=== PATIENT | male | born 1980 | race Caucasian/White ===

== ENCOUNTER 2017-12-06 21:42 | Emergency (ER) | payer OTHER, SELFPAY ==
[2017-12-06 21:43] VITALS: BP 160/110; PULSE 115; RESP 16; TEMP 37.2; O2SAT 99; BMI 29.0
[2017-12-06 21:48] VITALS: BP 159/113; PULSE 113; RESP 18; O2SAT 99
--- NOTE | 2017-12-06 22:53 | ED.VISSUMM ---
- ER Visit Summary Date of Service: 12/06/17 Chief Complaint: Ran out of pain medication History of Present Illness: The patient is a 37 M status post left wrist surgery last month at [facility] presenting requesting a medication refill. He states that he has an appointment with his orthopedic surgeon Friday but that he ran out of pain medication and just needs something to last him until then. He denies any wound drainage, redness, swelling, or warmth. He is not concerned about infection and states that he is here only for a medication refill. Denies any new symptoms or increased pain. Physical Examination: Left wrist splint was taken down. Incisions look great. No evidence of infection. No erythema, warmth, or wound drainage. Test Results: Emergency Department Course and Treatment: His splint and dressings were replaced. He does not have any evidence of infection. Does not want any testing done here and is requesting pain control only. Treatment Plan: Pain was addressed. Prescription history reviewed. Will refill short course of medication and keep his appointment on Friday. Return if any evidence of infection or call his surgeon. Disposition: Home stable Impression: Initial encounter medication refill This note was generated with [email or web address] dictation software. It may contain incorrect words, spelling, and punctuation that were not noted in review of the chart prior to signing ED Disposition - Plan for ED Patient: Chief Complaint: Upper Extremity Injury Instructions: ED Splint Care Babs Prescriptions: Oxycodone HCl/Acetaminophen [Percocet 5/325] 1 tablet PO Q6H PRN PRN 3 Days #12 tablet PRN Reason: Pain Additional Instructions: See Dr. Liu Friday
--- NOTE | 2017-12-06 22:59 | ED.VISSUMM ---
- ER Visit Summary Date of Service: 12/06/17 Chief Complaint: [] History of Present Illness: The patient is a 37 M [] Physical Examination: [] Test Results: [] Emergency Department Course and Treatment: [] Treatment Plan: [] Disposition: [] Impression: [] This note was generated with [employer] dictation software. It may contain incorrect words, spelling, and punctuation that were not noted in review of the chart prior to signing ED Disposition - Plan for ED Patient: Chief Complaint: Upper Extremity Injury Instructions: ED Splint Care Babs Prescriptions: Oxycodone HCl/Acetaminophen [Percocet 5/325] 1 tablet PO Q6H PRN PRN 3 Days #12 tablet PRN Reason: Pain Additional Instructions: See Dr. Liu Miguel
[2017-12-06] MEDS: oxyCODONE 5 MG Tablet PO (23:10)
[2017-12-06 23:12] VITALS: BP 153/109; PULSE 106; RESP 15; O2SAT 99
== END 2017-12-06 23:13 | disposition home or self-care (01) ==
PROVIDERS: Emergency Provider Emergency Medicine; Family Provider Family Medicine; PCP Family Medicine
DX: Z76.0 Encounter for issue of repeat prescription (principal)
CPT/HCPCS: 99282

== ENCOUNTER 2018-02-10 03:40 | Emergency (ER) | payer OTHER, SELFPAY ==
[2018-02-10 03:40] VITALS: BP 176/114; PULSE 104; RESP 16; TEMP 36.9; O2SAT 97; BMI 30.9
--- NOTE | 2018-02-10 04:02 | CT_ITS ---
STUDY: CT ABDOMEN AND PELVIS WITH CONTRAST REASON FOR EXAM: Male, 37 years old. Right lower quadrant pain since Friday. RADIATION DOSAGE (If Supplied By Facility): CTDIvol = ( 15.93 ) mGy, DLP = ( 1256.70 ) mGycm TECHNIQUE: Transaxial images were obtained from the dome of the diaphragm to the symphysis pubis with oral contrast. 100ML ml of Isovue 300 contrast was administered. Sagittal and coronal images were reconstructed. Individualized dose optimization techniques were used for this CT. COMPARISON: 10/08/2016. FINDINGS: The visualized lung bases are unremarkable. The visualized portions of the heart are within normal limits. Normal liver. Normal gallbladder and extrahepatic biliary system. Normal spleen. Normal pancreas. Normal bilateral adrenal glands. Normal right kidney. Normal left kidney. Normal visualized stomach. Normal small intestine. Normal colon. The appendix is visualized on axial images 86-91 and it appears normal.. Normal abdominal aorta. Normal inferior vena cava. Normal retroperitoneum. Normal urinary bladder. There is a small umbilical hernia containing fat, but no bowel. There is left unilateral spondylolysis L5 without associated spondylolisthesis. CT/Abdomen/Pelvis WITH Contrast IMPRESSION: Small umbilical hernia contains fat, but no bowel. No evidence for acute pathology. No evidence for appendicitis or diverticulitis. No demonstrated urinary calculi or hydronephrosis. Electronically Signed: Emre Yin MD at 6:03 EDT , Service support ,
--- NOTE | 2018-02-10 04:03 | ED.VISSUMM ---
- ER Visit Summary Date of Service: 02/10/18 Chief Complaint: Abdominal pain History of Present Illness: The patient is a 37 M presenting with abdominal pain. He states this started gradually on Friday and has worsened throughout the weekend. He has had nausea and vomiting. He denies diarrhea or constipation. He has mild dysuria. He denies fever. He has a decreased appetite. No history of similar symptoms in the past. No other complaints. Physical Examination: Vitals are stable. Patient is afebrile. Alert no acute distress. HEENT exam is unremarkable. Neck is supple. Lungs are clear and equal bilaterally. Heart is regular rate and rhythm. Abdomen is soft right lower quadrant tenderness with voluntary guarding, no rebound Extremities are unremarkable. Skin is warm and dry. Remainder of exam is unremarkable. Emergency Department Course and Treatment: Patient is given IV fluids, morphine, Zofran. CBC, chemistries unremarkable. Liver enzymes show ALT 115, AST 63, lipase is normal. Urinalysis unremarkable. Patient continued to have pain was given Dilaudid IV. CT abdomen pelvis with IV and oral contrast shows umbilical hernia, no acute pathology. He continues to have pain and a gallbladder ultrasound was obtained and shows fatty liver. He was given additional dose of morphine. On reevaluation he is resting comfortably. He does still have tenderness to palpation in the right upper and lower quadrant. He is given a GI cocktail. He is requesting discharge. He is requesting narcotics for home. He is given prescription for Bentyl and Zofran. He is advised to follow-up with his primary care physician. Advised return to ED for any worsening complaints. Disposition: Discharge home Impression: Abdominal pain This note was generated with [employer] dictation software. It may contain incorrect words, spelling, and punctuation that were not noted in review of the chart prior to signing ED Disposition - Plan for ED Patient: Chief Complaint: Abd Pain Instructions: ED Abdominal Pain Unkn Cause Prescriptions: Ondansetron [Zofran Odt] 4 mg PO Q8H PRN PRN #10 tablet PRN Reason: Nausea Dicyclomine HCl [Bentyl] 20 mg PO TIDAC #20 capsule Referrals: Kurt Horta MD [Primary Care Provider] -
[2018-02-10] MEDS: Morphine 4 MG/ML Syringe IV (04:10)
[2018-02-10] MEDS: Ondansetron 4 MG/2 ML Vial IV (04:10)
[2018-02-10] MEDS: 0.9% Normal Saline 1,000 ML 1000 ML IV (04:10)
[2018-02-10 04:12] LABS: Absolute Lymphocyte Count 4.05 X10^3/ul (0.83-4.51); Absolute Neutrophil Count 5.2 X10^3/uL (2.0-7.7); Basophil# 0.07 X10^3/uL; Basophil% 0.7 % (0-1); Eosinophil# 0.29 X10^3/uL; Eosinophils% 2.8 % (0-5); Hematocrit 42.9 % (40-54); Hemoglobin 15.1 g/dl (13.0-16.5); Lymphocyte # 4.05 X10^3/ul (4.0); Lymphocyte % 39.1 % (19-41); Mean Corp Hgb Conc 35.2 g/gl (32-36); Mean Corpuscular Hgb 29.8 pg (27.0-32.0); Mean Corpuscular Volume 84.6 fL (80-94); Mean Platelet Vol. 10.9 fl (6.2-12.0); Monocyte# 0.63 X10^3/uL; Monocyte% 6.1 % (0-10); Neutrophil # 5.19 X10^3/uL (2.7-7.7); Platelet Count 267 K/mm3 (150-450); RBC Distribution Width CV 13.2 % (11.6-14.6); Red Blood Count 5.07 M/mm3 (4.6-6.2); White Blood Count 10.4 K/mm3 (4.4-11.0)
[2018-02-10 04:13] VITALS: BP 194/111; PULSE 68; RESP 16; O2SAT 96
[2018-02-10 04:17] LABS: POSITIVE COUNT NO; POSITIVE DIFFERENTIAL NO; POSITIVE MORPHOLOGY NO
[2018-02-10 04:21] LABS: Anion Gap 10 (5-15); BUN 9 mg/dL (7-18); BUN/Creat Ratio 8.7 RATIO (10-20); Calcium,Total 8.9 mg/dL (8.5-10.1); Chloride 103 mmol/L (98-107); Creatinine, Serum 1.04 mg/dL (0.70-1.30); EST Glomerular Filtration Rate 86 mL/min (>60); Est Glom Filt Rate - Afr Amer 104 mL/min (>60); Estimated Creatinine Clearance 107.78 ml/min; Glucose 97 mg/dL (74-106); Potassium 3.5 mmol/L (3.5-5.1); Sodium Level 140 mmol/L (136-145)
[2018-02-10 05:00] LABS: Bacteria 0 SEEN /hpf (None Seen); Color, Urine Yellow (Yellow); Glucose, Dipstick Normal (Normal); Ketone-Dipstick Negative (Negative); Leukocyte Esterase-Dipstick Negative /ul (Negative); Nitrite-Dipstick Negative (Negative); Occult Blood-Urine Negative /ul (Negative); Protein-Dipstick Negative (Negative); Red Blood Cells-Urine 0 SEEN /hpf (0-5); Squamous Epithelial Cells - UA 0 SEEN /hpf (0-5); Urine Bilirubin Dipstick Negative (Negative); Urine Clarity Clear (Clear); Urine Urobilinogen Normal (Normal); White Blood Cells 0 SEEN /hpf (0-5)
[2018-02-10 05:11] LABS: Mucous, Urine RARE /hpf (<or=2+)
[2018-02-10] MEDS: HYDROmorphone 1 MG/ML Syringe IV (05:18)
--- NOTE | 2018-02-10 06:35 | US_ITS ---
STUDY: ABDOMINAL ULTRASOUND - RIGHT UPPER QUADRANT REASON FOR VISIT: Male, 37 years old. 3 day history of right-sided abdominal pain. TECHNIQUE: Ultrasound evaluation of the right upper quadrant was performed with real-time and static harkins-scale imaging. TECHNICAL QUALITY: Adequate. COMPARISON: Comparison is made with prior CT scan of the abdomen done earlier in the day and prior ultrasound of the abdomen dated October 08, 2016. FINDINGS: Liver: The liver measures 17.0 cm. There is increased echogenicity consistent with fatty infiltration. Focal fatty sparing is seen in the region of the gallbladder fossa. The bile ducts are within normal limits. There is hepatic color flow. The direction of portal flow is hepatopetal. There is no demonstrated mass lesion. Gallbladder: Normal distended gallbladder. The gallbladder wall measures 2.6 mm. There is a negative sonographic Baxter's sign. There is no pericholecystic fluid. There are no gallstones. Common Bile Duct (C.B.D.): The common bile duct measures 3.2 mm. Pancreas: Normal size of the head, body and tail of the pancreas. There is increased echogenicity of the pancreas. There is no demonstrated pancreatic mass or cyst. Right Kidney: Normal size of the right kidney. The right kidney measures 10.3 cm x 5.4 cm x 6.4 cm. Normal renal cortex. The right cortex measures 2.1 cm. There is no demonstrated renal mass or cyst. There is no right hydronephrosis. US/Gallbladder IMPRESSION: Fatty infiltration of the liver with focal fatty sparing. Electronically Signed: Abiodun Archer MD at 8:27 EDT Tel [phone], Service support ,
[2018-02-10 06:56] VITALS: BP 162/115; PULSE 97; RESP 16; O2SAT 93
[2018-02-10] MEDS: morphine 8 MG/ML Syringe IV (06:57)
[2018-02-10 07:03] LABS: AST(SGOT) 63 U/L (15-37); Alanine Aminotransfer ALT/SGPT 115 U/L (16-61); Albumin, Serum 4.2 g/dL (3.2-5.0); Alkaline Phosphatase 117 U/L (45-117); Bilirubin, Direct 0.05 mg/dL (0.00-0.30); Globulin 3.7 g/dL (2.2-4.2); Protein, Total 7.9 g/dL (6.4-8.2)
[2018-02-10 07:13] LABS: Lipase 102 U/L (73-393)
[2018-02-10 08:18] VITALS: BP 156/104; PULSE 94; RESP 18; O2SAT 91
--- NOTE | 2018-02-10 09:12 | ED.DEP ---
ED Disposition - Plan for ED Patient: Chief Complaint: Abd Pain Instructions: ED Abdominal Pain Unkn Cause Prescriptions: Ondansetron [Zofran Odt] 4 mg PO Q8H PRN PRN #10 tablet PRN Reason: Nausea Dicyclomine HCl [Bentyl] 20 mg PO TIDAC #20 capsule Referrals: Kurt Horta MD [Primary Care Provider] -
[2018-02-10] MEDS: Mag Hydrox/Al Hydrox/Simeth 30 ML UDC PO (09:23)
== END 2018-02-10 09:42 | disposition home or self-care (01) ==
PROVIDERS: Emergency Provider Emergency Medicine; Family Provider Family Medicine; PCP Family Medicine
DX: R10.9 Unspecified abdominal pain (principal); K76.0 Fatty (change of) liver, not elsewhere classified; K42.9 Umbilical hernia without obstruction or gangrene; R11.2 Nausea with vomiting, unspecified; R30.0 Dysuria
CPT/HCPCS: 74177; 76705; 80048; 80076; 81001; 83690; 85025; 96361; 96374; 96375; 96376; 99282; J7030; Q9967; A4216; J2405

== ENCOUNTER 2018-02-11 00:13 | Emergency (ER) | payer OTHER, SELFPAY ==
[2018-02-11 00:13] VITALS: BP 180/137; PULSE 106; RESP 18; TEMP 37.5; O2SAT 98; BMI 30.6
[2018-02-11] MEDS: Ketorolac 30 MG/ML Syringe IV (00:35)
[2018-02-11] MEDS: 0.9% Normal Saline 1,000 ML 1000 ML IV (00:35)
[2018-02-11 00:37] LABS: Absolute Lymphocyte Count 2.62 X10^3/ul (0.83-4.51); Absolute Neutrophil Count 4.3 X10^3/uL (2.0-7.7); Basophil# 0.05 X10^3/uL; Basophil% 0.6 % (0-1); Eosinophil# 0.24 X10^3/uL; Eosinophils% 3.1 % (0-5); Hematocrit 44.3 % (40-54); Hemoglobin 15.3 g/dl (13.0-16.5); Lymphocyte # 2.62 X10^3/ul (4.0); Lymphocyte % 33.9 % (19-41); Mean Corp Hgb Conc 34.5 g/gl (32-36); Mean Corpuscular Hgb 29.4 pg (27.0-32.0); Mean Corpuscular Volume 85.2 fL (80-94); Mean Platelet Vol. 10.6 fl (6.2-12.0); Monocyte# 0.48 X10^3/uL; Monocyte% 6.2 % (0-10); Neutrophil # 4.26 X10^3/uL (2.7-7.7); Neutrophil % 55.3 % (47-70); Platelet Count 268 K/mm3 (150-450); RBC Distribution Width CV 13.4 % (11.6-14.6); RBC Distribution Width SD 41.2 fl (35.1-43.9); White Blood Count 7.7 K/mm3 (4.4-11.0)
[2018-02-11 00:39] LABS: POSITIVE COUNT NO; POSITIVE DIFFERENTIAL NO; POSITIVE MORPHOLOGY NO
[2018-02-11 00:53] LABS: ALB/GLOB Ratio 1.1 RATIO (0.9-2.4); AST(SGOT) 41 U/L (15-37); Alanine Aminotransfer ALT/SGPT 91 U/L (16-61); Albumin, Serum 4.2 g/dL (3.2-5.0); Alkaline Phosphatase 121 U/L (45-117); Anion Gap 9 (5-15); BUN 9 mg/dL (7-18); BUN/Creat Ratio 8.4 RATIO (10-20); Calcium,Total 9.1 mg/dL (8.5-10.1); Chloride 102 mmol/L (98-107); Creatinine, Serum 1.07 mg/dL (0.70-1.30); EST Glomerular Filtration Rate 83 mL/min (>60); Est Glom Filt Rate - Afr Amer 100 mL/min (>60); Estimated Creatinine Clearance 104.76 ml/min; Globulin 3.8 g/dL (2.2-4.2); Glucose 91 mg/dL (74-106); Lipase 375 U/L (73-393); Potassium 3.7 mmol/L (3.5-5.1); Sodium Level 138 mmol/L (136-145)
[2018-02-11 01:06] LABS: Bacteria 0 SEEN /hpf (None Seen); Mucous, Urine 0 SEEN /hpf (<or=2+); Red Blood Cells-Urine 0 SEEN /hpf (0-5); Squamous Epithelial Cells - UA 0 SEEN /hpf (0-5); White Blood Cells 0 SEEN /hpf (0-5)
[2018-02-11 01:07] LABS: Color, Urine Yellow (Yellow); Glucose, Dipstick Normal (Normal); Ketone-Dipstick Negative (Negative); Leukocyte Esterase-Dipstick Negative /ul (Negative); Nitrite-Dipstick Negative (Negative); Occult Blood-Urine Negative /ul (Negative); Protein-Dipstick Negative (Negative); Urine Bilirubin Dipstick Negative (Negative); Urine Clarity Clear (Clear); Urine Urobilinogen Normal (Normal)
[2018-02-11 01:09] VITALS: BP 181/107; PULSE 99; RESP 17; O2SAT 98
--- NOTE | 2018-02-11 01:33 | ED.VISSUMM ---
- ER Visit Summary Date of Service: 02/11/18 Chief Complaint: Abdominal pain History of Present Illness: The patient is a 37 M who presents with abdominal pain. This is been present for about 5 days. He complains of sharp right sided mid abdominal pain that radiates through into the back. He currently rates this as a 9 out of 10. He also had one episode of diarrhea today. He was seen last night in the emergency department for similar symptoms. At that time he had laboratory studies CT of the abdomen and right upper quadrant ultrasound. He states he was told to follow-up with his primary care physician but they were unable to get him in. He returns due to uncontrolled pain. Physical Examination: Initial blood pressure 180/137. This is improved on recheck. Resting comfortably no distress Moist mucous membranes Heart regular rhythm tachycardic Lungs are clear Abdomen soft nondistended he has right-sided mid abdominal tenderness without guarding without rebound Alert Test Results: CBC CMP unremarkable. Hepatic function notable for mild elevation of ALT and AST which are improved from labs yesterday. Lipase is normal. Urinalysis is normal. Emergency Department Course and Treatment: Patient was treated with IV fluids Toradol and Zofran. He reports little change in his symptoms. He was given oral oxycodone. At this time he does not appear to have a surgical abdomen. He has no guarding no rebound. His laboratory studies are unremarkable. He underwent extensive workup yesterday including CT and ultrasound. [facility] report does show 28 prescriptions for hydrocodone or oxycodone in the last year which is concerning. I did not feel further opiate prescriptions were therefore appropriate. We will refer to general surgery for further outpatient evaluation. I discussed with him possible need for further outpatient workup including studies such as a colonoscopy or a HIDA scan. He vocalized understanding. He is agreeable to this plan. He understands return for new or worsening symptoms. He was discharged. Treatment Plan: [] Disposition: Discharge Impression: Abdominal pain of uncertain etiology This note was generated with [employer] dictation software. It may contain incorrect words, spelling, and punctuation that were not noted in review of the chart prior to signing ED Disposition - Plan for ED Patient: Chief Complaint: Abd Pain Referrals: Kurt Horta MD [Primary Care Provider] -
--- NOTE | 2018-02-11 01:37 | ED.DEP ---
ED Disposition - Plan for ED Patient: Chief Complaint: Abd Pain Instructions: ED Abdominal Pain Unkn Cause Referrals: Kurt Horta MD [Primary Care Provider] -
--- NOTE | 2018-02-11 01:37 | ED.DEP ---
ED Disposition - Plan for ED Patient: Chief Complaint: Abd Pain Instructions: ED Abdominal Pain Unkn Cause Referrals: Kurt Horta MD [Primary Care Provider] - Lennox Montano MD [STAFF PHYSICIAN] -
--- NOTE | 2018-02-11 01:38 | ED.DEP ---
ED Disposition - Plan for ED Patient: Chief Complaint: Abd Pain Instructions: ED Abdominal Pain Unkn Cause Male Referrals: Lennox Montano MD [STAFF PHYSICIAN] - Kurt Horta MD [Primary Care Provider] -
[2018-02-11] MEDS: oxyCODONE 5 MG Tablet 10 MG PO (01:57)
[2018-02-11 01:58] VITALS: BP 175/109; PULSE 84; RESP 18; O2SAT 96
== END 2018-02-11 02:03 | disposition home or self-care (01) ==
LOC: ED 00:32
PROVIDERS: Emergency Provider Emergency Medicine; Family Provider Family Medicine; PCP Family Medicine
DX: R10.9 Unspecified abdominal pain (principal); R19.7 Diarrhea, unspecified; I10 Essential (primary) hypertension; F32.9 Major depressive disorder, single episode, unspecified
CPT/HCPCS: 80053; 81001; 83690; 85025; 96361; 96374; 99282; J7030; A4216

== ENCOUNTER 2018-02-11 22:21 | Emergency (ER) | payer OTHER, SELFPAY ==
[2018-02-11 22:21] VITALS: BP 201/111; PULSE 124; RESP 22; TEMP 36.2; O2SAT 97; BMI 29.1
[2018-02-11] MEDS: 0.9% Normal Saline 1,000 ML 1000 ML IV (22:58)
[2018-02-11] MEDS: Morphine 4 MG/ML Syringe IV (22:58)
[2018-02-11] MEDS: proMETHazine 25 MG/ML Syringe 12.5 MG IV (22:58)
[2018-02-11 23:00] LABS: Absolute Lymphocyte Count 2.17 X10^3/ul (0.83-4.51); Absolute Neutrophil Count 4.1 X10^3/uL (2.0-7.7); Basophil# 0.03 X10^3/uL; Basophil% 0.4 % (0-1); Eosinophil# 0.29 X10^3/uL; Eosinophils% 4.2 % (0-5); Hematocrit 43.6 % (40-54); Hemoglobin 14.7 g/dl (13.0-16.5); Lymphocyte # 2.17 X10^3/ul (4.0); Lymphocyte % 31.3 % (19-41); Mean Corp Hgb Conc 33.7 g/gl (32-36); Mean Corpuscular Hgb 29.1 pg (27.0-32.0); Mean Corpuscular Volume 86.3 fL (80-94); Mean Platelet Vol. 10.4 fl (6.2-12.0); Monocyte# 0.34 X10^3/uL; Monocyte% 4.9 % (0-10); Neutrophil # 4.07 X10^3/uL (2.7-7.7); Neutrophil % 58.6 % (47-70); POSITIVE COUNT NO; POSITIVE DIFFERENTIAL NO; POSITIVE MORPHOLOGY NO; Platelet Count 235 K/mm3 (150-450); RBC Distribution Width CV 13.3 % (11.6-14.6); RBC Distribution Width SD 42.1 fl (35.1-43.9); Red Blood Count 5.05 M/mm3 (4.6-6.2); White Blood Count 6.9 K/mm3 (4.4-11.0)
--- NOTE | 2018-02-11 23:07 | ED.DCSUM_ITS ---
- ER Visit Summary Date of Service: 02/11/18 Chief Complaint: Right-sided abdominal pain History of Present Illness: The patient is a 37 M with right-sided abdominal pain for the past 6 days. He does report nausea, vomiting, and diarrhea. He was seen in the ER the last 2 nights for the same. He had a CT scan abdomen and pelvis and right upper quadrant ultrasound 2 days ago that were unremarkable. Patient reports continued vomiting and diarrhea. He has had some mild chills but no fever. Physical Examination: Blood pressure is 201/111, temperature 97.1, heart rate 124, respiratory rate 22, pulse ox 97% on room air. Patient is lying in bed. He is holding the right side of his abdomen and appears uncomfortable, but he is in no acute distress. Heart is tachycardic and regular. Lung sounds are clear. Abdomen is soft with mild to moderate right-sided abdominal tenderness, both right upper and right lower quadrants. He does have active bowel sounds throughout. There is no guarding or rebound. Test Results: CBC and chemistry studies are normal. LFTs are significant only for an ALT of 80. His ALT trend over the past 3 days has been 115, 91, 80. Urinalysis is normal. CT abdomen pelvis was repeated tonight. There is very mild mesenteric haziness and prominent proximal small bowel loops. Enteritis is possible but it is very subtle. Remainder of scan is completely normal. Emergency Department Course and Treatment: Patient was initially given a dose of morphine and Zofran. He then received a dose of Toradol along with Reglan and Benadryl for continued nausea. I did do an oars report. Patient has had regular oxycodone prescriptions for his PCP. Most recent prescriptions were 30 tabs filled on December 18 and 30 tabs filled on December 11. I spoke with the patient thinking that perhaps he was going through opiate withdrawal if he just recently finished these. He states those medicines lasted him approximately 1 week and were provided after a wrist surgery. He has not been on opiates in the last 3 weeks. Patient will be given a home pack only of oxycodone. He will be referred to surgery for follow-up as needed. Repeat blood pressure is 144/94 with a heart rate of 91. Treatment Plan: [] Disposition: Discharge Impression: Abdominal pain, uncertain etiology This note was generated with [employer] dictation software. It may contain incorrect words, spelling, and punctuation that were not noted in review of the chart prior to signing ED Disposition - Plan for ED Patient: Chief Complaint: Abd Pain Referrals: Kurt Horta MD [Primary Care Provider] -
[2018-02-11 23:08] LABS: Bacteria 0 SEEN /hpf (None Seen); Mucous, Urine 0 SEEN /hpf (<or=2+); Red Blood Cells-Urine 0 SEEN /hpf (0-5); Squamous Epithelial Cells - UA 0 SEEN /hpf (0-5); White Blood Cells 0 SEEN /hpf (0-5)
[2018-02-11 23:13] LABS: Color, Urine Yellow (Yellow); Glucose, Dipstick Normal (Normal); Ketone-Dipstick Negative (Negative); Leukocyte Esterase-Dipstick Negative /ul (Negative); Nitrite-Dipstick Negative (Negative); Occult Blood-Urine Negative /ul (Negative); Protein-Dipstick Negative (Negative); Urine Bilirubin Dipstick Negative (Negative); Urine Clarity Clear (Clear); Urine Urobilinogen Normal (Normal)
[2018-02-11 23:17] LABS: AST(SGOT) 37 U/L (15-37); Alanine Aminotransfer ALT/SGPT 80 U/L (16-61); Albumin, Serum 3.9 g/dL (3.2-5.0); Alkaline Phosphatase 116 U/L (45-117); Anion Gap 9 (5-15); BUN 8 mg/dL (7-18); BUN/Creat Ratio 7.1 RATIO (10-20); Bilirubin, Direct 0.07 mg/dL (0.00-0.30); Calcium,Total 8.8 mg/dL (8.5-10.1); Chloride 103 mmol/L (98-107); Creatinine, Serum 1.13 mg/dL (0.70-1.30); EST Glomerular Filtration Rate 78 mL/min (>60); Est Glom Filt Rate - Afr Amer 94 mL/min (>60); Estimated Creatinine Clearance 99.19 ml/min; Globulin 3.8 g/dL (2.2-4.2); Glucose 102 mg/dL (74-106); Lipase 91 U/L (73-393); Potassium 3.7 mmol/L (3.5-5.1); Protein, Total 7.7 g/dL (6.4-8.2); Sodium Level 139 mmol/L (136-145)
[2018-02-12] MEDS: Ketorolac 30 MG/ML Syringe IV (00:03)
[2018-02-12] MEDS: 0.9% Normal Saline 1,000 ML 150 ML IV (00:03)
[2018-02-12 00:04] VITALS: BP 203/126; PULSE 96; RESP 16; O2SAT 94
--- NOTE | 2018-02-12 00:36 | ED.RN ---
PATIENT VOMITTED. CONTINUES TO BE NAUSEOUS. DR. AYLIN RENAE.
[2018-02-12] MEDS: DiphenhydrAMINE 50 MG/ML Syringe 25 MG IV (00:43)
[2018-02-12] MEDS: Metoclopramide 10 MG/2 ML Vial IV (00:44)
[2018-02-12] MEDS: Morphine 4 MG/ML Syringe IV (01:32)
[2018-02-12] MEDS: Ondansetron 4 MG/2 ML Vial IV (01:32)
[2018-02-12 01:35] VITALS: BP 144/94; PULSE 91; RESP 14
--- NOTE | 2018-02-12 02:31 | ED.DEP ---
ED Disposition - Plan for ED Patient: Disposition: Home or Assisted Living Chief Complaint: Abd Pain Instructions: ED Abdominal Pain Unkn Cause Male Prescriptions: proMETHazine tablet [Phenergan] 25 mg PO Q6H PRN PRN #10 tablet PRN Reason: Nausea Referrals: Kurt Horta MD [Primary Care Provider] - Twan Shelley MD [STAFF PHYSICIAN] - As soon as possible
[2018-02-12] MEDS: oxyCODONE 5 MG Tablet PO (02:40)
[2018-02-12 02:41] VITALS: BP 145/102; PULSE 96; RESP 16
--- NOTE | 2018-02-12 22:48 | CT_ITS ---
STUDY: CT ABDOMEN AND PELVIS WITH CONTRAST REASON FOR EXAM: Male, 37 years old. Right lower quadrant pain radiating into back with nausea, vomiting and diarrhea, increased pain today, history of hypertension. RADIATION DOSAGE (If Supplied By Facility): CTDIvol = ( 17.98 ) mGy, DLP = ( 1303.78 ) mGycm TECHNIQUE: Transaxial 3.75 mm images were obtained from the dome of the diaphragm to the symphysis pubis with oral contrast. 100 ml of Isovue 300 contrast was administered. Sagittal and coronal images were reconstructed. Individualized dose optimization techniques were used for this CT. COMPARISON: CT abdomen pelvis 02/10/2018. 10/08/2016. Abdominal ultrasound 02/10/2018. FINDINGS: The visualized lung bases are unremarkable. The visualized portions of the heart are within normal limits. There is stable mild decreased attenuation of the liver consistent with steatosis. Normal gallbladder and extrahepatic biliary system. Normal spleen. Normal pancreas. Normal bilateral adrenal glands. Normal right kidney. Normal left kidney. There is no obstructive uropathy, obstructive renal or ureteral calculi. Normal visualized stomach. Normal small intestine. There are scattered rare colonic diverticula consistent with diverticulosis. The appendix is visualized and appears normal. Image 90-98 series 2. Mild hazy attenuation of the proximal small bowel mesentery not seen on previous examination. No enlarged mesenteric lymph nodes. Mild jejunal distention up to 2.5 cm. Normal abdominal aorta. Normal inferior vena cava. Normal retroperitoneum. Normal urinary bladder. Normal visualized prostate gland. Normal abdominal wall. 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 CT/Abdomen/Pelvis WITH Contrast IMPRESSION: There is no appendicitis, colitis, diverticulitis, ascites, hydronephrosis, abscess, collection, perforation or obstruction. Mild mesenteric haziness and prominent proximal small bowel, possible mesenteritis/enteritis possible, these however are subtle findings. Scattered rare colonic diverticula not appreciated on previous exam. Other nonacute findings as outlined above. Electronically Signed: Annette Rosales MD at 1:57 EDT , Service support ,
== END 2018-02-12 02:41 | disposition home or self-care (01) ==
PROVIDERS: Emergency Provider Emergency Medicine; Family Provider Family Medicine; PCP Family Medicine
DX: R10.9 Unspecified abdominal pain (principal); R11.2 Nausea with vomiting, unspecified; R19.7 Diarrhea, unspecified; I10 Essential (primary) hypertension; F41.9 Anxiety disorder, unspecified; F32.9 Major depressive disorder, single episode, unspecified
CPT/HCPCS: 74177; 80048; 80076; 81001; 83690; 85025; 96361; 96374; 96375; 96376; 99283; J7030; Q9967; A4216; J2405

== ENCOUNTER 2018-02-16 07:13 | Emergency (ER) | payer OTHER, SELFPAY ==
[2018-02-16 07:14] VITALS: BP 168/104; PULSE 120; RESP 30; TEMP 36.2; O2SAT 100; BMI 29.1
--- NOTE | 2018-02-16 07:34 | RAD_ITS ---
STUDY: X-RAY - UNILATERAL RIBS ( RIGHT ) WITH CHEST REASON FOR EXAM: Male, 37 years old. Anterior rib pain following a fall. TECHNIQUE - RIBS: 4 view(s) of the ribs. TECHNIQUE - CHEST: Single PA view of the chest. COMPARISON: None. FINDINGS - RIBS: Normal visualized ribs without a demonstrated fracture. FINDINGS - CHEST: The lungs are clear and expanded. There is no demonstrated pleural abnormality. Normal size heart. Normal mediastinum and dylon. Normal visualized pulmonary arteries. Normal visualized aortic arch and descending thoracic aorta. Normal visualized thoracic spine. Normal visualized ribs, clavicles, and shoulders. There is no demonstrated abnormality of the visualized soft tissue structures of the upper abdomen. RAD/Ribs Uni Min 3V w/PA Chest IMPRESSION: RIBS: Normal x-ray examination of the ribs. CHEST: Normal x-ray examination of the chest. Electronically Signed: Abiodun Archer MD at 8:29 EDT Tel [phone], Service support ,
--- NOTE | 2018-02-16 07:48 | ED.VISSUMM ---
- ER Visit Summary Date of Service: 02/16/18 Chief Complaint: Fall History of Present Illness: The patient is a 37 M who states that 0645 hours this morning he sustained a fall striking the right side of his chest on furniture. He took ibuprofen and came to the emergency department. 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 Those evaluations were negative. Patient states he feels the pain worse with breathing. He states he is breathing fast because he does not want to take a deep breath. Physical Examination: Afebrile vital signs show tachycardia and tachypnea 100% on room air Gen: Well-nourished well-developed Head: Normocephalic atraumatic Eyes: Perrl EOMI ENT: TMs clear no rhinorrhea moist mucous membranes Neck: Supple no lymphadenopathy no JVD nontender CVS: Regular rate rhythm no murmurs normal S1-S2 Respiratory: No distress clear to auscultation bilaterally there is right anterior lower chest wall tenderness (see diagram on TC). There is some erythema and slight ecchymosis. The abdominal exam is negative. Abdomen: Soft nontender nondistended normal bowel sounds no masses Back: Nontender Extremity: Nontender no edema Skin: Normal color no rash Neuro: alert orientated ?3 CN II-XII intact normal strength sensation reflexes gait cerebellar Psych: Normal affect normal mood Test Results: Rib series was obtained. These were read as negative for fracture pulmonary contusion. Emergency Department Course and Treatment: Patient will be given a dose of Toradol here. I will prescribe ibuprofen. Impression: 1. Right chest wall contusion This note was generated with [employer] dictation software. It may contain incorrect words, spelling, and punctuation that were not noted in review of the chart prior to signing ED Disposition - Plan for ED Patient: Disposition: Home or Assisted Living Chief Complaint: Chest Other Instructions: ED Contusion Chest Wall Prescriptions: Ibuprofen [Motrin] 800 mg PO TID PRN PRN #20 tab PRN Reason: Pain Referrals: Kurt Horta MD [Primary Care Provider] - (2 weeks if not improved)
--- NOTE | 2018-02-16 07:52 | ED.DCSUM_ITS ---
- ER Visit Summary Date of Service: 02/16/18 Chief Complaint: Fall History of Present Illness: The patient is a 37 M who states that 0645 hours this morning he sustained a fall striking the right side of his chest on furniture. He took ibuprofen and came to the emergency department. 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 Those evaluations were negative. Patient states he feels the pain worse with breathing. He states he is breathing fast because he does not want to take a deep breath. Physical Examination: Afebrile vital signs show tachycardia and tachypnea 100% on room air Gen: Well-nourished well-developed Head: Normocephalic atraumatic Eyes: Perrl EOMI ENT: TMs clear no rhinorrhea moist mucous membranes Neck: Supple no lymphadenopathy no JVD nontender CVS: Regular rate rhythm no murmurs normal S1-S2 Respiratory: No distress clear to auscultation bilaterally there is right anterior lower chest wall tenderness (see diagram on TC). There is some erythema and slight ecchymosis. The abdominal exam is negative. Abdomen: Soft nontender nondistended normal bowel sounds no masses Back: Nontender Extremity: Nontender no edema Skin: Normal color no rash Neuro: alert orientated ?3 CN II-XII intact normal strength sensation reflexes gait cerebellar Psych: Normal affect normal mood Test Results: Rib series was obtained. These were read as negative for fracture pulmonary contusion. Emergency Department Course and Treatment: Patient will be given a dose of Toradol here. I will prescribe ibuprofen. Impression: 1. Right chest wall contusion This note was generated with [employer] dictation software. It may contain incorrect words, spelling, and punctuation that were not noted in review of the chart prior to signing ED Disposition - Plan for ED Patient: Disposition: Home or Assisted Living Chief Complaint: Chest Other Instructions: ED Contusion Chest Wall Prescriptions: Ibuprofen [Motrin] 800 mg PO TID PRN PRN #20 tab PRN Reason: Pain Referrals: Kurt Horta MD [Primary Care Provider] - (2 weeks if not improved)
[2018-02-16] MEDS: Ketorolac 10 MG Tablet PO (08:48)
[2018-02-16 08:49] VITALS: BP 138/73; PULSE 101; RESP 16; O2SAT 97
== END 2018-02-16 08:49 | disposition home or self-care (01) ==
PROVIDERS: Emergency Provider Emergency Medicine; Family Provider Family Medicine; PCP Family Medicine
DX: S20.211A Contusion of right front wall of thorax, initial encounter (principal); W22.03XA Walked into furniture, initial encounter; Y93.9 Activity, unspecified; Y92.89 Other specified places as the place of occurrence of the external cause; Y99.9 Unspecified external cause status; R10.9 Unspecified abdominal pain; F32.9 Major depressive disorder, single episode, unspecified
CPT/HCPCS: 71101; 99283

== ENCOUNTER 2018-04-06 00:26 | Emergency (ER) | payer OTHER, SELFPAY ==
[2018-04-06 00:28] VITALS: BP 163/105; PULSE 86; RESP 16; TEMP 36.6; O2SAT 97; BMI 30.5
[2018-04-06] MEDS: 0.9% Normal Saline 1,000 ML 1000 ML IV (00:51)
[2018-04-06] MEDS: Ketorolac 30 MG/ML Syringe IV (00:51)
[2018-04-06] MEDS: Ondansetron 4 MG/2 ML Vial IV (00:52)
[2018-04-06 00:57] LABS: Absolute Lymphocyte Count 3.05 X10^3/ul (0.83-4.51); Basophil# 0.04 X10^3/uL; Basophil% 0.5 % (0-1); Eosinophils% 2.6 % (0-5); Hematocrit 46.6 % (40-54); Hemoglobin 16.1 g/dl (13.0-16.5); Lymphocyte # 3.05 X10^3/ul (4.0); Lymphocyte % 39.4 % (19-41); Mean Corp Hgb Conc 34.5 g/gl (32-36); Mean Corpuscular Hgb 29.6 pg (27.0-32.0); Mean Corpuscular Volume 85.7 fL (80-94); Mean Platelet Vol. 11.2 fl (6.2-12.0); Monocyte# 0.47 X10^3/uL; Monocyte% 6.1 % (0-10); Neutrophil # 3.98 X10^3/uL (2.7-7.7); Neutrophil % 51.3 % (47-70); Platelet Count 249 K/mm3 (150-450); RBC Distribution Width CV 12.7 % (11.6-14.6); RBC Distribution Width SD 39.4 fl (35.1-43.9); Red Blood Count 5.44 M/mm3 (4.6-6.2); White Blood Count 7.8 K/mm3 (4.4-11.0)
[2018-04-06 00:58] LABS: POSITIVE COUNT NO; POSITIVE DIFFERENTIAL NO; POSITIVE MORPHOLOGY NO
[2018-04-06 01:14] LABS: ALB/GLOB Ratio 1.3 RATIO (0.9-2.4); AST(SGOT) 16 U/L (15-37); Alanine Aminotransfer ALT/SGPT 30 U/L (16-61); Albumin, Serum 4.7 g/dL (3.2-5.0); Alkaline Phosphatase 118 U/L (45-117); Anion Gap 10 (5-15); BUN 10 mg/dL (7-18); BUN/Creat Ratio 8.9 RATIO (10-20); Calcium,Total 8.8 mg/dL (8.5-10.1); Chloride 104 mmol/L (98-107); Creatinine, Serum 1.12 mg/dL (0.70-1.30); EST Glomerular Filtration Rate 79 mL/min (>60); Est Glom Filt Rate - Afr Amer 95 mL/min (>60); Estimated Creatinine Clearance 100.08 ml/min; Globulin 3.6 g/dL (2.2-4.2); Glucose 92 mg/dL (74-106); Lipase 107 U/L (73-393); Potassium 3.5 mmol/L (3.5-5.1); Protein, Total 8.3 g/dL (6.4-8.2); Sodium Level 140 mmol/L (136-145)
[2018-04-06 01:33] LABS: Squamous Epithelial Cells - UA 0 SEEN /hpf (0-5)
--- NOTE | 2018-04-06 01:37 | ED.RN ---
doctor made aware patient wanting pain medication at this time. Dr. Jordan made aware. Doctor will speak with patient at this time
[2018-04-06 01:38] LABS: Color, Urine Yellow (Yellow); Glucose, Dipstick Normal (Normal); Ketone-Dipstick 5 mg/dl (Negative); Leukocyte Esterase-Dipstick 25 /ul (Negative); Nitrite-Dipstick Negative (Negative); Occult Blood-Urine Negative /ul (Negative); Protein-Dipstick 15 mg/dl (Negative); Specific Gravity, Urine 1.015 (1.002-1.030); Urine Bilirubin Dipstick 1 mg/dL (Negative); Urine Clarity Clear (Clear); Urine Urobilinogen 1 mg/dl (Normal)
[2018-04-06 01:45] LABS: Bacteria RARE /hpf (None Seen); Mucous, Urine 2+ /hpf (<or=2+); Red Blood Cells-Urine 0 SEEN /hpf (0-5); White Blood Cells 0-5 SEEN /hpf (0-5)
--- NOTE | 2018-04-06 02:41 | ED.RN ---
WENT TO SPEAK WITH PATIENT REGARDING THE MULTIPLE REQUESTS FOR PAIN MEDICATION. MD EXPLAINED TO PATIENT THAT HE WOULD NOT BE GETTING ANY NARCOTIC PAIN MEDICATION UNTIL A SOURCE OF HIS PAIN WAS FOUND DUE TO MULTIPLE PRESCRIPTIONS OF NARCOTICS FROM MULTIPLE ER DOCTORS. PT STATES HE CAN JUST GO HOME AND TAKE HIS PERCOCET. HE STATES YES THAT HE UNDERSTANDS THE RISK OF LEAVING AGAINST MEDICAL ADVICE PRIOR TO STUDIES BEING COMPLETED
--- NOTE | 2018-04-06 02:51 | ED.DCSUM_ITS ---
- ER Visit Summary Date of Service: 04/06/18 Chief Complaint: Abdominal pain History of Present Illness: The patient is a 37 M who presents with abdominal pain. He states began yesterday. He complains of severe right lower quadrant pain which was initially dull but has become more sharp. He does have a history of prior similar symptoms. He had multiple visits to our emergency department in late January for similar symptoms. He had normal laboratory studies normal CT normal ultrasound. He was referred to general surgery. The patient reports that he followed up but was unable to tell me what their recommendations were and claims he cannot remember who it was. He states that since late January his symptoms had been well controlled until yesterday. Physical Examination: Afebrile blood pressure 163/105 vitals otherwise unremarkable Moist mucous membranes Heart regular rate and rhythm Lungs clear Abdomen soft nondistended he does have some right lower quadrant tenderness without guarding without rebound with Rovsing sign Alert Test Results: CBC CMP lipase unremarkable. Urinalysis unremarkable. Emergency Department Course and Treatment: Laboratory studies ordered as above. CT of the abdomen and pelvis with oral and IV contrast was ordered. OAS report shows 63 prescriptions, 16 prescribers and 14 pharmacies. Of note since his last emergency department visit here during the time when he states his symptoms were well controlled I note four opiate prescriptions, all from different emergency providers and associated with [facility] in [place]. This is very concerning for drug-seeking behavior. Therefore I did not want to treat with opiates here unless I found a verifiable source of pain. The patient had called out to nursing multiple times that his symptoms were not controlled he wanted to speak to the physician. However I was evaluating a critical patient and not able to immediately return. When I was able to return to discuss with the patient he was already dressed and stating he was going to leave. He said I have Percocet at home I can just go take that it is clear you do not want to give me any other pain medicine. I expalined given his report of right lower quadrant pain he should still undergo CT imaging to rule out appendicitis. I discussed the risks of complications including if he left without this. He vocalized understanding and stated he was willing to take these risks and left. He did not sign any AGAINST MEDICAL ADVICE form or document. Treatment Plan: [] Disposition: Left AGAINST MEDICAL ADVICE Impression: Right lower quadrant abdominal pain, chronic This note was generated with [employer] dictation software. It may contain incorrect words, spelling, and punctuation that were not noted in review of the chart prior to signing ED Disposition - Plan for ED Patient: Disposition: Against Medical Advice Chief Complaint: Abd Pain Referrals: Care Physician,No Primary [Primary Care Provider] -
--- OUTSIDE RECORDS SUMMARY | 2018-07-08 14:14 | XMS RPT_ITS ---
:1980 Author Organization OHIP Support Name Relationship Address Phone UNK, UNK Unavailable Unavailable + ARMOND MONK Unavailable [address] + [place] [address] [facility] Unavailable [address] + [place] [address] Austen Monk Unavailable Unavailable + Austen Monk Unavailable Unavailable + NONE, PROVIDED Unavailable Unavailable Unavailable NONE, PROVIDED Unavailable Unavailable Unavailable NONE, PROVIDED Unavailable Unavailable Unavailable NONE, PROVIDED Unavailable Unavailable Unavailable ARMOND MONK Unavailable [address] + [place] [address] ARMOND MONK Unavailable [address] + [place] [address] [facility] Unavailable [address] + [place] [address] ARMOND MONK Unavailable Unavailable + MASSILLON CABLE Unavailable [address] + [place] [address] NO, ONE Unavailable UNKNOWN + [place] [address] NO, ONE Unavailable UNKNOWN + [place] [address] ARMOND MONK Unavailable [address] + [address] [place] [address] NOT GIVEN Unavailable Unavailable Unavailable ARMOND MONK Unavailable [address] + [address] [place] [address] NOT GIVEN Unavailable HIRERIGHT Unavailable ARMOND MONK Unavailable [address] + [address] [place] [address] NOT GIVEN Unavailable Unavailable Unavailable ARMOND MONK Unavailable [address] + [address] [place] [address] NOT GIVEN Unavailable Unavailable Unavailable LACHO ARMOND Unavailable [address] + [place] [address] [facility] Unavailable [address] + [place] [address] ARMOND MONK Unavailable [address] + [place] [address] [facility] Unavailable [address] + [place] [address] ITZEL MONKITA Unavailable [address] + [place] [address] [facility] Unavailable [address] + [place] [address] ARMOND MONK Unavailable [address] + [place] [address] [facility] Unavailable [address] + [place] [address] Austen Monk Unavailable Unavailable + ARMOND MONK Unavailable [address] + [address] [place] [address] NOT GIVEN Unavailable Unavailable Unavailable Austen Monk Unavailable Unavailable + Austen Monk Unavailable Unavailable + ARMOND MONK Unavailable [address] + [place] [address] [facility] Unavailable [address] + [place] [address] Austen Monk Unavailable Unavailable + Lacho Austen Unavailable Unavailable + Monk, Austen Unavailable Unavailable + ARMOND MONK Unavailable [address] + [address] [place] [address] NOT GIVEN Unavailable Unavailable Unavailable Lacho, Austen Unavailable Unavailable + Lacho Austen Unavailable Unavailable + Monk, Austen Unavailable Unavailable + Lacho, Austen Unavailable Unavailable + Care Team Providers Name Role Phone Peg Brizuela Attending Unavailable José Veraslillian Kat Primary Care Unavailable HUGO THOMPSON Attending Unavailable HUGO THOMPSON Admitting Unavailable HUGO THOMPSON Attending Unavailable HUGO THOMPSON Referring Unavailable NHUNG WALKER, DR. MEDRANO Attending Unavailable NONI WALKER, DR. HARDING Primary Care Unavailable OSMAR MARKHAM MD Attending Unavailable NONI WALKER, DR. HARDING Primary Care Unavailable NONI WALKER, DR. HARDING Primary Care Unavailable MARTHA QUINN MD, V. Admitting Unavailable MARTHA QUINN MD, V. Attending Unavailable NONI WALKER, DR. HARDING Primary Care Unavailable ROBBIE BLACK DO Attending Unavailable MITCHELL DESAI MD Referring Unavailable Peter Miguel Admitting Unavailable Peter Miguel Attending Unavailable No Doctor Assigned, Nodr Primary Care Unavailable Revill, Dr. Carlos Alberto Camilo Admitting Unavailable Revill, Dr. Carlos Alberto Camilo Attending Unavailable KERI XIE Consulting Unavailable José Verasmond Primary Care Unavailable Kevin Saavedra Attending Unavailable Kevin Saavedra Referring Unavailable José Verasmond Primary Care Unavailable Meredith Tejada Attending Unavailable José Verasmond Primary Care Unavailable Arslan Jordan Attending Unavailable José Verasmond Primary Care Unavailable Rosa Isela Harris Attending Unavailable Noni Meaghan Primary Care Unavailable Mike Zarate Attending Unavailable Arslan Jordan Attending Unavailable Primay Care Physicia, No Primary Care Unavailable FRANKLIN TREVINO JR Attending Unavailable DR ROSENDO DAVID Admitting Unavailable JOANN, DR ROSENDO Gregorio Attending Unavailable NO, DOCTOR ON Referring Unavailable JOANN, DR ROSENDO Gregorio Primary Care Unavailable NO, DOCTOR ON Consulting Unavailable MERCED LIU MD Admitting Unavailable MERCED LIU MD Attending Unavailable MERCED LIU MD Primary Care Unavailable NO, DOCTOR ON Consulting Unavailable DR MAXIMO HATCH Admitting Unavailable BRITTNI, DR MAXIMO Moreno Attending Unavailable DR MAXIMO HATCH Primary Care Unavailable NO, DOCTOR ON Consulting Unavailable DR ROSENDO DAVID Admitting Unavailable JOANN, DR ROSENDO Gregorio Attending Unavailable NO, DOCTOR ON Referring Unavailable JOANN, DR ROSENDO Gregorio Primary Care Unavailable NO, DOCTOR ON Consulting [facility] Ad[facility] Attending Unavailable [facility] Primary Care Unavailable NO, DOCTOR ON Consulting Unavailable ROSALIO HOOK M Admitting Unavailable HABERROSALIO BERNAL M Attending Unavailable NONI, MEAGHAN Referring Unavailable HABERBERGER, ROSALIO M Primary Care Unavailable NONI, MEAGHAN Consulting Unavailable PROVIDER, UNKNOWN Consulting Unavailable PROVIDER, UNKNOWN Consulting Unavailable NONE, NONE Primary Care Unavailable SELIN DRAWER IN JACQUARD LOOM, LORI Consulting Unavailable WOOD DO, KENDALL A Admitting Unavailable WOOD DO, KENDALL A Attending Unavailable Savanah [phone], Yves [phone] Consulting Unavailable NONE, NONE Consulting Unavailable ELIAS BENÍTEZ Attending Unavailable MARY MARTIN Attending Unavailable MARQUISE NEUMANN PA-C Primary Care Unavailable JUICE SHARMA Attending Unavailable JESS HDZ Attending Unavailable BERTHA ZHANG DO Attending Unavailable NO FAMILY PHYSICIAN, 837 Primary Care Unavailable PCP, None Primary Care Unavailable Julita WALDEN, Leonard Moreno Attending Unavailable Merced Liu Attending Unavailable PROVIDER, UNKNOWN Referring Unavailable Noni, Meaghan Primary Care Unavailable Merced Liu Attending Unavailable PROVIDER, UNKNOWN Referring Unavailable Noni, Meaghan Primary Care Unavailable PROVIDER, UNKNOWN Attending Unavailable PROVIDER, UNKNOWN Referring Unavailable Noni, Meaghan Primary Care Unavailable NoeFouzia cruzk Attending Unavailable PROVIDER, UNKNOWN Referring Unavailable Noni, Meaghan Primary Care Unavailable NoeFouzia cruzk Attending Unavailable PROVIDER, UNKNOWN Referring Unavailable Noni, Meaghan Primary Care Unavailable Noe, Merced Attending Unavailable PROVIDER, UNKNOWN Referring Unavailable Noni, Meaghan Primary Care Unavailable Oriana Plummer Attending Unavailable PROVIDER, UNKNOWN Referring Unavailable Noni, Meaghan Primary Care Unavailable Oriana Plummer Attending Unavailable PROVIDER, UNKNOWN Referring Unavailable Noni, Meaghan Primary Care Unavailable Noe, Merced Attending Unavailable PROVIDER, UNKNOWN Referring Unavailable Noni, Meaghan Primary Care Unavailable Noe, Merced Attending Unavailable PROVIDER, UNKNOWN Referring Unavailable Noni, Meaghan Primary Care Unavailable PROVIDER, UNKNOWN Referring Unavailable Noni, Meaghan Primary Care Unavailable Doug Morrison Attending Unavailable Noe, Merced Attending Unavailable PROVIDER, UNKNOWN Referring Unavailable Noni, Meaghan Primary Care Unavailable PROBLEMS PROBLEMS DATE TYPE CONDITION / CODE ATTENDING STATUS SOURCE Unknown R10.9 - Unspecified Arslan Jordan Active [facility] 8 abdominal pain / Community R10.9(ICD-10) Hospital Repository Admitting Essential (primary) Doug Morrison Active [facility] 8 Diagnosis hypertension / System I10(ICD-10) Repository Admitting Anxiety disorder, Doug Morrison Active [facility] 8 Diagnosis unspecified / System F41.9(ICD-10) Repository Admitting Attention-deficit Doug Morrison Active [facility] 8 Diagnosis hyperactivity System disorder, Repository unspecified type / F90.9(ICD-10) Admitting Major depressive Doug Morrison Active [facility] 8 Diagnosis disorder, single System episode, Repository unspecified / F32.9(ICD-10) Admitting Unspecified Doug Morrison Active [facility] 8 Diagnosis abdominal pain / System R10.9(ICD-10) Repository Unknown Diverticulitis of JAYHUGO PERDOMO Active [facility] 8 large intestine HealthCare without perforation System or abscess without Repository bleeding / K57.32(ICD-10) Unknown RIGHT LOWER Leonard Cancino MD [facility] 8 QUADRANT PAIN / E [facility] R10.31(ICD-10) Medical Center Repository Unknown ESSENTIAL (PRIMARY) Leonard Cancino MD [facility] 8 HYPERTENSION / E [facility] I10(ICD-10) Medical Center Repository Unknown CYSTITIS UNS WOOD DO, KENDALL Active [facility] 8 WITHOUT HEMATURIA / A Hospital N30.90(ICD-10) Repository Admitting RIGHT LOWER WOOD DO, KENDALL Active [facility] 8 diagnosis QUADRANT PAIN / A Hospital R10.31(ICD-10) Repository Active Right lower FRANKLIN TREVINO JR Active [facility] 8 quadrant pain / LASHANDA [facility] R10.31(ICD-10) Repository Working LOWER ABDOMINAL VAISHRYAN MARY [facility] 8 diagnosis PAIN, UNSPECIFIED / M [facility] R10.30(ICD-10) Hospital Repository Working [facility] 8 diagnosis LIVER, NOT M [facility] CLASSIFIED / Repository K76.0(ICD-10) Working ESSENTIAL (PRIMARY) [facility] 8 diagnosis HYPERTENSION / M [facility] I10(ICD-10) Hospital Repository Working MAJOR DEPRESSIVE MARY MARTIN [facility] 8 diagnosis DISORDER, SINGLE M [facility] UNSPECIFIED / Repository F32.9(ICD-10) Working OTHER SPECIFIED MARY MARTIN [place] [address] diagnosis POSTPROCEDURAL M [facility] / Hospital Z98.890(ICD-10) Repository Admitting Lower abdominal JESS HDZ [facility] 8 Diagnosis pain, unspecified / E [place] ([place]) R10.30(ICD-10) Repository Active Lower abdominal JUICE SHARMA [facility] 8 pain, unspecified / System ([place]) R10.30(ICD-10) Repository Admitting Encounter for other Merced Liu [employer] 8 Diagnosis preprocedural System examination / Repository Z01.818(ICD-10) Admitting Other MERCED LIU MD Active [facility] 8 Diagnosis intraarticular [facility] fracture of lower Hospital end of left radius, Repository initial encounter for closed fracture / M86591A(ICD-10) Principle Other MERCED LIU MD Active [facility] [employer] 8 Diagnosis intraarticular [facility] fracture of lower Hospital end of left radius, Repository initial encounter for closed fracture / D16029P(ICD-10) Admitting Unsp fx the lower Merced Liu [employer] 8 Diagnosis end left rad, subs System for clos fx w Repository malunion / S52.502P(ICD-10) Admitting Other specified Oriana Plummer [facility] 8 Diagnosis postprocedural System states / Repository Z98.890(ICD-10) Admitting Fx unsp carpal Yancyluis alfredo Oriana [facility] 8 Diagnosis bone, left wrist, System subs for fx w routn Repository heal / S62.102D(ICD-10) Unknown M25.532 - Pain in [place]uss[place], Active [facility] 8 left wrist / [facility] M25.532(ICD-10) Hospital Repository Admitting Oth intartic fx low Merced Liu [employer] 8 Diagnosis end l rad, subs for System clos fx w malunion Repository / S52.572P(ICD-10) Admitting prison (current) Merced Liu [facility] [employer] 8 Diagnosis use of aspirin / System Z79.82(ICD-10) Repository Admitting Unknown / Pawa, Pratheep Active [facility] 8 diagnosis UNK(Unknown) [place] Repository Admitting Oth fracture of Merced Liu [employer] 8 Diagnosis upper end of right System radius, init for Repository clos fx / S52.181A(ICD-10) Admitting Oth intartic Noe Merced [facility] 8 Diagnosis fracture of lower System end of right Repository radius, init / S52.571A(ICD-10) Admitting Oth intartic Merced Liu [facility] 8 Diagnosis fracture of lower System end of left radius, Repository init / S52.572A(ICD-10) Admitting Poisoning by oth Unknown [facility] 8 Diagnosis opioids, accidental System (unintentional), Repository init / T40.2X1A(ICD-10) Admitting Altered mental Unknown [facility] 8 Diagnosis status, unspecified System / R41.82(ICD-10) Repository 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 Diagnosis use of opiate System analgesic / Repository Z79.891(ICD-10) Admitting Shortness of breath Noe Merced [facility] [employer] 8 Diagnosis / R06.02(ICD-10) System Repository PROCEDURES PROCEDURES No Procedure Records FoundRESULTS RESULTS ED PHYSICIAN REPORT Observed: 04/20/2018 Status: F Source: [facility] 11:48 PM [facility] REPOSITORY Patient: EDGARDO JAY Age: 37 years Sex: Male : 1980 Associated Diagnoses: Abdominal pain, acute, right lower quadrant Author: KAREN SIMPSON MD Basic Information Time seen: Date & time 04/20/2018 18:05:00. History source: Patient. Arrival mode: Private vehicle. History limitation: None. History of Present Illness The patient presents with abdominal pain. The onset was last night. The course/duration of symptoms is worsening. The character of symptoms is crampy and dull. The degree at onset was moderate. The Location of pain at onset was right, lower and abdominal. The degree at present is moderate. The Location of pain at present is right, lower and abdominal. Radiating pain: none. The exacerbating fac tor is none. The relieving factor is none. Therapy today: none. Risk factors consist of none. Associated symptoms: nausea, vomiting and diarrhea. Patientreports she has a history of colitis. Repor ts last night he was awoken from sleep with abdominal pain. Mostly right lower abdomen. Has had associated nausea vomiting diarrhea. No fevers or chills. No flank pain or urinary symptoms.. Review of Systems Constitutional symptoms: Negative except as documented in HPI. Skin symptoms: Negative except as documented in HPI. Eye symptoms: Negative except as documented in HPI. ENMT symptoms: Negative except as documented in HPI. Respiratory symptoms: Negative except as documented in HPI. Cardiovascular symptoms: Negative except as documented in HPI. Gastrointestinal symptoms: Negative except as documented in HPI. Genitourinary symptoms: Negative except as documented in HPI. Psychiatric symptoms: Negative except as documented in HPI. Neurologic symptoms Negative except as documented in HPI. Additional review of systems information: All other systems reviewed and otherwise negative. Health Status Allergies: No known allergies. Medications: Per nurse's notes. Immunizations: Per nurse's notes. Menstrual history: Per nurse's notes. Past Medical/ Family/ Social History Medical history: Reviewed as documented in chart. Surgical history: Reviewed as documented in chart. Family history: Not significant. Social history: Reviewed as documented in chart. Physical Examination Vital Signs Vital Signs 04/20/2018 16:33 EST Temperature Oral 37.1 degC NORMAL Peripheral Pulse Rate 76 bpm NORMAL Respiratory Rate 18 br/min NORMAL Systolic Blood Pressure 147 mmHg HI Diastolic Blood Pressure 96 mmHg HI SpO2 96 % NORMAL Oxygen Therapy Room air Height/Length Dosing 182.88 cm Weight Dosing 100 kg Body Mass Index Dosing 30 . Per nurse's notes. General: Alert, no acute distress. Skin: Warm, dry, pink. Head: Normocephalic, atraumatic. Neck: Supple, trachea midline. Eye: Pupils are equal, round and reactive to light, extraocular movements are intact, normal conjunctiva. Ears, nose, mouth and throat: Tympanic membranes clear, oral mucosa moist, no pharyngeal erythema or exudate. Cardiovascular: Regular rate and rhythm, No murmur, Normal peripheral perfusion. Respiratory: Lungs are clear to auscultation, respirations are non-labored, breath sounds are equal. Gastrointestinal: Soft, Non distended, Normal bowel sounds, Tenderness: Moderate, right lower quadrant. Lymphatics: No lymphadenopathy. Psychiatric: Cooperative, appropriate mood & affect. Neurological Alert and oriented to person, place, time, and situation, No focal neurological deficit observed. Medical Decision Making Results review: Lab results : Laboratory 04/20/2018 18:39 EST Estimated Creatinine Clearance 93.41 mL/min 04/20/2018 17:40 EST BUN 18 mg/dL NORMAL Na 138 mmol/L NORMAL K 4.3 mmol/L NORMAL Chloride 101 mmol/L NORMAL CO2, venous 27.9 mmol/L NORMAL Glucose 90 mg/dL NORMAL Creatinine 1.2 mg/dL NORMAL Total Protein 8.2 g/dL NORMAL Calcium 9.0 mg/dL NORMAL Bilirubin, Total 0.46 mg/dL NORMAL Alk Phos 103 unit/L NORMAL GOT 31 unit/L NORMAL GPT 39 unit/L NORMAL BUN/Creat Ratio 15.3 NA Calculated Osmolality 277 mOsm/kg NORMAL Globulin 3.7 g/dL NA A/G Ratio 1.2 NA Amylase 50 unit/L NORMAL Lipase 73 unit/L NORMAL ALB 4.5 g/dL NORMAL Glomerular Filtration Rate >60 mL/min/1.73m? NA GFR AA >60 NA WBC 6.0 x10 RBC 5.17 x10 HGB 15.3 g/dL NORMAL HCT 44.6 % NORMAL MCV 86.4 fL NORMAL MCH 29.6 pg NORMAL MCHC 34.2 g/dL NORMAL RDW 13.3 NORMAL Platelet 190 x1000 NORMAL MPV 9.4 fL NORMAL Nucleated RBC 0 /100WBC NA Lymph % 29.5 % NA [place] % 6.2 % NA Neutrophil % 61.6 % NA Eosin % 1.8 % NA Basos % 1.0 % NA Lymph Count 1.77 x1000 NORMAL [place] Count 0.37 x1000 NORMAL Neutrophil Count (ANC) 3.68 x1000 NORMAL Eos Count 0.10 x1000 NORMAL Baso Count 0.06 x1000 NORMAL 04/20/2018 16:32 EST Color, U Yellow Appearance, U Clear Specific [place], U 1.016 NORMAL pH, U 5.0 NORMAL Protein, U Negative Glucose Qual, U Negative Ketones, U Negative Bilirubin, U Negative Blood, U Negative Urobilinogen Qual, U <2.0 mg/dl Nitrite, U Negative Leukocyte Esterase, U Negative . Radiology results: CT ABD PELVIS W CONTRAST 04/20/18 19:21:19 PROCEDURE: CT ABD PELVIS W IV CONTRAST TECHNIQUE: Computerized axial tomography of the abdomen and pelvis was performed after the IV injection of iodinated nonionic contrast. CT DOSE LENGTH PRODUCT: mGycm HISTORY: TENDERNESS COMPARISONS: None . FINDINGS: Visualized lower thorax: No significant abnormality. Liver: Normal size and attenuation. Spleen: Normal size and attenuation. Gallbladder and biliary system: Normal. Pancreas: Normal. Adrenals: Normal. Kidneys: Normal. GI tract: Normal . Normal appendix. Lymph nodes and mesentery: Normal. Vasculature: Normal.. Bladder: Normal. Peritoneum: No free fluid. Musculoskeletal structures: No significant abnormality. IMPRESSION: No acute abnormalities identified. . This document is electronically signed by Jannette Potter MD., April 20 2018 07:55:26 PM ET Signed By: JANNETTE POTTER MD . Reexamination/ Reevaluation Vital signs results included from flowsheet : Vital Signs 04/20/2018 18:04 EST Peripheral Pulse Rate 66 bpm NORMAL Respiratory Rate 16 br/min NORMAL Systolic Blood Pressure 141 mmHg HI Diastolic Blood Pressure 88 mmHg NORMAL SpO2 98 % NORMAL Oxygen Therapy Room air Notes: Discussed today's findings, in addition to providing specific details for the plan of care and counseling regarding the diagnosis and prognosis. Discussed the return indications and importance of follow-up. Questions are answered. Impression and Plan Diagnosis Abdominal pain, acute, right lower quadrant ([id number] R10.31, Discharge, Emergency medicine, Medical) Plan Condition: Stable. Disposition: Discharged: Time 04/20/2018 20:17:00, to home. Patient was given the following educational materials: Abdominal Pain (4279), Abdominal Pain, Adult. Follow up with: VANDA GARCIA, Internal Medicine Within 1 to 2 days; Timothy7 NO FAMILY PHYSICIAN Within 3 to 5 days. Counseled: Patient, Regarding diagnosis, Regarding diagnostic results, Regarding treatment plan, Patient indicated understanding of instructions. Notes: Twan Younger scribing for and in the presence of Karen Nguyenibe Signature: Paul Aguilar, 04/20/2018 20:20 , I personally performed the services described in the documentation, reviewed and edited the documentation which was dictated to the scribe in my presence, and it accurately records my words and actions.. CALVIN WALDEN, KAREN Laguna on 04/20/2018 23:48 ED PROGRESS NOTE Observed: 04/20/2018 Status: C Source: [facility] 9:04 PM [facility] REPOSITORY PT ARRIVED TO EX 26 WITH C/O RLQ ABDOMINAL PAIN THAT STARTED LAST NIGHT. PT DESCRIBES PAIN SHARP AND CONSTANT. PT ALSO C/O DIARRHEA, NAUSEA AND VOMITED X 1 EPISODE TODAY. UA AND LABS OBTAINED FROM [facility] ROOM. 1805 DR. SIMPSON AT BEDSIDE. 1906 PT MEDICATED PER ORDER. PT TO CT SCAN VIA CART. [address] SCAN VIA CART. 2022 DR. ISMPSON AT BEDSIDE. 2050 DC INSTRUCTIONS REVIEWED WITH PT. PT VERBALIZED UNDERSTANDING OF DC INSTRUCTIONS AND F/U. PT STATES RIDE IS IN PARKING LOT. AWAITING RIDE. 2099 PT UNABLE TO PRODUCE RIDE. PT ABLE TO BE DISCHARGED WITHOUT A RIDE PER KARIN, MANAGER TECHNICAL TRAINING. PT RECEIVED PAIN MEDICATION 2HRS AGO. PT A&0 X 3. VSS. PT WALKED WITH STEADY GAIT TO EXIT. CT ABD PELVIS W IV Observed: 04/20/2018 Status: C Source: [facility] CONTRAST 7:57 PM [facility] REPOSITORY PROCEDURE: CT ABD PELVIS W IV CONTRAST TECHNIQUE: Computerized axial tomography of the abdomen and pelvis was performed after the IV injection of iodinated nonionic contrast. CT DOSE LENGTH PRODUCT: mGycm HISTORY: TENDERNESS COMPARISONS: None . FINDINGS: Visualized lower thorax: No significant abnormality. Liver: Normal size and attenuation. Spleen: Normal size and attenuation. Gallbladder and biliary system: Normal. Pancreas: Normal. Adrenals: Normal. Kidneys: Normal. GI tract: Normal . Normal appendix. Lymph nodes and mesentery: Normal. Vasculature: Normal.. Bladder: Normal. Peritoneum: No free fluid. Musculoskeletal structures: No significant abnormality. IMPRESSION: No acute abnormalities identified. . This document is electronically signed by Jannette Potter MD., April 20 2018 07:55:26 PM ET Technologist: TREE NEWELL Dictated By: JANNETTE POTTER MD Signed By: JANNETTE POTTER MD Signed Out: 04/20/18 19:53:28 COMPMETA Collected: 04/20/2018 Status: F Source: [facility] 6:39 PM [facility] REPOSITORY TYPE CODE TESTS RESULT OUT OF RANGE REFERENCE UNITS LAB 7678 10-20 mg/dL Normal BUN 18 LAB [id number] 8.5-10.5 mg/dL Normal Calcium 9.0 LAB [id number] g/dL Normal Globulin 3.7 LAB [id number] 72-100 mg/dL Normal Glucose 90 Result Comment: Venipuncture should occur prior to sulfasalazine administration due to the potential for falsely depressed results. Venipuncture should occur prior to sulfapyridine administration due t o the potential falsely elevated results. Baseline assay values before administration of sulfasalazine and sulfapyridine therapy would not be affected. LAB [id number] 15-37 unit/L Normal GOT 31 Result Comment: Venipuncture should occur prior to sulfasalazine and/or sulfapyridine administration due to the potential for falsely depressed results. Baseline assay values before administration of sulfasalazine and sulfapyridine therapy would not be affected. LAB [id number] 100-109 mmol/L Chloride Normal 101 LAB [id number] 135-145 mmol/L Na Normal 138 LAB [id number] 0.20-1.00 mg/dL Normal Bilirubin, Total 0.46 LAB [id number] 45-117 unit/L Alk Phos Normal 103 LAB [id number] 0.7-1.3 mg/dL Normal Creatinine 1.2 LAB [id number] 16-61 unit/L GPT Normal 39 Result Comment: Venipuncture should occur prior to sulfasalazine and/or sulfapyridine administration due to the potential for falsely depressed results. Baseline assay values before administration of sulfasalazine and sulfapyridine therapy would not be affected. LAB [id number] 21.0-32.0 mmol/L Normal CO2, venous 27.9 LAB 7501 3.4-5.0 g/dL Normal ALB 4.5 LAB [id number] 6.0-8.5 g/dL Normal Total Protein 8.2 LAB [id number] 3.5-5.1 mmol/L Normal K 4.3 LAB [id number](YURY NC) Normal GFR AA >60 Result Comment: GFR Calc Medical judgement is necessary to interpret GFR. The calculated GFR may not accurately reflect renal status in patients >70 years, women, acutely ill hospitalized patients and patients with acute renal failure or known renal disease. The MDRD GFR formula is valid only for adults greater than 18 years of age. Note: Creatinine clearance (not GFR) should be used for drug dosing. LAB 0862767(LOINC) Normal A/G Ratio 1.2 LAB 2243922 Normal BUN/Creat Ratio 15.3 LAB 89820170 mL/min/ Normal 1.73m? Glomerular Filtration Rate >60 Result Comment: Non GFR Calc Medical judgement is necessary to interpret GFR. The calculated GFR may not accurately reflect renal status in patients >70 years, women, acutely ill hospitalized patients and patients with acute renal failure or known renal disease. The MDRD GFR formula is valid only for adults greater than 18 years of age. Note: Creatinine clearance (not GFR) should be used for drug dosing. LAB [id number] 275-295 mOsm/kg Normal Calculated Osmolality 277 Performed By: #### [id number], [id number], 083270, 041765, [id number] #### [facility] [address] [place], [place] [id number] Financial Analyst Intern: Vaughn Deal MD LIP Collected: 04/20/2018 Status: F Source: [facility] 6:39 PM [facility] REPOSITORY TYPE CODE TESTS RESULT OUT OF RANGE REFERENCE UNITS LAB [id number] 73-393 unit/L Normal Lipase 73 Performed By: #### [id number], [id number], 264650, 278822, 419920 #### [facility] [address] [place] [address] Financial Analyst Intern: Vaughn Deal MD GUME Collected: 04/20/2018 Status: F Source: [facility] 6:39 PM [facility] REPOSITORY TYPE CODE TESTS RESULT OUT OF RANGE REFERENCE UNITS LAB 3480883 25-115 unit/L Normal Amylase 50 Performed By: #### [id number], [id number], 122029, 616911, 176230 #### [facility] [address] [place] [address] Financial Analyst Intern: Vaughn Deal MD HEMO Collected: 04/20/2018 Status: F Source: [facility] 6:08 PM [facility] REPOSITORY TYPE CODE TESTS RESULT OUT OF REFERENCE UNITS RANGE LAB 8986 4.5-11.0 x10 WBC Normal 6.0 LAB 8618 11.5-14.5 RDW Normal 13.3 LAB 8313 27.0-34.0 pg MCH Normal 29.6 LAB 15747153 /100WBC Normal Nucleated RBC 0 LAB 8129 41.0-52.0 % HCT Normal 44.6 LAB 8611 4.70-6.10 x10 RBC Normal 5.17 Result Comment: Note: RBC morphology is normal unless otherwise stated. Evaluation performed only if differential is requested. LAB 8852494 150-450 x1000 Normal Platelet 190 LAB 8314 32.0-37.0 g/dL MCHC Normal 34.2 LAB 0804292(LOINC) Instr Normal WBC 6.0 LAB 8315 80.0-100.0 fL MCV Normal 86.4 LAB 8153 13.5-17.5 g/dL HGB Normal 15.3 LAB 8340 7.4-10.4 fL MPV Normal 9.4 LAB 0196749(LOINC) DIFF? Normal No Performed By: #### [id number], [id number], 273511, 958589, 167027 #### [facility] [address] [place] [address] Financial Analyst Intern: Vaughn Deal MD AUTO DIFF Collected: 04/20/2018 Status: F Source: [facility] 6:08 PM [facility] REPOSITORY TYPE CODE TESTS RESULT OUT OF REFERENCE UNITS RANGE LAB 2027466 0.00-0.50 x1000 Eos Normal Count 0.10 LAB 9562500 1.20-4.80 x1000 Lymph Normal Count 1.77 LAB 5506369 % Lymph % Normal 29.5 LAB 4986644 0.00-0.20 x1000 Baso Normal Count 0.06 LAB 0223959 % Basos % Normal 1.0 LAB 1280019 0.10-1.00 x1000 [place] Normal Count 0.37 LAB 5819583 % [place] % Normal 6.2 LAB 5033028 % Normal Neutrophil % 61.6 LAB 0663589 1.40-8.80 x1000 Normal Neutrophil Count 3.68 (ANC) LAB 3404458 % Eosin % Normal 1.8 Performed By: #### 739371, 9466433, 033384, 016023, 182217 #### [facility] [address] [place] [address] Financial Analyst Intern: Vaughn Deal MD UA Collected: 04/20/2018 Status: F Source: [facility] 4:49 PM [facility] REPOSITORY TYPE CODE TESTS RESULT OUT OF REFERENCE UNITS RANGE LAB 9443293 Negative Protein, U Normal Negative LAB 3733766 Appearance, Normal U Clear LAB 2942089 Negative Blood, U Normal Negative LAB 6755793 Negative Ketones, U Normal Negative LAB 4130192 Negative Leukocyte Normal Esterase, U Negative LAB 7120661 <2.0 mg/dl Normal Urobilinogen <2.0 mg/dl Qual, U Result Comment: EU/dl and mg/dl are equivalent units. LAB 0353460 Negative Normal Glucose Qual, Negative U LAB 1142251 4.5-8.0 5.0 Normal pH, U LAB 1373358 Normal Color, U Yellow LAB 8836559 1.001-1.035 1.016 Normal Specific [place], U LAB 3527258 Negative Normal Bilirubin, U Negative LAB 8015395 Negative Normal Nitrite, U Negative LAB 9400274 U Not Normal MICRO Indicated Performed By: #### [id number] #### [facility] [address] [place] [address] Financial Analyst Intern: Vaughn Deal MD ER CBC WITH DIFFERENTIAL Collected: 04/12/2018 Status: F Source: [place] 12:28 AM [facility] REPOSITORY Order Comment: Specimen to be collected later? N SPEC INST. 1 COMMENT: 1 TYPE CODE TESTS RESULT OUT OF REFERENCE UNITS RANGE LAB BA# 0.02-0.05 10 3/uL ABSOLUTE High BASOPHIL COUNT 0.1 LAB BA% 0-1 % BA% High 1.1 LAB EO# 0.05-0.25 10 3/uL ABSOLUTE High EOSINOPHIL COUNT 0.3 LAB EO% 1-4 % EO% Normal 3.7 LAB HCT 41.0-53.0 % HEMATOCRIT Normal 46.7 LAB HGB 13.5-17.5 GM/DL HEMOGLOBIN Normal 16.3 LAB LY# 1.5-3.0 10 3/uL ABSOLUTE High LYMPHOCYTE COUNT 3.1 LAB LYM% 24-44 % LYMPH% Normal 37.8 LAB MCH 26.0-34.0 PG MEAN CELL Normal HEMOGLOBIN 30.2 LAB MCHC 31.0-37.0 GM/DL MEAN Normal CORPUSCULAR HGB 34.9 CONC LAB MCV 80.0-100.0 FL MEAN CELL Normal VOLUME 86.5 LAB MO# 0.1-1.0 10 3/uL ABSOLUTE Normal MONOCYTE COUNT 0.5 LAB MONO% 1-7 % MONO% Normal 5.7 LAB MPV 7.4-10.4 UM3 MEAN PLATELET Normal VOLUME 9.5 LAB NE# 1.8-7.0 10 3/uL ABSOLUTE Normal NEUTROPHIL COUNT 4.3 LAB NE% 36-71 % NE% Normal 51.7 LAB PLT 140-440 TH/MM3 PLATELET Normal 209 LAB RBC 4.50-5.90 MIL/MM3 RED BLOOD Normal COUNT 5.40 LAB RDW 11.5-14.5 UNITS RED CELL Normal DISTRIBUTION WID 13.5 LAB WBC 4.5-11.0 TH/MM3 WHITE BLOOD Normal COUNT 8.3 Performed By: #### ERCD #### [facility] [address] [place] [address] COMPREHENSIVE METABOLIC Collected: 04/12/2018 Status: F Source: [place] 12:28 AM [facility] REPOSITORY Order Comment: Specimen to be collected later? N SPEC INST. 1 COMMENT: 1 TYPE CODE TESTS RESULT OUT OF RANGE REFERENCE UNITS LAB CL 99-109 MMOL/L Normal CHLORIDE 105 LAB K 3.4-4.7 MMOL/L Normal POTASSIUM 3.5 LAB CA 8.7-10.4 MG/DL Normal CALCIUM 9.2 Result Comment: *Reference range may have changed due to new method* LAB CO2 20-31 MMOL/L CARBON Normal DIOXIDE 27 LAB AGRATIO 0.9-2.0 High A/G RATIO 2.3 LAB ALB 3.2-4.8 G/DL High ALBUMIN 5.3 LAB ALP 46-116 IU/L ALKALINE Normal PHOSPHATASE 112 LAB ALT 10-49 IU/L ALT/SGPT Normal 27 LAB AST < 34 IU/L AST/SGOT 27 LAB B/C 6-20 Normal BUN/CREATININE RATIO 11.8 LAB BUN 9-23 MG/DL BLOOD UREA Normal NITROGEN 13 LAB CRE- 0.7-1.3 MG/DL CREATININE Normal 1.1 LAB GFR GFR (MDRD) > 60 Result Comment: TO ESTIMATE GFR FOR AMERICANS MULTIPLY THE RESULT BY 1.21. GFR LESS THAN 60 mL/min/1.73m2: SUGGESTIVE OF CHRONIC KIDNEY DISEASE. GFR LESS THAN 15 mL/min/1.73m2: SUGGESTIVE OF END STAGE RENAL DISEASE. LAB GLOB G/dL GLOBULIN 2.3 LAB GLU 74-106 MG/DL Normal GLUCOSE 85 Result Comment: NOTE IF THIS IS A FASTING SPECIMEN THE FOLLOWING RANGES APPLY: NORMAL 70 TO 99 mg/dL PREDIABETIC 100 TO 125 mg/dL DIABETIC >= 126 mg/dL LAB OT/PT 0-2 Normal SGOT/SGPT RATIO 1.0 LAB TBILI 0.2-1.2 MG/DL Normal BILIRUBIN, TOTAL 0.5 LAB TP 5.7-8.2 G/DL Normal TOTAL PROTEIN 7.6 LAB ANION 8-22 Normal ANION GAP 12.4 LAB COS 275-305 mOSM/kg Normal OSMOLALITY(CALCUL 281 ATED) LAB NA 132-146 MMOL/L Normal SODIUM 141.2 Performed By: #### LIPS, MOP #### [facility] [address] [place] [address] LIPASE Collected: 04/12/2018 Status: F Source: [place] 12:28 AM [facility] REPOSITORY Order Comment: Specimen to be collected later? N SPEC INST. 1 COMMENT: 1 TYPE CODE TESTS RESULT OUT OF RANGE REFERENCE UNITS LAB LIPS 12-53 U/L Normal LIPASE 33.0 Performed By: #### LIPS, MOP #### [facility] [address] [place] [address] ABDOMEN AND Observed: 04/12/2018 Status: F Source: [place] PELVIS W 47305 12:00 AM [facility] REPOSITORY EXAM: ED CT Abdomen and Pelvis W [address] [facility] Department of Radiology EDGARDO JAY VISIT: [id number] : 1980 SEX: M DEPT NO: [id number] PATIENT LOCATION: ERWAITING EXAM: ED CT Abdomen and Pelvis W [address] 04/12/2018 01:36:00 SIGNS AND SYMPTOMS: 3D RENDERING PER PROTOCOL Comment: PERTINENT SYMPTOMS: PERTINENT SYMPTOMS: rlq pain ro appy Requesting Provider: ELIAS BENÍTEZ - CT ABDOMEN AND PELVIS WITH CONTRAST: 04/12/2018 9:21 AM CLINICAL INDICATION: Male,37 years old, PERTINENT SYMPTOMS: rlq pain ro appy. TECHNIQUE: CT axial slices of the abdomen and pelvis are evaluated. Multiplanar reformats are constructed in the sagittal and coronal planes. Dose reduction techniques were achieved by using automated exposure control and/or adjustment of mA and/or kV according to patient size and/or use of iterative reconstruction technique. CONTRAST: 70 mL ISOVUE 300 COMPARISON: None available in PACS. CT ABDOMEN FINDINGS: LOWER THORAX: The visualized portions of the lung bases are clear. LIVER: Unremarkable. GALLBLADDER AND BILIARY TREE: No biliary dilatation is identified. SPLEEN: Unremarkable. PANCREAS: Unremarkable. KIDNEYS: Unremarkable. The kidneys enhance and excrete contrast in a symmetric fashion. ADRENAL GLANDS: Unremarkable. RETROPERITONEUM: The abdominal aorta is normal in caliber. No retroperitoneal adenopathy is identified. GASTROINTESTINAL TRACT: No evidence of bowel obstruction. No overt wall thickening or inflammation. Nonspecific fluid-filled small bowel is normal caliber. Large bowel appears unremarkable. APPENDIX: The appendix is normal. PERITONEUM AND MESENTERY: No free intraperitoneal air is identified. No free fluid or fluid collection is identified. No mass or abdominal adenopathy is identified. There is no inflammatory edema. CT PELVIS FINDINGS: URINARY BLADDER: The urinary bladder is unremarkable as visualized. REPRODUCTIVE ORGANS: Unremarkable. PERITONEUM: No free fluid or fluid collection is identified. PELVIC SIDEWALL: No mass or adenopathy is identified. OSSEOUS STRUCTURES: Remote unilateral left L5 spondylolysis. SOFT TISSUES: Unremarkable. IMPRESSION: 1. No acute disease convincingly demonstrated. 2. Normal appendix. 3. No obstructive uropathy. This study was initially interpreted by maintenance supervisor 2nd shift radiology and the report was transmitted to the emergency department on 04/12/2018 1:36 AM Performed By: Dionna Dickens 04/12/2018 01:36:00 Signed By: AUGUSTUS FONTENOT MD 04/12/2018 09:23:00 ER NOTE Observed: 04/11/2018 Status: P Source: [place] 10:34 PM [facility] REPOSITORY TRIAGE ([facility] Apr 11, 2018 22:34 ERB) TRIAGE NOTES: PT AMBULATES TO TRIAGE WITH C/O RLQ ABD PAIN THAT BEGAN LAST NIGHT. PT STATES THAT PAIN HAS WORSENED THROUGHOUT THE DAY AND DECIDED TO SEEK TREATMENT. PT STATES IT FEELS LIKE GAS, BUT I CAN'T PASS GAS. PT STATES THE PAIN IS SHARP AND CONSTANT. PT REPORTS NAUSEA, BUT DENIES ANY VOMITING OR DIARRHEA. PT DENIES ANY URINARY COMPLAINTS. PT DENIES ANY FEVERS. PT A&OX3, RR E/U, NAD NOTED AT THIS TIME. ([facility] Apr 11, 2018 22:34 ERB) PATIENT: NAME: Edgardo Jay, AGE: 37, GENDER: male, : [facility] 1980, TIME OF GREET: [facility] Apr 11, 2018 22:23, PREFERRED LANGUAGE: Citizen Of [place], KG WEIGHT: 97.52, , , Family MD: PHYSICIAN, NO, MRSA/VRE - VERIFY: No, P/A DRUG SCREEN RQ?: NO. ([facility] Apr 11, 2018 22:34 ERB) ADMISSION: URGENCY: LISA LEVEL 3, DEPT: Emergency, BED: WAITING. ([facility] Apr 11, 2018 22:34 ERB) VITAL SIGNS: BP: 162/99, Pulse: 77, Resp: 18, Temp: 97.3, Pain: 8, O2 sat: 98 on (RA), Time: 04/11/2018 22:30. ([facility] Apr 11, 2018 22:30 ERB) COMPLAINT: Pt Sts Rt Abd Pain Nausea. ([facility] Apr 11, 2018 22:34 ERB) CODE STATUS: FULLCODE. ([facility] Apr 11, 2018 22:34 ERB) ASSESSMENT: Triage assessment performed. ([facility] Apr 11, 2018 22:34 ERB) PAIN: Patient complains of pain, On a scale 0-10 patient rates pain as 8. ([facility] Apr 11, 2018 22:34 ERB) IMMUNIZATIONS: Immunizations up to date. ([facility] Apr 11, 2018 22:34 ERB) ABUSE SCREENING: No domestic violence. ([facility] Apr 11, 2018 22:34 ERB) BH SCREENIN. In the last 30 days have you wished you were or wished you could go to sleep and not wake up? No, 2. In the last 30 days have you had any actual thoughts of killing yourself? No, 6. Have you ever done anything, started to do anything, or prepared to do anything to end your life? No, Patient screens as no Identifiable suicide risk., Do you have thoughts about harming others? No. ([facility] Apr 11, 2018 22:34 ERB) PROVIDERS: TRIAGE NURSE: Trevor Levine RN. ([facility] Apr 11, 2018 22:34 ERB) KNOWN ALLERGIES NKDA CURRENT MEDICATIONS ([facility] Apr 11, 2018 22:35 ERB) Paxil: Patient Dose: Unknown. HPI ABDOMINAL PAIN ([facility] Apr 12, 2018 00:34 BARE) CHIEF COMPLAINT: Patient presents for evaluation of abdominal pain. HISTORIAN: History provided by patient. LOCATION MALE: Symptoms are localized, most severe in the right lower quadrant. SEVERITY: Maximum severity of symptoms moderate. TIME COURSE: Gradual onset of symptoms, Date and time of onset was 04/11/2018 00:35, Symptoms are worsening. ASSOCIATED WITH: No associated constipation, No associated diarrhea, No associated flank pain, No associated nausea, No associated testicular pain, No associated trauma. EXACERBATED BY: Patient's condition exacerbated by nothing. RELIEVED BY: Patient's condition relieved by nothing. ROS ([facility] Apr 12, 2018 00:35 BARE) GI: Historian reports abdominal pain, Historian denies constipation, Historian denies diarrhea, Historian denies nausea. NOTES: All systems reviewed, negative except as described above. PAST MEDICAL HISTORY MEDICAL HISTORY: No past medical history. ([facility] Apr 11, 2018 22:34 ERB) SURGICAL HISTORY MALE: TONSILLECTOMY; WRIST. ([facility] Apr 11, 2018 22:34 ERB) PSYCHIATRIC HISTORY: Notes: DEPRESSION. ([facility] Apr 11, 2018 22:34 ERB) SOCIAL HISTORY: Patient denies alcohol use, drug use. Patient has no smoking history, Social history includes no recent travel outside the [place] in the last 30 days. ([facility] Apr 11, 2018 22:34 ERB) FAMILY HISTORY: Family istory is not significant. ([facility] Apr 11, 2018 22:34 ERB) NOTES: Nursing records reviewed, Agree with nursing records, Old chart reviewed, Medication list reviewed. ([facility] Apr 12, 2018 00:35 BARE) PHYSICAL EXAM ([facility] Apr 12, 2018 00:35 BARE) CONSTITUTIONAL: Vital Signs Reviewed, Pulse normal, Patient appears pain free. HEAD: Head exam included findings of head atraumatic. EYES: Conjunctiva normal, Sclera normal. ENT: Ear exam normal, Nose exam normal, Pharynx exam normal. NECK: Trachea midline. RESPIRATORY CHEST: Respiratory exam included findings of no respiratory distress, Breath sounds clear. CARDIOVASCULAR: Cardiovascular exam included findings of heart rate regular rate and rhythm. ABDOMEN MALE: Abdominal exam included findings of abdomen tender, to the right lower quadrant, moderate intensity, McBurney's point tender, Peritoneal signs present, guarding present. BACK: Back exam included findings of normal inspection. UPPER EXTREMITY: Upper extremity exam included findings of inspection normal, Range of motion normal. LOWER EXTREMITY: Lower extremity exam included findings of inspection normal, Range of motion normal. NEURO: Mirlande coma scale 15. SKIN: Skin exam included findings of skin warm, dry. PSYCHIATRIC: Normal affect. DOCTOR NOTES ([facility] Apr 12, 2018 03:26 BARE) NOTES: Patient reassessed discussed findings with patient findings a CTA 1 over labs. Patient's pain is somewhat improved. Lantus filled patient does not need to be admitted to the hospital can be followed up close patiently in the next 12-24 hours. She may need to return to the ER to be reevaluated due to the holidays patient is aware of this and good with. VITAL SIGNS VITAL SIGNS: BP: 162/99, Pulse: 77, Resp: 18, Temp: 97.3, Pain: 8, O2 sat: 98 on (RA). ([facility] Apr 11, 2018 22:30 ERB) BP: 146/88, Pulse: 57, Resp: 18, Pain: 8, O2 sat: 97 on (RA). ([facility] Apr 12, 2018 01:10 MSF) BP: 137/84, Pulse: 59, Resp: 18, Pain: 8, O2 sat: 94 on (RA). ([facility] Apr 12, 2018 02:11 AND5) NURSING ASSESSMENT: A SEPSIS SCREENING TOOL SEPSIS SCREENING TOOL: Patient has no infection that is suspected or identified, This patient has been identified as NOT meeting the severe sepsis criteria as defined by the CMS guidelines. ([facility] Apr 11, 2018 22:35 ERB) This patient has been identified as NOT meeting the severe sepsis criteria as defined by the CMS guidelines. ([facility] Apr 12, 2018 00:42 DJJ1) NURSING ASSESSMENT: ABDOMEN ([facility] Apr 12, 2018 00:42 DJJ1) CONSTITUTIONAL: History obtained from patient, Patient arrives ambulatory, Gait steady, Patient appears, uncomfortable, Patient cooperative, alert. Oriented to person, place and time, Skin warm, Skin dry, Skin normal in color, Mucous membranes pink, moist. Patient is well-groomed. PAIN: aching pain, to the right lower quadrant, Onset of pain 2 DAYS. ABDOMEN: Abdomen assessment findings include abdomen symmetrical, Abdomen soft, Bowel sound normal, non-tender, no pulsatile mass, Associated with nausea, no associated vomiting, no associated diarrhea, Associated with constipation, Date of last bowel movement: 04/11. GENITOURINARY MALE: no associated urinary complaints. NOTES: Notes: PT AMBULATES TO BED 7 WITH C/O RLQ ABD PAIN. PT STS ONSET 2 DAYS AGO. PT STS IT FEELS LIKE TRAPPED GAS, BUT HE HAS NOT BEEN ABLE TO PASS ANY. PT STS LAST BM WAS FRIDAY. PT DENIES ANY INJURIES OR FALLS, DENIES ANY URINARY COMPLAINTS. NO TENDERNESS NOTED. RESP E/U, SKIN W/P/D, NAD NOTED. SAFETY: Side rails up, Cart/Stretcher in lowest position, Call light within reach, Hospital ID band on. NURSING ASSESSMENT: FALL RISK ([facility] Apr 12, 2018 00:45 DJJ1) GREGORY FALL SCALE: History of falling: No, Is there a secondary diagnosis: No, Ambulatory aid: None/BR/WC/Nurse(0), Gait/transferring: Normal/BR/Immobile (0), IV/heparin lock: Yes (20), Mental status: Oriented to own ability (0), Total: 20, No identified risk for fall, ., No, not upgrading the fall risk level based on nursing judgment, Cart in low position and wheels locked, Cart rails up, Floor free of tripping/falling hazards, Call light and phone within patient's reach, Patient reminded to call for help. EVENTS ATTENDING: DO Benítez Jeff saw the patient at [facility] Apr 12, 2018 00:08. ([facility] Apr 12, 2018 00:08 JACKELIN) TRANSFER: Triage to Emergency Waiting. ([facility] Apr 11, 2018 22:34 ERB) Emergency Waiting to Emergency Department - Pod 1 07. ([facility] Apr 12, 2018 00:05 ASM1) Removed from Emergency Emergency Department - Pod 1 07. ([facility] Apr 12, 2018 03:48 DJJ1) NURSING PROCEDURE: OCEANOGRAPHY PROFESSOR ([facility] Apr 12, 2018 00:41 MSF) PATIENT IDENTIFIER: Patient's identity verified by patient stating name, Patient's identity verified by patient stating date. OCEANOGRAPHY PROFESSOR: Patient placed on clinical research monitor, placed on non-invasive blood pressure monitor, placed on continuous pulse oximetry. NOTES: Patient tolerated procedure well. SAFETY: Side rails up, Cart/Stretcher in lowest position, Call light within reach, Hospital ID band on. NURSING PROCEDURE: DISCHARGE NOTE ([facility] Apr 12, 2018 03:46 DJJ1) DISCHARGE: Patient signed out against medical advice, treated and evaluated by physician. Notes: ROOM OBSERVED TO BE EMPTY BY STAFF. PT APPEARS TO HAVE LEFT WITH IV INTACT. TIME: UNABLE TO OBTAIN D/C VITALS D/T PT LEAVING AMA. NURSING PROCEDURE: IV ([facility] Apr 12, 2018 00:30 DJJ1) PATIENT IDENITIFIER: Patient's identity verified by patient stating name, Patient's identity verified by patient stating date, Patient's identity verified by hospital ID bracelet. IV SITE 1: IV therapy indicated for hydration, IV therapy indicated for medication administration, IV established, to the left antecubital, using a 20 gauge catheter, in one attempt, IV site prepped with CHLORAPREP, Labs drawn at time of placement, labeled in the presence of the patient and sent to lab, Notes: MINT, LAV DRAWN AND SENT TO LAB. FOLLOW-UP SITE 1: After procedure, sterile transparent dressing applied, After procedure, no drainage at IV site, After procedure, no swelling at IV site, After procedure, no redness at IV site. NURSING PROCEDURE: NURSE NOTES NURSES NOTES: Notes: TALKED WITH PT ABOUT GETTING PAIN MEDS. EXPLAINED THE DR HAD TO ORDER THE PAIN MEDS BEFORE I COULD GIVE THEM. PT APPEARED AGITATED STATING HE HAD BEEN HERE FOR 4 AND 1/2 HOURS. INFOEMED PT SOON THE DR CAME BACK DOWNSTAIRS THE NURSE WOULD ASK FOR THEPAIN MEDS. ([facility] Apr 12, 2018 02:43 TRP1) Notes: PT NOTED TO WALK OUT OF ED LOBBY. PT IN NAD. PT NOT UP FOR HOME AND HAD NOT BEEN DISCHARGED. NO DOCUMENTATION THAT IV HAD BEEN TAKEN OUT. NO SIGN THAT PT TOOK OUT IV IN THE ROOM. PRIMARY RN AWARE. ([facility] Apr 12, 2018 03:35 ASM1) SAFETY: Side rails up, Cart/Stretcher in lowest position, Family at bedside, Call light within reach, Hospital ID band on. (FriApr 12, 2018 02:43 TRP1) NURSING PROCEDURE: URINE COLLECTION (FriApr 12, 2018 00:24 AND5) PATIENT IDENTIFIER: Patient's identity verified by patient stating name, Patient's identity verified by patient stating date, Patient's identity verified by hospital ID bracelet. URINE COLLECTION MALE: Urine collected by mid-stream clean catch, urine yellow in color, and clear, Specimen labeled in the presence of the patient and sent to lab, AND5 SENT TO LAB AT 0022. NOTES: Patient tolerated procedure well. SAFETY: Side rails up, Cart/Stretcher in lowest position, Family at bedside, Call light within reach, Hospital ID band on. MEDICATION SERVICE Ketorolac Tromethamine: Order: Ketorolac Tromethamine - Dose: 15 mg Route: I.V. Push Notes: May give undiluted over 1-2 minutes. Ordered by: Elias Benítez DO Entered by: DO Vania Alejandro Apr 12, 2018 02:50 Authenticated using password. Documented as given by: Franklin Baker RN FriApr 12, 2018 03:05 Patient, Medication, Dose, Route, Schedule verified prior to administration., Amount ( Dose ) given: 15MG, Volume ( mL's ) given: 0.5ML, To infuse over: 2 MINS, IV SITE #1 IVP, initial medication, Slowly, Catheter placement confirmed via flush prior to administration, IV site without signs or symptoms of infiltration during medication administration, No swelling during administration, No drainage during administration, IV flushed after administration, Correct patient, time, route, dose and medication confirmed prior to administration, Patient advised of actions and side-effects prior to administration, Allergies confirmed and medications reviewed prior to administration, Patient in position of comfort, Side rails up, Cart in lowest position, Family at bedside. Zofran: Order: Zofran - Dose: 4 mg Route: I.V. Push Notes: Give up to 4 mg IVP undiluted over at least 30 seconds; 2-5 minutes preferred. Ordered by: Elias Benítez DO Entered by: DO Vania Alejandro Apr 12, 2018 02:50 Authenticated using password. Documented as given by: Franklin Baker RN [facility] Apr 12, 2018 03:04 Patient, Medication, Dose, Route, Schedule verified prior to administration., Amount ( Dose ) given: 4MG, Volume ( mL's ) given: 2ML, To infuse over: 2 MINS, IV SITE #1 IVP, initial medication, Slowly, Catheter placement confirmed via flush prior to administration, IV site without signs or symptoms of infiltration during medication administration, No swelling during administration, No drainage during administration, IV flushed after administration, Correct patient, time, route, dose and medication confirmed prior to administration, Patient advised of actions and side-effects prior to administration, Allergies confirmed and medications reviewed prior to administration, Patient in position of comfort, Side rails up, Cart in lowest position, Family at bedside. GREET (Sat Apr 11, 2018 22:24 TSD1) GREET: Greet: Sat Apr 11, 2018 22:24. NOTES: Patient arrived ambulatory, Notes: pt with c/o abd pain with nausea. nad noted. ORDERS ([place] Apr 12, 2018 00:10 BARE) Cont. mtr.VS/Radiological Defense Officer/POX(1st on RA): Ordered by: DO Benítez Jeff Ordered for: DO Benítez Jeff Status: Done by: CASA Burgess Ashley N. - Sun Apr 12, 2018 00:18. ED CT ABDOMEN AND PELVIS W: Ordered by: DO Benítez Jeff Ordered for: DO Benítez Jeff Status: Active. ER URINALYSIS PROFILE: Ordered by: DO Benítez Jeff Ordered for: DO Benítez Jeff Status: Active. ER's CBC WITH DIFF: Ordered by: DO Benítez Jeff Ordered for: DO Benítez Jeff Status: Active. IV 0.9% NaCl(100)mL/HR/Therapeutic: Ordered by: DO Benítez Jeff Ordered for: DO Benítez Jeff Status: Done by: ROCKY Baker, Franklin Caro Apr 12, 2018 00:33. IV 0.9%Na Cl 1000 mL Bolus: Ordered by: DO Benítez Jeff Ordered for: DO Benítez Jeff Status: Done by: ROCKY Baker, Franklin Caro Apr 12, 2018 00:33. LIPASE SERUM: Ordered by: DO Benítez Jeff Ordered for: DO Benítez Jeff Status: Active. MULTI-ORGAN PANEL: Ordered by: DO Benítez Jeff Ordered for: DO Benítez Jeff Status: Active. ORDER DETAILS Order Name: Cont. mtr.VS/Radiological Defense Officer/POX(1st on RA), Status: Done, Time: 00:18 04/12/2018, User: DO Benítez Jeff, - Ordered for: DO Benítez Jeff, - Entered by: DO Benítez Jeff - [place] Apr 12, 2018 00:10, - Quantity: 1, Order Name: ED CT ABDOMEN AND PELVIS W, Status: Active, Time: 00:10 04/12/2018, User: DO Benítez Jeff, - Ordered for: DO Benítez Jeff, - Entered by: DO Benítez Jeff - [place] Apr 12, 2018 00:10, - Quantity: 1, Order Name: ER URINALYSIS PROFILE, Status: Active, Time: 00:10 04/12/2018, User: DO Benítez Jeff, - Ordered for: DO Benítez Jeff, - Entered by: DO Benítez Jeff - [place] Apr 12, 2018 00:10, - Quantity: 1, Order Name: ER's CBC WITH DIFF, Status: Active, Time: 00:10 04/12/2018, User: DO Benítez Jeff, - Ordered for: DO Benítez Jeff, - Entered by: DO Benítez Jeff - [place] Apr 12, 2018 00:10, - Quantity: 1, Order Name: IV 0.9% NaCl(100)mL/HR/Therapeutic, Status: Done, Time: 00:33 04/12/2018, User: DO Benítez Jeff, - Ordered for: DO Benítez Jeff, - Entered by: DO Benítez Jeff - [place] Apr 12, 2018 00:10, - Quantity: 1, Order Name: IV 0.9%Na Cl 1000 mL Bolus, Status: Done, Time: 00:33 04/12/2018, User: DO Benítez Jeff, - Ordered for: DO Benítez Jeff, - Entered by: DO Benítez Jeff - [place] Apr 12, 2018 00:10, - Quantity: 1, Order Name: LIPASE SERUM, Status: Active, Time: 00:10 04/12/2018, User: DO Benítez Jeff, - Ordered for: DO Benítez Jeff, - Entered by: DO Benítez Jeff - [place] Apr 12, 2018 00:10, - Quantity: 1, Order Name: MULTI-ORGAN PANEL, Status: Active, Time: 00:10 04/12/2018, User: DO Benítez Jeff, - Ordered for: DO Benítez Jeff, - Entered by: DO Benítez Jeff - FriApr 12, 2018 00:10, - Quantity: 1. RESULTS LABORATORY: COMPREHENSIVE METABOLIC PANEL FriApr 12, 2018 00:36, POTASSIUM 3.5 MMOL/L, Range (3.4-4.7), CHLORIDE 105 MMOL/L, Range (99-109). (FriApr 12, 2018 00:50 BARE) ER CBC WITH DIFFERENTIAL FriApr 12, 2018 00:36, WHITE BLOOD COUNT 8.3 TH/MM3, Range (4.5-11.0), RED BLOOD COUNT 5.40 MIL/MM3, Range (4.50-5.90), HEMOGLOBIN 16.3 GM/DL, Range (13.5-17.5), HEMATOCRIT 46.7 %, Range (41.0-53.0), MEAN CELL VOLUME 86.5 FL, Range (80.0-100.0), MEAN CELL HEMOGLOBIN 30.2 PG, Range (26.0-34.0), MEAN CORPUSCULAR HGB CONC 34.9 GM/DL, Range (31.0-37.0), RED CELL DISTRIBUTION WID 13.5 UNITS, Range (11.5-14.5), PLATELET 209 TH/MM3, Range (140-440), MEAN PLATELET VOLUME 9.5 UM3, Range (7.4-10.4), NE% 51.7 %, Range (36-71), ABSOLUTE NEUTROPHIL COUNT 4.3 10, Range (1.8-7.0), LYMPH% 37.8 %, Range (24-44), *ABSOLUTE LYMPHOCYTE COUNT 3.1 - H 10, Range (1.5-3.0), MONO% 5.7 %, Range (1-7), ABSOLUTE MONOCYTE COUNT 0.5 10, Range (0.1-1.0), EO% 3.7 %, Range (1-4), *ABSOLUTE EOSINOPHIL COUNT 0.3 - H 10, Range (0.05-0.25), *BA% 1.1 - H %, Range (0-1), *ABSOLUTE BASOPHIL COUNT 0.1 - H 10, Range (0.02-0.05). (FriApr 12, 2018 00:50 BARE) COMPREHENSIVE METABOLIC PANEL FriApr 12, 2018 00:36, CALCIUM 9.2 MG/DL, Range (8.7-10.4), *Reference range may have changed due to new method*, POTASSIUM 3.5 MMOL/L, Range (3.4-4.7), CHLORIDE 105 MMOL/L, Range (99-109), CARBON DIOXIDE 27 MMOL/L, Range (20-31). (FriApr 12, 2018 00:54 BARE) LIPASE FriApr 12, 2018 00:36, LIPASE 33.0 U/L, Range (12-53). (FriApr 12, 2018 01:00 BARE) COMPREHENSIVE METABOLIC PANEL FriApr 12, 2018 00:36, GLUCOSE 85 MG/DL, Range (74-106), , NOTE , IF THIS IS A FASTING SPECIMEN THE FOLLOWING RANGES APPLY:, NORMAL 70 TO 99 mg/dL, PREDIABETIC 100 TO 125 mg/dL, DIABETIC >= 126 mg/dL, , BLOOD UREA NITROGEN 13 MG/DL, Range (9-23), CREATININE 1.1 MG/DL, Range (0.7-1.3), GFR (MDRD) > 60 , TO ESTIMATE GFR FOR AMERICANS MULTIPLY THE RESULT BY, 1.21., GFR LESS THAN 60 mL/min/1.73m2: SUGGESTIVE OF CHRONIC KIDNEY, DISEASE., GFR LESS THAN 15 mL/min/1.73m2: SUGGESTIVE OF END STAGE, RENAL DISEASE., BUN/CREATININE RATIO 11.8 , Range (6-20), TOTAL PROTEIN 7.6 G/DL, Range (5.7-8.2), *ALBUMIN 5.3 - H G/DL, Range (3.2-4.8), GLOBULIN 2.3 G/dL, *A/G RATIO 2.3 - H , Range (0.9-2.0), CALCIUM 9.2 MG/DL, Range (8.7-10.4), *Reference range may have changed due to new method*, ALKALINE PHOSPHATASE 112 IU/L, Range (46-116), AST/SGOT 27 IU/L, Range (< 34), ALT/SGPT 27 IU/L, Range (10-49), SGOT/SGPT RATIO 1.0 , Range (0-2), BILIRUBIN, TOTAL 0.5 MG/DL, Range (0.2-1.2), POTASSIUM 3.5 MMOL/L, Range (3.4-4.7), CHLORIDE 105 MMOL/L, Range (99-109), CARBON DIOXIDE 27 MMOL/L, Range (20-31). ([place] Apr 12, 2018 01:00 BARE) DIAGNOSIS ([place] Apr 12, 2018 03:27 BARE) FINAL: PRIMARY: abdominal pain. DISPOSITION PATIENT: Condition: GOOD. ([place] Apr 12, 2018 03:27 BARE) Disposition: 01 Home or Self Care. ([place] Apr 12, 2018 03:38 BARE) Disposition: 07 Left Against Medical Advice. ([place] Apr 12, 2018 03:42 BARE) Patient left the department. ([place] Apr 12, 2018 03:48 [email or web address]) INSTRUCTION ([place] Apr 12, 2018 03:28 BARE) DISCHARGE: ABDOMINAL PAIN - F/U 24 HOURS. FOLLOWUP: PHYSICIAN, NO FAMILY, , Follow up with Primary Care Physician Call to schedule appointment within 24hr. SPECIAL: FOLLOW UP IN 12-24 HOURS IN ER for recheck if symptoms persist or worsen. PRESCRIPTION ([place] Apr 12, 2018 03:27 BARE) Zofran ODT: Tablet, Disintegrating : 4 mg : Oral : Quantity: 1 Unit: SL. Route: Oral. Schedule: PRN EVERY 4-6 HOURS. Dispense: 6 May substitute. Refills: No Refills POTENTIAL SEVERE INTERACTION: Paxil [PARoxetine] Notes: , VOMITING No Refills May fill with generic unless noted VIVIAN. ADMIN DIGITAL SIGNATURE: DO Benítez Jeff. ([place] Apr 12, 2018 03:48 BARE) ROCKY Baker Thomas R. ([facility] Apr 16, 2018 04:48 TRP1) CASA Mckinley Madison S. (FriApr 16, 2018 04:58 MSF) CASA Burgess, Naye Nice (FriApr 16, 2018 05:16 AND5) ROCKY Carney, Naye Gamez (FriApr 23, 2018 06:05 ASM1) ROCKY Farfan, Merced Foster (FriMay 06, 2018 05:52 DJJ1) [place]: AND5=CASA Burgess, Naye Nice ASM1=ROCKY Carney, Naye Gamez BARE=DO Benítez Jeff DJJ1=ROCKY Farfan, Merced Foster ERB=ROCKY Levine, Trevor Manning MSF=HERVE MckinleyT, Jania S. TRP1=ROCKY Baker, Franklin Manning TSD1=ROCKY Brewster, Tiarra Gamez EMERGENCY DEPARTMENT Observed: 04/06/2018 Status: F Source: [place] SUMMARY 2:59 AM [facility] REPOSITORY [facility] Medical Records Department [address] [place] [id number] Emergency Department Summary 04/06/18 0250 MR#: [id number] Acct: [id number] Name: EDGARDO JAY Rep #: [id number] : 1980 37 From: Arslan Jordan MD PCP: Care Physician, No Primary Status: DEP ER - ER Visit Summary Date of Service: 04/06/18 Chief Complaint: Abdominal pain History of Present Illness: The patient is a 37 M who presents with abdominal pain. He states began yesterday. He complains of severe right lower quadrant pain which was initially dull but has become more sharp. He does have a history of prior similar symptoms. He had multiple visits to our emergency department in late January for similar symptoms. He had normal laboratory studies normal CT normal ultrasound. He was referred to general surgery. The patient reports that he followed up but was unable to tell me what their recommendations were and claims he cannot remember who it was. He states that since late January his symptoms had been well controlled until yesterday. Physical Examination: Afebrile blood pressure 163/105 vitals otherwise unremarkable Moist mucous membranes Heart regular rate and rhythm Lungs clear Abdomen soft nondistended he does have some right lower quadrant tenderness without guarding without rebound with Rovsing sign Alert Test Results: CBC CMP lipase unremarkable. Urinalysis unremarkable. Emergency Department Course and Treatment: Laboratory studies ordered as above. CT of the abdomen and pelvis with oral and IV contrast was ordered. OARRS report shows 63 prescriptions, 16 prescribers and 14 pharmacies. Of note since his last emergency department visit here during the time when he states his symptoms were well controlled I note four opiate prescriptions, all from different emergency providers and associated with [facility] in [place]. This is very concerning for drug-seeking behavior. Therefore I did not want to treat with opiates here unless I found a verifiable source of pain. The patient had called out to nursing multiple times that his symptoms were not controlled he wanted to speak to the physician. However I was evaluating a critical patient and not able to immediately return. When I was able to return to discuss with the patient he was already dressed and stating he was going to leave. He said I have Percocet at home I can just go take that it is clear you do not want to give me any other pain medicine. I expalined given his report of right lower quadrant pain he should still undergo CT imaging to rule out appendicitis. I discussed the risks of complications including if he left without this. He vocalized understanding and stated he was willing to take these risks and left. He did not sign any AGAINST MEDICAL ADVICE form or document. Treatment Plan: [] Disposition: Left AGAINST MEDICAL ADVICE Impression: Right lower quadrant abdominal pain, chronic This note was generated with RoboEd dictation software. It may contain incorrect words, spelling, and punctuation that were not noted in review of the chart prior to signing ED Disposition - Plan for ED Patient: Disposition: Against Medical Advice Chief Complaint: Abd Pain Referrals: Care Physician,No Primary [Primary Care Provider] - What to do if you have Problems For any increased pain, shortness of breath, bleeding, nausea or vomiting, chest pain, or any unexpected problems, contact your Primary Care Provider. Call [facility] ([phone]) or report to the closest Emergency Room. Call 911 if necessary. 04/06/18 0259 <Electronically signed by Arslan Jordan MD> Date Arslan Jordan MD Cosigner Signature (If Indicated): Date CC: No Primary Care Physician URINALYSIS, COMPLETE Collected: 04/06/2018 Status: F Source: [place] 1:30 AM [facility] REPOSITORY Order Comment: Has pt arrived? Y How was Urine Obtained? CLEAN CATCH TYPE CODE TESTS RESULT OUT OF RANGE REFERENCE UNITS LAB L400.3000 Yellow COLOR Normal Yellow LAB L400.3050 Clear Normal CLARITY Clear LAB L400.3200 Normal mg/dl Normal GLUCOSE, UR Normal LAB L400.3300 Negative mg/dL High BILIRUBIN URINE 1 Result Comment: COLOR OF URINE MAY AFFECT DIPSTICK RESULTS. LAB L400.3400 Negative mg/dl High KETONE UR 5 LAB L400.3465 1.002-1.030 Normal SP.GR. DIPSTX 1.015 LAB L400.3550 5.0 - 8.0 pH Normal UR 7.0 LAB L400.3600 Negative mg/dl High PROT DIPSTX 15 LAB L400.3700 Normal mg/dl High UROBILI 1 LAB L400.3750 Negative Normal NITRITE UR Negative LAB L400.3780 Negative /ul Normal OCCULT Negative BLOOD-UR LAB L400.3800 Negative /ul High LEUK ESTERASE 25 LAB L400.4050 0-5 /hpf Normal WBC 0-5 SEEN LAB L400.4100 0-5 /hpf Normal RBC-UA 0 SEEN LAB L400.4150 0-5 /hpf Normal SQUAM EPI 0 SEEN LAB L400.4300 None Seen /hpf Normal BACTERIA RARE LAB L400.4350 <or=2+ /hpf Normal MUCUS, URINE 2+ Performed By: #### L400.0001 #### [facility] [address] [place], [address] CBC W/DIFF, AUTOMATED Collected: 04/06/2018 Status: F Source: [place] 12:30 AM [facility] REPOSITORY TYPE CODE TESTS RESULT OUT OF RANGE REFERENCE UNITS LAB L100.1000 4.4-11.0 K/mm3 Normal WBC 7.8 LAB L100.1200 4.6-6.2 M/mm3 Normal RBC 5.44 LAB L100.1300 13.0-16.5 g/dl Normal HGB 16.1 LAB L100.1400 40-54 % Normal HCT 46.6 LAB L100.1500 80-94 fL Normal MCV 85.7 LAB L100.1600 27.0-32.0 pg Normal MCH 29.6 LAB L100.1700 32-36 g/gl Normal MCHC 34.5 LAB L100.1810 11.6-14.6 % Normal RDW CV 12.7 LAB L100.1820 35.1-43.9 fl Normal RDW SD 39.4 LAB L100.1900 150-450 K/mm3 Normal PLT 249 LAB L100.2000 6.2-12.0 fl Normal MPV 11.2 LAB L100.2100 47-70 % Normal NEUT% 51.3 LAB L100.2200 19-41 % Normal LY% 39.4 LAB L100.2300 0-10 % Normal MONO% 6.1 LAB L100.2400 0-5 % Normal EO% 2.6 LAB L100.2500 0-1 % Normal BASO% 0.5 LAB L100.2550 0.0-0.9 % Normal IM GRAN % 0.100 Result Comment: IG% - Immature Granulocytes (promyelocytes, myelocytes and metamyelocytes) > 1% indicates that a LEFT SHIFT is Present. LAB L100.2620 2.0-7.7 X10 3/uL Normal Absolute Neut 4.0 LAB L100.2720 0.83-4.51 X10 3/ul Normal Absolute Lymph 3.05 Performed By: #### L100.0100 #### [facility] [place], [address] COMPREHENSIVE METABOLIC Collected: 04/06/2018 Status: F Source: [facility] 12:30 AM [facility] REPOSITORY TYPE CODE TESTS RESULT OUT OF RANGE REFERENCE UNITS LAB L501.0100 74-106 mg/dL Normal GLU 92 Result Comment: Please note revised GLUCOSE reference range effective 2017. LAB L501.1000 7-18 mg/dL Normal BUN 10 LAB L501.1100 0.70-1.30 mg/dL Normal CREAT,SERUM 1.12 Result Comment: The validity of the calculated GFR AND GFRAA in patients over 70 years has not been determined. Clinical correlation is essential. LAB L501.1110 >60 mL/min Normal EST GFR 79 Result Comment: Non- GFR Calc LAB L501.1115 >60 mL/min Normal EST GFR - AA 95 Result Comment: GFR Calc LAB L501.1255 ml/min Normal Estimated CRCL 100.08 LAB L501.1300 10-20 RATIO Low BUN/CRE 8.9 LAB L501.1500 6.4-8. g/dL High 2 T PROT 8.3 LAB L501.1800 3.2-5. g/dL 0 ALB Normal 4.7 LAB L501.1950 2.2-4. g/dL 2 GLOB Normal 3.6 LAB L501.2000 0.9-2. RATIO 4 A/G Normal 1.3 LAB L501.2200 8.5-10 mg/dL .1 CA Normal 8.8 LAB L501.4100 15-37 U/L AST Normal 16 LAB L501.4305 45-117 U/L High ALK P 118 LAB L501.4405 16-61 U/L ALT Normal 30 LAB L501.4600 0.20-1 mg/dL .00 T BILI Normal 0.40 LAB L501.5300 136-14 mmol/L 5 NA Normal 140 LAB L501.5600 3.5-5. mmol/L 1 K Normal 3.5 LAB L501.5900 98-107 mmol/L CL Normal 104 LAB L501.6100 21.0-3 mmol/L 2.0 CO2 Normal 26.0 LAB L501.6200 5-15 GAP Normal 10 Performed By: #### L500.4050, L501.2450 #### [facility] [address] [facility]. [place], [place], [address] LIPASE Collected: 04/06/2018 Status: F Source: [place] 12:30 AM [facility] REPOSITORY TYPE CODE TESTS RESULT OUT OF RANGE REFERENCE UNITS LAB L501.2450 73-393 U/L Normal LIPASE 107 Performed By: #### L500.4050, L501.2450 #### [facility] [address] [place], [place], [address] CT ABDOMEN/PELVIS W/ Observed: 03/15/2018 Status: F Source: [employer] CONTRAST 11:28 PM SYSTEM REPOSITORY Patient Name: EDGARDO JAY CT Exam Date/Time 03/15/2018 23:20:[address] Abdomen/Pelvis w/ IV Contrast (IV Onl Ordering Physician DOUG SANZ Accession Number [id number] CPT4 Codes 29758 (CT Abdomen/Pelvis w/ IV Contrast (IV Onl), Q9967 (CT ISOVUE 370MG/[id number]) Reason For Exam abdominal pain Report HISTORY: Right lower quadrant pain and nausea After intravenous contrast sections performed through the abdomen and pelvis and correlated with the prior study of 03/05/2017. Patient had a right adrenal hemorrhage at that time. Just included sections through the lower chest show no acute findings. Liver and spleen are unremarkable. The gallbladder and biliary system and pancreas show no definite abnormality. Adrenal regions are negative as are the kidneys. Appendix is identified and appears negative. No free fluid or free air is seen. Gastrointestinal tract shows no definite abnormality At bone settings lumbar spine is unremarkable. Full urinary bladder. Unremarkable prostate gland. IMPRESSION: Negative exam as discussed Report Dictated on Final Dictating Physician: MD ARROYO WILLIAM Signed Date and Time: 03/15/2018 11:31 pm Signed by: MD ARROYO WILLIAM Transcribed Date and Time: 03/15/2018 11:32 CR CHEST PORTABLE Observed: 03/15/2018 Status: F Source: [employer] 10:36 PM SYSTEM REPOSITORY Patient Name: EDGARDO JAY Diagnostic Radiology Exam Date/Time 03/15/2018 22:27:39 EST Exam CR Chest Portable Ordering Physician DOUG SANZ Accession Number [id number] CPT4 Codes 57101 () Reason For Exam abdominal pain Report CHEST SINGLE VIEW CLINICAL INFORMATION: Abdomen pain A frontal view of the chest was obtained. No acute pulmonary disease is noted. The cardiovascular silhouette is within normal limits. Normal variant with azygos lobe IMPRESSION: No acute pulmonary disease. Report Dictated on Final Dictating Physician: MD ARROYO WILLIAM Signed Date and Time: 03/15/2018 10:37 pm Signed by: MD ARROYO WILLIAM Transcribed Date and Time: 03/15/2018 10:38 HEMOGRAM W/ AUTODIFF Collected: 03/15/2018 Status: F Source: [employer] 9:48 PM SYSTEM REPOSITORY TYPE CODE TESTS RESULT OUT OF REFERENCE UNITS RANGE LAB IWBC 3.6-10.7 10*3/uL WBC Normal 6.5 LAB RBC 4.40-5.90 10*6/uL RBC Normal 4.80 LAB HGB 13.0-18.0 g/dL Hemoglobin Normal 14.4 LAB HCT 40.0-52.0 % Hematocrit Normal 40.9 LAB MCV 80.0-98.0 fL MCV Normal 85.1 LAB MCH 26.0-34.0 pg MCH Normal 29.9 LAB MCHC 32.0-36.0 % MCHC Normal 35.2 LAB RDW 11.5-14.5 % RDW Normal 13.9 LAB PLT 140-440 10*3/uL Platelet Normal 221 LAB MPV 7.4-10.4 fL MPV Normal 10.3 LAB GRAN% 40.0-80.0 % Granulocytes Normal 60.3 LAB LYMP% 20.0-40.0 % Lymphocytes Normal 28.7 LAB MONO% 2.0-10.0 % Monocytes Normal 6.1 LAB EOS% 1.0-6.0 % Eosinophils Normal 3.7 LAB BAS% 0.0-2.0 % Basophils Normal 1.2 LAB ANC 1.8-7.0 10*3/uL Abs Normal Neutrophile Cnt 3.9 LAB ALC 1.0-4.3 10*3/uL Abs Lymph Cnt Normal 1.9 LAB AMC 0.0-0.8 10*3/uL Abs Monocyte Normal Cnt 0.4 LAB AEC 0.0-0.5 10*3/uL Abs Eosin Cnt Normal 0.2 LAB ABC 0.0-0.2 10*3/uL Abs Baso Cnt Normal 0.1 Performed By: #### HEMDF, LACT3, CMP3, LIPA4 #### [facility] [address] [place] [address] LACTIC ACID Collected: 03/15/2018 Status: F Source: [employer] 9:48 PM SYSTEM REPOSITORY TYPE CODE TESTS RESULT OUT OF RANGE REFERENCE UNITS LAB LACT3 0.7-2.0 mmol/L Normal Lactic Acid 1.1 Performed By: #### HEMDF, LACT3, CMP3, LIPA4 #### [facility] [address] [place] [address] COMP METABOLIC PANEL Collected: 03/15/2018 Status: F Source: [employer] 9:48 PM SYSTEM REPOSITORY TYPE CODE TESTS RESULT OUT OF RANGE REFERENCE UNITS LAB NA3 137-145 mmol/L Sodium Normal 138 LAB K3 3.5-5.1 mmol/L Normal Potassium 3.8 LAB CL3 98-107 mmol/L Chloride Normal 104 LAB CO23 22-30 mmol/L Carbon Normal Dioxide 27 LAB ANIN3 NA Anion Gap 7 LAB GLUC3 70-100 mg/dL Glucose Normal 92 LAB BUN3 7-20 mg/dL Urea Normal Nitrogen 13 LAB CRET3 0.52-1.25 mg/dL Normal Creatinine 1.10 LAB GF3BR >60 mL/min eGFR > 60.0 LAB GF3WR >60 mL/min eGFR OTHER > 60.0 Result Comment: Source- MDRD equation with creatinine calibration to IDMS(NKDEP) eGFR not recommended for drug dose adjustment LAB CA3 8.4-10.4 mg/dL Calcium Normal 9.5 LAB ALB3 3.5-5.0 g/dL Albumin, Serum Normal 4.8 LAB TP3 6.3-8.2 g/dL Total Protein Normal 7.5 LAB BILT3 0.2-1.3 mg/dL Normal Bilirubin,Total 0.5 LAB ALKP3 38-126 U/L Alkaline Normal Phosphatase 97 LAB ALT3 13-69 U/L ALT (SGPT) Normal 36 LAB AST3 15-46 U/L AST (SGOT) Normal 29 Performed By: #### HEMDF, LACT3, CMP3, LIPA4 #### [facility] [address] [place] [address] LIPASE Collected: 03/15/2018 Status: F Source: [employer] 9:48 PM SYSTEM REPOSITORY TYPE CODE TESTS RESULT OUT OF RANGE REFERENCE UNITS LAB LIPA4 23-300 U/L Normal Lipase 54 Performed By: #### HEMDF, LACT3, CMP3, LIPA4 #### [facility] [address] [place] [address] URINALYSIS,MACRO Collected: 03/15/2018 Status: F Source: [employer] 9:48 PM SYSTEM REPOSITORY TYPE CODE TESTS RESULT OUT OF REFERENCE UNITS RANGE LAB APPUR Clear NA Appearance CLEAR LAB COLUR Lt. Yellow NA Color YELLOW LAB USG 1.005-1.030 NA Specific Normal [place],Urine 1.011 LAB UPH 5.0-8.0 NA pH,Urine Normal 6.5 LAB ULUK Negative NA Leukocytes NEG LAB UNIT Negative NA Nitrites NEG LAB UPRO Negative mg/dL Total Protein,Urine NEG LAB UGLU Negative mg/dL Glucose,Urine NEG LAB UKET Negative mg/dL Ketone,Urine NEG LAB UURO 0-1 mg/dL Urobilinogen 0.2 LAB UBIL Negative NA Bilirubin,Ur NEG LAB UBLD Negative {RBC}/uL Occult Blood,Ur NEG Performed By: #### UAMAC #### [facility] [address] [place] [address] ED PROVIDER NOTE Observed: 03/15/2018 Status: F Source: [employer] 8:36 PM SYSTEM REPOSITORY [facility] ED eMERGENCY dEPARTMENT eNCOUnter Pt Name: Edgardo Jay Birthdate 1980 Date of evaluation: 03/15/2018 Provider: Doug Morrison MD CHIEF CONCERN Chief Complaint Patient presents with ? Abdominal Pain CHIEF CONCERN / HISTORY OF PRESENT ILLNESS Here with abdominal pain. Started about a day ago. Initially in epigastrium. Now in right lower abdomen. History of similar symptoms with diagnosis of diverticulitis. Says he has been feeling nauseated without vomiting. No diarrhea. No fevers. No chills. Severity moderate. Took nothing for symptoms. REVIEW OF SYSTEMS Constitutional: No fatigue. HENT: No sore throat. No congestion. Eye: No double vision. No blurry vision. No eye pain. Respiratory: No cough. No dyspnea. No wheezing. Cardiovascular: No chest pain. No palpitations. No lightheadedness. No leg swelling. GI: No diarrhea. No constipation. No vomiting. : No frequency. No dysuria. No urgency. No testicular pain. No penile discharge. MSK: No arthralgias. No myalgias. Skin: No rashes. Neuro: No numbness. No tingling. No weakness. No headache. PAST MEDICAL HISTORY Past Medical History: Diagnosis Date ? ADHD 03/05/2017 ? Anxiety ? Depressive illness 03/05/2017 ? Hypertension SURGICAL HISTORY Past Surgical History: Procedure Laterality Date ? COLONOSCOPY ? ORTHOPEDIC SURGERY Bilateral 03/06/2017 ORIF bilateral wrists ? TONSILLECTOMY ? WRIST SURGERY Left 11/18/2017 wrist hardware removal distal radius osteotomy with graft possible ligament repair DR LIU CURRENT MEDICATIONS Previous Medications AMPHETAMINE-DEXTROAMPHETAMINE (ADDERALL XR) 20 MG EXTENDED RELEASE CAPSULE Take 20 mg by mouth 2 times daily . ATENOLOL (TENORMIN) 50 MG TABLET Take 50 mg by mouth daily CLONAZEPAM (KLONOPIN) 1 MG TABLET Take 1 mg by mouth nightly as needed for Anxiety. PAROXETINE (PAXIL) 20 MG TABLET Take 20 mg by mouth every morning ALLERGIES Patient has no known allergies. FAMILY HISTORY Family History Problem Relation Age of Onset ? No Known Problems Mother ? No Known Problems Father SOCIAL HISTORY Social History Social History ? Marital status: Spouse name: N/A ? Number of children: N/A ? Years of education: N/A Social History Main Topics ? Smoking status: Never Smoker ? Smokeless tobacco: Never Used ? Alcohol use No ? Drug use: No ? Sexual activity: Not Asked Other Topics Concern ? None Social History Narrative ? None SCREENINGS PHYSICAL EXAM Vitals: As documented in EMR have been reviewed throughout ED course. General: Nontoxic. Conversational. Appears stated age. Skin: Warm. Dry. Intact. No systemic rashes or lesions. Eyes: Pupils are equally round and reactive to light. Extraocular motions are intact. Clear sclera. HENT: Atraumatic. Normocephalic. Trachea midline. Mucosal membranes moist. Posterior oropharynx without erythema or exudate. Lungs: Clear to auscultation throughout. Nonlabored breathing. Cardiovascular: No murmurs, rubs, or gallops appreciated. No pedal edema. No JVD. Symmetric radial pulses. Abdomen: Soft. Epigastric and right lower abdominal pain. No referred pain with left lower abdominal palpation. Nondistended. Bowel sounds are present. Genitals: Performed with nurse chief executive officer. No testicular enlargement. No masses. Vertical lie. Cremasteric present. No hernia. No rashes or lesions. No adenopathy. Musculoskeletal: No asymmetry. No deformities. No effusions. Neuro: Alert. Oriented x 3. No facial asymmetry. No aphasia. No dysarthria. Midline tongue protrusion. Posterior oropharynx with symmetric elevation. Normal shoulder shrug. Normal strength in upper extremities. Normal strength in lower extremities. Normal sensation throughout upper and lower extremities. Psych: Appropriate. Cooperative. REVIEWED DIAGNOSTIC RESULTS RADIOLOGY Xr Chest Portable Result Date: 03/15/2018 Patient Name: EDGARDO JAY ---Diagnostic Radiology--- Exam Date/Time 03/15/2018 22:27:39 EST Exam CR Chest Portable Ordering Physician DOUG SANZ Accession Number [id number] CPT4 Codes 75429 () Reason For Exam abdominal pain Report CHEST SINGLE VIEW CLINICAL INFORMATION: Abdomen pain A frontal view of the chest was obtained. No acute pulmonary disease is noted. The cardiovascular silhouette is within normal limits. Normal variant with azygos lobe IMPRESSION: No acute pulmonary disease. Report Dictated on --- Final --- Dictating Physician: MD ARROYO WILLIAM Signed Date and Time: 03/15/2018 10:37 pm Signed by: MD ARROYO WILLIAM Transcribed Date and Time: 03/15/2018 10:38 Ct Abdomen Pelvis W Contrast Result Date: 03/15/2018 Patient Name: EDGARDO JAY ---CT--- Exam Date/Time 03/15/2018 23:20:[address] Abdomen/Pelvis w/ IV Contrast (IV Onl Ordering Physician DOUG SANZ Accession Number [id number] CPT4 Codes 44718 (CT Abdomen/Pelvis w/ IV Contrast (IV Onl), Q9967 (CT ISOVUE 370MG/ML&[id number]&ML&1) Reason For Exam abdominal pain Report HISTORY: Right lower quadrant pain and nausea After intravenous contrast sections performed through the abdomen and pelvis and correlated with the prior study of 03/05/2017. Patient had a right adrenal hemorrhage at that time. Just included sections through the lower chest show no acute findings. Liver and spleen are unremarkable. The gallbladder and biliary system and pancreas show no definite abnormality. Adrenal regions are negative as are the kidneys. Appendix is identified and appears negative. No free fluid or free air is seen. Gastrointestinal tract shows no definite abnormality At bone settings lumbar spine is unremarkable. Full urinary bladder. Unremarkable prostate gland. IMPRESSION: Negative exam as discussed Report Dictated on --- Final --- Dictating Physician: MD ARROYO WILLIAM Signed Date and Time: 03/15/2018 11:31 pm Signed by: MD ARROYO WILLIAM Transcribed Date and Time: 03/15/2018 11:32 LABS: Labs Reviewed COMPREHENSIVE METABOLIC PANEL Narrative: Test Performed by [facility], [address] [place] [address] URINALYSIS Narrative: [facility] by [facility], [address] [place] [address] CBC WITH AUTO DIFFERENTIAL Narrative: Test Performed by [facility], [address] [place] [address] LIPASE Narrative: Test Performed by [facility], [address] [place], [place] [address] LACTIC ACID, PLASMA Narrative: Test Performed by [facility], [address] [place] [address] All other labs were within normal range or not returned as of this dictation. EMERGENCY DEPARTMENT COURSE and DIFFERENTIAL DIAGNOSIS/MDM: ? Nursing notes were reviewed. Patient was evaluated. Orders placed as below. ? Labs reviewed and without significant findings. ? Imaging reviewed. ? Patient re-evaluated. Feeling improved. Repeat abdominal exam benign. Tolerating oral intake. ? Following this emergency department visit, I have a very low suspicion for appendicitis, bowel obstruction, mesenteric ischemia, hepatitis, pancreatitis, cholecystitis, ascending cholangitis, incarcerated or strangulated hernia, ruptured abdominal aortic aneurysm, testicular torsion, or other similar, emergent intra-abdominal process. discussed this with Edgardo Jay and discussed symptoms that would warrant return to the emergency department. I underscored the importance of following up with MEAGHAN VERAS. Edgardo Jay understood and was agreeable. Medications sodium chloride flush 0.9 % injection 3 mL (not administered) 0.9 % sodium chloride bolus (1,000 mLs Intravenous New Bag 03/15/182149) morphine injection 4 mg (4 mg Intravenous Given 03/15/182156) ondansetron (ZOFRAN) injection 4 mg (4 mg Intravenous Given 03/15/182154) iopamidol (ISOVUE-370) 76 % injection 75 mL (75 mLs Other Given 11/25/18 2315) ketorolac (TORADOL) injection 30 mg (30 mg Intravenous Given 03/15/18 2346) Orders Placed This Encounter Procedures ? CT Abdomen Pelvis W Contrast ? XR CHEST PORTABLE ? Comprehensive Metabolic Panel ? Urinalysis ? Hemogram (CBC) w/Auto Diff ? Lipase ? Lactic Acid, Plasma ? Vital signs per Policy ? Check pulse oximetry ? Cardiac telemetry monitoring ? Saline lock IV CRITICAL CARE TIME 0 minutes, excluding separately reportable procedures were spent directly caring for patient, interpreting testing, consulting, and documenting care. There was a high probability of clinically significant/life threatening deterioration in the patient's condition which required my urgent intervention. CONSULTS: None PROCEDURES (if any): Procedures FINAL IMPRESSION 1. Abdominal pain, unspecified abdominal location DISPOSITION/PLAN DISPOSITION PATIENT REFERRED TO: Meaghan Veras [address] [facility] [address] Friday DISCHARGE MEDICATIONS: New Prescriptions ACETAMINOPHEN (APAP EXTRA STRENGTH) 500 MG TABLET Take 1 tablet by mouth every 6 hours as needed for Pain or Fever DICYCLOMINE (BENTYL) 10 MG CAPSULE Take 1 capsule by mouth 4 times daily as needed (abdominal pain) IBUPROFEN (ADVIL;MOTRIN) 600 MG TABLET Take 1 tablet by mouth every 6 hours as needed for Pain ONDANSETRON (ZOFRAN) 4 MG TABLET Take 1 tablet by mouth every 8 hours as needed for Nausea (Please note: Portions of this note were completed with a voice recognition program. Efforts were made to edit the dictations but occasionally words and phrases are mis-transcribed.) Form [id number] Doug Morrison MD (electronically signed) Emergency Medicine Provider Doug Morrison MD 03/15/18 4634 Doug Morrison MD 03/15/[address] ABDOMEN PELVIS Observed: 03/14/2018 Status: F Source: [facility] WITH IV CONTRAST 6:56 PM [facility] REPOSITORY EXAMINATION: CT OF THE ABDOMEN AND PELVIS WITH CONTRAST 03/14/2018 6:56 pm TECHNIQUE: CT of the abdomen and pelvis was performed with the administration of intravenous contrast. Multiplanar reformatted images are provided for review. Dose modulation, iterative reconstruction, and/or weight based adjustment of the mA/kV was utilized to reduce the radiation dose to as low as reasonably achievable. COMPARISON: None. HISTORY: rlq abd pain, eval for appendicitis RLQ pain w/ nausea. No known injury. No pertinent surgical hx. FINDINGS: Lower Chest: No acute finding in the lung bases Organs: No focal lesions identified in the liver. Portal venous system is patent. Normal spleen. Punctate gallstones suggested on image 50 of series 2 versus small gallbladder debris. No acute cholecystitis.. Normal pancreas. Normal adrenals. There is no nephrolithiasis or hydronephrosis noted. No ureteral obstruction or dilatation noted. GI/Bowel: Normal stomach, duodenum, jejunum. Mild increased fluid in the ileum without significant wall thickening. A normal appendix is identified on image 115 through 124 of series 2. Normal appendix is also well seen on image 37 of series 3. No inflammation noted in this region. Colon is incompletely distended with mild wall prominence of the hepatic flexure of colon, transverse colon, descending colon. Diffuse diverticular disease is present. There is no pericolonic inflammation or free fluid or free air noted. Pelvis: Normal distal ureters and urinary bladder. Normal size prostate. Peritoneum/Retroperitoneum: Abdominal aorta is normal in caliber with no evidence of aneurysmal dilatation or dissection. No retroperitoneal adenopathy or bleed.. Bones/Soft Tissues: Bones and soft tissues are normal for age.. Chronic pars fractures noted at L5 on the left side. No listhesis. IMPRESSION: 1. Findings are concerning for mild colitis/diverticulitis involving the hepatic flexure of colon transverse colon and descending colon without an abscess or fluid collection. Mild nonspecific increased fluid in the small bowel could be due to mild enteritis. 2. No CT evidence of acute appendicitis, cholecystitis, pancreatitis, nephrolithiasis or hydronephrosis. 3. Question punctate gallstone seen on image 50 of series 2 versus minimal gallbladder debris. URINALYSIS Collected: 03/14/2018 Status: F Source: [facility] 6:19 PM [facility] REPOSITORY TYPE CODE TESTS RESULT OUT OF REFERENCE UNITS RANGE LAB IUS(LOINC ) URINE SOURCE Voided LAB IUCOL(YURY NC) COLOR Yellow LAB IUAPP(YURY NC) APPEARANCE URINE Clear LAB 66281925( 1.003-1.029 LOINC) SPECIFIC GRAVITY 1.017 LAB 36927160( LOINC) PH-URINE 5.0 LAB IUPR(LOIN Negative mg/dL C) URINE PROTEIN Negative LAB IUGL(LOIN Negative mg/dL C) GLUCOSE-URINE Negative LAB IUKET(YURY Negative mg/dL NC) KETONES Negative LAB IUOB(LOIN Negative C) OCCULT BLOOD Negative LAB IUURO(YURY <2.0 mg/dL NC) UROBILINOGEN Negative LAB IULE(LOIN Negative C) LEUKOESTERASE Negative LAB IUNI(LOIN Negative C) NITRITES Negative LAB IUBIL(YURY Negative NC) URINE BILIRUBIN Negative LAB UWBC(LOIN 0-5 /HPF C) WBC-URINE <1 LAB URBC(LOIN 0-5 /HPF C) RBC-URINE 0 LAB UMUCS(YURY /LPF NC) MUCOUS-URINE Rare LAB IUCI(LOIN C) CULTURE NOT INDICATED Performed By: #### [id number] #### [place] [address] CBC WITH DIFFERENTIAL Collected: 03/14/2018 Status: F Source: [facility] 6:14 PM [facility] REPOSITORY TYPE CODE TESTS RESULT OUT OF REFERENCE UNITS RANGE LAB WBC(LOINC) 4.3-10.3 x10 3/uL WBC 6.2 LAB RBC(LOINC) 3.70-5.70 x10 6/uL RBC 5.01 LAB [id number](L 12.8-17.7 g/dL OINC) HGB 14.6 LAB 21954916(L 37.7-51.1 % OINC) HCT 44.5 LAB MCV2(LOINC 80.6-99.0 fL ) MCV 88.8 LAB MCH(LOINC) 27.0-34.2 pg MCH 29.1 LAB MCHC2(LOIN 31.4-36.2 g/dl C) MCHC 32.8 LAB RDW(LOINC) 11.5-14.5 % RDW 13.4 LAB 84121812(L 150.0-400.0 x10 3/uL OINC) PLATELET 239.0 LAB POLY(LOINC % ) NEUTROPHIL 67.7 LAB POLY#(LOIN 2.4-6.6 10 3/uL C) ABSOLUTE NEUT 4.2 LAB LYMP(LOINC % ) LYMPHOCYTE 23.5 LAB LYMP#(LOIN 1.2-3.3 10 3/uL C) ABSOLUTE LYMPH 1.5 LAB MONO(LOINC % ) MONOCYTE 5.0 LAB MONO#(LOIN 0.2-0.6 10 3/uL C) ABSOLUTE MONO 0.3 LAB EOSO(LOINC % ) EOSINOPHIL 3.2 LAB EOSO#(LOIN 0.1-0.3 10 3/uL C) ABSOLUTE EOSIN 0.2 LAB BASO(LOINC % ) BASOPHIL 0.6 LAB BASO#(LOIN 0.0-0.1 10 3/uL C) ABSOLUTE BASO 0.0 Performed By: #### [id number] #### [place] [address] CHEM 8 Collected: 03/14/2018 Status: F Source: [facility] 6:14 [facility] REPOSITORY TYPE CODE TESTS RESULT OUT OF REFERENCE UNITS RANGE LAB 18690804(L 135-147 mmol/L OINC) SODIUM 141 LAB 10400403(L 3.6-5.1 mmol/L OINC) POTASSIUM 3.8 LAB 00653206(L 96-109 mmol/L OINC) CHLORIDE 105 LAB 03491550(L 22-30 mmol/L OINC) CO2 25 LAB 96198177(L 65-100 mg/dL OINC) High GLUCOSE-SERUM 121 LAB 35058706(L 8-26 mg/dL OINC) BUN 13 LAB 78075859(L 0.66-1.25 mg/dL OINC) CREATININE 1.00 LAB 52606932(L 8.4-10.4 mg/dL OINC) CALCIUM 9.7 Performed By: #### [id number] #### [place] [address] GFR Collected: 03/14/2018 Status: F Source: MARY :[facility] REPOSITORY TYPE CODE TESTS RESULT OUT OF RANGE REFERENCE UNITS LAB GFR1(LOINC) GFR >60 Result Comment: To estimate the GFR for Americans, multiply the result provided by 1.21. Population mean GFR = 107 ml/min/1.73 sq.m. for ages 30-39 yrs Five stages of CKD and GFR for each stage: Stage 1 GFR >=90 Stage 2 GFR 60-89 Stage 3 GFR 30-59 Stage 4 GFR 15-29 Stage 5 GFR <15 Performed By: #### GFR1 #### [place] [id number] URINE PROTOCOL Collected: 03/13/2018 Status: F Source: [facility] 7:07 PM [facility] REPOSITORY TYPE CODE TESTS RESULT OUT OF RANGE REFERENCE UNITS LAB UCOL(LOINC ) COLOR,URINE STRAW LAB UCLAR(LOIN C) CLARITY,URINE CLEAR LAB UGLU(LOINC NEGATIVE mg/dL ) 50 Abnormal GLUCOSE, URINE (UA) LAB UKET(LOINC NEGATIVE mg/dL ) KETONES,URINE NEGATIVE LAB USG(LOINC) <1.029 SP.GR. SPECIFIC 1.014 GRAVITY,URINE LAB UBLD(LOINC NEGATIVE ) BLOOD,URINE NEGATIVE LAB UPH(LOINC) 5.0-8.0 PH,URINE 6.0 LAB UPRO(LOINC NEGATIVE mg/dL ) PROTEIN,URINE NEGATIVE LAB UURO(LOINC <2 mg/dL mg/dL ) UROBILINOGEN,U NEGATIVE RINE LAB UNIT(LOINC NEGATIVE ) NITRITE,URINE NEGATIVE LAB ULEU(LOINC NEGATIVE ) LEUKOCYTE NEGATIVE ESTERASE ,URINE LAB RFX TO CULT REFLEX TO CULT NOT URINE CULTURE INDICATED Performed By: #### CBC, UA w RFX x2 #### Main Lab - [facility] [address] [place] [address] ABDOMEN PELVIS Observed: 03/13/2018 Status: F Source: [facility] W/O 7:07 PM [facility] REPOSITORY [facility] Diagnostic Imaging Services [address] [place] [address] Diagnostic Imaging Report : [id number] Signed Name: EDGARDO JAY MRUN: [id number] : 1980 Loc: ED Age / Sex: 37 / M ADM Status: REG ER ADM Date: 03/13/18 Room/Bed: Ordering Physician: Mark Wharton PA-C Procedure: CT ABDOMEN PELVIS W/O Order Number(s): [id number] Ordered Date: 03/13/18 Ordered Time: 1810 EXAMINATION: CT OF THE ABDOMEN AND PELVIS WITHOUT CONTRAST 03/13/2018 7:02 pm TECHNIQUE: CT of the abdomen and pelvis was performed without the administration of intravenous contrast. Multiplanar reformatted images are provided for review. Dose modulation, iterative reconstruction, and/or weight based adjustment of the mA/kV was utilized to reduce the radiation dose to as low as reasonably achievable. COMPARISON: None. HISTORY: RLQ pain FINDINGS: Lower Chest: Clear lung bases. Organs: No focal lesions are identified in the liver or spleen. Normal gallbladder. Normal pancreas. Normal adrenals. There is no nephrolithiasis or hydronephrosis noted in the kidneys. Ureters are not dilated. GI/Bowel: Normal stomach, duodenum, jejunum and ileum. Air-filled appendix is seen on image 70 of series 2, of normal size. No inflammation around the appendix. No colonic obstruction or colitis. Pelvis: Normal distal ureters and urinary bladder. Normal prostate. Peritoneum/Retroperitoneum: Abdominal aorta is normal in caliber with no evidence of aneurysmal dilatation or dissection. No retroperitoneal adenopathy or bleed.. Bones/Soft Tissues: Chronic pars fractures noted at L5 on the left side. No listhesis. IMPRESSION: 1. No CT evidence of acute cholecystitis, pancreatitis, nephrolithiasis or hydronephrosis or appendicitis or colitis or free air. No bowel obstruction. 2. Chronic left L5 pars interarticularis fracture without listhesis. Dictated By: Quiana Callahan MD Dictated Date/Time: 03/13/181906 Signed By: Quiana Callahan MD, MD Signed Date/Time: 03/13/181913 Transcribed Date/Time: 03/13/181909 BASIC METABOLIC PANEL Collected: 03/13/2018 Status: F Source: [facility] 6:21 PM [facility] REPOSITORY TYPE CODE TESTS RESULT OUT OF RANGE REFERENCE UNITS LAB AGE(LOINC) Years AGE,PATIENT 37 LAB NA 137-145 mmol/L 2(LOINC) Normal SODIUM 141 LAB K 1(LOINC) 3.6-5.0 mmol/L Normal POTASSIUM 3.6 Result Comment: Specimen Slightly Hemolyzed. LAB CL 1(LOINC) 98-107 mmol/L CHLORIDE Normal 107 LAB CO2 1(LOINC) 22-31 mmol/L CARBON Normal DIOXIDE 24 LAB GAP(LOINC) 9-18 mmol/L ANION Normal GAP 14 LAB BUN 1(LOINC) 7-21 mg/dL BLOOD Normal UREA NITROGEN 14 LAB CREAT 1(LOINC) 0.80-1.30 mg/dL Normal CREATININE 1.09 LAB EGFR(LOINC) mL/min Normal ESTIMATED GLOMERULAR FILT > RATE 60.000 LAB BCRATIO(LOINC) 5.0-42.0 Ratio Normal BUN/CREATININE RATIO 12.8 LAB GLU BMP(LOINC) 70-99 mg/dL Low GLUCOSE 69 Result Comment: The glucose range is based on recommendations from the [place] [employer] for fasting blood glucose range. LAB CA 1(LOINC) 8.4-10.2 mg/dL Normal CALCIUM 9.6 LAB PHARM CRCL(LOINC) ESTIMATED CREAT CLEARANCE 102.83 Result Comment: COCKCROFT-GAULT FORMULA 1972 Performed By: #### MYESHA, LIVER, LIPA 1 #### Main Lab - [facility] [address] [place] [address] HEPATIC PANEL Collected: 03/13/2018 Status: F Source: [facility] 6:21 PM [facility] REPOSITORY TYPE CODE TESTS RESULT OUT OF RANGE REFERENCE UNITS LAB BILIT 0.2-1.3 mg/dL 1(LOINC) Normal 0.3 BILIRUBIN,TO JOHANNA LAB BILIC 0.0-0.6 mg/dL 1(LOINC) Normal < 0.1 BILIRUBIN,DI RECT LAB AST 1(LOINC) 14-50 U/L Normal AST/SGOT 28 Result Comment: Specimen Slightly Hemolyzed. LAB ALT 1(LOINC) 7-56 U/L Normal ALT/SGPT 21 LAB ALK PHOS 43-122 U/L 1(LOINC) Normal ALKALINE PHOSPHATASE 90 LAB TP 1(LOINC) 6.3-8.2 g/dL Normal TOTAL PROTEIN 8.1 LAB ALB 1(LOINC) 3.9-5.0 g/dL Normal ALBUMIN 4.3 LAB GLOB(LOINC) g/dL Normal GLOBULIN 3.8 Performed By: #### MYESHA, LIVER, LIPA 1 #### Main Lab - [facility] [place], [place] [address] LIPASE Collected: 03/13/2018 Status: F Source: [facility] 6:21 PM [facility] REPOSITORY TYPE CODE TESTS RESULT OUT OF RANGE REFERENCE UNITS LAB LIPA 23-300 U/L 1(LOINC) Normal LIPASE 24 Performed By: #### MYESHA, LIVER, LIPA 1 #### Main Lab - [facility] [address] [place], [place] [address] CBC WITH AUTO Collected: 03/13/2018 Status: F Source: [facility] DIFF 6:21 PM [facility] REPOSITORY TYPE CODE TESTS RESULT OUT OF REFERENCE UNITS RANGE LAB WBC(LOINC) 4.0-10.5 10 3/uL WHITE BLOOD Normal COUNT 6.3 LAB RBC(LOINC) 4.38-5.71 x10 6/uL RED BLOOD Normal COUNT 5.08 LAB HGB(LOINC) 12.9-16.6 g/dL HEMOGLOBIN Normal 14.8 LAB HCT(LOINC) 38.7-49.8 % HEMATOCRIT Normal 43.7 LAB MCV(LOINC) 78.0-100.0 fL MEAN Normal CORPUSCULAR VOLUME 85.9 LAB MCH(LOINC) 27.0-31.0 pg MEAN Normal CORPUSCULAR 29.1 HEMOGLOBIN LAB MCHC(LOINC 32.0-36.0 g/dL ) MEAN Normal CORPUSCULAR HGB 33.9 CONC LAB RDW(LOINC) 11.5-14.0 % RED CELL Normal DISTRIBUTION WIDTH 13.9 LAB PLT(LOINC) 150-450 10 3/uL PLATELET COUNT Normal 245 LAB MPV(LOINC) 6.0-9.5 fl MEAN PLATELET Normal VOLUME 9.3 LAB NE%(LOINC) 36.0-66.0 % NEUTROPHILS % Normal (AUTO) 60.7 LAB LY%(LOINC) 24.0-44.0 % LYMPHOCYTES % Normal (AUTO) 28.0 LAB MO%(LOINC) 1.7-9.3 % MONOCYTES % Normal (AUTO) 6.2 LAB EO%(LOINC) 0.0-5.0 % EOSINOPHILS % Normal (AUTO) 3.8 LAB BA%(LOINC) 0.0-1.0 % BASOPHILS % High (AUTO) 1.3 LAB NE# 1.5-6.7 10 3/uL NEUTROPHILS, Normal ABSOLUTE (AUTO) 3.8 LAB LY#(LOINC) 1.0-3.5 10 3/uL LYMPHOCYTES, Normal ABSOLUTE (AUTO) 1.8 LAB MO#(LOINC) 0.2-0.8 10 3/uL MONOCYTES, Normal ABSOLUTE (AUTO) 0.4 LAB EO#(LOINC) 0.0-0.7 10 3/uL EOSINOPHILS, Normal ABSOLUTE (AUTO) 0.2 LAB BA#(LOINC) 0.0-0.2 10 3/uL BASO, ABSOLUTE Normal (AUTO) 0.1 Performed By: #### CBC, UA w RFX x2 #### Main Lab - [place] [address] URINALYSIS WITH REFLEX Collected: 03/09/2018 Status: F Source: [facility] TO CULTURE 8:30 PM HOSPITAL REPOSITORY TYPE CODE TESTS RESULT OUT OF REFERENCE UNITS RANGE LAB 5778-6(YURY YELLOW NC) Color Ur Light yellow LAB 04217-9(LO CLEAR INC) Clarity Ur Clear LAB 5811-5(YURY 1.010-1.035 NC) Sp Gr Ur Strip 1.010 LAB 5803-2(YURY 5.5-7.5 NC) pH Ur Strip 6.5 LAB 83766-7(LO TRACE INC) Leukocyte esterase Ur-aCnc Negative LAB 5802-4(YURY NEGATIVE NC) Nitrite Ur Ql Strip Negative LAB 5804-0(YURY NEGATIVE NC) Prot Ur Strip-mCnc Negative LAB 5792-7(YURY NEGATIVE NC) Glucose Ur Strip-mCnc Negative LAB 5797-6(YURY NEGATIVE NC) Ketones Ur Strip-mCnc Negative LAB 97142-8(LO <=1 E.U./dL INC) Urobilinogen Ur-aCnc 0.2 E.U./dL LAB 88934-8(LO NEGATIVE INC) Bilirub Ur Strip-mCnc Negative LAB 58914-4(LO NEGATIVE INC) RBC # Ur Strip Negative Performed By: #### UAR #### [address] [place] [address] Financial Analyst Intern - Usha BARRERA [id number] CHLAMYDIA AND Collected: 03/09/2018 Status: F Source: [facility] GONORRHEA WILLIAM 8:30 PM HOSPITAL REPOSITORY TYPE CODE TESTS RESULT OUT OF REFERENCE UNITS RANGE LAB 974775(LOIN Negative C) 41606-4 Negative LAB 916632(LOIN Negative C) 10410-6 Negative Performed By: #### GCCH #### Performed for [place] [address] CBC WITH DIFFERENTIAL Collected: 03/09/2018 Status: F Source: [place] 6:45 PM [facility] REPOSITORY TYPE CODE TESTS RESULT OUT OF REFERENCE UNITS RANGE LAB 6690-2(YURY 4.80-10.80 10E3/uL NC) WBC # Bld Auto 10.32 LAB 789-8(LOIN 4.00-6.30 10E6/uL C) RBC # Bld Auto 4.82 LAB 718-7(LOIN 14.0-18.0 g/dL C) Hgb Bld-mCnc 14.1 LAB 4544-3(YURY 40.0-54.0 % NC) Hct VFr Bld Auto 41.6 LAB 787-2(LOIN 80.0-100.0 fL C) MCV RBC Auto 86.3 LAB 785-6(LOIN 27.0-31.0 pg C) MCH RBC Qn Auto 29.3 LAB 786-4(LOIN 32.0-36.0 g/dL C) MCHC RBC Auto-mCnc 33.9 LAB 82797-1(LO 35.1-43.9 fL INC) RDW RBC Auto 40.7 LAB 777-3(LOIN 130-400 10E3/uL C) Platelet # Bld Auto 260 LAB 99960-0(LO 9.0-13.0 fL INC) PMV Bld Auto 11.0 LAB 770-8(LOIN 50.0-70.0 % C) Neutrophils/leuk 66.0 NFr Bld Auto LAB 736-9(LOIN 20.0-40.0 % C) Lymphocytes NFr Bld Auto 24.9 LAB 5905-5(YURY <=8.0 % NC) Monocytes NFr Bld Auto 6.2 LAB 713-8(LOIN <=10.0 % C) Eosinophil NFr Bld Auto 1.9 LAB 706-2(LOIN <=2.0 % C) Basophils NFr Bld Auto 0.5 LAB 42897-4(LO <=1.50 % INC) Imm Granulocytes/leuk 0.50 NFr Bld Auto LAB 751-8(LOIN 1.40-6.50 10E3/uL C) Neutrophils # High Bld Auto 6.81 LAB 731-0(LOIN 1.20-3.40 10E3/uL C) Lymphocytes # Bld Auto 2.57 LAB 742-7(LOIN 0.10-0.60 10E3/uL C) Monocytes # High Bld Auto 0.64 LAB 711-2(LOIN <=0.70 10E3/uL C) Eosinophil # Bld Auto 0.20 LAB 704-7(LOIN <=0.70 10E3/uL C) Basophils # Bld Auto 0.05 LAB 03515-2(LO <=0.10 10E3/uL INC) Imm Granulocytes # Bld 0.05 Auto LAB 771-6(LOIN <=0.10 10E3/uL C) nRBC # Bld Auto 0.00 Performed By: #### 25122-9 #### [facility] [address] [place] [address] Financial Analyst Intern - Usha Gómez [facility] [id number] LIPASE Collected: 03/09/2018 Status: F Source: [facility] 6:45 PM HOSPITAL REPOSITORY TYPE CODE TESTS RESULT OUT OF REFERENCE UNITS RANGE LAB 3040-3(LOIN 73-393 U/L C) [facility]ase [facility] Performed By: #### 3040-3, 05758-8 #### [facility] [address] [place] [address] Financial Analyst Intern [facility] [id number] COMPREHENSIVE METABOLIC Collected: 03/09/2018 Status: F Source: [facility] 6:45 PM [facility] REPOSITORY TYPE CODE TESTS RESULT OUT OF REFERENCE UNITS RANGE LAB 2951-2(LO 136-145 mmol/L INC) 137 Sodium SerPl-sCnc LAB 2823-3(LO 3.5-5.1 mmol/L INC) 3.6 Potassium SerPl-sCnc LAB 2075-0(LO 98-107 mmol/L INC) 103 Chloride SerPl-sCnc LAB 2028-9(LO 21-32 mmol/L INC) 26 CO2 SerPl-sCnc LAB 3094-0(LO 9-20 mg/dL INC) 14 BUN SerPl-mCnc LAB 2160-0(LO 0.67-1.17 mg/dL INC) 1.22 High Creat SerPl-mCnc LAB 17637-4(L >=59 mL/min OINC) >=59 GFR/BSA.pred SerPl MDRD-ArVRat LAB 2345-7(LO 74-106 mg/dL INC) 92 Glucose SerPl-nc LAB 92807-4(L 8.5-10.1 mg/dL OINC) 9.3 Calcium SerPl-nc LAB 1975-2(LO 0.2-1.0 mg/dL INC) 0.6 Bilirub SerPl-nc LAB 2885-2(LO 6.4-8.2 g/dL INC) 8.5 High Prot SerPl-[facility] LAB 1751-7(LO 3.4-5.0 g/dL INC) 4.7 Albumin SerPl-nc LAB 88525-2(L <=15.0 mmol/L OINC) 8.0 Anion Gap3 SerPl-sCnc LAB 6768-6(LO 50-136 U/L INC) 101 ALP SerPl-cCnc LAB 1920-8(LO 15-37 U/L INC) 27 AST [facility] 1742-6(LO 16-63 U/L INC) 29 ALT [facility] HGFR(LOIN C) GLOMERULAR HGFR FILTRATION RATE INTERPRETATION~The eGFR is calculated using the MDRD equation.~This equation has been validated in patients with chronic kidney disease;~however, it underestimates the GFR in healthy patients with GFR's over 60 mL/min.~The equation is not valid in children under the age of 18.~NOTE: Criteria for Chronic Kidney Disease:~ ~1. Kidney damage for at least three months, as defined~by structural or functional abnormalities of the kidney,~with or without decreased glomerular filtration rate, manifested by either:~* Pathological abnormalities or~* Markers of Kidney damage, including abnormalities in~the composition of the blood or urine or abnormalities in imaging tests.~ ~2. GFR <60 mL/min/1.73 m squared for at least three months, with or without kidney damage.~ Performed By: #### 3040-3, 94674-8 #### [facility] [address] [place], [place] [address] Financial Analyst Intern - Usha BARRERA [id number] LACTATE Collected: 03/09/2018 Status: F Source: [facility] 6:45 PM HOSPITAL REPOSITORY TYPE CODE TESTS RESULT OUT OF REFERENCE UNITS RANGE LAB 2524-7(LOIN 0.4-2.0 mmol/L C) Lactate 0.6 [facility] Performed By: #### 2524-7 #### [facility] [address] [place] [address] Financial Analyst Intern - Ushazachariah Gómez HOLLY [id number] CT ABDOMEN AND PELVIS Observed: 03/09/2018 Status: F Source: [facility] WITH CONTRAST 6:[address] ABDOMEN AND PELVIS WITH CONTRAST CLINICAL STATEMENT: RIGHT LOWER QUADRANT PAIN COMPARISON: CTs 5 days ago, 8 days ago, and 9 days ago. TECHNIQUE: CT examination of the abdomen and pelvis following the administration of 75 mL Isovue-370 intravenous contrast. Coronal and sagittal reformations were performed. Dose reduction techniques were achieved by using automated exposure control and/or adjustment of mA and/or kV according to patient size and/or use of iterative reconstruction technique. FINDINGS: The appendix is normal. There is fatty infiltration of the liver. There is fatty replacement limited to head and uncinate process of pancreas. Spleen, gallbladder, adrenals, kidneys, and lymph nodes are normal. GI tract is unremarkable. Thickened bladder wall might be due to incomplete distention but cystitis is not excluded. IMPRESSION: Possible cystitis; fatty infiltration of the liver; fatty replacement limited to head and uncinate process of pancreas. CT ABDO,PELVIS IV Observed: 03/04/2018 Status: F Source: [facility] 6:21 PM [facility] REPOSITORY Final Report Accession No: [id number] Performed: Mar 04 2018 6:21PM Examination: RIGHT CT ABDO,PELVIS IV CONTRAST ONLY EXAM: CT ABDO, PELVIS IV CONTRAST ONLY RIGHT CLINICAL STATEMENT: Abdominal pain. COMPARISON: This is the patient's third CT scan in [address] scans at [facility] on 02/28/2018 and 03/01/2018, both of which were negative. TECHNIQUE: CT scan abdomen and pelvis, with IV contrast. 75 mL Isovue-370. Dose reduction techniques were achieved by using automated exposure control and/or adjustment of mA and/or kV according to patient size and/or use of iterative reconstruction technique. FINDINGS: Normal appendix. Likely fatty infiltration of the liver. Normal size spleen. Pancreas, gallbladder, adrenal glands kidneys and retroperitoneum are normal. No free fluid in the pelvis. Normal bladder contour. Normal size prostate. The abdominal wall is intact. The lung bases are clear. The bone windows show a pars defect on the left at L5, unchanged, without spondylolisthesis. IMPRESSION: 1. Normal appendix. 2. Likely hepatic steatosis liver. 3. No significant change compared to prior CT scans of 02/28/2018 and 03/01/2018. Interpreting Physician: NISREEN CORTÉS M.D. Trans: dg : cc: URINALYSIS, ROUTINE Collected: 03/04/2018 Status: F Source: [facility] 5:05 PM [facility] REPOSITORY TYPE CODE TESTS RESULT OUT OF REFERENCE UNITS RANGE LAB COLOR Normal Color, Urine Straw LAB CHAUR Normal Character Clear LAB SPGRUR 1.003-1.029 Normal Specific 1.011 [place],Urine LAB PHUR 4.5-8.0 Normal pH,Urine 7.0 LAB GLUCUR NEG;NEGATIVE mg/dL Normal Glucose,Urine Negative LAB KETUR NEG;NEGATIVE mg/dL Normal Ketone,Urine Negative LAB PROTUR NEG;NEGATIVE mg/dL Normal Protein,Urine Negative LAB BLDUR NEG;NEGATIVE Normal Blood,Urine Negative LAB NITUR NEG;NEGATIVE Normal Nitrite,Urine Negative LAB BILIUR NEG;NEGATIVE Normal Bilirubin,Urine Negative LAB UROUR <2 mg/dL Normal Urobilinogen,Ur < 2.0 ine Result Comment: Urobilinogen, Urine Reference Range: <2.0 mg/dL LAB LEUESTUR Negative Leuk.Esterase,Urine Normal Negative LAB RBCUR 0-5 /HPF RBC,Urine Normal < 1 Performed By: #### UA #### Unless otherwise noted, all testing performed by [address] [address] CLIA: [id number] Financial Analyst Intern: Milla Leal M.D. CBC WITH DIFF Collected: 03/04/2018 Status: F Source: [facility] 4:55 PM [facility] TYPE CODE TESTS RESULT OUT OF RANGE REFERENCE UNITS LAB WBC 3.6-10.4 K/mcL WBC Normal 9.1 LAB RBC 4.0-5.5 M/mcL RBC Normal 4.86 LAB HGB 12.9-16.9 g/dL Normal Hemoglobin 14.4 LAB HCT 37.9-49.2 % Normal Hematocrit 42.2 LAB MCV 82.8-99.3 FL MCV Normal 86.8 LAB MCH 27.7-34.6 pg MCH Normal 29.7 LAB MCHC 32.9-35.5 g/dL MCHC Normal 34.2 LAB RDW 10-14.3 % RDW Normal 13.9 LAB PLT 139-354 K/mcL Platelet Normal Count 273 LAB MPV 6.6-10.8 FL MPV Normal 9.5 LAB NEUT# 1.4-6.8 K/mcL Normal Neutrophil # 6.1 LAB LYMPH# 0.9-3.6 K/mcL Normal Lymphocyte # 2.2 LAB MONO# 0.2-0.6 K/mcL Monocyte Normal # 0.5 LAB EOS# 0-0.5 K/mcL Normal Eosinophil # 0.1 LAB BASO# 0-0.2 K/mcL Basophil Normal # 0.1 LAB SEGNEU% % Normal Segmented Neut % 67.3 LAB LYMP% % Normal Lymphocyte% 24.3 LAB MO% % Monocyte Normal % 5.9 LAB EO% % Normal Eosinophil % 1.6 LAB BA% % Basophil Normal % 0.9 Performed By: #### LIPASE, CBCDIF, CMET #### Unless otherwise noted, all testing performed by [address] [address] CLIA: [id number] Financial Analyst Intern: Milla Leal M.D. COMPREHENSIVE METABOLIC Collected: 03/04/2018 Status: F Source: [facility] PANEL 4:55 PM [facility] REPOSITORY TYPE CODE TESTS RESULT OUT OF RANGE REFERENCE UNITS LAB GLU 70-99 mg/dL Normal Glucose 86 Result Comment: This test result might be falsely depressed or falsely elevated on samples drawn from patients taking Sulfasalazine and Sulfapyridine. Venipuncture should occur prior to taking either of these drugs. LAB BUN 8-25 mg/dL Normal BUN 14 LAB CREA 0.50-1.30 mg/dL Normal Creatinine 1.28 LAB eGFR ml/min/1.73s Normal q.m eGFR,NonAfrican-A merican >=60 Result Comment: Non- GFR Calc eGFR is an estimated Glomerular Filtration Rate based on the value of the patient's serum creatinine. In outpatients, eGFR should be used as a helpful tool in screening for CKD. In inpatients or patients with acute renal failure, eGFR represents the GFR at the moment of the draw and should be used with caution. LAB eGFRB ml/min/1.73sq.m eGFR, Normal -Libyan >=60 Result Comment: GFR Calc LAB CALCM 8.4-10.2 mg/dL Calcium Normal 9.7 LAB NA 135-145 mmol/L Sodium Normal 139 LAB K 3.5-5.1 mmol/L Normal Potassium 3.5 LAB CL 98-108 mmol/L Chloride Normal 102 LAB CO2 21-32 mmol/L CO2 Normal 27 LAB AST 0-45 U/L AST Normal (SGOT) 28 Result Comment: This test result might be falsely depressed or falsely elevated on samples drawn from patients taking Sulfasalazine and Sulfapyridine. Venipuncture should occur prior to taking either of these drugs. LAB ALT 14-65 U/L Normal ALT (SGPT) 32 Result Comment: This test result might be falsely depressed or falsely elevated on samples drawn from patients taking Sulfasalazine and Sulfapyridine. Venipuncture should occur prior to taking either of these drugs. LAB ALKP 40-140 U/L Normal Alkaline Phosphatase 101 LAB BILIT 0.3-1.2 mg/dL Normal Bilirubin,Total 0.6 LAB PROT 6.0-8.0 g/dL High Protein, Total 8.5 LAB ALB 3.2-5.2 g/dL Normal Albumin 4.8 Performed By: #### LIPASE, CBCDIF, CMET #### Unless otherwise noted, all testing performed by [place] [address] CLIA: [id number] Financial Analyst Intern: Milla Leal M.D. LIPASE Collected: 03/04/2018 Status: F Source: [facility] 4:55 PM [facility] REPOSITORY TYPE CODE TESTS RESULT OUT OF RANGE REFERENCE UNITS LAB LIPASE 73-393 U/L Normal Lipase 111 Performed By: #### LIPASE, CBCDIF, CMET #### Unless otherwise noted, all testing performed by [place] [address] CLIA: [id number] Financial Analyst Intern: Milla Leal M.D. ED PROV NOTE Observed: 03/03/2018 Status: COMPLETED Source: [facility] 10:48 PM [facility] [place] REPOSITORY HNO ID: [id number] Author: Franklin Trevino Jr., MD Service: Emergency Medicine Author Type: Physician Type: ED Provider Notes Filed: 03/03/2018 10:53 PM Note Text: ED Provider Note Patient Name: Edgardo Jay SERVICE DATE: 03/03/18 History Patient presents with: Abdominal Pain Nausea patient presents with right lower quadrant pain it's been going on for the past 24-36 hours. He states it began in the afternoon of March 02. He states he's taken ibuprofen for the pain. He states he has nausea but no vomiting. He denies any fever, chills or night sweats. He denies any diarrhea or constipation. He denies any prior abdominal surgery. There is no exacerbating or remitting factors. He states the pain is continuous and severe. PAST MEDICAL HISTORY Diagnosis Date - Hypertension - Psychiatric disorder PAST SURGICAL HISTORY Procedure Laterality Date - ORTHOPEDICS SURGERY HX bilat - TONSILLECTOMY HX No family history on file. Social History Social History Main Topics - Smoking status: Never Smoker - Smokeless tobacco: Never Used - Alcohol use No - Drug use: No - Sexual activity: Not on file ALLERGIES No Known Allergies Review of Systems All other systems reviewed and are negative. Physical Exam BP 180/91 Pulse 89 Temp (Src) 97.4 (Temporal Artery) Resp 18 Ht 6' 0 (1.83m) Wt 225 lb (102.1kg) SpO2 100% BMI 30.51 kg/(m2). Physical Exam Constitutional: He is oriented to person, place, and time. He appears well-developed and well-nourished. HENT: Head: Normocephalic and atraumatic. Right Ear: External ear normal. Left Ear: External ear normal. Nose: Nose normal. Mouth/Throat: Oropharynx is clear and moist. Eyes: Pupils are equal, round, and reactive to light. Conjunctivae and EOM are normal. Neck: Normal range of motion. Neck supple. Cardiovascular: Normal rate, regular rhythm, normal heart sounds and intact distal pulses. Pulmonary/Chest: Effort normal and breath sounds normal. He has no wheezes. He has no rales. Abdominal: Soft. Bowel sounds are normal. There is tenderness (Right lower quadrant). There is no rebound and no guarding. Musculoskeletal: Normal range of motion. He exhibits no edema or tenderness. 2+ dorsalis pulses bilaterally Neurological: He is alert and oriented to person, place, and time. He has normal reflexes. Skin: Skin is warm and dry. Psychiatric: He has a normal mood and affect. Nursing note and vitals reviewed. Diagnostic Testing ED Labs Ordered and Reviewed - No data to display Procedures ED Course / Clinical Impression Clinical Impressions as of Mar 03 2248 Right lower quadrant abdominal pain MDM / Disposition / Plan I reviewed patient's records and it appears he was seen at [facility] in [place] for right lower quadrant abdominal pain and had a negative evaluation including CT scan of the abdomen and pelvis. He was also seen February 28 and had a negative CT scan and evaluation for right lower quadrant Abdominal pain. He was also seen March 01for right lower quadrant abdominal painAnd had a negative CT scan of the abdomen and pelvis. Patient has 63 prescriptions from 15 providers and 13 different pharmacies. I asked the patient for clarification and initially he acted as if my information was incorrect. Then he said he saw doctors for his back pain. I asked the patient if he had any problems with opiate addiction, abuse or dependence as I wanted to provide him with any resources to help him with this potential problem. He denied any problem. Given patient's multiple evaluations for this pain the patient will be discharged home.I see no indication for any further evaluation. All records from outside hospital was reviewed. Discharge in stable condition SIGNATURE: MD Franklin De Leon JR, Jr., MD 03/03/18 [id number] ED NOTE Observed: 03/03/2018 Status: COMPLETED Source: [facility] 10:29 PM [facility] [place] REPOSITORY HNO ID: [id number] Author: Kilo (Rn) ROCKY Sharma Service: Emergency Medicine Author Type: Registered Nurse Type: ED Notes Filed: 03/03/2018 10:30 PM Note Text: Pt has had RLQ pain for 24-48 hours with nausea denies vomiting, normal BM, no issues with urination. ED NOTE Observed: 03/03/2018 Status: COMPLETED Source: [facility] 10:08 PM [facility] [place] REPOSITORY HNO ID: [id number] Author: Yajaira (Rn) ROCKY Cárdenas Service: Emergency Medicine Author Type: Registered Nurse Type: ED Notes Filed: 03/03/2018 10:09 PM Note Text: Pt reports RLQ abd pain beginning yesterday, nausea, denies emesis, diarrhea or constipation. CT ABDOMEN/PELVIS W/ Observed: 03/02/2018 Status: F Source: [facility] 8:[address] [facility] REPOSITORY Exam Date/Time: 03/02/2018 21:19 EST Reason for Exam: Pain Report STUDY: CT Abdomen/Pelvis w/ Contrast; 03/02/2018 9:19 pm INDICATION: Pain. Pain COMPARISON: No comparison available ACCESSION NUMBER(S): [id number] ORDERING CLINICIAN: Paige Guadarrama TECHNIQUE: CT of the abdomen and pelvis was performed. Contiguous axial images were obtained at 3 mm slice thickness through the abdomen and pelvis. Coronal and sagittal reconstructions at 3 mm slice thickness were performed. Intravenous contrast was administered FINDINGS: LOWER CHEST: The heart is normal in size without pericardial effusion. The lung bases are clear. ABDOMEN: LIVER: The liver is normal in size. No mass lesions. BILE DUCTS: No intra or extrahepatic biliary dilatation. GALLBLADDER: No gallstones or pericholecystic inflammatory change. PANCREAS: Normal in size without evidence for mass lesions. No surrounding inflammatory change SPLEEN: Normal in size. No mass lesions ADRENAL GLANDS: Normal in size. No mass lesions KIDNEYS AND URETERS: The kidneys are normal in size. No stones, masses, or hydronephrosis. Exam Date/Time: 03/02/2018 21:19 EST Report PELVIS: BLADDER: Distended without wall thickening or calculi REPRODUCTIVE ORGANS: The prostate is not enlarged. BOWEL: The bowel is without obstruction or inflammatory change. There is no free fluid or free air. The appendix is normal. VESSELS: There is no evidence for abdominal aortic aneurysm PERITONEUM/RETROPERITONEUM/LYMPH NODES: No retroperitoneal mass lesions or lymphadenopathy. ABDOMINAL WALL: The abdominal wall soft tissues appear normal. BONES: No suspicious osseous lesions are identified. No fracture. IMPRESSION: 1. No acute intra-abdominal or pelvic pathology FINAL REPORT Dictated: 03/02/2018 9:41 pm Ervin Napoles MD Signed (Electronic Signature): 03/02/2018 9:41 pm Signed by: Ervin Napoles MD Technologist: ULI SANTOS COMPLETE Collected: 03/02/2018 Status: F Source: [facility] 8:[address] [facility] REPOSITORY TYPE CODE TESTS RESULT OUT OF REFERENCE UNITS RANGE LAB 47257071(L Yellow OINC) UA Color Normal Yellow LAB 21799536(L Clear OINC) UA Clarity Normal Clear LAB 18272566(L Negative OINC) UA Glucose Normal Negative LAB 88193595(L Negative OINC) UA Bili Normal Negative LAB 28594410(L Negative OINC) UA Ketones Normal Negative LAB 55551376(L 1.003-1.030 OINC) UA Spec High Grav >1.060 LAB 92879770(L 4.6-8.0 OINC) UA pH Normal 6.0 LAB 36018499(L Negative OINC) UA Protein Normal Negative LAB 46550959(L mg/dL OINC) UA Normal Urobilinogen Negative Result Comment: Due to a manufacturing issue, low positive urobilinogen results may be fasely positive. Correlate with urine bilirubin and additional clinical/laboratory findings to assess the risk of hemolytic anemia or liver disease. If clinically indicated, repeat testing with an alternate method is available by contacting the laboratory within 24 hours. LAB 76726864(LOINC) Negative Normal UA Nitrite Negative LAB 89129322(LOINC) Negative Normal UA Blood Negative LAB 34000100(LOINC) Negative Normal UA Leuk Est Negative LAB 85457327(LOINC) 0-3 /HPF Normal UA RBC 0-3 LAB 96121309(LOINC) 0-5 /HPF Normal UA WBC 0-5 LAB 77286641(LOINC) 0-5 /HPF Normal UA Squam 0-5 Epithelial LAB 44626305(LOINC) Trace /LPF UA Abnormal Mucous Trace Performed By: #### [id number] #### DONALD Urinalysis Automated Subsection [address] [place] [address] CBC W/ AUTO DIFF Collected: 03/02/2018 Status: F Source: [facility] 8:[address] [facility] REPOSITORY TYPE CODE TESTS RESULT OUT OF RANGE REFERENCE UNITS LAB 39865263(L 3.6-11.0 E3/mcL OINC) Normal WBC 8.7 LAB 23366747(L 3.90-6.10 E6/mcL OINC) Normal RBC 4.68 LAB 28684526(L 13.5-18.0 G/DL OINC) Normal Hgb 13.9 LAB 72776904(L 42.0-52.0 % OINC) Low Hct 41.1 LAB 27038934(L 11.5-14.5 % OINC) Normal RDW 13.9 LAB 98275055(L 27.0-31.0 pg OINC) Normal MCH 29.6 LAB 85224687(L 33.0-37.0 G/DL OINC) Normal MCHC 33.7 LAB 36868936(L 78.0-100.0 fL OINC) Normal MCV 87.7 LAB 08126956(L 7.4-11.0 fL OINC) Normal MPV 9.5 LAB 11814274(L 130-400 E3/mcL OINC) Normal Platelet 252 Performed By: #### [id number] #### DONALD [employer] [address] [place] [address] AUTO DIFF Collected: 03/02/2018 Status: F Source: [facility] 8:05 [facility] REPOSITORY Order Comment: Order Added by Discern Expert. TYPE CODE TESTS RESULT OUT OF RANGE REFERENCE UNITS LAB 25090788(L 37.0-75.0 % OINC) Normal Neutro Auto 62.2 LAB 47529530(L 20.0-55.0 % OINC) Normal Lymph Auto 28.2 LAB 61238433(L 0.0-10.0 % OINC) Normal [place] Auto 5.8 LAB 43626852(L 0.0-11.0 % OINC) Normal Eos Auto 2.7 LAB 18084162(L 0.0-2.0 % OINC) Normal Basophil Auto 1.1 LAB 88664400(L 1.4-6.5 E3/mcL OINC) Normal Neutro 5.4 Absolute LAB 36399488(L 1.2-3.4 E3/mcL OINC) Normal Lymph Absolute 2.4 LAB 21705164(L 0.0-0.7 E3/mcL OINC) Normal [place] Absolute 0.5 LAB 23341765(L 0.0-0.7 E3/mcL OINC) Normal Eos Absolute 0.2 LAB 47461104(L 0.0-0.2 E3/mcL OINC) Normal Basophil 0.1 Absolute Performed By: #### [id number] #### DONALD [employer] [facility] [place] [address] BMP Collected: 03/02/2018 Status: F Source: [facility] 8:05 [facility] REPOSITORY TYPE CODE TESTS RESULT OUT OF RANGE REFERENCE UNITS LAB 80848369(L 10-20 mEq/L OINC) AGAP Normal 12 LAB 20255659(L 70-99 mg/dL OINC) Glucose Normal Lvl 82 LAB 91972099(L 6-23 mg/dL OINC) BUN Normal 12 LAB 8236741(LO 0.5-1.3 mg/dL INC) Normal Creatinine 1.1 LAB 07991945(L 5.4-30.0 ratio OINC) Normal BUN/Creat Ratio 10.9 LAB 07026017(L 8.6-10.3 mg/dL OINC) Calcium Normal Lvl 9.2 LAB 10606859(L 136-145 mEq/L OINC) Sodium Normal Lvl 137 LAB 33696718(L 3.5-5.3 mEq/L OINC) Normal Potassium Lvl 4.0 LAB 54113902(L 98-107 mEq/L OINC) Chloride Normal 104 LAB 40783561(L 21.0-32.0 mEq/L OINC) CO2 Normal 25.0 Performed By: #### [id number] #### DONALD [employer] [address] [place] [address] EGFR Collected: 03/02/2018 Status: F Source: [facility] 8:[address] [place] [address] REPOSITORY Order Comment: Order added by Discern Expert. TYPE CODE TESTS RESULT OUT OF RANGE REFERENCE UNITS LAB 12543894(LO mL/min/1.73 INC) m2 Normal eGFR >60 LAB 21281233(LO mL/min/1.73 INC) m2 Normal eGFR AA >60 Performed By: #### [id number] #### DONALD [employer] [address] [place] [address] HEP FUNC PANEL Collected: 03/02/2018 Status: F Source: [facility] 8:05 [facility] REPOSITORY TYPE CODE TESTS RESULT OUT OF RANGE REFERENCE UNITS LAB 90467169(L 10-52 Int._Unit/L OINC) Normal ALT 23 LAB 05162918(L 9-39 Int._Unit/L OINC) Normal AST 21 LAB 20913581(L 3.4-5.0 gm/dL OINC) Normal Albumin Lvl 4.4 LAB 03484188(L 2.0-4.0 G/DL OINC) Normal Globulin 3.0 LAB 91756475(L 1.1-1.9 ratio OINC) Normal A/G Ratio 1.8 LAB 11590623(L 33-120 Int._Unit/L OINC) Normal Alk Phos 91 LAB 46939999(L 0.00-0.30 mg/dL OINC) Normal Bili Direct 0.05 LAB 29800449(L OINC) Normal Bili Indirect 0.4 Result Comment: No established ranges available for the Indirect Biliruben. LAB 31314200(LOINC) 0.0-1.2 mg/dL Normal Bili Total 0.4 LAB 82667082(LOINC) 6.4-8.2 gm/dL Normal Total Protein 6.9 Performed By: #### [id number] #### DONALD [employer] [address] [place] [address] LIPASE LEVEL Collected: 03/02/2018 Status: F Source: [facility] 8:[address] [facility] REPOSITORY TYPE CODE TESTS RESULT OUT OF RANGE REFERENCE UNITS LAB 28806962(LO 9-82 Int._Unit/L INC) Normal Lipase Lvl 16 Performed By: #### [id number] #### DONALD [employer] [address] [place] [address] EMERGENCY DEPARTMENT Observed: 03/02/2018 Status: F Source: [place] 3:19 PM [facility] REPOSITORY [address] [address] HEALTH INFORMATION MANAGEMENT EMERGENCY DEPARTMENT : [id number] Signed Patient: EDGARDO JAY Acct:[id number] MRUN: [id number] : 1980 Sex: M Loc: ED ADM Date: 03/02/18 Room/Bed: DISC Date: ED PMH/Social HX/Family HX - Respiratory Hx Respiratory Disorders: No - Cardiovascular Hx Cardiac Disorders: Yes PMH--Cardiovascular: HTN - Neurological Hx Neurological Disorder: No - Endocrine Hx Endocrine Disorders: No - Gastrointestinal Hx Gastrointestinal Disorders: Yes PMH--Gastrointestinal: Colitis - Genitourinary Hx Genitourinary Disorders: No - Musculoskeletal Other MS PMH: BILATERAL WRIST SURGERY/S/P FX - Reproductive Hx Reproductive Disorders: No - Psychological Hx Psychosocial Problems: Yes PMH--Psychological Treatments: Depression - HEENT Hx Ear, Nose Throat Disorders: No Past Surgical Hx-ENT: Tonsillectomy - Cancer Hx Cancer: No - Communicable Diseases PMH--Communicable Diseases: Shingles - Immunizations Hx Tetanus, Diphtheria Vaccination: (UNKNOWN) Hx Influenza Vaccination: No Hx Pneumococcal Vaccination: No Immunizations Up to Date: (UNKNOWN) - Other Other PMH: Chicken Pox - Social History Marital Status: Lives with: Family Highest Educational Level: High School Able to Read: Yes Able to Write: Yes Smoking Status: Never Smoked Any Secondhand smoke exposure Reported?: No Hx Chewing Tobacco Use: No Alcohol Use: Never Any recreational drug use reported?: No Hx Substance Use Treatment: No Feels Threatened In Home Environment: No Feels Threatened In a Relationship: No Hx Physical Abuse: No Hx Emotional Abuse: No Hx Suspected Abuse: No - [place]/Gender ID What is your current Gender Identity? Choose all that Apply: Male Define your Sexual Orientation?: Straight/Heterosexual - Suicide/Homicide Screen Past 2 weeks, Have you felt down, depressed or hopeless?: No Past 2 Weeks, Have you had thoughts of killing yourself or others?: No In your lifetime, Have you attempted to kill yourself or others?: No In your lifetime, When did this Happen?: Not Applicable ED Discharge Summary - Discharge Data Clinical Impression: Abdominal pain in male, Hepatic steatosis Condition: Good Disposition: ADMITTED INPATIENT Referrals: JANNETTE ALLRED [MEDICAL DOCTOR] - Additional Instructions: Return to ER if symptoms worse/any other problems. Call and f/up with PCP in 2-3 days for reevaluation of current symptoms/findings. Call your Doctor today and schedule follow-up appointment. Clear liquid diet for next 24 hours, advance diet gradually as tolerated. Home Medications: Ambulatory Orders Medication Instructions Recorded Atenolol [Tenormin] 50 mg PO DAILY 03/02/18 Dicyclomine HCl 20 mg PO QID PRN #14 tablet 03/02/18 Paroxetine HCl [Paxil 20 mg Tablet] 20 mg PO DAILY 03/02/18 Home medications and allergies reviewed: Yes Time Seen by Provider: 03/02/18 13:23 - Consultation Nurses Notes Reviewed and Agreed With?: Yes - Dictation Amendments/Documentation: [employer] Document Only Electronically Generated By: MARY MARTIN MD Generated Date/Time: 03/02/181517 Electronically Signed By: MARY MARTIN MD Signed Date/Time 03/02/181518 Co Signed Electronically By: Co Signed Date/Time: CC: MARQUISE NEUMANN PA-C EMERGENCY DEPARTMENT Observed: 03/02/2018 Status: F Source: [place] 3:18 PM [place] [id number] HEALTH INFORMATION MANAGEMENT EMERGENCY DEPARTMENT : [phone] Signed Patient: EDGARDO JAY Acct:[id number] MRUN: [id number] : 1980 Sex: M Loc: ED ADM Date: 03/02/18 Room/Bed: DISC Date: History of Present Illness - General Chief Complaint: Abdominal/GI Complaints Stated Complaint: LOWER RIGHT SIDED ABDOMINAL PAIN Symptom onset: 03/01/18 HPI: PT STATES BEGAN YESTERDAY 03/01/18 WITH PAIN IN Right MID LOWER ABD. STATES PAIN RADIATES TO RIGHT. STATES HAS HAD NAUSEA BUT NO VOMITING. denies any injury or fall. No fever or vomiting. No penile bleeding or discharge. No testicular or scrotal pain. Denies any travelling history/sick contacts/recent use of antibiotics. No cough/congestion/fever/chills/rash. No blood in stool/ vomitus or urine. NO LOC/Dizziness/Syncope. No CASTRO, neck pain, CP, dyspnea. No speech/vision problems. No numbness, tingling or paresthesias. No unilateral weakness in face or extremities. Time Seen by Provider: 03/02/18 13:23 Mode of Transport: Ambulatory - Related Data Home Medications Medication Instructions Recorded Confirmed Atenolol [Tenormin] 50 mg PO DAILY 03/02/18 03/02/18 Paroxetine HCl [Paxil 20 mg Tablet] 20 mg PO DAILY 03/02/18 03/02/18 Allergies Allergy/AdvReac Type Severity Reaction Status Date / Time No Known Allergies Allergy Unverified 03/02/18 13:29 Review of System - Constitutional Constitutional: Present: Well developed, Well nourished, Non- toxic. Absent: chills, fever, Lethargic - Nose,Throat,Mouth Nose (ROS): Present: no symptoms reported. Absent: pain Throat: Present: no symptoms reported. Absent: pain, swelling, discharge Mouth: Present: no symptoms reported. Absent: pain, swelling - Respiratory Respiratory: Present: no symptoms reported. Absent: cough, short of breath, wheezing - CV Cardiology: Present: no symptoms reported. Absent: chest pain, edema - GI Gastrointestinal/Abdominal: Present: abdominal pain. Absent: diarrhea, nausea, vomiting - Genitourinary Symptoms: Present: no symptoms reported. Absent: burning, discharge, dysuria, flank pain, hematuria, pain - Neuro Neurological: Present: no symptoms reported. Absent: headache, weakness, saddle anesthesia - Muskuloskeletal Musculoskeletal: Present: no symptoms reported. Absent: back pain, joint pain, joint swelling, neck pain - Integumentary Skin: Absent: lesions, rash - Allergic/Immunologic Immunological/Allergic: Present: no symptoms reported - Hematologic Hematologic/Lymphatic: Absent: easy bleeding, easy bruising, swollen glands - Endocrine Endocrine: Present: no symptoms reported - Psychiatric Psychiatric: Present: Normal Affect, Normal Mood. Absent: Depressed - All Others/Exceptions All Other Systems: Reviewed and Negative Except Where Noted in Documentation ED PMH/Social HX/Family HX - Respiratory Hx Respiratory Disorders: No - Cardiovascular Hx Cardiac Disorders: Yes PMH--Cardiovascular: HTN - Neurological Hx Neurological Disorder: No - Endocrine Hx Endocrine Disorders: No - Gastrointestinal Hx Gastrointestinal Disorders: Yes PMH--Gastrointestinal: Colitis - Genitourinary Hx Genitourinary Disorders: No - Musculoskeletal Other MS PMH: BILATERAL WRIST SURGERY/S/P FX - Reproductive Hx Reproductive Disorders: No - Psychological Hx Psychosocial Problems: Yes PMH--Psychological Treatments: Depression - HEENT Hx Ear, Nose Throat Disorders: No Past Surgical Hx-ENT: Tonsillectomy - Cancer Hx Cancer: No - Communicable Diseases PMH--Communicable Diseases: Shingles - Immunizations Hx Tetanus, Diphtheria Vaccination: (UNKNOWN) Hx Influenza Vaccination: No Hx Pneumococcal Vaccination: No Immunizations Up to Date: (UNKNOWN) - Other Other PMH: Chicken Pox - Social History Marital Status: Lives with: Family Highest Educational Level: High School Able to Read: Yes Able to Write: Yes Smoking Status: Never Smoked Any Secondhand smoke exposure Reported?: No Hx Chewing Tobacco Use: No Alcohol Use: Never Any recreational drug use reported?: No Hx Substance Use Treatment: No Feels Threatened In Home Environment: No Feels Threatened In a Relationship: No Hx Physical Abuse: No Hx Emotional Abuse: No Hx Suspected Abuse: No - [place]/Gender ID What is your current Gender Identity? Choose all that Apply: Male Define your Sexual Orientation?: Straight/Heterosexual - Suicide/Homicide Screen Past 2 weeks, Have you felt down, depressed or hopeless?: No Past 2 Weeks, Have you had thoughts of killing yourself or others?: No In your lifetime, Have you attempted to kill yourself or others?: No In your lifetime, When did this Happen?: Not Applicable General Exam - General Limitations: Complains of: no limitations Constitutional: Present: Well developed, Well nourished, well hydrated, Non-toxic. Absent: chills, diaphoresis, fever, malaise, weakness, Lethargic - Head Head exam: Present: atraumatic, normocephalic, normal inspection - Eye Eye exam: Present: normal apperance, normal accomodation, EOMI Pupils: Present: PERRL - ENT ENT exam: Present: normal orophraynx, mucous membranes moist, TMs clear w/ good light reflex, normal external ear exam, No Nasal Discharge, Posterior Pharynx Non-erethemetous - Expanded ENT Exam Ear exam: Present: normal external inspection Mouth exam: Present: normal external inspection Teeth exam: Present: normal inspection Throat exam: normal inspection - Neck Neck exam: Present: full ROM, Supple. Absent: tenderness, meningismus, Posterior Lymphadenopathy, Anterior Lymphadenopathy, anterior neck swelling, tracheal deviation - Respiratory Respiratory exam: Present: lungs clear and equal bilaterally. Absent: respiratory distress, wheezes , rales, rhonchi, stridor, accessory muscle use, Nasal Flaring - Cardiovascular Cardiovascular Exam: Present: regular rate, normal rhythm, normal heart sounds. Absent: murmur, rubs, gallop, clicks - GI/Abdominal GI/Abdominal exam: Present: soft, normal bowel sounds, tenderness. Absent: guarding, rebound, rigid , organomegaly, mass, bruit, pulsatile mass - Male Exam exam: Present: normal inspection, other (No testicular/scrotal redness or swelling or tenderness) - Extremities Exam Extremities exam: Present: normal inspection, neurovascularly intact, full ROM, normal muscle strength, normal/equal pulses. Absent: calf tenderness, pedal edema, tenderness - Back Exam Back exam: Present: normal inspection, full ROM. Absent: tenderness - Neurological Exam Neurological exam: Present: alert, oriented X3, CN II-XII intact - Expanded Neurological Exam Patient oriented to: Present: person, place, time Speech: Present: fluid speech - Psychiatric Psychiatric exam: Present: normal affect, normal mood - Skin Skin Color: Present: Normal, [place] Skin exam: Present: warm, dry - Expanded Skin Exam Type of lesion: Absent: rash - Vital Signs Vital Signs 03/02/18 03/02/18 13:16 13:30 Temperature 98.5 F 98.5 F Pulse Rate [ 87 87 Pulse Ox] Respiratory 20 20 Rate Blood Pressure 132/81 132/81 [Left Arm] O2 Sat by Pulse 99 99 Oximetry(%) Course - Reevaluation(s) Reevaluation #1: 03/02/18 15:15 labs reviewed, unremarkable. White count is normal CT abdomen and pelvis shows findings of mild ileus, enteritis or reactive bowel gas pattern. Appendix unremarkable per radiologist Dr. Benja Bassett. Patient is tolerating PO well, ambulating well. Patient appears well hydrated, nontoxic V.S are stable. Patient is hemodynamically stable. NV intact. Speech and grasp are intact, normal gait. No Vision problems. Nonacute/nonsurgical abdomen Exam, Negative Meningeal signs. Reassuring Labs and V.S. Patient appears stable for discharge and outpatient follow up. Warning signs discussed with patient to return back to ER if any worsening of symptoms. Patient states understanding of need for f/up and agrees with management and plan. Abdominal pain MDM - Lab Data Result diagrams: 03/02/18 13:53 03/02/18 13:53 Lab Results 03/02/18 03/02/18 03/02/18 Range/Units 13:53 13:53 13:53 WBC 8.1 (3.6-10.8) K/uL RBC 4.87 (4.13-5.69) M/uL Hgb 14.6 (12.4-17.3) g/dL Hct 41.9 (36.7-50.6) % MCV 85.9 (80.0-94.0) fL MCH 30.0 (27.0-31.0) pg MCHC 35.0 (33.0-37.0) g/dL RDW 13.8 (11.5-14.5) % Plt Count 259 (148-402) K/uL MPV 9.7 (7.4-10.4) fL Neut % 71.0 H (43.0-65.0) % Lymph % 20.7 (17.0-45.5) % [place] % 4.5 L (5.5-11.7) % Eos % 2.6 (0.9-2.9) % Baso % 1.2 H (0.2-1.0) % Absolute Neuts (auto) 5.8 H (2.2-4.8) K/uL Absolute Lymphs (auto) 1.7 (1.3-2.9) K/uL Absolute Monos (auto) 0.4 (0.3-0.8) K/uL Absolute Eos (auto) 0.2 (0.0-0.2) K/uL Absolute Basos (auto) 0.1 (0.0-0.1) K/uL Nucleated RBC % 0 % Nucleated RBCs # 0 K/uL Sodium 137 (132-145) mmol/L Potassium 4.4 (3.3-5.1) mmol/L Chloride 103 (94-110) mmol/L Total Carbon Dioxide 25 (21-34) mmol/L Anion Gap 13.4 (8.0-16.0) mmol/L BUN 12.6 (3.2-26.9) mg/dL Creatinine 1.14 (0.50-1.17) mg/dL Est GFR (MDRD) Af Amer > 60 (>60) Est GFR (MDRD) Non-Af > 60 (>60) BUN/Creatinine Ratio 11 (6-20) Glucose 104 H (65-100) mg/dL Calcium 9.1 (8.2-10.0) mg/dL Total Bilirubin 0.30 mg/dL AST 8 (3-39) U/L ALT 22 (13-66) U/L Alkaline Phosphatase 122 H (54-112) U/L Total Protein 7.7 (6.1-8.2) g/dL Albumin 4.1 (3.4-5.0) g/dL Globulin 3.6 (1.5-4.5) g/dL Albumin/Globulin Ratio 1.1 (1.1-2.5) Lipase 152 (65-230) U/L Urine Color (Yellow) Urine Appearance (Clear) Urine pH Ur Specific [place] (1.015-1.025) Urine Protein (Negative) Urine Ketones (Negative) Urine Blood (Negative) Urine Nitrite (Negative) Urine Bilirubin (Negative) Urine Urobilinogen (Normal-1.0) mg/dL Ur Leukocyte Esterase (Negative) Urine RBC (0 - 2) /hpf Urine WBC (0 - 6) /hpf Urine Glucose (Negative) 03/02/18 Range/Units 14:09 WBC (3.6-10.8) K/uL RBC (4.13-5.69) M/uL Hgb (12.4-17.3) g/dL Hct (36.7-50.6) % MCV (80.0-94.0) fL MCH (27.0-31.0) pg MCHC (33.0-37.0) g/dL RDW (11.5-14.5) % Plt Count (148-402) K/uL MPV (7.4-10.4) fL Neut % (43.0-65.0) % Lymph % (17.0-45.5) % [place] % (5.5-11.7) % Eos % (0.9-2.9) % Baso % (0.2-1.0) % Absolute Neuts (auto) (2.2-4.8) K/uL Absolute Lymphs (auto) (1.3-2.9) K/uL Absolute Monos (auto) (0.3-0.8) K/uL Absolute Eos (auto) (0.0-0.2) K/uL Absolute Basos (auto) (0.0-0.1) K/uL Nucleated RBC % % Nucleated RBCs # K/uL Sodium (132-145) mmol/L Potassium (3.3-5.1) mmol/L Chloride (94-110) mmol/L Total Carbon Dioxide (21-34) mmol/L Anion Gap (8.0-16.0) mmol/L BUN (3.2-26.9) mg/dL Creatinine (0.50-1.17) mg/dL Est GFR (MDRD) Af Amer (>60) Est GFR (MDRD) Non-Af (>60) BUN/Creatinine Ratio (6-20) Glucose (65-100) mg/dL Calcium (8.2-10.0) mg/dL Total Bilirubin mg/dL AST (3-39) U/L ALT (13-66) U/L Alkaline Phosphatase (54-112) U/L Total Protein (6.1-8.2) g/dL Albumin (3.4-5.0) g/dL Globulin (1.5-4.5) g/dL Albumin/Globulin Ratio (1.1-2.5) Lipase (65-230) U/L Urine Color P. yellow (Yellow) Urine Appearance Clear (Clear) Urine pH 8 Ur Specific [place] 1.010 L (1.015-1.025) Urine Protein Negative (Negative) Urine Ketones Negative (Negative) Urine Blood Negative (Negative) Urine Nitrite Negative (Negative) Urine Bilirubin Negative (Negative) Urine Urobilinogen Normal (Normal-1.0) mg/dL Ur Leukocyte Esterase Negative (Negative) Urine RBC None seen (0 - 2) /hpf Urine WBC None seen (0 - 6) /hpf Urine Glucose Normal (Negative) Orders: Medications Discontinued Medications Fentanyl Citrate (Fentanyl 50 Mcg/Ml Inection 2 Ml) 50 mcg IVP STAT STA Stop: 03/02/18 13:28 Last Admin: 03/02/18 13:56 Dose: 50 mcg Iopamidol (Isovue 300 Injection 100 Ml) 100 ml IVP ONE ONE Stop: 03/02/18 14:38 Last Admin: 03/02/18 14:38 Dose: 100 ml Ketorolac Tromethamine (Toradol 30 Mg/Ml Injection) 30 mg IVP STAT STA Stop: 03/02/18 14:39 Last Admin: 03/02/18 15:05 Dose: 30 mg Ondansetron HCl (Zofran 4 Mg/2 Ml Injection) 4 mg IVP STAT STA Stop: 03/02/18 13:28 Last Admin: 03/02/18 13:55 Dose: 4 mg Labs 03/02/18 13:26 ED-IV [RC] ONE CT ABD/PELVIS W [CT] Stat 03/02/18 13:27 Fentanyl Citrate/Pf [Fentanyl 50 Mcg/ml Inection 2 ml] 50 mcg IVP STAT STA Ondansetron HCl/Pf [Zofran 4 mg/2 ml Injection] 4 mg IVP STAT STA 03/02/18 13:53 CBC w/Auto Differential [HEM] Stat Comprehensive Metabolic Panel [CHM] Stat Lipase [CHM] Stat 03/02/18 14:09 UA w/micrscopic-reflex culture [URN] Stat 03/02/18 14:37 Iopamidol [Isovue 300 Injection 100 ml] 100 ml IVP ONE ONE 03/02/18 14:38 Ketorolac Tromethamine [Toradol 30 mg/ml Injection] 30 mg IVP STAT STA 03/02/18 15:14 ED PO Challenge [RC] ONE ED-Recheck VS before DC [RC] one - Radiology Data Radiology Report: Radiology report reviewed,see report for findings Radiology Impressions Abdomen/Pelvis CT 03/02/18 13:26 IMPRESSION: Findings most consistent with mild ileus, enteritis or reactive bowel-gas pattern. Mild fluid leveling throughout small bowel without other acute CT abnormality GI tract suggested. Subjective hepatic steatosis. - Differential Diagnosis Differential DX Abdominal pain: Considered: Appendicitis, Diverticulitis, Pancreatitis, Perforated peptic ulcer, Perforated viscus, Early appendicitis, Bowel obstruction, Cholecystitis, Constipation , Gastroenteritis, hepatitis, Inflammatory bowel disease, Neoplasm, PUD, Renal/ureteral calculi, Gonadal torsion, UTI MDM Abdominal Pain-Other: Currently no surgical or severe medical etiology found, Pt afebrile, Tolerating PO W/O difficulty, Good pain control ED Discharge Summary - Discharge Data Clinical Impression: Abdominal pain in male Condition: Good Disposition: 09 ADMITTED INPATIENT Referrals: JANNETTE ALLRED [MEDICAL DOCTOR] - Additional Instructions: Return to ER if symptoms worse/any other problems. Call and f/up with PCP in 2-3 days for reevaluation of current symptoms/findings. Call your Doctor today and schedule follow-up appointment. Clear liquid diet for next 24 hours, advance diet gradually as tolerated. Home Medications: Ambulatory Orders Medication Instructions Recorded Atenolol [Tenormin] 50 mg PO DAILY 03/02/18 Paroxetine HCl [Paxil 20 mg Tablet] 20 mg PO DAILY 03/02/18 Home medications and allergies reviewed: Yes Time Seen by Provider: 03/02/18 13:23 - Consultation Nurses Notes Reviewed and Agreed With?: Yes - Dictation Amendments/Documentation: [employer] Document Only Electronically Generated By: MARY MARTIN MD Generated Date/Time: 03/02/18 1341 Electronically Signed By: MARY MARTIN MD Signed Date/Time 03/02/18 1518 Co Signed Electronically By: Co Signed Date/Time: CC: MARQUISE NEUMANN PA-C CT ABD/PELVIS W Observed: 03/02/2018 Status: F Source: [place] 2:43 PM [facility] REPOSITORY EXAMINATION: CT OF THE ABDOMEN AND PELVIS WITH CONTRAST 03/02/2018 2:31 pm TECHNIQUE: CT of the abdomen and pelvis was performed with the administration of intravenous contrast. Multiplanar reformatted images are provided for review. Dose modulation, iterative reconstruction, and/or weight based adjustment of the mA/kV was utilized to reduce the radiation dose to as low as reasonably achievable. COMPARISON: None. HISTORY: ORDERING SYSTEM PROVIDED HISTORY: RLQ ABDPAIN FINDINGS: Lower Chest: No acute abnormalities Organs: Diffuse hypoattenuation of the liver consistent with steatosis. Otherwise, no acute abnormalities GI/Bowel: Mild nonspecific fluid leveling throughout small bowel without pathologic distention GI tract, bowel wall edema or mucosal thickening. Findings are consistent with mild enteritis, mildly reactive bowel-gas pattern or mild ileus. Otherwise, no acute abnormality. Appendix demonstrates normal CT appearance. Pelvis: No acute abnormality Peritoneum/Retroperitoneum: No acute abnormality Bones/Soft Tissues: No acute abnormality. 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 IMPRESSION: Findings most consistent with mild ileus, enteritis or reactive bowel-gas pattern. Mild fluid leveling throughout small bowel without other acute CT abnormality GI tract suggested. Subjective hepatic steatosis. UA W/MICRSCOPIC-REFLEX Collected: Status: F Source: [place] CULTURE 03/02/2018 2:09 PM [facility] REPOSITORY TYPE CODE TESTS RESULT OUT OF REFERENCE UNITS RANGE LAB UCOLR(LOIN Yellow C) Color P. YELLOW LAB UAPP(LOINC Clear ) Appearance CLEAR LAB UGLU(LOINC Negative ) Glucose NORMAL LAB UBIL(LOINC Negative ) Bilirubin NEGATIVE LAB UKET(LOINC Negative ) Ketones NEGATIVE LAB USPG(LOINC 1.015-1.025 ) Specific Low [place] 1.010 LAB UBLD(LOINC Negative ) Blood NEGATIVE LAB UPH(LOINC) pH 8 LAB UPRO(LOINC Negative ) Protein NEGATIVE LAB UURO(LOINC Normal-1.0 mg/dL ) Urobilinogen NORMAL LAB UNIT(LOINC Negative ) Nitrites NEGATIVE LAB ULEU(LOINC Negative ) Leukocytes Esterase NEGATIVE LAB UWBC(LOINC 0 - 6 /hpf ) WBC None Seen LAB URBC(LOINC 0 - 2 /hpf ) RBC None Seen LAB UEPI(LOINC 0 - 6 /lpf ) Epithelial Cells DRAWER IN [place] [facility] LAB UBAC(LOINC 0 - 1+ /hpf ) Bacteria DRAW[facility] [place] [facility] LAB UMUC(LOINC /lpf ) Mucus DRAWER IN [place] [facility] LAB UCST1(LOIN /lpf C) Casts DRAWER IN [place] [facility] LAB UCST2(LOIN /lpf C) Casts. DRAWER IN [place] [facility] LAB UCRY1(LOIN C) Crystals DRAWER IN [place] [facility] LAB UCRY2(LOIN C) Crystals. DRAWER IN [place] [facility] LAB UTRIC(LOIN C) Trichomonas DRAWER IN [place] [facility] LAB UYST(LOINC ) Yeast DRAWER IN [place] [facility] LAB UOTH(LOINC ) Other DRAWER IN [place] [facility] Performed By: #### [facility] #### [facility] [place] [address] [place] [id number] CBC W/AUTO DIFFERENTIAL Collected: 03/02/2018 Status: F Source: [place] 1:53 PM [facility] REPOSITORY TYPE CODE TESTS RESULT OUT OF REFERENCE UNITS RANGE LAB WBCIR(YURY 3.6-10.8 K/uL NC) WBC 8.1 LAB RBC(LOINC 4.13-5.69 M/uL ) RBC 4.87 LAB HGB(LOINC 12.4-17.3 g/dL ) HGB 14.6 LAB HCT(LOINC 36.7-50.6 % ) HCT 41.9 LAB MCV(LOINC 80.0-94.0 fL ) MCV 85.9 LAB MCH(LOINC 27.0-31.0 pg ) MCH 30.0 LAB MCHC(LOIN 33.0-37.0 g/dL C) MCHC 35.0 LAB RDW(LOINC 11.5-14.5 % ) RDW 13.8 LAB PLTI(LOIN 148-402 K/uL C) Platelet Count 259 LAB MPV(LOINC 7.4-10.4 fL ) MPV 9.7 LAB SEGR(LOIN 43.0-65.0 % C) Neutrophils % High 71.0 LAB LYMPR(YURY 17.0-45.5 % NC) Lymphocytes % 20.7 LAB MONOR(YURY 5.5-11.7 % NC) Monocytes % Low 4.5 LAB EOSR(LOIN 0.9-2.9 % C) Eosinophils % 2.6 LAB BASOR(YURY 0.2-1.0 % NC) Basophils % High 1.2 LAB NRBC%(YURY % NC) NRBC % 0.0 LAB ASEGR(YURY 2.2-4.8 K/uL NC) Neutrophils Abs. # High 5.8 LAB ALYMR(YURY 1.3-2.9 K/uL NC) Lymphocytes Abs. # 1.7 LAB AMONR(YURY 0.3-0.8 K/uL NC) Monocytes Abs. # 0.4 LAB AEOSR(YURY 0.0-0.2 K/uL NC) Eosinophils Abs. # 0.2 LAB ABASR(YURY 0.0-0.1 K/uL NC) Basophils Abs. # 0.1 LAB NRBC#(YURY K/uL NC) NRBC Abs. # 0.0 LAB LYPN%(YURY NC) Lymphopenia % [facility]RAW[facility] IN [place] [facility] LAB LYPN#(YURY NC) Lymphopenia # DRAWER IN [place] [facility] LAB LYCT%(YURY NC) Lymphocytosis % DRAWER IN [place] [facility] LAB NEPN%(YURY NC) Neutropenia % DRAWER IN [place] [facility] LAB NEPN#(YURY NC) Neutropenia # DRAWER IN [place] [facility] LAB EOPH%(YURY NC) Eosinophilia % [facility]RAW[facility] IN [place] [facility] LAB ANEM(LOIN C) Anemia DRAW[facility] IN [place] [facility] LAB PNCP(LOIN C) Pancytopenia DRAWER IN [place] [facility] LAB SMLPT(YURY NC) Small Platelets DRAWER IN [place] [facility] LAB ERCT(LOIN C) Erythocytosis DRAWER IN [place] [facility] LAB MACT(LOIN C) Macrocytosis DRAWER IN [place] [facility] LAB BAPH#(YURY NC) Bosophillia # DRAWER IN [place] [facility] LAB BAPH%(YURY NC) Basophillia % DRAWER IN [place] [facility] LAB LUCT(LOIN C) Leukocytosis DRAWER IN [place] [facility] LAB NEPH%(YURY NC) Neutrophilia % DRAWER IN [place] [facility] LAB NEPH#(YURY NC) Neutrophilla # DRAWER IN [place] [facility] LAB ANCT(LOIN C) Anisocytosis DRAWER IN [place] [facility] LAB MICT(LOIN C) Microcytosis DRAWER IN [place] [facility] LAB HY(LOINC) Hypochromia DRAWER IN [place] [facility] LAB PKCT(LOIN C) Poikilocytosis DRAWER IN [place] [facility] LAB THCT(LOIN C) Thrombocytosis DRAWER IN [place] [facility] LAB THCO(LOIN C) Thrombocytopenia DRAWER IN [place] [facility] LAB THCP(LOIN C) Thrombocytopenia. DRAWER IN [place] [facility] LAB LRGPT(YURY NC) Large Platelets DRAWER IN [place] [facility] LAB MOCT%(YURY NC) Monocytosis % DRAWER IN [place] [facility] LAB LUPN(LOIN C) Leukopenia DRAWER IN [place] [facility] LAB LYCT#(YURY NC) Lymphocytosis # DRAWER IN [place] [facility] LAB EOPH#(YURY NC) Eosinophilia # DRAWER IN [place] [facility] Performed By: #### CBC #### [place] [address] COMPREHENSIVE METABOLIC Collected: 03/02/2018 Status: F Source: [place] PANEL 1:53 PM [facility] REPOSITORY TYPE CODE TESTS RESULT OUT OF REFERENCE UNITS RANGE LAB NA(LOINC) 132-145 mmol/L Sodium 137 LAB K(LOINC) 3.3-5.1 mmol/L Potassium 4.4 LAB CLI(LOINC) 94-110 mmol/L Chloride 103 LAB TCO2(LOINC 21-34 mmol/L ) Total Co2 25 LAB GLU(LOINC) 65-100 mg/dL Glucose High 104 LAB BUN(LOINC) 3.2-26.9 mg/dL BUN 12.6 LAB CREAT(LOIN 0.50-1.17 mg/dL C) Creatinine 1.14 LAB CA(LOINC) 8.2-10.0 mg/dL Calcium 9.1 LAB ALB(LOINC) 3.4-5.0 g/dL Albumin 4.1 LAB TP(LOINC) 6.1-8.2 g/dL Protein 7.7 LAB TBIL(LOINC mg/dL ) Total Bilirubin 0.30 LAB ALP(LOINC) 54-112 U/L Alkaline High Phosphatase 122 LAB ALT(LOINC) 13-66 U/L ALT (SGPT) 22 LAB AST(LOINC) 3-39 U/L AST (SGOT) 8 LAB AGAP(LOINC 8.0-16.0 mmol/L ) Anion Gap 13.4 LAB B-C(LOINC) 6-20 BUN/CREAT Ratio 11 LAB A-G(LOINC) 1.1-2.5 A/G Ratio 1.1 LAB GLOB(LOINC 1.5-4.5 g/dL ) Globulin 3.6 LAB EGFR4(LOIN >60 C) EGFR Other Races >60 LAB EGFR5(LOIN >60 C) EGFR >60 Result Comment: Chronic Kidney Disease less than 60 mL/min/1.73 m2 Kidney Failure less than 15 mL/min/1.73 m2 Average estimated GFR by age: 30-39 years 107 mL/min/1.73 m2 Performed By: #### CMP #### [facility] [place] [id number] LIPASE Collected: 03/02/2018 Status: F Source: [place] 1:53 PM [facility] REPOSITORY TYPE CODE TESTS RESULT OUT OF REFERENCE UNITS RANGE LAB LIPAS(LOINC 65-230 U/L ) Lipase 152 Performed By: #### LIPAS #### [facility] [place], [place] [id number] CT ABDOMEN/PELVIS WITH Observed: 03/01/2018 Status: F Source: [employer] CONTRAST 3:09 PM [facility] REPOSITORY EXAM TYPE: CT ABDOMEN/PELVIS WITH CONTRAST EXAM DATE AND TIME: 03/01/2018 3:09 PM EST. INDICATION: 37-year-old male with right lower quadrant pain. COMPARISON: 02/28/2018. TECHNIQUE: CT imaging of the abdomen and pelvis after the administration of 75 mL of Isovue-370 intravenous contrast. Dose reduction techniques were achieved by using automated exposure control and/or adjustment of mA and/or kV according to patient size and/or use of iterative reconstruction technique. FINDINGS: LOWER CHEST: Normal. ABDOMEN: Liver: Normal. Bile Ducts: Normal caliber. Gallbladder: Small amount of hyperdensity within the gallbladder suggestive of vicarious excretion of contrast from prior CT or biliary sludge. Pancreas: Normal. Spleen: Normal. Adrenals: Normal. Kidneys: Symmetric enhancement without hydronephrosis or nephrolithiasis. PELVIS: Reproductive Organs: No pelvic masses. Ureters: Normal caliber. Bladder: Normal. OTHER ABDOMEN AND PELVIS: Bowel: No bowel obstruction. Normal appendix. Peritoneum: No free intraperitoneal air. No ascites or fluid collection. Vessels: Normal. Lymph Nodes: No enlarged lymph nodes. Abdominal Wall: Tiny fat-containing umbilical hernia. Bones: Chronic left L5 pars interarticularis fracture. No listhesis. IMPRESSION: 1. Evaluation of the upper abdomen is somewhat degraded by motion. 2. No acute findings in the abdomen or pelvis. No evidence of bowel obstruction, appendicitis, or obstructive uropathy. 3. Small density in the gallbladder may relate to vicarious excretion of contrast from recent CT or biliary sludge. 4. Chronic left L5 pars articularis fracture without listhesis. CBC Collected: 03/01/2018 Status: F Source: [employer] 1:41 PM [facility] [place] REPOSITORY TYPE CODE TESTS RESULT OUT OF REFERENCE UNITS RANGE LAB WBC 3.6-11.0 /cmm WBC COUNT 8.0 LAB RBC 4.0-6.1 /cmm RBC COUNT 5.22 LAB HGB 14.0-18.0 G/DL HEMOGLOBIN 15.5 LAB HCT 42.0-52.0 % HEMATOCRIT 45.0 LAB MCV 80.0-100.0 FL MCV 86.2 LAB MCH 26.0-35.0 PG MCH 29.6 LAB MCHC 27.0-37.0 G/DL MCHC 34.4 LAB RDW 11.5-14.5 % RDW 13.7 LAB PLTC 130.0-400.0 /cmm PLATELET COUNT 243 LAB MPV 7.4-11.0 FL MPV 9.1 LAB DTYPE % DTYPE AUTO DIFF LAB NEUT 37.0-75.0 % NEUTROPHIL 66.5 LAB LYMP 20.0-55.0 % LYMPHOCYTE 25.3 LAB AOMONO 0.0-10.0 % MONOCYTE 5.1 LAB EOS 0.0-11.0 % EOSINOPHIL 1.9 LAB BASO 0.0-2.0 % BASOPHIL 1.2 LAB ANC 1.0-7.0 x10 ABSOLUTE NEUTROPHIL COUNT 5.3 LAB ALYM X10 ABSOLUTE LYMPHOCYTE 2.00 LAB AMONO X10 ABSOLUTE MONOCYTE 0.4 LAB AEO X10 ABSOLUTE EOS 0.20 LAB ABAS X10 ABSOLUTE BAS 0.1 Performed By: #### ACBC, CMPF, LIPA2 #### Testing performed at [facility] [address] [place] [address] CMP FASTING Collected: 03/01/2018 Status: F Source: [employer] 1:41 PM [place] ([place] REPOSITORY TYPE CODE TESTS RESULT OUT OF REFERENCE UNITS RANGE LAB GLF 70-100 MG/DL GLUCOSE 89 FASTING Result Comment: NORMAL <100 mg/dL PREDIABETES 101-126 mg/dL DIABETES 126 mg/dL or higher LAB BUN 7-20 MG/DL BLOOD UREA 11 NITROGEN LAB CRET 0.66-1.25 MG/DL CREATININE SERUM 1.1 LAB NA 136-145 MMOL/L SODIUM 138 LAB K 3.5-5.1 MMOL/L POTASSIUM 3.9 LAB CL 98-107 MMOL/L CHLORIDE 99 LAB CA 8.4-10.2 MG/DL CALCIUM 9.5 LAB TP 6.3-8.2 GM/DL TOTAL PROTEIN 7.8 LAB ALB 3.5-5.0 G/dl ALBUMIN 4.8 LAB TBIL 0.2-1.2 MG/DL BILIRUBIN TOTAL 0.7 LAB AST 15-41 IU/L AST 28 LAB ALKP 38-126 IU/L ALK 97 PHOSPHATASE LAB CO2 22-30 MMOL/L CO2 28 LAB AG 1.3-2.2 RATIO A:G RATIO 1.6 LAB ALT 17-63 IU/L ALT 28 LAB GFR ml/min/1.73s q.m EST. GFR,Non >60 LAB GFRB ml/min/1.73s q.m EST. GFR, >60 [place] LAB GFRCOM GFR Information Average GFR for 30-39 years old = 109. Result Comment: Chronic Kidney disease, GFR = <60. Kidney failure, GFR = <15. The GFR estimate is not adjusted for extreme body surface area or acute process, nor has it been validated for women or ethnic groups other than and . Performed By: #### ACBC, CMPF, LIPA2 #### Testing performed at [address] [address] LIPASE,SERUM Collected: 03/01/2018 Status: F Source: [employer] 1:41 PM [place] REPOSITORY TYPE CODE TESTS RESULT OUT OF RANGE REFERENCE UNITS LAB LIPA2 23-300 U/L 35 LIPASE,SERUM Performed By: #### ACBC, CMPF, LIPA2 #### Testing performed at [address] [address] LACTIC ACID Collected: 03/01/2018 Status: F Source: [employer] 1:41 PM [place] REPOS[place]ORY TYPE CODE TESTS RESULT OUT OF REFERENCE UNITS RANGE LAB ALACT 0.5-2.0 MMOL/L High Alert LACTIC ACID 2.3 Result Comment: PLEASE REPEAT INITIAL CRITICAL IN 3 HOURS IF ED OR INPATIENT SEPSIS PATIENT Result called to read back by: CAMERON PADILLA 03/01/2018 @ 14:12 by DNB Performed By: #### LACT #### Testing performed at [address] [address] [address] ABDOMEN/PELVIS WITH Observed: 02/28/2018 Status: F Source: [employer] CONTRAST 9:00 PM [place] ([place] REPOSIT[place] CT ABDOMEN/PELVIS WITH CONTRAST CLINICAL STATEMENT: 37-year-old male with right lower quadrant abdominal pain. COMPARISON: None. TECHNIQUE: CT examination of the abdomen and pelvis following the administration of 75 mL Omnipaque 350 intravenous contrast. Coronal and sagittal reformations were performed. Dose reduction techniques were achieved by using automated exposure control and/or adjustment of mA and/or kV according to patient size and/or use of iterative reconstruction technique. FINDINGS: The liver, gallbladder, spleen, pancreas, adrenal glands, and kidneys demonstrate an unremarkable contrasted appearance. There is no urolithiasis or hydronephrosis. The ureters are of normal caliber and course. The bladder is decompressed and unremarkable. Small phleboliths are noted within the left hemipelvis. The colon is unremarkable. Normal appendix is visualized. The small bowel is normal in caliber and course. The stomach appears unremarkable. There is no mass or adenopathy present. No free air or free fluid is present. The bones are unremarkable. Lung bases are clear. IMPRESSION: Unremarkable contrasted CT imaging of the abdomen and pelvis. A normal appendix is visualized. CBC Collected: 02/28/2018 Status: F [facility] [place] REPOS[place]ORY TYPE CODE TESTS RESULT OUT OF REFERENCE UNITS RANGE LAB WBC 3.6-11.0 /cmm WBC COUNT 10.3 LAB RBC 4.0-6.1 /cmm RBC COUNT 5.42 LAB HGB 14.0-18.0 G/DL HEMOGLOBIN 16.2 LAB HCT 42.0-52.0 % HEMATOCRIT 46.6 LAB MCV 80.0-100.0 FL MCV 85.9 LAB MCH 26.0-35.0 PG MCH 29.9 LAB MCHC 27.0-37.0 G/DL MCHC 34.9 LAB RDW 11.5-14.5 % RDW 13.9 LAB PLTC 130.0-400.0 /cmm PLATELET COUNT 310 LAB MPV 7.4-11.0 FL MPV 9.5 LAB DTYPE % DTYPE AUTO DIFF LAB NEUT 37.0-75.0 % NEUTROPHIL 58.7 LAB LYMP 20.0-55.0 % LYMPHOCYTE 31.1 LAB AOMONO 0.0-10.0 % MONOCYTE 6.2 LAB EOS 0.0-11.0 % EOSINOPHIL 2.7 LAB BASO 0.0-2.0 % BASOPHIL 1.3 LAB ANC 1.0-7.0 x10 ABSOLUTE NEUTROPHIL COUNT 6.0 LAB ALYM X10 ABSOLUTE LYMPHOCYTE 3.20 LAB AMONO X10 ABSOLUTE MONOCYTE 0.6 LAB AEO X10 ABSOLUTE EOS 0.30 LAB ABAS X10 ABSOLUTE BAS 0.1 Performed By: #### ACBC, CMPF #### Testing performed at [address] [address] CMP FASTING Collected: 02/28/2018 Status: F Source: [facility] [employer] 7:58 PM [place] REPOSITORY TYPE CODE TESTS RESULT OUT OF REFERENCE UNITS RANGE LAB GLF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 percussion bilaterally. No bruising or masses palpated. No rash or discoloration of the skin. EMERGENCY DEPARTMENT COURSE After evaluating this patient, completed blood work, urinalysis, a CT scan of abdomen and pelvis with IV oral contrast. CBC: White count is 10.1, otherwise completely unremarkable. BMP: Creatinine 1.50, otherwise unremarkable. Hepatic panel normal. Lipase was slightly elevated at 68. Urinalysis negative for blood or infection. CT scan showing no acute process, normal appendix, no free air or free fluid. Discussed this with the patient. I am going to give him Bentyl here. He was medicated initially with morphine and Zofran. He states he is still having pain, so gave him Bentyl. He has had some relief with that. I have sent a script of it to the pharmacy and encouraged him to follow up with our surgeon relationship counselor, Dr. Scott, if he continues to have pain. He is to return here if worse in any way, bland diet. Bentyl for discomfort, and return if worse. He states understanding and will be discharged home. IMPRESSION Abdominal pain. <Electronically signed by PRITI SILVEIRA D.O.> 02/23/18 1009 PRITI SILVEIRA D.O. cc: PRITI SILVEIRA D.O. << Signature on File>> Reported By: PRITI SILVEIRA D.O. Signed By: PRITI SILVEIRA D.O. Tests performed at: [address] [address] ED PROV NOTE Observed: 02/19/2018 Status: COMPLETED Source: [facility] 2:15 PM [facility] REPOSITORY [facility] ID: [id number] Author: Priti Silveira Service: Emergency Medicine Author Type: Physician Type: ED Provider Notes Filed: 02/23/2018 10:13 AM Note Text: [place] [address] HEALTH INFORMATION MANAGEMENT EMERGENCY DEPARTMENT REPORT Patient: PIERREEDGARDO MATTHEW H D.O. as dictated by NIKOLAS MIRANDA [id number] [age] M Status: [facility] ER ED Date of Service: 02/19/18 CHIEF COMPLAINT/HISTORY OF PRESENT ILLNESS This 37-year male presents to the emergency room with right lower quadrant pain for 2 days. He states it is worse with movement. He has had no nausea, no vomiting. No fever or chills, no diarrhea or constipation. ALLERGIES No known drug allergies. SOCIAL HISTORY The patient is . He does not smoke or drink. PAST SURGICAL HISTORY Tonsils and adenoids, wrist surgery. PAST MEDICAL HISTORY Depression, anxiety. MEDICATIONS Klonopin and Paxil. PHYSICAL EXAMINATION Blood pressure 166/110, temperature 98.3, pulse 84, respirations 18, pulse ox 97% on room air. The patient has 7 out of 10 discomfort in the abdomen. Upon evaluation, the patient is resting back in the bed. Mucous membranes pink, warm and moist. Lungs are clear throughout. No wheezes, rhonchi or rales. Heart is a regular rate and rhythm. No rubs appreciated. Abdomen is soft. He is tender in the right upper quadrant, right lower quadrant, otherwise benign throughout. Bowel sounds heard throughout, normoactive. No pressure over the bladder or CVA tenderness on percussion bilaterally. No bruising or masses palpated. No rash or discoloration of the skin. EMERGENCY DEPARTMENT COURSE After evaluating this patient, completed blood work, urinalysis, a CT scan of abdomen and pelvis with IV oral contrast. CBC: White count is 10.1, otherwise completely unremarkable. BMP: Creatinine 1.50, otherwise unremarkable. Hepatic panel normal. Lipase was slightly elevated at 68. Urinalysis negative for blood or infection. CT scan showing no acute process, normal appendix, no free air or free fluid. Discussed this with the patient. I am going to give him Bentyl here. He was medicated initially with morphine and Zofran. He states he is still having pain, so gave him Bentyl. He has had some relief with that. I have sent a script of it to the pharmacy and encouraged him to follow up with our surgeon relationship counselor, Dr. Scott, if he continues to have pain. He is to return here if worse in any way, bland diet. Bentyl for discomfort, and return if worse. He states understanding and will be discharged home. IMPRESSION Abdominal pain. <Electronically signed by PRITI SILVEIRA D.O.> 02/23/18 1009 PRITI SILVEIRA D.O. cc: PRITI SILVEIRA D.O. << Signature on File>> Reported By: PRITI SILVEIRA D.O. Signed By: PRITI SILVEIRA D.O. Tests performed at: [address] [place] [address] EMERGENCY DEPARTMENT Observed: 02/19/2018 Status: F Source: [facility] 12:17 PM [facility] [place] [address] HEALTH INFORMATION MANAGEMENT EMERGENCY DEPARTMENT REPORT Patient: EDGARDO JAY PRITI SILVEIRA D.O. [id number] [age] M Status: [facility] ER ED Date of Service: 02/19/18 CHIEF COMPLAINT/HISTORY OF PRESENT ILLNESS The patient is a 37-year-old male who presents for right lower quadrant abdominal pain. The patient states it has been fairly continuous. It has been going on for several days at this time. States that when he does eat it does get a little bit worse. States that it has been nonradiating. States that he has had no nausea, vomiting and came to the ED for evaluation. PHYSICAL EXAMINATION Constitutional: No acute distress. Alert and oriented, nontoxic appearing. Cardiac is a regular rate and rhythm. Negative for murmurs, rubs, gallops. Pulmonary: Clear to auscultation bilaterally. Negative wheezes, rales or crackles. Abdomen: Mild reproducible pain of the right lower quadrant. However, would not discern this as McBurney's point. Negative for Baxter's, no peritoneal signs. No rigidity, guarding, distension. EMERGENCY DEPARTMENT COURSE The patient did have lab work obtained. CBC is normal. CMP was unremarkable. Lipase slightly elevated at 68 but does not correspond to pancreatitis. UA is normal. Imaging is no visible acute inflammatory process. Normal appendix. ASSESSMENT/PLAN At this time the patient had some underlying abdominal pain. Is going to be treated outpatient. I am currently seeing the patient with Keri Xie. IMPRESSION <Electronically signed by PRITI SILVEIRA D.O.> 02/23/18 1009 PRITI SILVEIRA D.O. cc: PRITI SILVEIRA D.O. << Signature on File>> Reported By: PRITI SILVEIRA D.O. Signed By: PRITI SILVEIRA D.O. Tests performed at: [address] [address] ED PROV NOTE Observed: 02/19/2018 Status: COMPLETED Source: [facility] 12:17 PM [facility] [place] REPOSITORY O ID: [id number] Author: Priti Silveira Service: Emergency Medicine Author Type: Physician Type: ED Provider Notes Filed: 02/23/2018 10:13 AM Note Text: [place] [address] HEALTH INFORMATION MANAGEMENT EMERGENCY DEPARTMENT REPORT Patient: EDGARDO JAY PRITI SILVEIRA D.O. [id number] [age] M Status: [facility] ER ED Date of Service: 02/19/18 CHIEF COMPLAINT/HISTORY OF PRESENT ILLNESS The patient is a 37-year-old male who presents for right lower quadrant abdominal pain. The patient states it has been fairly continuous. It has been going on for several days at this time. States that when he does eat it does get a little bit worse. States that it has been nonradiating. States that he has had no nausea, vomiting and came to the ED for evaluation. PHYSICAL EXAMINATION Constitutional: No acute distress. Alert and oriented, nontoxic appearing. Cardiac is a regular rate and rhythm. Negative for murmurs, rubs, gallops. Pulmonary: Clear to auscultation bilaterally. Negative wheezes, rales or crackles. Abdomen: Mild reproducible pain of the right lower quadrant. However, would not discern this as McBurney's point. Negative for Baxter's, no peritoneal signs. No rigidity, guarding, distension. EMERGENCY DEPARTMENT COURSE The patient did have lab work obtained. CBC is normal. CMP was unremarkable. Lipase slightly elevated at 68 but does not correspond to pancreatitis. UA is normal. Imaging is no visible acute inflammatory process. Normal appendix. ASSESSMENT/PLAN At this time the patient had some underlying abdominal pain. Is going to be treated outpatient. I am currently seeing the patient with Keri Xie. IMPRESSION <Electronically signed by PRITI SILVEIRA D.O.> 02/23/18 1009 PRITI SILVEIRA D.O. cc: PRITI SILVEIRA D.O. << Signature on File>> Reported By: PRITI SILVEIRA D.O. Signed By: PRITI SILVEIRA D.O. Tests performed at: [address] [address] CBC Collected: 02/19/2018 Status: F [facility] 9:32 AM HOSPITAL REPOSITORY TYPE CODE TESTS RESULT OUT OF RANGE REFERENCE UNITS LAB L200.0100 4.5-10.0 x10(3) High WBC 10.1 LAB L200.0200 4.80-5.50 x10(6) Normal RBC 4.85 LAB L200.0210 14.0-17.2 g/dL Normal HGB 14.6 LAB L200.0220 42.0-51.0 % Low HCT 41.8 LAB L200.0230 80.0-94.0 fl Normal MCV 86.2 LAB L200.0240 28.8-32.2 pg Normal MCH 30.1 LAB L200.0250 33.0-36.0 g/dL Normal MCHC 34.9 LAB L200.0260 12.7-15.3 % Normal RDW 14.2 LAB L200.0270 150-450 X10(3) Normal PLT 220 LAB L200.0290 7.4-9.2 fl Normal MPV 8.7 LAB L200.0300 45.0-73.0 % Normal NEUT% 64.2 LAB L200.0310 16.0-48.0 % Normal LYMPH% 26.3 LAB L200.0320 4.3-11.2 % Normal MONO% 6.3 LAB L200.0330 0.5-4.9 % Normal EOS% 2.1 LAB L200.0340 0.0-1.0 % High BASO% 1.1 LAB L200.0350 1.40-6.50 x10(3) Normal NEUT# 6.50 LAB L200.0360 1.00-3.50 x10(3) Normal LYMPH# 2.70 LAB L200.0370 0.30-0.80 x10(3) Normal MONO# 0.60 LAB L200.0380 0.00-0.54 x10(3) Normal EOS# 0.20 LAB L200.0390 0.00-0.10 x10(3) Normal BASO# 0.10 Performed By: #### L200.0010 #### [facility] [address] [place] [id number] BMP Collected: 02/19/2018 Status: F [facility] 9:32 AM HOSPITAL REPOSITORY TYPE CODE TESTS RESULT OUT OF RANGE REFERENCE UNITS LAB L100.0060 74-106 mg/dL GLUCOSE Normal 101 LAB L100.0110 6-20 mg/dL BUN Normal 19 LAB L100.0131 0.70-1.20 mg/dL High CREATININE 1.50 LAB L100.0140 8.6-10.0 mg/dL CALCIUM Normal 10.0 LAB L100.0150 135-145 mmol/L SODIUM Normal 139 LAB L100.0160 3.5-5.0 mmol/L Normal POTASSIUM 4.3 LAB L100.0170 98-107 mmol/L CHLORIDE Normal 99 LAB L100.0180 22-29 mmol/L TCO2 Normal 26 LAB L100.0185 15-22 mmol/L ANION Normal GAP 18.3 LAB L100.0274 eGFR Normal nonAFR Sue 53 LAB L100.0275 eGFR if Normal AFR SUE > 60 ml/min/1.73m 2 Result Comment: eGFR >= 60 Indicates normal kidney function. * eGFR IS AN ESTIMATE * (AFR SUE = ) (non-AFR AM = NON-) MDRD calculation used in the eGFR should not be used to dose medications. For further limitations of the eGFR please refer to the Physician Website or the National Kidney Disease Education Program website (www.nkdep.nih.gov). Performed By: #### L100.0010, L100.0030, L100.0350 #### [facility] [address] [place] [address] HEPATIC PANEL Collected: 02/19/2018 Status: F Source: [facility] 9:32 AM [facility] REPOSITORY TYPE CODE TESTS RESULT OUT OF RANGE REFERENCE UNITS LAB L100.0200 6.4-8.3 g/dL TOTAL Normal PROTEIN 8.0 LAB L100.0210 3.5-5.2 g/dL Normal ALBUMIN 4.9 LAB L100.0220 0.2-1.2 mg/dL TOTAL Normal BILIRUBIN 0.4 LAB L100.0230 0.0-0.3 mg/dL Normal DIRECT BILIRUBI <0.2 LAB L100.0240 5-40 U/L AST Normal 33 LAB L100.0250 5-41 U/L ALT Normal 38 LAB L100.0260 40-130 U/L ALK. Normal PHOS 103 LAB L100.0262 1.5-4.5 g/dL Normal GLOBULIN,CALC 3.1 LAB L100.0264 1.1-2.5 A:G Normal RATIO 1.58 Performed By: #### L100.0010, L100.0030, L100.0350 #### [facility] [address] [place] [address] LIPASE Collected: 02/19/2018 Status: F [facility] 9:32 AM HOSPITAL REPOSITORY TYPE CODE TESTS RESULT OUT OF REFERENCE UNITS RANGE LAB L100.0350 13-60 U/L High LIPASE 68 Performed By: #### L100.0010, L100.0030, L100.0350 #### [facility] [address] [place] [address] ABD/PEL W CONTRAST Observed: 02/19/2018 Status: F Source: [facility] 9:28 AM [facility] HOSPITAL REPOSITORY [address] [address] Name: EDGARDO JAY Phys: KERI XIE DRAWER IN JACQUARD LOOMLizeth : [birth year] Age: 37 Sex: M Acct: [id number] Loc: ED Exam Date: 02/19/18 Status: [facility] Radiology No.: [id number] Unit Number: [id number] Exam # Type/Exam [id number] CT / CT ABD/PEL W CONTRAST PROCEDURE: Computed tomography of the abdomen and pelvis. HISTORY: Right lower quadrant abdominal pain. TECHNIQUE: Axial imaging with intravenous and oral contrast was performed with sagittal and coronal reconstructions. COMPARISON: None. FINDINGS: Lung bases are clear. The appendix is normal. Kidneys are unremarkable. Large and small bowel loops otherwise are normal. No ascites or free air. Urinary bladder is unremarkable. Liver, gallbladder biliary tree, spleen, stomach and duodenum, pancreas and adrenal glands are unremarkable. No aortic aneurysm. IMPRESSION: No visible acute inflammatory process. Normal appendix. This exam was performed according to our departmental dose optimization program, and includes the following measures where applicable: automated exposure control, adjustment of the mAs and/or kVp according to patient size and/or exam, and an iterative reconstruction algorithm. Professional interpretation provided by [facility], [place] on [employer]-60. Thank you for this referral. <<Signature on File>> Reported By: HUGO OSORIO M.D. Signed In [employer] By: HUGO OSORIO M.D. << Signature on File>> Reported By: HUGO OSORIO M.D. Signed By: HUGO OSORIO M.D. Tests performed at: [address] [address] URINALYSIS Collected: 02/19/2018 Status: F Source: [facility] 12:00 AM [facility] REPOSITORY Order Comment: Urine Specimen Source+ CLEAN CATCH TYPE CODE TESTS RESULT OUT OF RANGE REFERENCE UNITS LAB L200.3010 YELLOW URINE Normal COLOR YELLOW LAB L200.3020 CLEAR URINE Normal APPEARANC CLEAR LAB L200.3030 NEGATIVE MG/DL URINE Normal GLUCOSE NEGATIVE LAB L200.3050 NEGATIVE URINE Normal BILIRUBIN NEGATIVE LAB L200.3060 NEGATIVE MG/DL URINE Normal KETONE NEGATIVE LAB L200.3070 1.001-1.035 URINE Normal SPECIFIC <=1.005 LAB L200.3080 NEGATIVE URINE Normal BLOOD NEGATIVE LAB L200.3090 5.0-8.0 URINE Normal PH 6.0 LAB L200.3100 NEGATIVE MG/DL URINE Normal PROTEIN NEGATIVE LAB L200.3110 0.2-1.0 EU/DL URINE Normal UROBILINO 0.2 LAB L200.3120 NEGATIVE URINE Normal NITRITE NEGATIVE LAB L200.3130 NEGATIVE URINE Normal LEUKOCYTE NEGATIVE Performed By: #### L200.3000 #### [facility] [address] [place] [address] XR ABDOMEN SERIES Observed: 02/18/2018 Status: F Source: [facility] W/CHEST 1 VIEW 9:51 AM [facility] REPOSITORY ORIGINAL UPRIGHT AND SUPINE VIEWS OF THE ABDOMEN, 1 VIEW OF THE CHEST CLINICAL STATEMENT: abdominal pain. COMPARISON: CT abdomen pelvis 02/17/2018 FINDINGS: The cardiomediastinal silhouette is normal. The lungs appear clear. The bowel gas pattern is nonobstructive. No free air or air- fluid levels identified. No dilated loops of bowel. IMPRESSION: Nonobstructive bowel gas pattern. Interpreted By: Nimo Rodríguez MD Preliminary Report By: Nimo Rodríguez MD Electronically Signed By: Nimo Rodríguez MD Dictated Date: 02/18/2018 10:13:10 AM Prelim Date: 02/18/2018 10:13:10 AM Sign Date: 02/18/2018 10:15:41 AM CBC Collected: 02/18/2018 Status: F Source: [facility] 9:40 AM [facility] REPOSITORY TYPE CODE TESTS RESULT OUT OF REFERENCE UNITS RANGE LAB WBC(LOINC) 4.50-10.80 10 3/mcL WBC 8.80 LAB RBCCT(LOINC 4.50-6.00 10 6/mcL ) RBC 4.91 LAB HGB(LOINC) 13.0-17.5 G/dL Hgb 14.5 LAB HCT(LOINC) 40.0-52.0 % Hct 42.1 LAB MCV(LOINC) 81.0-100.0 fL MCV 85.7 LAB MCH(LOINC) 27.0-33.0 pg MCH 29.6 LAB MCHC(LOINC) 32.0-36.0 G/dL MCHC 34.5 LAB RDW(LOINC) 11.5-15.5 % RDW 14.2 LAB PLT(LOINC) 150-450 10 3/mcL Platelet 225 LAB MPV(LOINC) 6.4-10.5 fL MPV 8.6 Performed By: #### CBC, ADIFF, ANEU, LIP, CMP, GFR #### [place] [address] .AUTO DIFF Collected: 02/18/2018 Status: F Source: [facility] 9:40 AM [facility] REPOSITORY TYPE CODE TESTS RESULT OUT OF REFERENCE UNITS RANGE LAB MÓNICA(LOINC) 50.0-75.0 % Neutrophil % 56.9 LAB LYM(LOINC) 20.0-40.0 % Lymphocyte % 31.9 LAB MON(LOINC) 2.0-13.0 % Monocyte % 8.0 LAB EO(LOINC) 0.0-6.0 % Eosinophil % 2.1 LAB BAS(LOINC) 0.0-2.5 % Basophil % 1.1 LAB ABLYM(LOIN 0.90-4.32 10 3/mcL C) Lymphocyte, 2.80 Absolute LAB ANGELA(LOINC 0.09-1.40 10 3/mcL ) Monocyte, 0.70 Absolute LAB AEOS(LOINC 0.00-0.65 10 3/mcL ) Eosinophil, 0.20 Absolute LAB ABAS(LOINC 0.00-0.27 10 3/mcL ) Basophil, 0.10 Absolute Performed By: #### CBC, ADIFF, ANEU, LIP, CMP, GFR #### [place] [address] .NEUABS Collected: 02/18/2018 Status: F Source: [facility] 9:40 AM [facility] REPOSITORY TYPE CODE TESTS RESULT OUT OF REFERENCE UNITS RANGE LAB ANEU(LOINC) 2.25-8.10 10 3/mcL Neutrophil, 5.00 Absolute Performed By: #### CBC, ADIFF, ANEU, LIP, CMP, GFR #### [place] [address] LIP Collected: 02/18/2018 Status: F Source: [facility] 9:40 AM [facility] REPOSITORY TYPE CODE TESTS RESULT OUT OF REFERENCE UNITS RANGE LAB LIP(LOINC) 73-393 U/L Lipase Level 123 Performed By: #### CBC, ADIFF, ANEU, LIP, CMP, GFR #### [place] [address] CMP Collected: 02/18/2018 Status: F Source: [facility] 9:40 AM [facility] REPOSITORY TYPE CODE TESTS RESULT OUT OF REFERENCE UNITS RANGE LAB GLU(LOINC) 70-110 mg/dL Glucose Level 73 LAB NA(LOINC) 136-145 mEq/L Sodium Level 142 LAB K(LOINC) 3.5-5.0 mEq/L Potassium Level 4.0 LAB CL(LOINC) 98-110 mEq/L Chloride 104 LAB CO2(LOINC) 22-32 mEq/L CO2 31 LAB EBAL(LOINC 4.0-15.0 mEq/L ) Electrolyte Balance 7.0 LAB BUN(LOINC) 8.0-22.0 mg/dL BUN 16.0 LAB CRE(LOINC) 0.60-1.40 mg/dL Creatinine High Lvl (s) 1.42 LAB BC(LOINC) 10.0-22.0 ratio BUN/Creatinine 11.3 Ratio LAB CA(LOINC) 8.4-10.1 mg/dL Calcium Lvl 9.0 LAB PROT(LOINC 6.0-8.5 G/dL ) Total Protein 7.6 LAB ALB(LOINC) 3.2-4.8 G/dL Albumin Level 4.1 LAB GLB(LOINC) 1.5-3.8 G/dL Globulin 3.5 LAB AG(LOINC) 0.9-1.6 ratio A/G Ratio 1.2 LAB BILT(LOINC 0.2-1.2 mg/dL ) Bili Total 0.3 LAB AP(LOINC) 38-126 U/L Alk Phos 106 LAB AST(LOINC) 8-34 U/L AST/SGOT 20 LAB ALT(LOINC) 12-55 U/L ALT/SGPT 45 Performed By: #### CBC, ADIFF, ANEU, LIP, CMP, GFR #### [place] [address] .GFR Collected: 02/18/2018 Status: F Source: [facility] 9:40 AM FOUNDATION REPOSITORY TYPE CODE TESTS RESULT OUT OF REFERENCE UNITS RANGE LAB GFRAA(LOINC ml/min/1.73 ) sqm GFR >60 [place] Result Comment: GFR Population mean for , Non- Americans Ages 20-29 = 116 mL/min/1.73 sq.m. Ages 30-39 = 107 mL/min/1.73 sq.m. Ages 40-49 = 99 mL/min/1.73 sq.m. Ages 50-59 = 93 mL/min/1.73 sq.m. Ages 60-69 = 85 mL/min/1.73 sq.m. Ages 70+ = 75 mL/min/1.73 sq.m. Chronic Kidney Disease: Less than 60 mL/min/1.73 square meters End Stage Renal Disease: Less than 15 mL/min/1.73 square meters LAB GFRNO(LOINC) ml/min/1.73sqm GFR Non- 56 Result Comment: GFR Population mean for , Non- Americans Ages 20-29 = 116 mL/min/1.73 sq.m. Ages 30-39 = 107 mL/min/1.73 sq.m. Ages 40-49 = 99 mL/min/1.73 sq.m. Ages 50-59 = 93 mL/min/1.73 sq.m. Ages 60-69 = 85 mL/min/1.73 sq.m. Ages 70+ = 75 mL/min/1.73 sq.m. Chronic Kidney Disease: Less than 60 mL/min/1.73 square meters End Stage Renal Disease: Less than 15 mL/min/1.73 square meters Performed By: #### CBC, ADIFF, ANEU, LIP, CMP, GFR #### [address] [address] UA Collected: 02/18/2018 Status: F Source: [facility] 9:40 AM [facility] REPOSITORY TYPE CODE TESTS RESULT OUT OF REFERENCE UNITS RANGE LAB SPCUA(LOIN C) UA Specimen Type Clean Catch LAB CLRUA(LOIN C) UA Color Yellow LAB APPUA(LOIN C) UA Appear Clear LAB SGUA(LOINC ) UA Spec Grav 1.015 LAB GLUA(LOINC Negative mg/dL ) UA Glucose Negative LAB BILUA(LOIN Neg-Trace C) UA Bili Negative LAB KETUA(LOIN Neg-Trace mg/dL C) UA Ketones Negative LAB BLDUA(LOIN Neg-Trace C) UA Blood Negative LAB PHUA(LOINC 5.0 - 8.0 ) UA pH 7.5 LAB PROUA(LOIN Negative mg/dL C) UA Protein 30 LAB UROUA(LOIN E.U./dL C) UA Urobilinogen 0.2 LAB NITUA(LOIN Negative C) UA Nitrite Negative LAB LEUUA(LOIN Negative C) UA Leuk Est Negative Performed By: #### UA #### [address] [address] ED DOC Observed: 02/18/2018 Status: UNK Source: [facility] 3:14 AM [facility] REPOSITORY This is a preliminary report only, as the practitioner review and authentication has not occurred. ED DOC Observed: 02/18/2018 Status: UNK Source: [facility] 3:14 AM [place] REPOSITORY PHYSICIAN ASSESSMENT RECORDS : FlexChartData Event Time: 02/18/2018 01:05 Status: Signed [facility] Edgardo Jay [[id number]] Attending Physician 37 / / 1980 Chart (V2b) Chart created at 02/18/2018 01:03 by Durga Anglin Chart closed at 02/18/2018 03:11 Entry in Emergency Department at 02/18/2018 00:14, departure at 02/18/2018 03:14 Patient Name: Edgardo Jay Record Number: [id number] Date: 02/18/2018 01:03 Entered Department at: 02/18/2018 00:14 Patient Seen at: 02/18/2018 00:51 Historian: Patient PCP: josé veras Chief Complaint:abd pain: c/o diffuse abd pain for the past 5 days with diarrhea. Temperature: 98.6 F (37 C). Pulse: 113. Respiratory Rate: 18. Blood-pressure: 194/93. Oxygen Saturation: 98%. History of Present Illness: Patient is a 37-year-old who presents with a chief complaint of diarrhea for the last 5 days. He has abdominal pain as diffuse periumbilical. Patient denies any fevers or chills. The patient had serial eat today. He has not been on a brat diet he is had a decreased oral intake as well as food however what he does eat has not been bananas rice applesauce toast. HPI Elements: Onset: 5 Days ago; Timing: Gradual; Location: [facility] PATIENT NAME: EDGARDO JAY [address] [facility] MEDICAL REC #: [id number] [place] [address] EMERGENCY DEPARTMENT CHART EMERGENCY DEPARTMENT PHYSICIAN Abdomen; Quality: Aching and Dull; Severity: maximum Mild, now Mild; Context: At Rest; Exacerbated by: Palpation; Alleviated by: Nothing Review of Systems. All other systems reviewed and negative.. Past History, Medications, Allergies, Social History and Family History reviewed in nurses note. Medications: Reviewed RN Note. paxil 20mg po daily, klonopin 1mg po prn, meds verified with pt 02/17 Allergies: Reviewed RN Note No Known Allergies Social History: Reviewed RN Note. Tobacco: None. Alcohol: None. Recreational Drugs: None. Family History: Reviewed RN Note Physical Examination: General: Alert; Nontoxic-appearing HEENT: Normal ENT inspection. Eyes: Lids Normal; . Oropharynx / Throat: Normal Pharynx. Neck: No Lymphadenopathy, No Meningismus and Supple Respiratory: No Resp Distress and Normal Breath Sounds Cardio-Vascular: No murmur, No rub and RRR Abdomen: Normal Bowel Sounds, Non-tender and Soft Back: No CVA tenderness, No Midline Tenderness and Non-tender Extremity: No edema and Normal Equal pulses Neurological: Alert, Oriented X3 and No Gross Weakness Skin: No rash, No Petechiae, Warm and Dry Psychological: Mood/Affect Normal and Normal Memory/Judgment Medical Decision Making Patient was not feeling better however he simply here for gastroenteritis. He has good bowel sounds his abdomen is soft. The patients telling me he is having diarrhea continuously he had cereal this morning he has not had any diarrhea since he has been here. I did give him Toradol and fluids he was stating that [facility] PATIENT NAME: EDGARDO JAY Dr. Romero MEDICAL REC #: [id number] [place] [address] EMERGENCY DEPARTMENT CHART EMERGENCY DEPARTMENT PHYSICIAN he was not getting any pain relief from his gastroenteritis I wrote for Toradol the nurse went in the room to give him the Toradol he asked what it was he was told it was Toradol and he left. The patient was obviously drug-seeking wanted to get morphine his pain was his primary concern. His exam however was primarily normal. He will be released and I could not get that done in time because he eloped. Re-Evaluation: 03:11: Additional Information: Discussed Results, Diagnosis and Follow-Up with Patient. Clinical Impression: 1. Acute gastroenteritis 2. Elopement Disposition: Eloped . MSE completed. I was the primary ED attending.. : Discharge Report Event Time: 02/18/2018 03:12 ===DISCHARGE REPORT=== : UmbertoChartData Event Time: 02/18/2018 01:05 : Discharge Report Event Time: 02/18/2018 03:12 Status: Draft Reasons to Return to the ER: [facility] PATIENT NAME: EDGARDO JAY [facility] Dr. Romero MEDICAL REC #: [id number] [place] [id number] EMERGENCY DEPARTMENT CHART EMERGENCY DEPARTMENT PHYSICIAN You must return to the ER for any new, worsening or changing symptoms, or if you feel more ill or sick in any way. This is the most important thing to remember. Follow-up: The care you received in the ER was given on an emergency basis only, and it is often not possible to completely treat or diagnose a problem in a single ER visit. You must see your follow-up doctor for a recheck within a week unless you receive instructions with a different timeframe for follow-up. Please follow all your discharge instructions. Medications: Unless the ER doctor tells you differently, you should take all your regular medications and any new medications prescribed today. Because it is not possible for the ER doctor to review all of your medication side effects or interactions, you must review possible side effects and interactions with your pharmacist when you get your prescriptions filled. EKG and Radiology Results: A power tool repair technician or radiologist will review any EKG or radiology results provided by the ER doctor. We will contact you if the results in the final EKG or radiology reports require a change in treatment. Culture Results: Cultures may have been ordered during your ER visit. We will contact you if the culture results require a change in treatment. Referrals: Most referrals to specialists come from the on-call list You should make your regular doctor aware of any referrals before you schedule the appointment so that they are aware and can make suggestions DIAGNOSIS: [facility] PATIENT NAME: EDGARDO JAY [address] [facility] [address] Romero MEDICAL REC #: [id number] [place] [address] EMERGENCY DEPARTMENT CHART EMERGENCY DEPARTMENT PHYSICIAN Acute gastroenteritis, Elopement INSTRUCTIONS: Patient left before instructions but already told him when I first saw him that he should be on bananas rice applesauce and toast only. No dairy products no milk as he has had today. MEDICATIONS We have given you these prescriptions that you must fill and start taking: None COMMENTS: Patient Satisfaction: Within the first few days after your visit, you will receive an email and/or phone call regarding your visit. We value your feedback, and would appreciate it if you would take the time to complete this short survey. If you receive a call, it will be between 6p and 8p. My signature below indicates that I have received and understand the oral instructions regarding my medical problem. I also acknowledge receipt of this written instruction sheet including a list of major tests and procedures ordered during my visit. I will arrange for follow-up care as indicated by these instructions and referrals. This signed original will be kept in my medical record. Your signature below indicates consent for Case Management to contact [facility] providers in an effort to meet your ongoing healthcare needs. This will allow forcontinuity of care once you leave the Emergency Department. This exchange of informationwill include, but not be limited to, disclosure of your patient information and possible release of records. [facility] PATIENT NAME: EDGARDO JAY [address] [facility] [address] Romero MEDICAL REC #: [id number] [place] [address] EMERGENCY DEPARTMENT CHART EMERGENCY DEPARTMENT PHYSICIAN [employer] Patient: EDGARDO JAY Sex: M : 1980 Age: 37 yr Account No: [id number] Registration Date: 00:14 02/18/2018 Address: [address] [place] [address] [address] Address: [place] [address] REGISTRATION ED Number: [id number] Marital Status: S Financial Class: [facility] TRIAGE Priority: 3 - Urgent Complaint: Abdominal Pain Stated Complaint: abd pain: c/o diffuse abd pain for the past 5 days with diarrhea. Arrival Date: 02/18/2018 00:14 Triage Date: 02/18/2018 00:15 Mode of Arrival: *Privately Owned Vehicle Transfer From: * Home WC: N Language: Citizen Of [place] Transport: Ambulatory/Walk In BED A02 In: 02/18/2018 00:18:15 02/18/2018 00:18:15 AG A02 (Removed From) Out: 02/18/2018 03:14:28 02/18/2018 03:14:28 KVB [facility] PATIENT NAME: EDGARDO JAY [address] [facility] [address] Romero MEDICAL REC #: [id number] [place] [address] EMERGENCY DEPARTMENT CHART EMERGENCY DEPARTMENT PHYSICIAN PROVIDERS ROCKY COKER Provider Contact: 02/18/2018 00:46:25 KVB End: DO Durga Anglin Provider Contact: 02/18/2018 00:51:13 CK End: TRIAGE HISTORY ALLERGIES Allergic To: No Known Allergies 02/18/2018 00:18 AG CURRENT MEDS Name: paxil 20mg po daily 02/18/2018 00:18 AG Name: klonopin 1mg po prn 02/18/2018 00:18 AG Name: meds verified with pt 02/1702/18/2018 00:18 AG ILLNESS Illness: *None 02/18/2018 00:18 AG PAST SURGERY HIST Surgery: bilat wrist reconstruction 02/18/2018 00:18 AG PAST SOCIAL HIST Social History: Lives with family or significant other 02/18/2018 00:18 AG Social History: Alcohol - None 02/18/2018 00:18 AG Social History: Smoker-None 02/18/2018 00:18 AG Social History: Denies Domestic Violence 02/18/2018 00:18 AG Social History: Denies thoughts of self harm. 02/18/2018 00:18 AG [facility] PATIENT NAME: EDGARDO JAY [address] [facility] [address] Romero MEDICAL REC #: [id number] [place] [address] EMERGENCY DEPARTMENT CHART EMERGENCY DEPARTMENT PHYSICIAN IMMUNIZATIONS Immunization: Flu Vaccine-no 02/18/2018 00:18 AG NURSING ASSESSMENT ASSESSMENT NOTES 02/18/2018 00:54 Pt complains of sharp right sided abdominal pain that radiates to the left side and diarrhea x 5 days. Pain worsens with palpation. Emesis x 2 02/16/18 and several times earlier today. Pt states I have lost my appetite but I have been drinking sprite and water. No respiratory distress noted. Skin pink, warm, and dry. 02/18/2018 00:58 NACA 02/18/2018 03:05 Pt refused vitals and Toradol. Pt stated he treating me like I got a belly ache. I just dont have a bellyache. Left room after intact IV removed 02/18/2018 03:08 NACA TREATMENT 02/18/2018 00:50 Hourly Rounding - Rounding 02/18/2018 00:53 NACA Elimination/Toileting N Pain 8 Position Comfortable Y Safe Environment Y Fall Risk Change N 02/18/2018 00:51 Patient Interaction - Call light placed within reach. 02/18/2018 00:53 NACA 02/18/2018 00:51 Patient Interaction - Introduce self to Patient. 02/18/2018 00:53 NACA 02/18/2018 00:51 Patient Interaction - Name Band on Pt 02/18/2018 00:53 NACA 02/18/2018 00:51 Primary DOC Guide - A. Patient History 02/18/2018 00:53 NACA [facility] PATIENT NAME: EDGARDO JAY [address] [facility] [address] 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 Fall Risk Assessment (Age andlt;65) 02/18/2018 00:53 NACA History of Falling in last 3 months? No (0) Confusion or Disorientation? No (0) Intoxicated or Sedated? No (0) Impaired Gait? No (0) Mobility Assist Device Used? No (0) Altered Elimination? No (0) Fall Risk Score 1-2 Points = Low Risk. 3-4 Points = Moderate Risk. 5 or more points = High Risk. 0 Fall Score Greater andgt;= 3? No 02/18/2018 00:52 Primary DOC Guide - D. Psychosocial Assessment 02/18/2018 00:53 NACA Over the Last 2 weeks, how often have you had little interest or pleasure in doing things (0) Not at All Is Psychosocial Assessment Score 3 or more? If score is 3 or more please consult ED Navigator! No Total Psychosocial Assessment Score 0 Over the last 2 weeks, how often have you been feeling down, depressed or hopeless (0) Not at All 02/18/2018 00:52 Primary DOC Guide - E. Family Violence Assessment 02/18/2018 00:53 NACA Within the past year, has anyone ever pushed, shoved, slapped, choked, hit, punched or kicked you: No Within the past year, has anyone ever pressured or forced you to have sexual activities when you did not want to: No Do you feel safe and well cared for: Yes Is there a partner from a previous or current relationship that is making you feel unsafe now: No 02/18/2018 01:09 Hourly Rounding - Rounding 02/18/2018 [facility] PATIENT NAME: EDGARDO JAY [address] [facility] [address] Romero MEDICAL REC #: [id number] [place] [address] EMERGENCY DEPARTMENT CHART EMERGENCY DEPARTMENT PHYSICIAN 03:09 NACA Elimination/Toileting N Position Comfortable Y Safe Environment Y Fall Risk Change N 02/18/2018 02:08 Hourly Rounding - Rounding 02/18/2018 03:08 NACA Elimination/Toileting N Position Comfortable Y Safe Environment Y Fall Risk Change N 02/18/2018 03:08 Hourly Rounding - Rounding 02/18/2018 03:08 NACA Elimination/Toileting N Position Comfortable Y Safe Environment Y Fall Risk Change N MEDICATIONS IV IV Fluid: B 02/18/2018 01:31 02/18/2018 01:31 KVB Line #: 1 Fluid: Saline Lock Rate: ml/hr Location: antecubital fossa left Ndl Gauge: 18 # Attempts: 1 Notes: per protocol. positive blood return. flushes easily IV Fluid: S 02/18/2018 01:31 02/18/2018 03:09 KVB Line #: 1 Fluid: LR 1000cc bag Rate: ml/hr 999 Location: antecubital fossa left Ndl Gauge: 18 # Attempts: 1 Amt: 1000 IV Fluid: D 02/18/2018 03:09 02/18/2018 03:09 KVB Line #: 1 Fluid: LR 1000cc bag Rate: ml/hr 999 Location: antecubital fossa left [facility] PATIENT NAME: EDGARDO JAY [address] [facility] [address] Romero MEDICAL REC #: [id number] [place] [address] EMERGENCY DEPARTMENT CHART EMERGENCY DEPARTMENT PHYSICIAN Ndl Gauge: 18 # Attempts: 1 IV Fluid: E 02/18/2018 03:09 02/18/2018 03:09 KVB Line #: 1 Rate: ml/hr Location: antecubital fossa left Ndl Gauge: 18 # Attempts: 1 Notes: removed by Hamida, nursing techn. cath intact I AND O VITALS VS-ROUTINE Time: 02/18/2018 00:15 B/P: 194/93 - Right Upper Arm - Sitting - Machine Pulse: 113 - Monitor Resp: 18 Sa02: 98 Room Air Temp: 98.60 F - Oral 02/18/2018 00:18 AG VS-Pain Time: 02/18/2018 00:15 Pain Level: 8 02/18/2018 00:18 AG VS-GCS Time: 02/18/2018 00:15 Visual: 4 Verbal: 5 Motor: 6 GCS Total: 15 02/18/2018 00:18 AG VS-HT/WT Time: 02/18/2018 00:15 Ht: 72 in. Actual Weight: 215 lbs Actual 02/18/2018 00:18 AG VS-Visual Time: 02/18/2018 00:15 02/18/2018 00:18 AG VS-FHT Time: 02/18/2018 00:15 02/18/2018 00:18 AG VS-Notes Time: 02/18/2018 00:15 map 131 02/18/2018 00:18 AG VS-ROUTINE Time: 02/18/2018 02:47 B/P: 139/98 - Right Upper Arm - Lying - Machine Pulse: 119 - Monitor Resp: 20 Sa02: 95 Room Air 02/18/2018 02:48 NACA VS-Pain Time: 02/18/2018 02:47 02/18/2018 02:48 NACA VS-GCS Time: 02/18/2018 02:47 02/18/2018 02:48 NACA VS-HT/WT Time: 02/18/2018 02:47 02/18/2018 02:48 NACA VS-Visual Time: 02/18/2018 02:47 02/18/2018 02:48 NACA VS-FHT Time: 02/18/2018 02:47 02/18/2018 02:48 NACA VS-Notes Time: 02/18/2018 02:47 map 115 02/18/2018 02:48 NACA [facility] PATIENT NAME: EDGARDO JAY Freida [address] [facility] [address] Romero MEDICAL REC #: [id number] [place] [address] EMERGENCY DEPARTMENT CHART EMERGENCY DEPARTMENT PHYSICIAN ORDERS Elopement 02/18/2018 03:12 N/A Ordered: 02/18/2018 03:12 By . Other Reviewed: 02/18/2018 03:12 By . Other Abdomen series 02/18/2018 02:48 N/A Ordered: 02/18/2018 02:48 By Durga Anglin Indication: Abdominal Pain Question: How is patient transported? (A = Ambulatory, B = Bed, C = Carry, CR = Crib, P = Portable, S = Stretcher, W = Wheelchair, X = Wide Wheelchair, XT = Trauma X RM17 (ED Only)) Answer: STRETCHER IV RL bolus 1L over 60 min 02/18/2018 01:31 N/A Ordered: 02/18/2018 00:58 By Durga Anglin Completed Time: 02/18/2018 01:30 By Durga Anglin IV RL drip 75cc/hr 02/18/2018 01:31 N/A Ordered: 02/18/2018 00:58 By Durga Anglin Noted Time: 02/18/2018 01:30 KVB Toradol (IV)*(30mg/ml) DOSE: 30 mg IV 02/18/2018 01:51 N/A Ordered: 02/18/2018 00:58 By Durga Anglin Completed Time: 02/18/2018 01:51 By Durga Anglin Noted Time: 02/18/2018 01:31 KVB Tylenol (PO)*(325mg) DOSE: 650 mg PO 02/18/2018 01:51 N/A Ordered: 02/18/2018 00:58 By Durga Anglin Completed Time: 02/18/2018 01:51 By Durga Anglin Noted Time: 02/18/2018 01:30 KVB Zofran (IV)*(2mg/ml) DOSE: 4 mg IV 02/18/2018 01:51 N/A Ordered: 02/18/2018 00:58 By Durga Anglin [facility] PATIENT NAME: EDGARDO JAY [address] [facility] [address] MEDICAL REC #: [id number] [place] [address] EMERGENCY DEPARTMENT CHART EMERGENCY DEPARTMENT PHYSICIAN Completed Time: 02/18/2018 01:51 By Durga Anglin Noted Time: 02/18/2018 01:30 KVB Toradol (IV)*(30mg/ml) DOSE: 30 mg IV 02/18/2018 03:09 N/A Ordered: 02/18/2018 02:48 By Durga Anglin Noted Time: 02/18/2018 02:50 KVB Cancelled: 02/18/2018 03:09 KVB Cancelled Reason: pt refused DISCHARGE Diagnosis: Acute gastroenteritis, Elopement 02/18/2018 03:12 CANCELLED DIAGNOSES Diagnosis Name: Acute gastroenteritis, Elopement Diagnosis Name: Acute gastroenteritis, Elopement Diagnosis Name: Acute gastroenteritis, Elopement Diagnosis Name: Acute gastroenteritis, Elopement Diagnosis Name: Acute gastroenteritis, Elopement Diagnosis Name: Acute gastroenteritis, Elopement Disposition: Time: 02/18/2018 03:12 By: Durga Anglin Discharge Time: 02/18/2018 03:14 Type: Elopement Condition: Elopement Category: *NOT APPLICABLE Concurred: 02/18/2018 03:12 Referral: 02/18/2018 03:12 Admit Physician: . Other PRESCRIPTIONS CHARGES SIGNATURE Durga Talpeggymartita DO CHANTELLE VALADEZ [facility] RUSSELL COKER RN KVB [facility] PATIENT NAME: EDGARDO JAY Phoebe Romero MEDICAL REC #: [id number] [place] [address] EMERGENCY DEPARTMENT CHART EMERGENCY DEPARTMENT PHYSICIAN OPAL DUEÑAS [facility] PATIENT NAME: ED[facility]ARDO JAY [facility] MEDICAL REC #: [id number] [place] [address] EMERGENCY DEPARTMENT CHART EMERGENCY DEPARTMENT PHYSICIAN CBC Collected: 02/17/2018 Status: F Source: [facility] 4:08 AM [facility] REPOSITORY TYPE CODE TESTS RESULT OUT OF REFERENCE UNITS RANGE LAB WBC(LOINC) 4.50-10.80 10 3/mcL WBC 10.60 LAB RBCCT(LOINC 4.50-6.00 10 6/mcL ) RBC 5.01 LAB HGB(LOINC) 13.0-17.5 G/dL Hgb 15.1 LAB HCT(LOINC) 40.0-52.0 % Hct 43.4 LAB MCV(LOINC) 81.0-100.0 fL MCV 86.6 LAB MCH(LOINC) 27.0-33.0 pg MCH 30.0 LAB MCHC(LOINC) 32.0-36.0 G/dL MCHC 34.7 LAB RDW(LOINC) 11.5-15.5 % RDW 14.3 LAB PLT(LOINC) 150-450 10 3/mcL Platelet 223 LAB MPV(LOINC) 6.4-10.5 fL MPV 9.3 Performed By: #### CBC, ADIFF, ANEU, LIP, CMP, GFR #### [place] [address] .AUTO DIFF Collected: 02/17/2018 Status: F Source: [facility] 4:08 AM [facility] REPOSITORY TYPE CODE TESTS RESULT OUT OF REFERENCE UNITS RANGE LAB MÓNICA(LOINC) 50.0-75.0 % Neutrophil % 57.0 LAB LYM(LOINC) 20.0-40.0 % Lymphocyte % 34.7 LAB MON(LOINC) 2.0-13.0 % Monocyte % 4.9 LAB EO(LOINC) 0.0-6.0 % Eosinophil % 2.5 LAB BAS(LOINC) 0.0-2.5 % Basophil % 0.9 LAB ABLYM(LOIN 0.90-4.32 10 3/mcL C) Lymphocyte, 3.70 Absolute LAB ANGELA(LOINC 0.09-1.40 10 3/mcL ) Monocyte, 0.50 Absolute LAB AEOS(LOINC 0.00-0.65 10 3/mcL ) Eosinophil, 0.30 Absolute LAB ABAS(LOINC 0.00-0.27 10 3/mcL ) Basophil, 0.10 Absolute Performed By: #### CBC, ADIFF, ANEU, LIP, CMP, GFR #### [place] [address] .NEUABS Collected: 02/17/2018 Status: F Source: [facility] 4:08 AM [facility] REPOSITORY TYPE CODE TESTS RESULT OUT OF REFERENCE UNITS RANGE LAB ANEU(LOINC) 2.25-8.10 10 3/mcL Neutrophil, 6.00 Absolute Performed By: #### CBC, ADIFF, ANEU, LIP, CMP, GFR #### [place] [address] LIP Collected: 02/17/2018 Status: F Source: [facility] 4:08 AM [facility] REPOSITORY TYPE CODE TESTS RESULT OUT OF REFERENCE UNITS RANGE LAB LIP(LOINC) 73-393 U/L Lipase Level 237 Performed By: #### CBC, ADIFF, ANEU, LIP, CMP, GFR #### [address] [address] CMP Collected: 02/17/2018 Status: F Source: [facility] 4:08 AM [facility] REPOSITORY TYPE CODE TESTS RESULT OUT OF REFERENCE UNITS RANGE LAB GLU(LOINC) 70-110 mg/dL Glucose Level 79 LAB NA(LOINC) 136-145 mEq/L Sodium Level 140 LAB K(LOINC) 3.5-5.0 mEq/L Potassium Level 4.4 LAB CL(LOINC) 98-110 mEq/L Chloride 104 LAB CO2(LOINC) 22-32 mEq/L CO2 26 LAB EBAL(LOINC 4.0-15.0 mEq/L ) Electrolyte Balance 10.0 LAB BUN(LOINC) 8.0-22.0 mg/dL BUN 15.0 LAB CRE(LOINC) 0.60-1.40 mg/dL Creatinine Lvl (s) 1.01 LAB BC(LOINC) 10.0-22.0 ratio BUN/Creatinine 14.9 Ratio LAB CA(LOINC) 8.4-10.1 mg/dL Calcium Lvl 9.0 LAB PROT(LOINC 6.0-8.5 G/dL ) Total Protein 7.2 LAB ALB(LOINC) 3.2-4.8 G/dL Albumin Level 3.9 LAB GLB(LOINC) 1.5-3.8 G/dL Globulin 3.3 LAB AG(LOINC) 0.9-1.6 ratio A/G Ratio 1.2 LAB BILT(LOINC 0.2-1.2 mg/dL ) Bili Total 0.4 LAB AP(LOINC) 38-126 U/L Alk Phos 93 LAB AST(LOINC) 8-34 U/L AST/SGOT 20 LAB ALT(LOINC) 12-55 U/L ALT/SGPT 50 Performed By: #### CBC, ADIFF, ANEU, LIP, CMP, GFR #### [address] [address] .GFR Collected: 02/17/2018 Status: F Source: [facility] 4:08 AM [facility] REPOSITORY TYPE CODE TESTS RESULT OUT OF REFERENCE UNITS RANGE LAB GFRAA(LOINC ml/min/1.73 ) sqm GFR >60 [place] Result Comment: GFR Population mean for , Non- Americans Ages 20-29 = 116 mL/min/1.73 sq.m. Ages 30-39 = 107 mL/min/1.73 sq.m. Ages 40-49 = 99 mL/min/1.73 sq.m. Ages 50-59 = 93 mL/min/1.73 sq.m. Ages 60-69 = 85 mL/min/1.73 sq.m. Ages 70+ = 75 mL/min/1.73 sq.m. Chronic Kidney Disease: Less than 60 mL/min/1.73 square meters End Stage Renal Disease: Less than 15 mL/min/1.73 square meters LAB GFRNO(LOINC) ml/min/1.73sqm GFR Non- >60 Result Comment: GFR Population mean for , Non- Americans Ages 20-29 = 116 mL/min/1.73 sq.m. Ages 30-39 = 107 mL/min/1.73 sq.m. Ages 40-49 = 99 mL/min/1.73 sq.m. Ages 50-59 = 93 mL/min/1.73 sq.m. Ages 60-69 = 85 mL/min/1.73 sq.m. Ages 70+ = 75 mL/min/1.73 sq.m. Chronic Kidney Disease: Less than 60 mL/min/1.73 square meters End Stage Renal Disease: Less than 15 mL/min/1.73 square meters Performed By: #### CBC, ADIFF, ANEU, LIP, CMP, GFR #### [address] [address] UA Collected: 02/17/2018 Status: F Source: [facility] 1:16 AM [facility] REPOSITORY TYPE CODE TESTS RESULT OUT OF RANGE REFERENCE UNITS LAB SPCUA(YURY NC) UA Specimen Type Void LAB CLRUA(YURY NC) UA Color Straw LAB APPUA(YURY NC) UA Appear Clear LAB SGUA(LOIN C) UA Spec Unknown Grav 1.010 LAB GLUA(LOIN Negative mg/dL C) UA Glucose Negative LAB BILUA(YURY Neg-Trace NC) UA Bili Negative LAB KETUA(YURY Neg-Trace mg/dL NC) UA Ketones Negative LAB BLDUA(YURY Neg-Trace NC) UA Blood Negative LAB PHUA(LOIN 5.0 - 8.0 C) UA pH 6.5 LAB PROUA(YURY Negative mg/dL NC) UA Protein Negative LAB UROUA(YURY E.U./dL NC) UA Urobilinogen 0.2 LAB NITUA(YURY Negative NC) UA Nitrite Negative LAB LEUUA(YURY Negative NC) UA Leuk Est Negative Performed By: #### UA #### [place] [address] CT ABD/PELVIS W/ IV Observed: 02/17/2018 Status: F Source: [place] CONTRAST ONLY 12:32 AM [facility] REPOSIT[facility] ORIGINAL Clinical history: RIGHT upper quadrant pain COMPARISON: CT abdomen and pelvis on 02/13/2018. Ultrasound abdomen on 02/17/2018. Axial scans were obtained through the abdomen and pelvis. Intravenous contrast was given for this exam. This exam was performed according to our departmental dose optimization program, and includes the following measures where applicable: automated exposure control, adjustment of the mAs and/or kVp according to patient size and/or exam, and an iterative reconstruction algorithm.. No acute abnormality is present at the lung bases. There is fatty infiltration of the liver with no focal abnormality. The pancreas, spleen, adrenal glands, kidneys, abdominal aorta, and inferior vena cava show no sign of acute abnormality. Stomach is normal. Small intestine is remarkable for a few loops of small intestine in the LEFT midabdomen that are distended with fluid and contain air-fluid levels consistent with mild ileus. There is no intestinal wall thickening. There is not a pattern of obstruction. The colon shows no sign of abnormality. The appendix is not identified. There is no pelvic mass or abnormal fluid collection or signs of inflammation. Urinary bladder is normal in size and contains no stones. IMPRESSION: Pattern of mild adynamic ileus in the LEFT midabdomen without intestinal obstruction. This may be a sign of enteritis. There is no perforation. Interpreted By: Frederick Mccall MD Preliminary Report By: Frederick Mccall MD Electronically Signed By: Frederick Mccall MD Dictated Date: 02/17/2018 1:06:25 AM Prelim Date: 02/17/2018 1:06:25 AM Sign Date: 02/17/2018 1:10:43 AM CBC Collected: 02/17/2018 Status: F Source: [facility] 12:07 AM [facility] REPOSIT[facility] Order Comment: clotted specimen clotted...please recollect 02/16/2018 23:37:13 EDT TYPE CODE TESTS RESULT OUT OF REFERENCE UNITS RANGE LAB WBC(LOINC) 4.50-10.80 10 3/mcL WBC 8.90 LAB RBCCT(LOINC 4.50-6.00 10 6/mcL ) RBC 5.10 LAB HGB(LOINC) 13.0-17.5 G/dL Hgb 15.2 LAB HCT(LOINC) 40.0-52.0 % Hct 43.8 LAB MCV(LOINC) 81.0-100.0 fL MCV 85.8 LAB MCH(LOINC) 27.0-33.0 pg MCH 29.8 LAB MCHC(LOINC) 32.0-36.0 G/dL MCHC 34.7 LAB RDW(LOINC) 11.5-15.5 % RDW 13.8 LAB PLT(LOINC) 150-450 10 3/mcL Platelet 205 LAB MPV(LOINC) 6.4-10.5 fL MPV 8.7 Performed By: #### CBC, ADIFF, ANEU, CMP, GFR #### [place] [address] .AUTO DIFF Collected: 02/17/2018 Status: F Source: [facility] 12:07 AM [facility] REPOS[facility] TYPE CODE TESTS RESULT OUT OF REFERENCE UNITS RANGE LAB MÓNICA(LOINC) 50.0-75.0 % Neutrophil % 67.4 LAB LYM(LOINC) 20.0-40.0 % Lymphocyte % 24.1 LAB MON(LOINC) 2.0-13.0 % Monocyte % 5.2 LAB EO(LOINC) 0.0-6.0 % Eosinophil % 2.2 LAB BAS(LOINC) 0.0-2.5 % Basophil % 1.1 LAB ABLYM(LOIN 0.90-4.32 10 3/mcL C) Lymphocyte, 2.20 Absolute LAB ANGELA(LOINC 0.09-1.40 10 3/mcL ) Monocyte, 0.50 Absolute LAB AEOS(LOINC 0.00-0.65 10 3/mcL ) Eosinophil, 0.20 Absolute LAB ABAS(LOINC 0.00-0.27 10 3/mcL ) Basophil, 0.10 Absolute Performed By: #### CBC, ADIFF, ANEU, CMP, GFR #### [address] [address] .NEUABS Collected: 02/17/2018 Status: F Source: [facility] 12:07 AM [facility] REPOS[facility] TYPE CODE TESTS RESULT OUT OF REFERENCE UNITS RANGE LAB ANEU(LOINC) 2.25-8.10 10 3/mcL Neutrophil, 6.00 Absolute Performed By: #### CBC, ADIFF, ANEU, CMP, GFR #### [address] [address] CMP Collected: 02/17/2018 Status: F Source: [facility] 12:07 AM [facility] Order Comment: specimen hemolyzed...please recollect 02/16/2018 23:38:00 EDT TYPE CODE TESTS RESULT OUT OF REFERENCE UNITS RANGE LAB GLU(LOINC) 70-110 mg/dL Glucose Level 103 LAB NA(LOINC) 136-145 mEq/L Sodium Level 139 LAB K(LOINC) 3.5-5.0 mEq/L Potassium Level 4.2 LAB CL(LOINC) 98-110 mEq/L Chloride 105 LAB CO2(LOINC) 22-32 mEq/L CO2 26 LAB EBAL(LOINC 4.0-15.0 mEq/L ) Electrolyte Balance 8.0 LAB BUN(LOINC) 8.0-22.0 mg/dL BUN 16.0 LAB CRE(LOINC) 0.60-1.40 mg/dL Creatinine Lvl (s) 1.02 LAB BC(LOINC) 10.0-22.0 ratio BUN/Creatinine 15.7 Ratio LAB CA(LOINC) 8.4-10.1 mg/dL Calcium Lvl 8.7 LAB PROT(LOINC 6.0-8.5 G/dL ) Total Protein 7.5 LAB ALB(LOINC) 3.2-4.8 G/dL Albumin Level 4.0 LAB GLB(LOINC) 1.5-3.8 G/dL Globulin 3.5 LAB AG(LOINC) 0.9-1.6 ratio A/G Ratio 1.1 LAB BILT(LOINC 0.2-1.2 mg/dL ) Bili Total 0.3 LAB AP(LOINC) 38-126 U/L Alk Phos 102 LAB AST(LOINC) 8-34 U/L AST/SGOT 23 LAB ALT(LOINC) 12-55 U/L ALT/SGPT 53 Performed By: #### CBC, ADIFF, ANEU, CMP, GFR #### [address] [address] .GFR Collected: 02/17/2018 Status: F Source: [facility] 12:07 AM [facility] TYPE CODE TESTS RESULT OUT OF REFERENCE UNITS RANGE LAB GFRAA(LOINC ml/min/1.73 ) sqm GFR >60 [place] Result Comment: GFR Population mean for , Non- Americans Ages 20-29 = 116 mL/min/1.73 sq.m. Ages 30-39 = 107 mL/min/1.73 sq.m. Ages 40-49 = 99 mL/min/1.73 sq.m. Ages 50-59 = 93 mL/min/1.73 sq.m. Ages 60-69 = 85 mL/min/1.73 sq.m. Ages 70+ = 75 mL/min/1.73 sq.m. Chronic Kidney Disease: Less than 60 mL/min/1.73 square meters End Stage Renal Disease: Less than 15 mL/min/1.73 square meters LAB GFRNO(LOINC) ml/min/1.73sqm GFR Non- >60 Result Comment: GFR Population mean for , Non- Americans Ages 20-29 = 116 mL/min/1.73 sq.m. Ages 30-39 = 107 mL/min/1.73 sq.m. Ages 40-49 = 99 mL/min/1.73 sq.m. Ages 50-59 = 93 mL/min/1.73 sq.m. Ages 60-69 = 85 mL/min/1.73 sq.m. Ages 70+ = 75 mL/min/1.73 sq.m. Chronic Kidney Disease: Less than 60 mL/min/1.73 square meters End Stage Renal Disease: Less than 15 mL/min/1.73 square meters Performed By: #### CBC, ADIFF, ANEU, CMP, GFR #### [address] [address] LIP Collected: 02/17/2018 Status: F Source: [facility] 12:07 AM [facility] REPOS[facility] Order Comment: specimen hemolyzed...please recollect 02/16/2018 23:39:26 EDT TYPE CODE TESTS RESULT OUT OF REFERENCE UNITS RANGE LAB LIP(LOINC) 73-393 U/L Lipase Level 128 Performed By: #### LIP #### [facility] [address] [place] [address] US ABDOMEN LIMITED Observed: 02/16/2018 Status: F Source: [facility] 11:37 PM [facility] REPOSITORY ORIGINAL Clinical history: RIGHT upper quadrant pain. Nausea and vomiting. COMPARISON: CT abdomen and pelvis on 02/13/2018. Transabdominal scanning was performed. The liver is normal in size. Liver parenchyma has heterogeneous echogenicity consistent with areas of fatty infiltration. There is no biliary ductal dilatation. The common bile duct is 5 mm. Gallbladder is normal in size. There are no gallstones. Gallbladder wall is not thickened. There is no pericholecystic fluid. The patient is not tender in the region the gallbladder. Evaluation of pancreas is limited due to overlying bowel gas. RIGHT kidney is normal and size and appearance. The RIGHT kidney is 10.7 cm in length. There is no hydronephrosis or evidence of nephrolithiasis. IMPRESSION: Pattern of fatty infiltration of liver. No gallstones or acute abnormality. Interpreted By: Frederick Mccall MD Preliminary Report By: Frederick Mccall MD Electronically Signed By: Frederick Mccall MD Dictated Date: 02/17/2018 12:06:35 AM Prelim Date: 02/17/2018 12:06:35 AM Sign Date: 02/17/2018 12:08:57 AM EMERGENCY DEPARTMENT Observed: 02/16/2018 Status: F Source: [place] [facility] 8:52 AM [facility] REPOSITORY [facility] Medical Records Department [address] [place] [address] Emergency Department Summary 02/16/18 0748 MR#: [id number] Acct: [id number] Name: EDGARDO JAY Rep #: [id number] : 1980 37 From: Mike Zarate DO PCP: Meaghan Veras MD Status: DEP ER - ER Visit Summary Date of Service: 02/16/18 Chief Complaint: Fall History of Present Illness: The patient is a 37 M who states that 0645 hours this morning he sustained a fall striking the right side of his chest on furniture. He took ibuprofen and came to the emergency department. 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 Those evaluations were negative. Patient states he feels the pain worse with breathing. He states he is breathing fast because he does not want to take a deep breath. Physical Examination: Afebrile vital signs show tachycardia and tachypnea 100% on room air Gen: Well-nourished well-developed Head: Normocephalic atraumatic Eyes: Perrl EOMI ENT: TMs clear no rhinorrhea moist mucous membranes Neck: Supple no lymphadenopathy no JVD nontender CVS: Regular rate rhythm no murmurs normal S1-S2 Respiratory: No distress clear to auscultation bilaterally there is right anterior lower chest wall tenderness (see diagram on TC). There is some erythema and slight ecchymosis. The abdominal exam is negative. Abdomen: Soft nontender nondistended normal bowel sounds no masses Back: Nontender Extremity: Nontender no edema Skin: Normal color no rash Neuro: alert orientated 3 CN II-XII intact normal strength sensation reflexes gait cerebellar Psych: Normal affect normal mood Test Results: Rib series was obtained. These were read as negative for fracture pulmonary contusion. Emergency Department Course and Treatment: Patient will be given a dose of Toradol here. I will prescribe ibuprofen. Impression: 1. Right chest wall contusion This note was generated with RoboEd dictation software. It may contain incorrect words, spelling, and punctuation that were not noted in review of the chart prior to signing ED Disposition - Plan for ED Patient: Disposition: Home or Assisted Living Chief Complaint: Chest Other Instructions: ED Contusion Chest Wall Prescriptions: Ibuprofen [Motrin] 800 mg PO TID PRN PRN #20 tab PRN Reason: Pain Referrals: eMaghan Veras MD [Primary Care Provider] - (2 weeks if not improved) What to do if you have Problems For any increased pain, shortness of breath, bleeding, nausea or vomiting, chest pain, or any unexpected problems, contact your Primary Care Provider. Call [facility] ([phone]) or report to the closest Emergency Room. Call 911 if necessary. 02/16/18 0852 <Electronically signed by Mike Zarate DO> Date Mike Zarate DO Cosigner Signature (If Indicated): Date CC: Meaghan Veras MD RIBS UNI MIN 3V Observed: 02/16/2018 Status: F Source: [place] W/PA CHEST 7:30 AM [facility] REPOSITORY [facility] Imaging Services [address] [place] [address] [place] [address] Ribs Uni Min 3V w/PA Chest MR#: [id number] Acct: [id number] Name: EDGARDO JAY Rep #: [id number] : 1980 M 37 From: Abiodun Archer MD PCP: Meaghan Veras MD Status: REG ER Study: Ribs Uni Min 3V w/PA Chest Date of Exam: 02/16/18 Exam# [id number] Ordering Dr: Mike Zarate DO STUDY: X-RAY - UNILATERAL RIBS ( RIGHT ) WITH CHEST REASON FOR EXAM: Male, 37 years old. Anterior rib pain following a fall. TECHNIQUE - RIBS: 4 view(s) of the ribs. TECHNIQUE - CHEST: Single PA view of the chest. COMPARISON: None. FINDINGS - RIBS: Normal visualized ribs without a demonstrated fracture. FINDINGS - CHEST: The lungs are clear and expanded. There is no demonstrated pleural abnormality. Normal size heart. Normal mediastinum and dylon. Normal visualized pulmonary arteries. Normal visualized aortic arch and descending thoracic aorta. Normal visualized thoracic spine. Normal visualized ribs, clavicles, and shoulders. There is no demonstrated abnormality of the visualized soft tissue structures of the upper abdomen. RAD/Ribs Uni Min 3V w/PA Chest IMPRESSION: RIBS: Normal x-ray examination of the ribs. CHEST: Normal x-ray examination of the chest. Electronically Signed: Abiodun Archer MD at 8:29 EDT Tel [phone], Service support , CC: Mike Zarate DO; Meaghan Veras MD Personal Banking Officer: Signed XR RIBS 2 VIEWS Observed: 02/15/2018 Status: F Source: [place] [facility] 11:15 PM [facility] REPOSITORY ORIGINAL XR RIBS 2 VIEWS RIGHT, Clinical Statement: injury, bruising, pain Comparison: None Findings: No acute displaced fracture or destructive lesion is seen in the visualized ribs. Non-displaced fractures may not always be visible on initial radiographs. No pneumothorax is visible. IMPRESSION: No acute rib fracture is seen. Interpreted By: Bc Tanner MD Preliminary Report By: Bc Tanner MD Electronically Signed By: Bc Tanner MD Dictated Date: 02/15/2018 11:22:16 PM Prelim Date: 02/15/2018 11:22:16 PM Sign Date: 02/15/2018 11:23:[address] ABDOMEN/PELVIS Observed: 02/13/2018 Status: F Source: [place] W/CONTRAST 10:48 PM [facility] REPOSITORY ORIGINAL CT ABDOMEN/PELVIS W/CONTRAST CLINICAL STATEMENT: pain, RIGHT upper lateral abdominal pain x1 week, nausea and vomiting COMPARISON: None TECHNIQUE: Axial images were obtained from the lung bases through the pubic symphysis after the administration of contrast. Coronal reformatted images were generated from the axial dataset. This exam wa s performed according to our departmental dose optimization program, and includes the following measures where applicable: automated exposure control, adjustment of the mAs and/or kVp according to patie nt size and/or exam, and an iterative reconstruction algorithm. FINDINGS: The included lung bases are clear. There is no visible pleural or pericardial effusion. The liver, spleen, adrenal glands, gallbladder and pancreas are within normal limits. The kidneys are symmetric in size and enhancement. The ureters are normal in course. The bladder is mildly distended. The visualized esophagus and stomach are within normal limits. There is no small bowel or colonic dilatation or wall thickening. The appendix is normal. No free intraperitoneal fluid or air is identified. The aorta is normal in caliber. There is no lymphadenopathy. The prostate is unremarkable. There is no visible fracture or aggressive osseous lesion. IMPRESSION: No acute inflammatory abnormality. I have personally reviewed the images of this examination and agree with the resident's findings and interpretation. Interpreted By: Robbie Cobos DO Preliminary Report By: Jannette Carrillo DO Electronically Signed By: Robbie Cobos DO Dictated Date: 02/13/2018 10:50:19 PM Prelim Date: 02/13/2018 10:55:35 PM Sign Date: 02/13/2018 11:08:21 PM XR CHEST 2 VIEWS Observed: 02/13/2018 Status: F Source: [facility] 8:37 PM [facility] REPOSITORY ORIGINAL XR CHEST 2 VIEWS CLINICAL STATEMENT: pain COMPARISON: None FINDINGS: The cardiomediastinal contours are normal. There is no consolidation, vascular congestion, pleural effusion, or pneumothorax. No displaced fractures are identified. IMPRESSION: No acute radiographic findings. Interpreted By: Robbie Cobos DO Preliminary Report By: Robbie Cobos DO Electronically Signed By: Robbie Cobos DO Dictated Date: 02/13/2018 9:00:20 PM Prelim Date: 02/13/2018 9:00:20 PM Sign Date: 02/13/2018 9:00:42 PM LAC Collected: 02/13/2018 Status: F Source: [facility] 8:18 PM [facility] REPOSIT[facility] TYPE CODE TESTS RESULT OUT OF REFERENCE UNITS RANGE LAB LAC(LOINC) 0.4-2.0 mmol/L Lactic Acid 1.9 Lvl Performed By: #### LAC #### [place] [address] CBC Collected: 02/13/2018 Status: F Source: [facility] 8:10 PM [facility] REPOS[facility] TYPE CODE TESTS RESULT OUT OF REFERENCE UNITS RANGE LAB WBC(LOINC) 4.60-10.80 10 3/mcL WBC 7.70 LAB RBCCT(LOINC 4.04-6.13 10 6/mcL ) RBC 5.28 LAB HGB(LOINC) 14.0-18.0 G/dL Hgb 15.4 LAB HCT(LOINC) 42.0-52.0 % Hct 44.7 LAB MCV(LOINC) 80.0-94.0 fL MCV 84.8 LAB MCH(LOINC) 27.0-31.2 pg MCH 29.1 LAB MCHC(LOINC) 31.8-35.4 G/dL MCHC 34.4 LAB RDW(LOINC) 11.5-14.5 % RDW 13.9 LAB PLT(LOINC) 130-400 10 3/mcL Platelet 250 LAB MPV(LOINC) 7.4-10.4 fL MPV 9.1 Performed By: #### CBC, ADIFF, ANEU #### [address] [address] #### CMP, LIP, GFR #### [address] [address] .AUTO DIFF Collected: 02/13/2018 Status: F Source: [facility] 8:10 PM [facility] REPOS[facility] TYPE CODE TESTS RESULT OUT OF REFERENCE UNITS RANGE LAB MÓNICA(LOINC) 37.0-80.0 % Neutrophil % 62.8 LAB LYM(LOINC) 10.0-50.0 % Lymphocyte % 26.8 LAB MON(LOINC) 1.7-13.0 % Monocyte % 5.2 LAB EO(LOINC) 0.0-7.0 % Eosinophil % 3.8 LAB BAS(LOINC) 0.0-2.5 % Basophil % 1.4 LAB ABLYM(LOIN 0.77-3.85 10 3/mcL C) Lymphocyte, 2.10 Absolute LAB ANGELA(LOINC 0.15-1.00 10 3/mcL ) Monocyte, 0.40 Absolute LAB AEOS(LOINC 0.00-0.40 10 3/mcL ) Eosinophil, 0.30 Absolute LAB ABAS(LOINC 0.00-0.19 10 3/mcL ) Basophil, 0.10 Absolute Performed By: #### CBC, ADIFF, ANEU #### [address] [address] #### CMP, LIP, GFR #### [address] [address] .NEUABS Collected: 02/13/2018 Status: F Source: [facility] 8:10 PM [facility] REPOSIT[facility] TYPE CODE TESTS RESULT OUT OF REFERENCE UNITS RANGE LAB ANEU(LOINC) 2.85-6.16 10 3/mcL Neutrophil, 4.80 Absolute Performed By: #### CBC, ADIFF, ANEU #### [place] [address] [place], [place] [address] #### CMP, LIP, GFR #### [place] [id number] [place] [address] CMP Collected: 02/13/2018 Status: F Source: [facility] 8:10 PM [facility] REPOSIT[facility] TYPE CODE TESTS RESULT OUT OF REFERENCE UNITS RANGE LAB GLU(LOINC) 70-105 mg/dL Glucose High Level 140 LAB NA(LOINC) 136-145 mmol/L Sodium Level 141 LAB K(LOINC) 3.5-5.1 mmol/L Potassium Level 4.2 LAB CL(LOINC) 98-107 mmol/L Chloride 102 LAB CO2(LOINC) 22-29 mmol/L CO2 29 LAB EBAL(LOINC mEq/L ) Electrolyte Balance 10.0 LAB BUN(LOINC) 7-18 mg/dL BUN 7 LAB CRE(LOINC) 0.70-1.30 mg/dL Creatinine Lvl (s) 1.20 LAB BC(LOINC) 7-27 ratio Low BUN/Creatinine 6 Ratio LAB CA(LOINC) 8.4-10.2 mg/dL Calcium Lvl 9.1 LAB PROT(LOINC 6.4-8.2 G/dL ) Total Protein 7.4 LAB ALB(LOINC) 3.5-5.0 G/dL Albumin Level 4.0 LAB GLB(LOINC) G/dL Globulin 3.4 LAB AG(LOINC) 1.1-2.5 ratio A/G Ratio 1.2 LAB BILT(LOINC 0.2-1.0 mg/dL ) Bili Total 0.4 LAB AP(LOINC) 40-135 U/L Alk Phos 130 LAB AST(LOINC) 10-40 U/L AST/SGOT High 54 LAB ALT(LOINC) 10-35 U/L ALT/SGPT High 90 Performed By: #### CBC, ADIFF, ANEU #### [place] [address] [place], [place] [address] #### CMP, LIP, GFR #### [address] [address] LIP Collected: 02/13/2018 Status: F Source: [facility] 8:10 PM [facility] REPOSITORY TYPE CODE TESTS RESULT OUT OF REFERENCE UNITS RANGE LAB LIP(LOINC) 73-393 U/L Lipase Level 94 Performed By: #### CBC, ADIFF, ANEU #### [place] [address] [place], [place] [address] #### CMP, LIP, GFR #### [address] [address] .GFR Collected: 02/13/2018 Status: F Source: [facility] 8:10 PM [facility] REPOSIT[facility] TYPE CODE TESTS RESULT OUT OF REFERENCE UNITS RANGE LAB GFRAA(LOINC ml/min/1.73 ) sqm GFR 83 [place] Result Comment: GFR Population mean for , Non- Americans Ages 20-29 = 116 mL/min/1.73 sq.m. Ages 30-39 = 107 mL/min/1.73 sq.m. Ages 40-49 = 99 mL/min/1.73 sq.m. Ages 50-59 = 93 mL/min/1.73 sq.m. Ages 60-69 = 85 mL/min/1.73 sq.m. Ages 70+ = 75 mL/min/1.73 sq.m. Chronic Kidney Disease: Less than 60 mL/min/1.73 square meters End Stage Renal Disease: Less than 15 mL/min/1.73 square meters LAB GFRNO(LOINC) ml/min/1.73sqm GFR Non- 69 Result Comment: GFR Population mean for , Non- Americans Ages 20-29 = 116 mL/min/1.73 sq.m. Ages 30-39 = 107 mL/min/1.73 sq.m. Ages 40-49 = 99 mL/min/1.73 sq.m. Ages 50-59 = 93 mL/min/1.73 sq.m. Ages 60-69 = 85 mL/min/1.73 sq.m. Ages 70+ = 75 mL/min/1.73 sq.m. Chronic Kidney Disease: Less than 60 mL/min/1.73 square meters End Stage Renal Disease: Less than 15 mL/min/1.73 square meters Performed By: #### CBC, ADIFF, ANEU #### [address] [address] #### CMP, LIP, GFR #### [address] [address] UA Collected: 02/13/2018 Status: F Source: [facility] 8:10 PM [facility] REPOSITORY TYPE CODE TESTS RESULT OUT OF RANGE REFERENCE UNITS LAB SPCUA(YURY NC) UA Specimen Type Clean Catch LAB CLRUA(YURY NC) UA Color Yellow LAB APPUA(YURY Clear NC) UA Appear Clear LAB SGUA(LOIN C) UA Spec Unknown Grav 1.005 LAB GLUA(LOIN Negative mg/dL C) UA Glucose Negative LAB BILUA(YURY Negative NC) UA Bili Negative LAB KETUA(YURY Negative mg/dL NC) UA Ketones Negative LAB BLDUA(YURY Negative NC) UA Blood Negative LAB PHUA(LOIN C) UA pH 7.0 LAB PROUA(YURY Negative mg/dL NC) UA Protein Negative LAB UROUA(YURY E.U./dL NC) UA Urobilinogen 0.2 LAB NITUA(YURY Negative NC) UA Nitrite Negative LAB LEUUA(YURY Negative NC) UA Leuk Est Negative Performed By: #### UA, UAMICAO #### [address] [address] .URINALYSIS MICROSCOPIC Collected: 02/13/2018 Status: F Source: [place] () 8:10 PM [facility] REPOSITORY TYPE CODE TESTS RESULT OUT OF REFERENCE UNITS RANGE LAB WBCUA(LOIN None Seen /hpf C) UA WBC None Seen LAB RBCUA(LOIN None Seen /hpf C) UA RBC None Seen LAB EPIUA(LOIN None Seen /hpf C) UA Squam Epithelial None Seen Performed By: #### UA, UAMICAO #### [address] [address] EMERGENCY DEPARTMENT Observed: 02/12/2018 Status: F Source: [place] [facility] 3:35 AM [facility] REPOSITORY [facility] Medical Records Department [address] [place] [address] Emergency Department Summary 02/11/18 2306 MR#: [id number] Acct: [id number] Name: EDGARDO JAY #: [id number] : 1980 37 From: Rosa Isela Harris MD PCP: Meaghan Veras MD Status: DEP ER - ER Visit Summary Date of Service: 02/11/18 Chief Complaint: Right-sided abdominal pain History of Present Illness: The patient is a 37 M with right- sided abdominal pain for the past 6 days. He does report nausea, vomiting, and diarrhea. He was seen in the ER the last 2 nights for the same. He had a CT scan abdomen and pelvis and right upper quadrant ultrasound 2 days ago that were unremarkable. Patient reports continued vomiting and diarrhea. He has had some mild chills but no fever. Physical Examination: Blood pressure is 201/111, temperature 97.1, heart rate 124, respiratory rate 22, pulse ox 97% on room air. Patient is lying in bed. He is holding the right side of his abdomen and appears uncomfortable, but he is in no acute distress. Heart is tachycardic and regular. Lung sounds are clear. Abdomen is soft with mild to moderate right-sided abdominal tenderness, both right upper and right lower quadrants. He does have active bowel sounds throughout. There is no guarding or rebound. Test Results: CBC and chemistry studies are normal. LFTs are significant only for an ALT of 80. His ALT trend over the past 3 days has been 115, 91, 80. Urinalysis is normal. CT abdomen pelvis was repeated tonight. There is very mild mesenteric haziness and prominent proximal small bowel loops. Enteritis is possible but it is very subtle. Remainder of scan is completely normal. Emergency Department Course and Treatment: Patient was initially given a dose of morphine and Zofran. He then received a dose of Toradol along with Reglan and Benadryl for continued nausea. I did do an oars report. Patient has had regular oxycodone prescriptions for his PCP. Most recent prescriptions were 30 tabs filled on December 18 and 30 tabs filled on December 11. I spoke with the patient thinking that perhaps he was going through opiate withdrawal if he just recently finished these. He states those medicines lasted him approximately 1 week and were provided after a wrist surgery. He has not been on opiates in the last 3 weeks. Patient will be given a home pack only of oxycodone. He will be referred to surgery for follow-up as needed. Repeat blood pressure is 144/94 with a heart rate of 91. Treatment Plan: [] Disposition: Discharge Impression: Abdominal pain, uncertain etiology This note was generated with RoboEd dictation software. It may contain incorrect words, spelling, and punctuation that were not noted in review of the chart prior to signing ED Disposition - Plan for ED Patient: Chief Complaint: Abd Pain Referrals: Meaghan Veras MD [Primary Care Provider] - What to do if you have Problems For any increased pain, shortness of breath, bleeding, nausea or vomiting, chest pain, or any unexpected problems, contact your Primary Care Provider. Call [facility] ([phone]) or report to the closest Emergency Room. Call 911 if necessary. 02/12/18 0335 <Electronically signed by Rosa Isela Harris MD> Date Rosa Isela Harris MD Cosigner Signature (If Indicated): Date CC: Meaghan Veras MD DISCHARGE INSTRUCTION Observed: 02/12/2018 Status: F Source: [place] 2:32 AM [facility] REPOSITORY [facility] Medical Records Department [address] [place] [address] Discharge Instruction 02/12/18 0231 MR#: [id number] Acct: [id number] Name: EDGARDO JAY Rep #: [id number] : 1980 37 From: Rosa Isela Harris MD PCP: Meaghan Veras MD Status: REG ER ED Disposition - Plan for ED Patient: Disposition: Home or Assisted Living Chief Complaint: Abd Pain Instructions: ED Abdominal Pain Unkn Cause Male Prescriptions: proMETHazine tablet [Phenergan] 25 mg PO Q6H PRN PRN #10 tablet PRN Reason: Nausea Referrals: Meaghan Veras MD [Primary Care Provider] - Twan Shelley MD [STAFF PHYSICIAN] - As soon as possible What to do if you have Problems For any increased pain, shortness of breath, bleeding, nausea or vomiting, chest pain, or any unexpected problems, contact your Primary Care Provider. Call [facility] ([phone]) or report to the closest Emergency Room. Call 911 if necessary. 02/12/18 0232 <Electronically signed by Rosa Isela Harris MD> Date Rosa Isela Harris MD Cosigner Signature (If Indicated): Date CC: Meaghan Veras MD URINALYSIS, COMPLETE Collected: 02/11/2018 Status: F Source: [place] 11:03 PM [facility] REPOSITORY Order Comment: Order Date: 02/11/18 Has pt arrived? Y How was Urine Obtained? CLEAN CATCH TYPE CODE TESTS RESULT OUT OF RANGE REFERENCE UNITS LAB L400.3000 Yellow COLOR Normal Yellow LAB L400.3050 Clear Normal CLARITY Clear LAB L400.3200 Normal mg/dl Normal GLUCOSE, UR Normal LAB L400.3300 Negative mg/dL Normal BILIRUBIN URINE Negative LAB L400.3400 Negative mg/dl Normal KETONE UR Negative LAB L400.3465 1.002-1.030 Normal SP.GR. DIPSTX 1.010 LAB L400.3550 5.0 - 8.0 pH UR Normal 8.0 LAB L400.3600 Negative mg/dl PROT Normal DIPSTX Negative LAB L400.3700 Normal mg/dl Normal UROBILI Normal LAB L400.3750 Negative Normal NITRITE UR Negative LAB L400.3780 Negative /ul Normal OCCULT BLOOD-UR Negative LAB L400.3800 Negative /ul LEUK Normal ESTERASE Negative LAB L400.4050 0-5 /hpf WBC 0 Normal SEEN LAB L400.4100 0-5 /hpf 0 Normal RBC-UA SEEN LAB L400.4150 0-5 /hpf SQUAM 0 Normal EPI SEEN LAB L400.4300 None Seen /hpf 0 Normal BACTERIA SEEN LAB L400.4350 <or=2+ /hpf 0 Normal MUCUS, URINE SEEN Performed By: #### L400.0001 #### [facility] [address] [place], [place], [id number] CBC W/DIFF, AUTOMATED Collected: 02/11/2018 Status: F Source: [place] 10:53 PM [facility] REPOSITORY TYPE CODE TESTS RESULT OUT OF RANGE REFERENCE UNITS LAB L100.1000 4.4-11.0 K/mm3 Normal WBC 6.9 LAB L100.1200 4.6-6.2 M/mm3 Normal RBC 5.05 LAB L100.1300 13.0-16.5 g/dl Normal HGB 14.7 LAB L100.1400 40-54 % Normal HCT 43.6 LAB L100.1500 80-94 fL Normal MCV 86.3 LAB L100.1600 27.0-32.0 pg Normal MCH 29.1 LAB L100.1700 32-36 g/gl Normal MCHC 33.7 LAB L100.1810 11.6-14.6 % Normal RDW CV 13.3 LAB L100.1820 35.1-43.9 fl Normal RDW SD 42.1 LAB L100.1900 150-450 K/mm3 Normal PLT 235 LAB L100.2000 6.2-12.0 fl Normal MPV 10.4 LAB L100.2100 47-70 % Normal NEUT% 58.6 LAB L100.2200 19-41 % Normal LY% 31.3 LAB L100.2300 0-10 % Normal MONO% 4.9 LAB L100.2400 0-5 % Normal EO% 4.2 LAB L100.2500 0-1 % Normal BASO% 0.4 LAB L100.2550 0.0-0.9 % Normal IM GRAN % 0.600 Result Comment: IG% - Immature Granulocytes (promyelocytes, myelocytes and metamyelocytes) > 1% indicates that a LEFT SHIFT is Present. LAB L100.2620 2.0-7.7 X10 3/uL Normal Absolute Neut 4.1 LAB L100.2720 0.83-4.51 X10 3/ul Normal Absolute Lymph 2.17 Performed By: #### L100.0100 #### [facility] [address] [place], [place], [address] BASIC METABOLIC Collected: 02/11/2018 Status: F Source: [place] PROFILE (BMP) 10:53 PM [facility] REPOSITORY TYPE CODE TESTS RESULT OUT OF RANGE REFERENCE UNITS LAB L501.0100 74-106 mg/dL Normal GLU 102 Result Comment: Fasting Glucose result from 100 to 125 mg/dL suggests IMPAIRED HOMEOSTASIS per A.D.A. criteria. Please note revised GLUCOSE reference range effective 2017. LAB L501.1000 7-18 mg/dL Normal BUN 8 LAB L501.1100 0.70-1.30 mg/dL Normal CREAT,SERUM 1.13 Result Comment: The validity of the calculated GFR AND GFRAA in patients over 70 years has not been determined. Clinical correlation is essential. LAB L501.1110 >60 mL/min Normal EST GFR 78 Result Comment: Non- GFR Calc LAB L501.1115 >60 mL/min Normal EST GFR - AA 94 Result Comment: GFR Calc LAB L501.1255 ml/min Normal Estimated CRCL 99.19 LAB L501.1300 10-20 RATIO Low BUN/CRE 7.1 LAB L501.2200 8.5-10 mg/dL Normal .1 CA 8.8 LAB L501.5300 136-14 mmol/L Normal 5 NA 139 LAB L501.5600 3.5-5. mmol/L Normal 1 K 3.7 LAB L501.5900 98-107 mmol/L Normal CL 103 LAB L501.6100 21.0-3 mmol/L Normal 2.0 CO2 27.0 LAB L501.6200 5-15 Normal GAP 9 Performed By: #### L500.2500, L500.3400, L501.2450 #### [facility] [address] [place], [place], [address] LIVER PROFILE Collected: 02/11/2018 Status: F Source: [place] 10:53 PM [facility] REPOSITORY TYPE CODE TESTS RESULT OUT OF RANGE REFERENCE UNITS LAB L501.1500 6.4-8.2 g/dL Normal T PROT 7.7 LAB L501.1800 3.2-5.0 g/dL Normal ALB 3.9 LAB L501.1950 2.2-4.2 g/dL Normal GLOB 3.8 LAB L501.4100 15-37 U/L Normal AST 37 LAB L501.4305 45-117 U/L Normal ALK P 116 LAB L501.4405 16-61 U/L High ALT 80 LAB L501.4600 0.20-1.00 mg/dL Normal T BILI 0.30 LAB L501.4700 0.00-0.30 mg/dL Normal D BILI 0.07 Performed By: #### L500.2500, L500.3400, L501.2450 #### [facility] [address] [place], [address] LIPASE Collected: 02/11/2018 Status: F Source: [place] 10:53 PM [facility] REPOSITORY TYPE CODE TESTS RESULT OUT OF RANGE REFERENCE UNITS LAB L501.2450 73-393 U/L Normal LIPASE 91 Performed By: #### L500.2500, L500.3400, L501.2450 #### [facility] [address] [place], [address] ABDOMEN/PELVIS WITH Observed: 02/11/2018 Status: F Source: [facility] CONTRAST 10:48 PM [facility] REPOSITORY [facility] Imaging Services [address] [place] [address] Abdomen/Pelvis WITH Contrast MR#: [id number] Acct: [id number] Name: EDGARDO JAY Rep #: [id number] : 1980 M 37 From: Annette Rosales MD PCP: Meaghan Veras MD Status: REG ER Study: Abdomen/Pelvis WITH Contrast Date of Exam: 02/12/18 Exam# [id number] Ordering Dr: Rosa Isela Harris MD STUDY: CT ABDOMEN AND PELVIS WITH CONTRAST REASON FOR EXAM: Male, 37 years old. Right lower quadrant pain radiating into back with nausea, vomiting and diarrhea, increased pain today, history of hypertension. RADIATION DOSAGE (If Supplied By Facility): CTDIvol = ( 17.98 ) mGy, DLP = ( 1303.78 ) mGycm TECHNIQUE: Transaxial 3.75 mm images were obtained from the dome of the diaphragm to the symphysis pubis with oral contrast. 100 ml of Isovue 300 contrast was administered. Sagittal and coronal images were reconstructed. Individualized dose optimization techniques were used for this CT. COMPARISON: CT abdomen pelvis 02/10/2018. 10/08/2016. Abdominal ultrasound 02/10/2018. FINDINGS: The visualized lung bases are unremarkable. The visualized portions of the heart are within normal limits. There is stable mild decreased attenuation of the liver consistent with steatosis. Normal gallbladder and extrahepatic biliary system. Normal spleen. Normal pancreas. Normal bilateral adrenal glands. Normal right kidney. Normal left kidney. There is no obstructive uropathy, obstructive renal or ureteral calculi. Normal visualized stomach. Normal small intestine. There are scattered rare colonic diverticula consistent with diverticulosis. The appendix is visualized and appears normal. Image 90-98 series 2. Mild hazy attenuation of the proximal small bowel mesentery not seen on previous examination. No enlarged mesenteric lymph nodes. Mild jejunal distention up to 2.5 cm. Normal abdominal aorta. Normal inferior vena cava. Normal retroperitoneum. Normal urinary bladder. Normal visualized prostate gland. Normal abdominal wall. 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 CT/Abdomen/Pelvis WITH Contrast IMPRESSION: There is no appendicitis, colitis, diverticulitis, ascites, hydronephrosis, abscess, collection, perforation or obstruction. Mild mesenteric haziness and prominent proximal small bowel, possible mesenteritis/enteritis possible, these however are subtle findings. Scattered rare colonic diverticula not appreciated on previous exam. Other nonacute findings as outlined above. Electronically Signed: Annette Rosales MD at 1:57 EDT , Service support , CC: Rosa Isela Harris MD; Meaghan Veras MD Personal Banking Officer: Signed DISCHARGE INSTRUCTION Observed: 02/11/2018 Status: F Source: [place] 1:39 AM [facility] Medical Records Department [address] [place] [address] Discharge Instruction 10/137 MR#: [id number] Acct: [id number] Name: EDGARDO JAY Rep #: [id number] : 1980 37 From: Arslan Jordan MD PCP: Meaghan Veras MD Status: REG ER ED Disposition - Plan for ED Patient: Chief Complaint: Abd Pain Instructions: ED Abdominal Pain Unkn Cause Male Referrals: Lennox Montano MD [STAFF PHYSICIAN] - Meaghan Veras MD [Primary Care Provider] - What to do if you have Problems For any increased pain, shortness of breath, bleeding, nausea or vomiting, chest pain, or any unexpected problems, contact your Primary Care Provider. Call [facility] ([phone]) or report to the closest Emergency Room. Call 911 if necessary. 02/11/18138 <Electronically signed by Arslan Jordan MD> Date Arslan Jordan MD Cosigner Signature (If Indicated): Date CC: Meaghan Veras MD DISCHARGE INSTRUCTION Observed: 02/11/2018 Status: F Source: [place] 1:38 AM [facility] REPOSITORY [facility] Medical Records Department [address] [place] [address] Discharge Instruction 02/11/18136 MR#: [id number] Acct: [id number] Name: EDGARDO JAY Rep #: [id number] : 1980 37 From: Arslan Jordan MD PCP: Meaghan Veras MD Status: REG ER ED Disposition - Plan for ED Patient: Chief Complaint: Abd Pain Instructions: ED Abdominal Pain Unkn Cause Referrals: Meaghan Veras MD [Primary Care Provider] - Lennox Montano MD [STAFF PHYSICIAN] - What to do if you have Problems For any increased pain, shortness of breath, bleeding, nausea or vomiting, chest pain, or any unexpected problems, contact your Primary Care Provider. Call [facility] ([phone]) or report to the closest Emergency Room. Call 911 if necessary. 02/11/18 0138 <Electronically signed by Arslan Jordan MD> Date Arslan Jordan MD Cosigner Signature (If Indicated): Date CC: Meaghan Veras MD EMERGENCY DEPARTMENT Observed: 02/11/2018 Status: F Source: [place] SUMMARY 1:37 AM [facility] REPOSITORY [facility] Medical Records Department [address] [place] [address] Emergency Department Summary 02/11/18 0133 MR#: [id number] Acct: [id number] Name: EDGARDO JAY Rep #: [id number] : 1980 37 From: Arslan Jordan MD PCP: Meaghan Veras MD Status: REG ER - ER Visit Summary Date of Service: 02/11/18 Chief Complaint: Abdominal pain History of Present Illness: The patient is a 37 M who presents with abdominal pain. This is been present for about 5 days. He complains of sharp right sided mid abdominal pain that radiates through into the back. He currently rates this as a 9 out of 10. He also had one episode of diarrhea today. He was seen last night in the emergency department for similar symptoms. At that time he had laboratory studies CT of the abdomen and right upper quadrant ultrasound. He states he was told to follow-up with his primary care physician but they were unable to get him in. He returns due to uncontrolled pain. Physical Examination: Initial blood pressure 180/137. This is improved on recheck. Resting comfortably no distress Moist mucous membranes Heart regular rhythm tachycardic Lungs are clear Abdomen soft nondistended he has right-sided mid abdominal tenderness without guarding without rebound Alert Test Results: CBC CMP unremarkable. Hepatic function notable for mild elevation of ALT and AST which are improved from labs yesterday. Lipase is normal. Urinalysis is normal. Emergency Department Course and Treatment: Patient was treated with IV fluids Toradol and Zofran. He reports little change in his symptoms. He was given oral oxycodone. At this time he does not appear to have a surgical abdomen. He has no guarding no rebound. His laboratory studies are unremarkable. He underwent extensive workup yesterday including CT and ultrasound. [facility] report does show 28 prescriptions for hydrocodone or oxycodone in the last year which is concerning. I did not feel further opiate prescriptions were therefore appropriate. We will refer to general surgery for further outpatient evaluation. I discussed with him possible need for further outpatient workup including studies such as a colonoscopy or a HIDA scan. He vocalized understanding. He is agreeable to this plan. He understands return for new or worsening symptoms. He was discharged. Treatment Plan: [] Disposition: Discharge Impression: Abdominal pain of uncertain etiology This note was generated with RoboEd dictation software. It may contain incorrect words, spelling, and punctuation that were not noted in review of the chart prior to signing ED Disposition - Plan for ED Patient: Chief Complaint: Abd Pain Referrals: Meaghan Veras MD [Primary Care Provider] - What to do if you have Problems For any increased pain, shortness of breath, bleeding, nausea or vomiting, chest pain, or any unexpected problems, contact your Primary Care Provider. Call [facility] ([phone]) or report to the closest Emergency Room. Call 911 if necessary. 02/11/18 0137 <Electronically signed by Arslan Jordan MD> Date Arslan Jordan MD Cosigner Signature (If Indicated): Date CC: Meaghan Veras MD DISCHARGE INSTRUCTION Observed: 02/11/2018 Status: F Source: [place] 1:37 AM [facility] REPOSITORY [facility] Medical Records Department [address] [address] Discharge Instruction 02/11/18136 MR#: [id number] Acct: [id number] Name: EDGARDO JAY Rep #: [id number] : 1980 37 From: Arslan Jordan MD PCP: Meaghan Veras MD Status: REG ER ED Disposition - Plan for ED Patient: Chief Complaint: Abd Pain Instructions: ED Abdominal Pain Unkn Cause Referrals: Meaghan Veras MD [Primary Care Provider] - What to do if you have Problems For any increased pain, shortness of breath, bleeding, nausea or vomiting, chest pain, or any unexpected problems, contact your Primary Care Provider. Call [facility] ([phone]) or report to the closest Emergency Room. Call 911 if necessary. 02/11/18136 <Electronically signed by Arslan Jordan MD> Date Arslan Jordan MD Cosigner Signature (If Indicated): Date CC: Meaghan Veras MD URINALYSIS, COMPLETE Collected: 02/11/2018 Status: F Source: [place] [facility] [place] 12:58 AM [facility] REPOSITORY Order Comment: How was Urine Obtained? CLEAN CATCH TYPE CODE TESTS RESULT OUT OF RANGE REFERENCE UNITS LAB L400.3000 Yellow COLOR Normal Yellow LAB L400.3050 Clear Normal CLARITY Clear LAB L400.3200 Normal mg/dl Normal GLUCOSE, UR Normal LAB L400.3300 Negative mg/dL Normal BILIRUBIN URINE Negative LAB L400.3400 Negative mg/dl Normal KETONE UR Negative LAB L400.3465 1.002-1.030 Normal SP.GR. DIPSTX 1.010 LAB L400.3550 5.0 - 8.0 pH UR Normal 7.0 LAB L400.3600 Negative mg/dl PROT Normal DIPSTX Negative LAB L400.3700 Normal mg/dl Normal UROBILI Normal LAB L400.3750 Negative Normal NITRITE UR Negative LAB L400.3780 Negative /ul Normal OCCULT BLOOD-UR Negative LAB L400.3800 Negative /ul LEUK Normal ESTERASE Negative LAB L400.4050 0-5 /hpf WBC 0 Normal SEEN LAB L400.4100 0-5 /hpf 0 Normal RBC-UA SEEN LAB L400.4150 0-5 /hpf SQUAM 0 Normal EPI SEEN LAB L400.4300 None Seen /hpf 0 Normal BACTERIA SEEN LAB L400.4350 <or=2+ /hpf 0 Normal MUCUS, URINE SEEN Performed By: #### L400.0001 #### [facility] [address] [place], [place], [address] CBC W/DIFF, AUTOMATED Collected: 02/11/2018 Status: F Source: [place] 12:25 AM [facility] REPOSITORY TYPE CODE TESTS RESULT OUT OF RANGE REFERENCE UNITS LAB L100.1000 4.4-11.0 K/mm3 Normal WBC 7.7 LAB L100.1200 4.6-6.2 M/mm3 Normal RBC 5.20 LAB L100.1300 13.0-16.5 g/dl Normal HGB 15.3 LAB L100.1400 40-54 % Normal HCT 44.3 LAB L100.1500 80-94 fL Normal MCV 85.2 LAB L100.1600 27.0-32.0 pg Normal MCH 29.4 LAB L100.1700 32-36 g/gl Normal MCHC 34.5 LAB L100.1810 11.6-14.6 % Normal RDW CV 13.4 LAB L100.1820 35.1-43.9 fl Normal RDW SD 41.2 LAB L100.1900 150-450 K/mm3 Normal PLT 268 LAB L100.2000 6.2-12.0 fl Normal MPV 10.6 LAB L100.2100 47-70 % Normal NEUT% 55.3 LAB L100.2200 19-41 % Normal LY% 33.9 LAB L100.2300 0-10 % Normal MONO% 6.2 LAB L100.2400 0-5 % Normal EO% 3.1 LAB L100.2500 0-1 % Normal BASO% 0.6 LAB L100.2550 0.0-0.9 % Normal IM GRAN % 0.900 Result Comment: IG% - Immature Granulocytes (promyelocytes, myelocytes and metamyelocytes) > 1% indicates that a LEFT SHIFT is Present. LAB L100.2620 2.0-7.7 X10 3/uL Normal Absolute Neut 4.3 LAB L100.2720 0.83-4.51 X10 3/ul Normal Absolute Lymph 2.62 Performed By: #### L100.0100 #### [facility] [address] [place], [address] COMPREHENSIVE METABOLIC Collected: 02/11/2018 Status: F Source: [facility] 12:25 AM [facility] REPOSITORY TYPE CODE TESTS RESULT OUT OF RANGE REFERENCE UNITS LAB L501.0100 74-106 mg/dL Normal GLU 91 Result Comment: Please note revised GLUCOSE reference range effective 2017. LAB L501.1000 7-18 mg/dL Normal BUN 9 LAB L501.1100 0.70-1.30 mg/dL Normal CREAT,SERUM 1.07 Result Comment: The validity of the calculated GFR AND GFRAA in patients over 70 years has not been determined. Clinical correlation is essential. LAB L501.1110 >60 mL/min Normal EST GFR 83 Result Comment: Non- GFR Calc LAB L501.1115 >60 mL/min Normal EST GFR - AA 100 Result Comment: GFR Calc LAB L501.1255 ml/min Normal Estimated CRCL 104.76 LAB L501.1300 10-20 RATIO Low BUN/CRE 8.4 LAB L501.1500 6.4-8. g/dL 2 T PROT Normal 8.0 LAB L501.1800 3.2-5. g/dL 0 ALB Normal 4.2 LAB L501.1950 2.2-4. g/dL 2 GLOB Normal 3.8 LAB L501.2000 0.9-2. RATIO 4 A/G Normal 1.1 LAB L501.2200 8.5-10 mg/dL .1 CA Normal 9.1 LAB L501.4100 15-37 U/L High AST 41 LAB L501.4305 45-117 U/L High ALK P 121 LAB L501.4405 16-61 U/L High ALT 91 LAB L501.4600 0.20-1 mg/dL .00 T BILI Normal 0.30 LAB L501.5300 136-14 mmol/L 5 NA Normal 138 LAB L501.5600 3.5-5. mmol/L 1 K Normal 3.7 LAB L501.5900 98-107 mmol/L CL Normal 102 LAB L501.6100 21.0-3 mmol/L 2.0 CO2 Normal 27.0 LAB L501.6200 5-15 GAP Normal 9 Performed By: #### L500.4050, L501.2450 #### [facility] [address] [place], [address] LIPASE Collected: 02/11/2018 Status: F Source: [place] 12:25 AM [facility] REPOSITORY TYPE CODE TESTS RESULT OUT OF RANGE REFERENCE UNITS LAB L501.2450 73-393 U/L Normal LIPASE 375 Performed By: #### L500.4050, L501.2450 #### [facility] [address] [place], [address] EMERGENCY DEPARTMENT Observed: 02/10/2018 Status: F Source: [place] SUMMARY 9:34 AM [facility] REPOSITORY [facility] Medical Records Department [address] [place] [address] Emergency Department Summary 02/10/18 0403 MR#: [id number] Acct: [id number] Name: EDGARDO JAY Rep #: [id number] : 1980 37 From: Meredith Tejada MD PCP: Meaghan Veras MD Status: REG ER - ER Visit Summary Date of Service: 02/10/18 Chief Complaint: Abdominal pain History of Present Illness: The patient is a 37 M presenting with abdominal pain. He states this started gradually on Friday and has worsened throughout the weekend. He has had nausea and vomiting. He denies diarrhea or constipation. He has mild dysuria. He denies fever. He has a decreased appetite. No history of similar symptoms in the past. No other complaints. Physical Examination: Vitals are stable. Patient is afebrile. Alert no acute distress. HEENT exam is unremarkable. Neck is supple. Lungs are clear and equal bilaterally. Heart is regular rate and rhythm. Abdomen is soft right lower quadrant tenderness with voluntary guarding, no rebound Extremities are unremarkable. Skin is warm and dry. Remainder of exam is unremarkable. Emergency Department Course and Treatment: Patient is given IV fluids, morphine, Zofran. CBC, chemistries unremarkable. Liver enzymes show ALT 115, AST 63, lipase is normal. Urinalysis unremarkable. Patient continued to have pain was given Dilaudid IV. CT abdomen pelvis with IV and oral contrast shows umbilical hernia, no acute pathology. He continues to have pain and a gallbladder ultrasound was obtained and shows fatty liver. He was given additional dose of morphine. On reevaluation he is resting comfortably. He does still have tenderness to palpation in the right upper and lower quadrant. He is given a GI cocktail. He is requesting discharge. He is requesting narcotics for home. He is given prescription for Bentyl and Zofran. He is advised to follow-up with his primary care physician. Advised return to ED for any worsening complaints. Disposition: Discharge home Impression: Abdominal pain This note was generated with RoboEd dictation software. It may contain incorrect words, spelling, and punctuation that were not noted in review of the chart prior to signing ED Disposition - Plan for ED Patient: Chief Complaint: Abd Pain Instructions: ED Abdominal Pain Unkn Cause Prescriptions: Ondansetron [Zofran Odt] 4 mg PO Q8H PRN PRN #10 tablet PRN Reason: Nausea Dicyclomine HCl [Bentyl] 20 mg PO TIDAC #20 capsule Referrals: Meaghan Veras MD [Primary Care Provider] - What to do if you have Problems For any increased pain, shortness of breath, bleeding, nausea or vomiting, chest pain, or any unexpected problems, contact your Primary Care Provider. Call [facility] ([phone]) or report to the closest Emergency Room. Call 911 if necessary. 02/10/18 3216 <Electronically signed by Meredith Tejada MD> Date Meredith Tejada MD Cosigner Signature (If Indicated): Date CC: Meaghan Veras MD DISCHARGE INSTRUCTION Observed: 02/10/2018 Status: F Source: [facility] 9:13 AM [facility] REPOSITORY [facility] Medical Records Department [address] [address] Discharge Instruction 02/10/18911 MR#: [id number] Acct: [id number] Name: EDGARDO JAY Rep #: [id number] : 1980 37 From: Meredith Tejada MD PCP: Meaghan Veras MD Status: REG ER ED Disposition - Plan for ED Patient: Chief Complaint: Abd Pain Instructions: ED Abdominal Pain Unkn Cause Prescriptions: Ondansetron [Zofran Odt] 4 mg PO Q8H PRN PRN #10 tablet PRN Reason: Nausea Dicyclomine HCl [Bentyl] 20 mg PO TIDAC #20 capsule Referrals: Meaghan Veras MD [Primary Care Provider] - What to do if you have Problems For any increased pain, shortness of breath, bleeding, nausea or vomiting, chest pain, or any unexpected problems, contact your Primary Care Provider. Call [facility] ([phone]) or report to the closest Emergency Room. Call 911 if necessary. 02/10/18912 <Electronically signed by Meredith Tejada MD> Date Meredith Tejada MD Cosigner Signature (If Indicated): Date CC: Meaghan Veras MD GALLBLADDER Observed: 02/10/2018 Status: F Source: [facility] 6:36 AM [facility] REPOSITORY [facility] Imaging Services [address] [address] Gallbladder MR#: [id number] Acct: [id number] Name: EDGARDO JAY Rep #: [id number] : 1980 M 37 From: Abiodun Archer MD PCP: Noni MD,Meaghan Status: REG ER Study: Gallbladder Date of Exam: 02/10/18 Exam# [id number] Ordering Dr: Meredith Tejada MD STUDY: ABDOMINAL ULTRASOUND - RIGHT UPPER QUADRANT REASON FOR VISIT: Male, 37 years old. 3 day history of right-sided abdominal pain. TECHNIQUE: Ultrasound evaluation of the right upper quadrant was performed with real-time and static harkins-scale imaging. TECHNICAL QUALITY: Adequate. COMPARISON: Comparison is made with prior CT scan of the abdomen done earlier in the day and prior ultrasound of the abdomen dated October 08, 2016. FINDINGS: Liver: The liver measures 17.0 cm. There is increased echogenicity consistent with fatty infiltration. Focal fatty sparing is seen in the region of the gallbladder fossa. The bile ducts are within normal limits. There is hepatic color flow. The direction of portal flow is hepatopetal. There is no demonstrated mass lesion. Gallbladder: Normal distended gallbladder. The gallbladder wall measures 2.6 mm. There is a negative sonographic Baxter's sign. There is no pericholecystic fluid. There are no gallstones. Common Bile Duct (C.B.D.): The common bile duct measures 3.2 mm. Pancreas: Normal size of the head, body and tail of the pancreas. There is increased echogenicity of the pancreas. There is no demonstrated pancreatic mass or cyst. Right Kidney: Normal size of the right kidney. The right kidney measures 10.3 cm x 5.4 cm x 6.4 cm. Normal renal cortex. The right cortex measures 2.1 cm. There is no demonstrated renal mass or cyst. There is no right hydronephrosis. US/Gallbladder IMPRESSION: Fatty infiltration of the liver with focal fatty sparing. Electronically Signed: Abiodun Archer MD at 8:27 EDT Tel [phone], Service support , CC: Meredith Tejada MD; Meaghan Veras MD Personal Banking Officer: Signed URINALYSIS, COMPLETE Collected: 02/10/2018 Status: F Source: [place] [place] [facility] 4:50 AM [facility] REPOSITORY Order Comment: How was Urine Obtained? CLEAN CATCH TYPE CODE TESTS RESULT OUT OF RANGE REFERENCE UNITS LAB L400.3000 Yellow COLOR Normal Yellow LAB L400.3050 Clear Normal CLARITY Clear LAB L400.3200 Normal mg/dl Normal GLUCOSE, UR Normal LAB L400.3300 Negative mg/dL Normal BILIRUBIN URINE Negative LAB L400.3400 Negative mg/dl Normal KETONE UR Negative LAB L400.3465 1.002-1.030 Normal SP.GR. DIPSTX 1.010 LAB L400.3550 5.0 - 8.0 pH UR Normal 7.0 LAB L400.3600 Negative mg/dl PROT Normal DIPSTX Negative LAB L400.3700 Normal mg/dl Normal UROBILI Normal LAB L400.3750 Negative Normal NITRITE UR Negative LAB L400.3780 Negative /ul Normal OCCULT BLOOD-UR Negative LAB L400.3800 Negative /ul LEUK Normal ESTERASE Negative LAB L400.4050 0-5 /hpf WBC 0 Normal SEEN LAB L400.4100 0-5 /hpf 0 Normal RBC-UA SEEN LAB L400.4150 0-5 /hpf SQUAM 0 Normal EPI SEEN LAB L400.4300 None Seen /hpf 0 Normal BACTERIA SEEN LAB L400.4350 <or=2+ /hpf Normal MUCUS, URINE RARE Performed By: #### L400.0001 #### [facility] [address] [facility] [place], [address] ABDOMEN/PELVIS WITH Observed: 02/10/2018 Status: F Source: [facility] CONTRAST 4:03 AM [facility] REPOSITORY [facility] Imaging Services [address] [place] [address] Abdomen/Pelvis WITH Contrast MR#: [id number] Acct: [id number] Name: EDGARDO JAY Rep #: [id number] : 1980 M 37 From: Emre Yin MD PCP: Meaghan Veras MD Status: REG ER Study: Abdomen/Pelvis WITH Contrast Date of Exam: 02/10/18 Exam# [id number] Ordering Dr: Meredith Tejada MD STUDY: CT ABDOMEN AND PELVIS WITH CONTRAST REASON FOR EXAM: Male, 37 years old. Right lower quadrant pain since Friday. RADIATION DOSAGE (If Supplied By Facility): CTDIvol = ( 15.93 ) mGy, DLP = ( 1256.70 ) mGycm TECHNIQUE: Transaxial images were obtained from the dome of the diaphragm to the symphysis pubis with oral contrast. 100ML ml of Isovue 300 contrast was administered. Sagittal and coronal images were reconstructed. Individualized dose optimization techniques were used for this CT. COMPARISON: 10/08/2016. FINDINGS: The visualized lung bases are unremarkable. The visualized portions of the heart are within normal limits. Normal liver. Normal gallbladder and extrahepatic biliary system. Normal spleen. Normal pancreas. Normal bilateral adrenal glands. Normal right kidney. Normal left kidney. Normal visualized stomach. Normal small intestine. Normal colon. The appendix is visualized on axial images 86-91 and it appears normal.. Normal abdominal aorta. Normal inferior vena cava. Normal retroperitoneum. Normal urinary bladder. There is a small umbilical hernia containing fat, but no bowel. There is left unilateral spondylolysis L5 without associated spondylolisthesis. CT/Abdomen/Pelvis WITH Contrast IMPRESSION: Small umbilical hernia contains fat, but no bowel. No evidence for acute pathology. No evidence for appendicitis or diverticulitis. No demonstrated urinary calculi or hydronephrosis. Electronically Signed: Emre Yin MD at 6:03 EDT , Service support , CC: Meredith Tejada MD; Meaghan Veras MD Personal Banking Officer: Signed CBC W/DIFF, AUTOMATED Collected: 02/10/2018 Status: F Source: [facility] 3:47 AM [facility] REPOSITORY TYPE CODE TESTS RESULT OUT OF RANGE REFERENCE UNITS LAB L100.1000 4.4-11.0 K/mm3 Normal WBC 10.4 LAB L100.1200 4.6-6.2 M/mm3 Normal RBC 5.07 LAB L100.1300 13.0-16.5 g/dl Normal HGB 15.1 LAB L100.1400 40-54 % Normal HCT 42.9 LAB L100.1500 80-94 fL Normal MCV 84.6 LAB L100.1600 27.0-32.0 pg Normal MCH 29.8 LAB L100.1700 32-36 g/gl Normal MCHC 35.2 LAB L100.1810 11.6-14.6 % Normal RDW CV 13.2 LAB L100.1820 35.1-43.9 fl Normal RDW SD 40.0 LAB L100.1900 150-450 K/mm3 Normal PLT 267 LAB L100.2000 6.2-12.0 fl Normal MPV 10.9 LAB L100.2100 47-70 % Normal NEUT% 50.0 LAB L100.2200 19-41 % Normal LY% 39.1 LAB L100.2300 0-10 % Normal MONO% 6.1 LAB L100.2400 0-5 % Normal EO% 2.8 LAB L100.2500 0-1 % Normal BASO% 0.7 LAB L100.2550 0.0-0.9 % High IM GRAN % 1.300 Result Comment: IG% - Immature Granulocytes (promyelocytes, myelocytes and metamyelocytes) > 1% indicates that a LEFT SHIFT is Present. LAB L100.2620 2.0-7.7 X10 3/uL Normal Absolute Neut 5.2 LAB L100.2720 0.83-4.51 X10 3/ul Normal Absolute Lymph 4.05 Performed By: #### L100.0100 #### [facility] [address] [place], [address] BASIC METABOLIC Collected: 02/10/2018 Status: F Source: [place] PROFILE ([facility]) 3:47 AM [facility] REPOSITORY TYPE CODE TESTS RESULT OUT OF RANGE REFERENCE UNITS LAB L501.0100 74-106 mg/dL Normal GLU 97 Result Comment: Please note revised GLUCOSE reference range effective 2017. LAB L501.1000 7-18 mg/dL Normal BUN 9 LAB L501.1100 0.70-1.30 mg/dL Normal CREAT,SERUM 1.04 Result Comment: The validity of the calculated GFR AND GFRAA in patients over 70 years has not been determined. Clinical correlation is essential. LAB L501.1110 >60 mL/min Normal EST GFR 86 Result Comment: Non- GFR Calc LAB L501.1115 >60 mL/min Normal EST GFR - AA 104 Result Comment: GFR Calc LAB L501.1255 ml/min Normal Estimated CRCL 107.78 LAB L501.1300 10-20 RATIO Low BUN/CRE 8.7 LAB L501.2200 8.5-10 mg/dL .1 CA Normal 8.9 LAB L501.5300 136-14 mmol/L 5 NA Normal 140 LAB L501.5600 3.5-5. mmol/L 1 K Normal 3.5 LAB L501.5900 98-107 mmol/L CL Normal 103 LAB L501.6100 21.0-3 mmol/L 2.0 CO2 Normal 27.0 LAB L501.6200 5-15 GAP Normal 10 Performed By: #### L500.2500 #### [facility] [address] [facility] [place], [place], [id number] LIVER PROFILE Collected: 02/10/2018 Status: F Source: [place] 3:47 AM [facility] REPOSITORY TYPE CODE TESTS RESULT OUT OF RANGE REFERENCE UNITS LAB L501.1500 6.4-8.2 g/dL Normal T PROT 7.9 LAB L501.1800 3.2-5.0 g/dL Normal ALB 4.2 LAB L501.1950 2.2-4.2 g/dL Normal GLOB 3.7 LAB L501.4100 15-37 U/L High AST 63 LAB L501.4305 45-117 U/L Normal ALK P 117 LAB L501.4405 16-61 U/L High ALT 115 LAB L501.4600 0.20-1.00 mg/dL Normal T BILI 0.30 LAB L501.4700 0.00-0.30 mg/dL Normal D BILI 0.05 Performed By: #### L500.3400 #### [facility] [address] [facility] [place], [place], [id number] LIPASE Collected: 02/10/2018 Status: F Source: [place] 3:47 AM [facility] REPOSITORY TYPE CODE TESTS RESULT OUT OF RANGE REFERENCE UNITS LAB L501.2450 73-393 U/L Normal LIPASE 102 Performed By: #### L501.2450 #### [facility] [address] [place], [place], [id number] CR WRIST COMPLETE 3 Observed: 01/09/2018 Status: F Source: [email or web address] LEFT 5:39 AM SYSTEM REPOSITORY Patient Name: EDGARDO JAY Diagnostic Radiology Exam Date/Time 01/08/2018 10:45:00 EDT Exam CR Wrist Complete 3 Views Left Ordering Physician MD NOE, MERCED Arteaga Accession Number [id number] CPT4 Codes 85903 () Reason For Exam fx Report Left wrist: 01/08/2018. Clinical Information: Status post open reduction, internal fixation.. Findings: 3 views of the left wrist reveal the bones to be well mineralized. When compared to prior study, 12/25/2017, the two orthopedic pins have been removed. The orthopedic plate and screw device remains in place stabilizing a healing fracture of the distal radial diaphysis. The overall position and alignment of fracture fragments is reasonable. No associated ulnar fracture is identified. Report Dictated on Workstation: [id number] Final Dictating Physician: MD RILEY RISA Signed Date and Time: 01/09/2018 5:40 am Signed by: MD RILEY RISA Transcribed Date and Time: 01/09/2018 5:42 CR WRIST COMPLETE 3 Observed: 12/25/2017 Status: F Source: [email or web address] LEFT 8:28 PM SYSTEM REPOSITORY Patient Name: EDGARDO JAY Diagnostic Radiology Exam Date/Time 12/25/2017 08:10:00 EDT Exam CR Wrist Complete 3 Views Left Ordering Physician ROSA ISELA ULRICH Accession Number [id number] CPT4 Codes 24510 () Reason For Exam s/p distal radius osteotomy/ORIF and bone grafting Report LEFT WRIST CLINICAL INDICATION: Distal radius osteotomy and bone graft. Follow-up. AP, lateral, and oblique plain film views of the left wrist were obtained. COMPARISON: 12/10/2017 FINDINGS: Metallic plate and screw fixation hardware across the volar aspect of the left distal radius is unchanged when compared to the study from 12/10/2017. 2 metallic K wires traversing the distal radial metaphysis also appear unchanged in position. No acute fracture or dislocation of the left wrist is identified. There is mild generalized soft tissue swelling of the left wrist, similar to the prior study. No soft tissue gas or bony erosion is seen. IMPRESSION: No significant change when compared to the study dated 12/10/2017. Report Dictated on Final Dictating Physician: MILLA MOROCHO Signed Date and Time: 12/25/2017 8:30 pm Signed by: MILLA MOROCHO Transcribed Date and Time: 12/25/2017 8:31 CR WRIST COMPLETE 3 Observed: 12/10/2017 Status: F Source: [employer] VIEWS LEFT 12:51 PM SYSTEM REPOSITORY Patient Name: EDGARDO JAY Diagnostic Radiology Exam Date/Time 12/10/2017 09:53:59 EDT Exam CR Wrist Complete 3 Views Left Ordering Physician KATARINA PLUMMER NATALIE M Accession Number [id number] CPT4 Codes 73556 () Reason For Exam pain Report LEFT WRIST, 3 VIEWS: INDICATION: Follow-up fracture left wrist COMPARISON: 07/10/2017 TECHNIQUE: PA, oblique, and lateral views of the left wrist were obtained. FINDINGS: There has been a prior plate and screw fixation of the comminuted fracture of the distal left wrist. In the interim since the prior study two K wires have also been placed. There is soft tissue swelling about the wrist. There is no evidence of radio opaque foreign body or soft tissue gas formation. Intercarpal relationships appear well preserved. IMPRESSION: Status post ORIF of the left wrist. No change in fracture alignment. Report Dictated on Workstation: [id number] Final Dictated: 12/10/2017 12:51 pm Dictating Physician: DO VASQUEZ ALFRED Signed Date and Time: 12/10/2017 12:52 pm Signed by: DO VASQUEZ ALFRED Transcribed Date and Time: 12/10/2017 12:51 EMERGENCY DEPARTMENT Observed: 12/06/2017 Status: F Source: [place] SUMMARY 11:00 PM [facility] REPOSITORY [facility] Medical Records Department [address] [place] [address] Emergency Department Summary 12/06/17 2259 MR#: [id number] Acct: [id number] Name: EDGARDO JAY Rep #: [id number] : 1980 37 From: Deepak Saavedra MD PCP: Meaghan Veras MD Status: REG ER - ER Visit Summary Date of Service: 12/06/17 Chief Complaint: [] History of Present Illness: The patient is a 37 M [] Physical Examination: [] Test Results: [] Emergency Department Course and Treatment: [] Treatment Plan: [] Disposition: [] Impression: [] This note was generated with Jellycoasteration software. It may contain incorrect words, spelling, and punctuation that were not noted in review of the chart prior to signing ED Disposition - Plan for ED Patient: Chief Complaint: Upper Extremity Injury Instructions: ED Splint Care Velcro Prescriptions: Oxycodone HCl/Acetaminophen [Percocet 5/325] 1 tablet PO Q6H PRN PRN 3 Days #12 tablet PRN Reason: Pain Additional Instructions: See Dr. Liu Friday What to do if you have Problems For any increased pain, shortness of breath, bleeding, nausea or vomiting, chest pain, or any unexpected problems, contact your Primary Care Provider. Call [facility] ([phone]) or report to the closest Emergency Room. Call 911 if necessary. 12/06/17 2300 <Electronically signed by Deepak Saavedra MD> Date Deepak Saavedra MD Cosigner Signature (If Indicated): Date CC: Meaghan Veras MD EMERGENCY DEPARTMENT Observed: 12/06/2017 Status: F Source: [place] SUMMARY 10:59 PM [facility] REPOSITORY [facility] Medical Records Department [address] [place] [address] Emergency Department Summary 12/06/17 2253 MR#: [id number] Acct: [id number] Name: EDGARDO JAY Rep #: [id number] : 1980 37 From: Deepak Saavedra MD PCP: Meaghan Veras MD Status: REG ER - ER Visit Summary Date of Service: 12/06/17 Chief Complaint: Ran out of pain medication History of Present Illness: The patient is a 37 M status post left wrist surgery last month at [facility] presenting requesting a medication refill. He states that he has an appointment with his orthopedic surgeon Friday but that he ran out of pain medication and just needs something to last him until then. He denies any wound drainage, redness, swelling, or warmth. He is not concerned about infection and states that he is here only for a medication refill. Denies any new symptoms or increased pain. Physical Examination: Left wrist splint was taken down. Incisions look great. No evidence of infection. No erythema, warmth, or wound drainage. Test Results: Emergency Department Course and Treatment: His splint and dressings were replaced. He does not have any evidence of infection. Does not want any testing done here and is requesting pain control only. Treatment Plan: Pain was addressed. Prescription history reviewed. Will refill short course of medication and keep his appointment on Friday. Return if any evidence of infection or call his surgeon. Disposition: Home stable Impression: Initial encounter medication refill This note was generated with RoboEd dictation software. It may contain incorrect words, spelling, and punctuation that were not noted in review of the chart prior to signing ED Disposition - Plan for ED Patient: Chief Complaint: Upper Extremity Injury Instructions: ED Splint Care Velcro Prescriptions: Oxycodone HCl/Acetaminophen [Percocet 5/325] 1 tablet PO Q6H PRN PRN 3 Days #12 tablet PRN Reason: Pain Additional Instructions: See Dr. Liu Friday What to do if you have Problems For any increased pain, shortness of breath, bleeding, nausea or vomiting, chest pain, or any unexpected problems, contact your Primary Care Provider. Call [facility] ([phone]) or report to the closest Emergency Room. Call 911 if necessary. 12/06/17 2259 <Electronically signed by Deepak Saavedra MD> Date Deepak Saavedra MD Cosigner Signature (If Indicated): Date CC: Meaghan Veras MD EMERGENCY REPORT Observed: 09/04/2017 Status: F [facility] [place] [place] EMERGENCY ROOM REPORT NAME ACCOUNT SEX AGE ADMIT DISCHARGE PT MED. RECORD# NUMBER DATE DATE TYPE PIERRE [id number] Preeti 37 08/29/17 08/29/17 3 EDGARDO SKAGGS [id number] ROOM: ER DATE OF : 1980 DICTATING PHYSICIAN: Rosendo David CHIEF COMPLAINT: Wrist pain. HISTORY OF PRESENT ILLNESS: The patient states that he was using a screwdriver at home. He was torquing and turning on the screwdriver when he felt something pop in his wrist. He is having pain to his wrist since, particularly with movement. After he got into ER room 2, he complained of nausea because of the pain so I gave him some Zofran for that. The patient had a fall with surgery on both wrists in February of last year and has been having some degree of pain. It seems to be diffusely to the wrist. No numbness or tingling to the area. PAST MEDICAL HISTORY: Significant for hypertension. PAST SURGICAL HISTORY: He has had previous wrist surgery. MEDICATIONS: Per medication reconciliation list. ALLERGIES: He has no allergies. SOCIAL HISTORY: He lives at home. He does not smoke or drink alcohol. PHYSICAL EXAMINATION: This is a 37-year-old male who is alert and appropriate. He does not appear toxic or in acute distress. His skin is pink, warm and dry. Vital signs: Temperature is 98.2, pulse 127, respirations 18, and blood pressure 145/92. Examination to the right wrist, gross examination is unremarkable. There is no redness, bruising or soft tissue swelling. He has a well-healed incision over the dorsum of the wrist. He complains of tenderness on palpation to any and all areas. Good peripheral pulses. Good capillary refill. No tenderness at the elbow or upper arm. DIAGNOSTIC DATA: The patient had a right wrist x-ray which shows previous hardware. No evidence of any acute abnormalities. EMERGENCY DEPARTMENT COURSE AND TREATMENT: I reviewed an [facility] report on him, which is really quite extensive. He has been getting pain medication fairly regularly ever since his surgery in February. Most recently, he was given 30 oxycodone on July 20. He has had over 160 Percocet or hydrocodone given since the Page 1 of 2 EDGARDO JAY Emergency Room Report [facility] first of the year and had about 150 on record at the end of February/March of last year. Additionally, he had been given a number of prescriptions for hydrocodone and oxycodone throughout this past year prior to his wrist fractures. The patient has right wrist pain. There is a concern for excessive opiate use, and I explained that I was unwilling to give him any narcotic prescriptions for this. We did place his wrist in a splint, and ice and elevation were recommended. Ibuprofen 800 mg 3 times a day. He is to follow up with his family physician or orthopedic doctor in the next several days if the pain persists. Dictated By: Rosendo David MD 08/29/17 15:40 JOB #: [id number] Transcribed By: rhonda 08/30/17 12:45 Electronically signed by: MARTITA David M.D. 09/04/17 08:35 Page 2 of 2 EDGARDO JAY Emergency Room Report [facility] EMERGENCY REPORT Observed: 09/04/2017 Status: F Source: [facility] 8:39 AM [facility] [place] [place] EMERGENCY ROOM REPORT NAME ACCOUNT SEX AGE ADMIT DISCHARGE PT MED. RECORD# NUMBER DATE DATE TYPE PIERRE [id number] Preeti 37 08/29/17 08/29/17 3 EDGARDO SKAGGS [address] ROOM: ER DATE OF : 1980 DICTATING PHYSICIAN: Rosendo David ADDENDUM The patient seemed quite upset that I was unwilling to give him any pain medications. He was unwilling to leave until he could Talk to someone. I told him that Tung Monk would be the compliance professional and he would be the person he could register a complaint with. Tung Monk was no immediately in the hospital, but we did page him and he did return the call. The patient talked to him on the phone at length and Tung Monk did come in to talk to both myself and the patient prior to the patient being discharged. As mentioned, I told the patient I did not feel comfortable giving him any further narcotic pain medicine and did not give him any prescriptions prior to him discharging. He apparently is able to see his family doctor tomorrow. Dictated By: Rosendo David MD 08/29/17 16:16 JOB #: [id number] Transcribed By: augie 08/30/17 01:21 Electronically signed by: MARTITA David M.D. 09/04/17 08:35 Page 1 of 1 EDGARDO JAY Emergency Room Report [facility] WRIST COMPLETE RT Observed: 08/29/2017 Status: F Source: [facility] 3:17 PM [place] [address] Patient: EDGARDO JAY Niya Phone#: : 1980 Age: 37 Gender: M Pt. Type: ER Account: [id number] Location: [facility] Ordering: ROSENDO DAVID Exam Date: 08/29/2017/15:06 Family Phys: NO DOCTOR Charge Code: [id number] Physician: [place] Order #: [id number] DLP Dose#: CORRECTION the impression was inadvertently not included on the initial report. Corrected on: 09/02/2017; Dictated by: Bri Tirado MD on 09/02/2017 at 13:12 Approved by: Bri Tirado MD on 09/02/2017 at 13:12 PROCEDURE: X-RAY WRIST RT COMPLETE MIN 3 VIEWS COMPARISON: [facility], , WRIST COMPLETE LT, 04/13/2017, 18:01. INDICATIONS: Right wrist injury FINDINGS: BONES: Plate and screw hardware for fixation of remote distal radial fracture. The hardware is intact. There has been interval healing of the ulnar styloid process fracture present on comparison radiograph. No evidence of acute osseous abnormality. SOFT TISSUES: Negative. No visible soft tissue swelling. EFFUSION: None visible. OTHER: Negative. CONCLUSION: 1. No acute osseous abnormality. 2. Postsurgical changes. Dictated by: Bri Tirado MD on 08/29/2017 at 15:44 Approved by: Bri Tirado MD on 08/29/2017 at 15:49 MSC Observed: 08/12/2017 Status: UNK Source: [facility] 12:44 PM [facility] REPOSITORY DATE OF SERVICE: 08/12/2017 REASON FOR VISIT: Left wrist pain. HISTORY OF PRESENT ILLNESS: This is a 37-year-old male that presented with left wrist pain for the last 2 weeks. On August 01, 2017, he was using a at home when it got caught and it rotated and twisted his left wrist. Patient stated that he had reconstruction of this wrist done about 2 years ago from the injury which damaged his wrist at that time and had surgery and fixation done, and since then the pain has been going off and on. He was under the care of the orthopedist but could not get in to his orthopedist. After this recent injury on August 01, 2017, he went to see a doctor in [place] and had x-ray done and was told that there was a minor crack, but since then he cannot get in to his doctor yet. He was given narcotic pain medications and he is here today to get some more pain medications. Denied tingling, numbness or weakness. No other problem at this visit. Review of other systems normal. PAST MEDICAL HISTORY, FAMILY HISTORY, SOCIAL HISTORY: Reviewed. ALLERGIES: NKA. MEDICATIONS: Reviewed. PHYSICAL EXAMINATION: General: He is awake, alert, not in distress. No dyspnea. Vital Signs: Temperature 98.2, blood pressure 157/107, respiration 18, pulse 94 with pulse oximetry 100% on room air. Pain score 7/10. Musculoskeletal: Exam to the left wrist he has a surgical scar on the volar aspect, mild tenderness around the wrist joint. Range of motion is limited. No swelling or any obvious deformity. Fingers motions were normal. Neurovascular exam was normal. Patient stated that he already had x-ray done, so does not need any more studies today but wants the narcotic pain medications. ASSESSMENT: Left wrist pain. PLAN: Clinical findings were discussed with patient in detail. I explained to him that he should wear a wrist brace and he should follow with his orthopedist who has treated his wrist injury before. Regarding the narcotic pain medication, I explained to him that [facility] cannot give any narcotic pain medications especially when he has chronic preexisting condition. He should discuss this with his doctor or his orthopedist. He stated that he already had NSAIDs at home, so does not need any more prescription strength of the NSAIDs. I instructed him to rest, elevate and ice, take ibuprofen as needed, get gepa-trg-wtyjung wrist brace if he does not have one and not to do any heavy duty and see his doctor or follow up with orthopedics, but I cannot give him narcotic pain medication. Peg Brizuela MD [facility] PATIENT NAME: EDGARDO JAY Phoebe Romero MEDICAL REC #: [id number] [place] [address] [facility] REPORT [facility]ARE PHYSICIAN PP/[id number] [facility] File#: [id number] Disclaimer - This document may contain phonetic, minor grammatical errors, or errors due to voice quality Verified/Reviewed by 12/02/17 Estiven MENCHACA [facility] PATIENT NAME: EDGARDO JAY Phoebe Romero MEDICAL REC #: [id number] [place] [address] [facility] REPORT STATCARE PHYSICIAN CR WRIST COMPLETE 3 Observed: 07/10/2017 Status: F Source: cortical.io LEFT 2:39 PM SYSTEM REPOSITORY Patient Name: EDGARDO JAY Diagnostic Radiology Exam Date/Time 07/10/2017 13:05:00 EDT Exam CR Wrist Complete 3 Views Left Ordering Physician MD LIU DEREK J Accession Number [id number] CPT4 Codes 90804 () Reason For Exam fracture Report Clinical indication: Left wrist pain. PA, oblique and lateral views of the left wrist. Hardware at the distal aspect of the left radius is unchanged. Fracture lines are less distinct. Fracture fragments are similar in position. Radiocarpal alignment is maintained. Nondisplaced ulnar styloid fracture noted. IMPRESSION: Healing fractures of the distal radius and ulna. Report Dictated on Final Dictating Physician: MD MASON LAURA Signed Date and Time: 07/10/2017 2:44 pm Signed by: MD MASON LAURA Transcribed Date and Time: 07/10/2017 2:45 CR WRIST COMPLETE 3 Observed: 07/10/2017 Status: F Source: cortical.[email or web address] RIGHT 2:38 PM SYSTEM REPOSITORY Patient Name: EDGARDO JAY Diagnostic Radiology Exam Date/Time 07/10/2017 13:05:00 EDT Exam CR Wrist Complete 3 Views Right Ordering Physician MD LIU DEREK J Accession Number [id number] CPT4 Codes 73046 () Reason For Exam fracture Report Clinical indication: Follow-up right wrist fracture. PA, lateral and oblique views of the right wrist. Hardware is unchanged in position. Fracture lines are barely visible. Radiocarpal alignment is maintained. No new abnormality. IMPRESSION: Healing fracture of the distal right radius. Report Dictated on Final Dictating Physician: MD MASON LAURA Signed Date and Time: 07/10/2017 2:39 pm Signed by: MD MASON LAURA Transcribed Date and Time: 07/10/2017 2:40 CR ELBOW 3+ VIEWS Observed: 07/10/2017 Status: F Source: [employer] 2:36 PM SYSTEM REPOSITORY Patient Name: EDGARDO JAY Diagnostic Radiology Exam Date/Time 07/10/2017 13:05:00 EDT Exam CR Elbow 3+ Views Right Ordering Physician MD LIU DEREK J Accession Number [id number] CPT4 Codes 69622 () Reason For Exam fracture Report Clinical indication: Follow-up right elbow fracture. AP, lateral and oblique views of the right elbow. COMPARISON: 05/22/2017. Fracture line not distinctly visualized. Minimal distortion of the radial neck is present. No evidence of a joint effusion. Normal mineralization. IMPRESSION: Healing fracture of the proximal right radius.. Report Dictated on Final Dictating Physician: MD MASON LAURA Signed Date and Time: 07/10/2017 2:37 pm Signed by: MD MASON LAURA Transcribed Date and Time: 07/10/2017 2:39 CR ELBOW 3+ VIEWS Observed: 05/22/2017 Status: F Source: [employer] 5:38 PM SYSTEM REPOSITORY Patient Name: EDGARDO JAY Diagnostic Radiology Exam Date/Time 05/22/2017 14:07:09 EST Exam CR Elbow 3+ Views Right Ordering Physician MD LIU DEREK J Accession Number [id number] CPT4 Codes 49008 () Reason For Exam Closed displaced fracture of head of right radius with routine healing Report Right elbow: 05/22/2017. Clinical Information: Follow-up fracture. Findings: 3 views of the right elbow were compared to the prior study 04/17/2017. The previously described slightly impacted fracture of the radial neck is barely perceptible. There is slight architectural distortion at the fracture line is no longer identified. There is no evidence of refracture. No joint effusion is identified. Report Dictated on Final Dictating Physician: MD RILEY RISA Signed Date and Time: 05/22/2017 5:39 pm Signed by: MD RILEY RISA Transcribed Date and Time: 05/22/2017 5:40 CR WRIST COMPLETE 3 Observed: 05/22/2017 Status: F Source: cortical.[email or web address] RIGHT 5:27 PM SYSTEM REPOSITORY Patient Name: EDGARDO JAY Diagnostic Radiology Exam Date/Time 05/22/2017 14:07:09 EST Exam CR Wrist Complete 3 Views Right Ordering Physician MD LIU DEREK J Accession Number [id number] CPT4 Codes 62790 () Reason For Exam Closed fracture of distal end of right radius with routine healing Report Right wrist: 05/22/2017. CLINICAL INFORMATION: Status post open reduction, internal fixation. FINDINGS: Three views of the right wrist were compared to a prior study 04/17/2017. The two pins traversing the distal radial ulnar joint have been removed. Surgical lucency's are present in the distal ulnar diaphysis at the site of prior pins. The orthopedic plate and screw device stabilizing the distal radial diaphysis is unchanged. There is a healing fracture in reasonable position at the site. No new abnormalities are identified. Report Dictated on Final Dictating Physician: MD RILEY RISA Signed Date and Time: 05/22/2017 5:31 pm Signed by: MD RILEY RISA Transcribed Date and Time: 05/22/2017 5:32 CR WRIST COMPLETE 3 Observed: 05/22/2017 Status: F Source: cortical.io LEFT 5:16 PM SYSTEM REPOSITORY Patient Name: EDGARDO JAY Diagnostic Radiology Exam Date/Time 05/22/2017 14:07:09 EST Exam CR Wrist Complete 3 Views Left Ordering Physician MD LIU DEREK J Accession Number [id number] CPT4 Codes 16552 () Reason For Exam Closed fracture of distal end of left radius with routine healing Report Left wrist: 05/22/2017. CLINICAL INFORMATION: Follow-up fracture. FINDINGS: Three views of the left wrist were compared to the prior study 04/17/2017. An orthopedic plate and screw device is stabilizing a healing fracture of the distal radial diaphysis. The overall position and is reasonable and unchanged. There is a healing fracture of the ulnar styloid unchanged from the prior study. No new bony abnormalities are identified. Report Dictated on Final Dictating Physician: MD RILEY RISA Signed Date and Time: 05/22/2017 5:17 pm Signed by: MD RILEY RISA Transcribed Date and Time: 05/22/2017 5:18 CR CHEST PORTABLE Observed: 05/22/2017 Status: F Source: [employer] 2:28 PM SYSTEM REPOSITORY Patient Name: EDGAROD JAY Diagnostic Radiology Exam Date/Time 05/22/2017 14:20:00 EST Exam CR Chest Portable Ordering Physician MD BAÑUELOS VIJAY Accession Number [id number] CPT4 Codes 99738 () Reason For Exam shortness of breath Report CHEST (Frontal View) History: Dyspnea Comparison: 03/06/2017 Findings: Frontal chest view shows interstitial prominence without acute lung infiltrate or congestion. The lungs are more clear compared to last exam. The heart is normal in size. There is no mediastinal widening or pleural effusion. IMPRESSION: No acute pulmonary process.. Report Dictated on Final Dictating Physician: MD EVANS AHMAD Signed Date and Time: 05/22/2017 2:29 pm Signed by: MD EVANS AHMAD Transcribed Date and Time: 05/22/2017 2:30 ALLERGIES ALLERGIES DATE TYPE / CODE NAME / CODE REACTION SEVERITY SOURCE 04/06/2018 Drug No Known Unknown [facility] Allergy/784061213( Allergies/F[address]) 567712(RXNORM) Repository 03/13/2018 Drug No Known [facility] Allergy/708197528( Allergies/F001 [facility]OM[facility]) 058302(RXNORM) Center Repository Drug No Known [facility] Allergy/304599287( Allergies/[address]) 88(RXNORM) Repository Drug NO KNOWN [facility] Class/279877858(SN ALLERGIES Other [place] OMED CT) Repository Drug/660676272(SNO No Known Restoration[facility] MED CT) Allergies [facility] Repository Miscellaneous No Known Drug Moderate Osmar Harvey Allergy/247163052( Allergies (Severity [facility] SNOM[facility]) Modifier) Repository (Qualifier Value) ENCOUNTERS ENCOUNTERS ADMIT/DISCHARGE ACCOUNT NUMBER ADMITTING ENCOUNTER LOCATION SOURCE CLASS 04/20/2018/ [id number] Emergency 11193Zuxgehox: [facility] 018 EMERRoom: [facility] FH95Dfl: 1 Center Repository 04/11/2018/ [id number] Emergency .Building:ER1 [place] [address] [place] [address] Repository 04/06/2018/ [id number] Emergency [place] ng:ED Repository 03/19/2018 [id number] Ambulatory [facility] System Repository 03/15/2018 [id number] Emergency BuildinA [facility] EDRoom: System 444Bed: Repository [id number] 03/14/2018 [id number] Emergency Building:[facility] System Repository 03/14/2018/ [id number] JAY, Emergency Building:EMRRo Mary 018 INNIS om: BG96Qdt: [address] System Repository 03/13/2018/ [id number] Emergency [place] [address] MEDBuilding:ED [facility] Repository 03/09/2018/ [id number] [facility], Ambulatory [facility] 018 [facility] LiveBuilding:E Repository MERGENCY DEPTRoom: EF4Bed: A 03/04/2018/ [id number] Dr. [facility] [address] ing:A1E [facility] [place] DeptRoom: A1E [facility] X6GGJkk: A1E Repository A1ED20 03/03/2018/ [id number] Emergency [address] [place] Repository 03/02/2018/ [id number] Peter Miguel Emergency [facility] 018 [facility] ng: EDRoom: Health System Repository 03/02/2018/ [id number] Emergency CHBuilding:ED [place] 018 [facility] Repository 03/02/2018 [id number] Ambulatory 9509 [facility] Repository 03/01/2018/ [id number] Emergency BuildinEDR [facility] 018 oom: F554Moi: System ([place]) E010 Repository 02/28/2018/ [id number] Emergency BuildinEDR [facility] 018 oom: K175Dyc: System ([place]) E006 Repository 02/24/2018/ [id number] [place], Emergency BuildinRo Osmar Pomerene 018 ROSALIO Álvarez om: ERBed: [address] Repository 02/24/2018/ [id number] OSMAR, Ambulatory Osmar Pomerene 018 [facility] Repository 02/21/2018/ [id number] DR JOANN Emergency BuildinRo Osmar Pomerene 018 ROSENDO Gregorio om: ERBed: [facility] Repository 02/20/2018/ [id number] BRITTNI, Emergency BuildinRo Osmar Pomerene 0[address] DR MAXIMO Moreno om: ERBed: [facility] Repository 02/19/2018/ [id number] Emergency UNIBuilding:ED [address] Repository 02/18/2018/ [id number] Emergency ABuilding:[address] Repository 02/18/2018 [id number] Emergency [facility] [place] :H.ED Repository 02/16/2018/ [id number] [place] Ambulatory ABuilding:[facility] MARTHA Heath MD, V. Room: 2660Bed: [facility] Repository 02/16/2018/ [id number] Emergency Maria Del Carmen [facility] 018 [facility] ng:ED Repository 02/15/2018/ [id number] Emergency BBuilding:[address] Repository 02/13/2018/ [id number] Emergency BBuilding:[address] Repository 02/11/2018/ [id number] Emergency [place] Maria Del Carmen 018 [facility] ng:ED Repository 02/11/2018/ [id number] Emergency Maria Del Carmen [place] 018 [facility] ng:ED Repository 02/10/2018/ [id number] Emergency Maria Del Carmen [facility] 018 [facility] ng:ED Repository 01/08/2018 [id number] Ambulatory [facility] System Repository 01/07/2018/ [id number] MERCED LIU Ambulatory [facility] 018 [facility] Repository 12/25/2017 [id number] Ambulatory [facility] System Repository 12/10/2017 [id number] Ambulatory [facility] System Repository 12/06/2017/ [id number] Emergency [place] 018 [facility] ng:ED Repository 12/04/2017 [id number] Ambulatory [facility] System Repository 12/04/2017 [id number] Ambulatory [facility] [employer] System Repository 11/18/2017 [id number] Ambulatory BuildinB [facility] WSDSRoom: 2B System WSDSBed: Repository [id number] 08/29/2017/ [id number] DR JOANN Emergency BuildinRo Osmar Blaskin 018 ROSENDO C om: ERBed: [facility] Repository 08/12/2017 [id number] Ambulatory [facility] [place] [facility] 07/10/2017 [id number] Ambulatory [facility] System Repository 07/09/2017 [id number] Ambulatory [facility] System Repository 05/22/2017 [id number] Emergency BuildinB [facility] EDRoom: System 3D757Mlf: Repository [id number] 05/22/2017 [id number] Ambulatory [facility] System Repository PAYERS PAYERS ENCOUNTER GUARANTOR PAYER SUBSCRIBER SOURCE 04/20/2018 EDGARDO Primary Insurance:OTHER EDGARDO [facility] CHANEYDOB: COMMERCIAL INSPolicy CHANEYDOB: [facility] [id number] Number: Effective [id number] [facility] RD Date:2008-04-21 [facility] [address] 565[place], [id number] [address] [place] [address]Hpy: Name:Kim [facility] [address]05[address]Udd: Jensen MERRILL 20097XT: (HP) (HP) () 04/11/2018 EDGARDO Guan Primary Insurance:THE EDGARDO Guan [place] [facility] [facility] [address] Number: Repository [address] [place] [address] [id number] [place] [address]Fyt: Date:1109 [facility] MD () 714[address]WZ: 04/06/2018 EDGARDO SKAGGS Primary EDGARDO GILES [facility]7990 TR Insurance:HEALTH PLAN [facility]: [address] [id number] Repository [place] [address]Faq: VALLEYPolicy Number: [id number] () Date: [facility] MD 89641SN: 04/06/2018 Secondary [facility] Insurance:SELF PAY Hospital INSURANCEPolicy Number: Repository Effective Date:2018-04-06 03/19/2018 Edgardo Skaggs Primary Edgardo Giles [facility]: Insurance:Workers [facility] HospitalD[facility] System Repository [id number] CompensationPolicy [id number] Number: Effective Date: [address] [place] [address] 03/19/2018 Secondary Insurance:The [place] [facility]: System Repository Number: Effective Date: [id number] 03/15/2018 Edgardo Skaggs Primary Insurance:The Edgardo Giles [facility]: [facility]: System Repository [id number] Number: Effective Date: [id number] [address] [address]Xqa: (HP) 03/14/2018 EDGARDO B Primary EDGARDO Wood [facility]: Insurance:HEALTH[facility]AN [facility]: [facility] [id number] [facility] [address] Number: [address], [id number] RO[place] [address]Khd: Date: [address] [place] [address], [place] [address]Ebl: (HP) (HP) 03/14/2018 EDGARDO B Primary EDGARDO Wood [facility]: Insurance:[facility]AN [facility]: [facility] [id number] [address] [facility] Number: [address], [id number] ROAD [place] [address]Bwq: Date: [address] [place] [address], [place] [address]Jcd: (HP) (HP) 03/13/2018 EDGARDO B Primary Insurance:[facility] EDGARDO Guan [place] [id number] [facility]: [facility] [address]Fbyegr Number: [id number] [place] Repository [address] [place] [address], [id number] [address] [facility] [place] [address]Akv: Date:[address], [place], [place] [address]Cjs: (HP) [address]GK: (HP) 03/09/2018 EDGARDO Primary Insurance:[facility]: HEALTH [facility]: [facility] Number: [id number] [facility] [id number] [address], Date: ROAD [place] [address]Kqa: MAIN [address], [address]RL: [place] [address] (HP) 03/04/2018 Primary EDGARDO [facility] Insurance:Health Plan CHANEYDOB: [facility] RdPolicy [id number] [facility] Number: 90 [facility] Repository [id number] [address] [place] [address], Date:Plan Name:Health [place] [address]Nej: (HP) 03/02/2018 EDGARDO Freida Primary EDGARDO [facility]: Insurance:COMMERCIAL CHANEYDOB: [facility] INSURANCEPolicy Number: [id number] [facility] [address] Effective [address] [place] [address], Date:2018-03-02 [place] [id number] [address]Fby: Name:CD:[id number] [place] [address]Fmx: (HP) [address]GN: (HP) () 03/02/2018 EDGARDO Freida Primary Insurance:THE [facility]7990 HEALTH [facility] Hospital[facility] Number: [id number] Repository [address] [place] [address], [id number] [address] [facility] [address]Dzw: Date:[address], (HP) [address]OJ: [place] [address]Lsd: () 03/02/2018 EDGARDO Primary Insurance:Self [facility] CenterB: PayPolicy Number: [facility]: [facility] Effective Date:Plan [id number] [facility] Name:[address] [place] [address] [place] [address] 02/24/2018 EDGARDO SKAGGS Primary Insurance:THE EDGARDO Harvey [facility]ITALD[facility]: HEALTH [facility]ic[facility] HospitalB: [facility] Number: [id number] [id number] [address] [place] [address], Date:Plan Name:[address] [id number]: (HP) 02/21/2018 EDGARDO SKAGGS Primary EDGARDO Harvey [facility]: Insurance:[facility]: [facility] [id number] [address] Number: [address] [place] [address], [id number] [address] [place] [address] Date:Plan Name:[facility] [id number]: (HP) 02/20/2018 EDGARDO SKAGGS Primary Insurance:THE EDGARDO Harvey [facility]: HEALTH [facility]B: [facility] Number: [id number] [address] [id number] [address] [place] [address], Date:Plan Name:[address] [id number]: (HP) 02/19/2018 EDGARDO Guan Primary Insurance:THE EDGARDO Guan [address] Number: Repository [address] [place] [address], [id number] [place] [address]Uho: Date:2017-08-19 (HP) 02/18/2018 EDGARDO Guan Primary Insurance:THE EDGARDO Freida [facility]: HEALTH PLAN [facility]: [facility] Number: [id number] Repository [facility] [address] [id number] [address], Date:2018-02-18 - road [place] [address]Wjz: [id number] [place] [address], Name:Kim [place] [address]Zdl: (HP) RYANNE monroy [address]JN: (HP) (WP) 02/18/2018 EDGARDO Guan Primary Insurance:THE EDGARDO [place]7990 HEALTH PLAN [facility] Number: Repository [address] [place] [address], [id number] [place] [address]Akk: Date:MEDICAL [id number] Jensen Zaldivar (HP) [address]JS: 02/16/2018 EDGARDO Freida Primary Insurance:THE [facility]: HEALTH PLAN [facility] CenterB: [facility] Number: [id number] Repository [facility] [address] [id number] [address] [place] [address], Date:2018-02-16 - road [place] [address]Wst: [id number], Name:[id number] [facility] [address]Thr: (HP) [place] [address]FB: (HP) (WP) 02/16/2018 EDGARDO GILES Primary EDGARDO Joyce [facility] HealthEY7990 TR Insurance:HEALTH [facility]: [address] [id number] Repository [place] [address]Mpa: VALLEYPolicy Number: [id number] (HP) Date: RYANNE ZALDIVAR [address]UP: 02/16/2018 Secondary NOT [facility] Insurance:SELF PAY Hospital INSURANCEPolicy Number: Repository Effective Date:2018-02-16 02/15/2018 EDGARDO Freida Primary Insurance:THE [facility]: HEALTH PLAN [facility] CenterD[facility]: [facility] Number: [id number] Repository [facility] [address] [id number] [address] [place] [address], Date:2018-02-15 - road [place] [address]Pub: [id number] [address] [place] [address], Name:[id number] [facility] [address]Itx: (HP)Tel: (000) Jensen monroyV 000-0000 (WP) [address]CP: (HP) (WP) 02/13/2018 EDGARDO KELLER [facility] Insurance:THE EDGARDO KELLER [facility]: HEALTH PLAN [facility]: [facility] Number: [id number] Repository [facility] [address] [id number] [address] [place] [address], Date:2018-02-13 - road [place] [address]Ltc: [id number] [address] [place] [address], Name:[id number] [facility] [address]Ttm: (HP)Tel: (000) ben [place] 000-0000 (WP) [address]TH: (HP) (WP) 02/11/2018 EDGARDO SKAGGS [facility] EDGARDO SKAGGS [facility] IncEY7990 TR Insurance:[facility]ALTH [facility]AN [facility]: [address] [id number] Repository [place] [address]Pmd: VALLEYPolicy Number: [id number] (HP) Date: [facility] Jensen MONROY [address]PP: 02/11/2018 Secondary NOT [facility] Insurance:SELF PAY Hospital INSURANCEPolicy Number: Repository Effective Date:2018-02-11 02/11/2018 EDGARDO SKAGGS [facility] EDGARDO Joyce [facility] [id number] TR Insurance:HEALTH PLAN [facility]OSPITALB: [address] [id number] Repository [place] [address]Api: VALLEYPolicy Number: [id number] (HP) Date: [place], [place] [address]LF: 02/11/2018 Secondary [facility] Insurance:SELF PAY Hospital INSURANCEPolicy Number: Repository Effective Date:2018-02-11 02/10/2018 EDGARDO SKAGGS [facility] EDGARDO SKAGGS [facility] IncEY7990 TR Insurance:HEALTH PLAN CHANEYDOB: [address] [id number] [place]ository [place] [address]Xgb: VALLEYPolicy Number: [id number] (HP) Date: [place], [place] [address]PS: 02/10/2018 Secondary [facility] Insurance:SELF PAY Hospital INSURANCEPolicy Number: Repository Effective Date:2018-02-10 01/08/2018 Edgardo Skaggs [facility] Edgardo Skaggs [facility] Hospit[facility]: Insurance:Workers ChaneyDOB: System Repository CompensationPolicy [id number] [facility] [address] Number: Effective Date: [address] [place] [address]Oqx: () 01/07/2018 EDGARDO SKAGGS [facility] EDGARDO Harvey CHANEYDOB: Insurance:HEALTH CHANEYDOB: [facility] [employer] [id number] RECURRINGPolicy Number: [address] [place] [address], [id number] [address] [place] [address] Date:Plan Name:[facility] [id number]: () 01/07/2018 Secondary EDGARDO Harvey Insurance:HEALTH CHANEYDOB: [facility] MANAGEMENT [employer] [id number] Repository RECURRINGPolicy Number: [address] [id number] [place] [address], Date:Plan Name:[facility] [id number] 12/25/2017 Edgardo Skaggs [facility] Edgardo Coughlin [facility] ChaneyDOB: Insurance:Workers ChaneyDOB: System Repository [facility] [id number] Number: Effective Date: [address] [place] [address]Ddc: () 12/25/2017 Secondary Insurance:The [facility] Ch[facility] System Repository Number: Effective Date: [id number] 12/10/2017 Edgardo Skaggs [facility] ChaneyDOB: Insurance:Workers ChaneyDOB: System Repository CompensationPolic [id number] [address] Number: Effective Date: [address], [place] [address]Jua: () 12/10/2017 Secondary Insurance:The [facility] ChaneyDOB: System Repository Number: Effective Date: [id number] 12/06/2017 [facility] Insurance:HEALTH PLAN CHANEYDOB: Hospital [address] [facility] [id number] Repository [address] [place] [address] Number: [place] [id number]: [id number] Date: () [place], [place] [address]UR: 12/06/2017 Secondary [facility] Insurance:SELF PAY Hospital INSURANCEPolicy Number: Repository Effective Date:2017-12-06 12/04/2017 [facility] ChaneyDOB: Insurance:Workers ChaneyDOB: System Repository [facility] [id number] Number: Effective Date: [address] [place] [address]Ert: () 12/04/2017 [facility] Hospit[facility]: Insurance:Workers ChaneyDOB: System Repository [facility] [id number] [address] Number: Effective Date: [address], [place] [address]Pqb: (HP) 12/04/2017 Secondary Insurance:The Edgardo Skaggs [facility]: System Repository Number: Effective Date: [id number] 11/18/2017 Edgardo Skaggs [facility]: Insurance:Workers ChaneyDOB: System Repository [facility] [id number] [address] Number: Effective Date: [address], [place] [address]Kuh: (HP) 08/29/2017 EDGARDO SKAGGS Primary Insurance:THE EDGARDO Prasad [facility] HEALTH [facility]: [facility] Number: [id number] [address] [id number] [address], Date:Plan Name:[address] [id number]: () 08/12/2017 EDGARDO Guan Primary Insurance:THE EDGARDO Guan [facility] [facility] [address] Number: Repository 565[facility] [id number] [address]Kbu: Date:MEDICAL [id number] [place], [place] () [address]JN: 07/10/2017 [facility] Skaggs [facility]: Insurance:Workers ChaneyDOB: System Repository [facility] [id number] Number: Effective Date: [address], [place] [address]Lxd: () 07/09/2017 [facility]aggs [facility] Insurance:Workers ChaneyDOB: System Repository [facility] [id number] [address] Number: Effective Date: [address], [place] [address]Jia: (HP) 05/22/2017 Edgardo Skaggs Primary Insurance:The [facility] HospitalB: [facility] PlanNorth [facility] Medical CenterB: System Repository Number: Effective Date: [id number], [place] [address]Wkw: () 05/22/2017 Edgardo Skaggs [facility]: Insurance:Workers [facility] System Repository [id number] CompensationPolicy [id number] Number: Effective Date: [address], [place] [address]Eiq: () 05/22/2017 Secondary Insurance:The [facility]: System Repository Number: Effective Date: [id number]
== END 2018-04-06 02:44 | disposition left against medical advice (07) ==
LOC: ED 00:57
PROVIDERS: Emergency Provider Emergency Medicine
DX: R10.31 Right lower quadrant pain (principal); G89.29 Other chronic pain; R11.2 Nausea with vomiting, unspecified; I10 Essential (primary) hypertension; F32.9 Major depressive disorder, single episode, unspecified
CPT/HCPCS: 80053; 81001; 83690; 85025; 96361; 96374; 96375; 99282; J7030; A4216; J2405

== ENCOUNTER 2020-01-12 01:22 | Emergency (ER) | payer SELFPAY ==
[2020-01-12 01:24] VITALS: BP 155/104; PULSE 84; RESP 15; TEMP 37.1; O2SAT 99; BMI 32.7
[2020-01-12 01:41] LABS: Mucous, Urine 0 SEEN /hpf (<or=2+); Squamous Epithelial Cells - UA 0 SEEN /hpf (0-5); White Blood Cells 0 SEEN /hpf (0-5)
[2020-01-12 01:46] LABS: Color, Urine Yellow (Yellow); Glucose, Dipstick Normal (Normal); Ketone-Dipstick Negative (Negative); Leukocyte Esterase-Dipstick Negative /ul (Negative); Nitrite-Dipstick Negative (Negative); Occult Blood-Urine 250 /ul (Negative); Protein-Dipstick Negative (Negative); Specific Gravity, Urine 1.015 (1.002-1.030); Urine Bilirubin Dipstick Negative (Negative); Urine Clarity Clear (Clear); Urine Urobilinogen Normal (Normal)
[2020-01-12 01:54] LABS: Absolute Lymphocyte Count 3.33 X10^3/uL (0.83-4.51); Absolute Neutrophil Count 4.8 X10^3/uL (2.0-7.7); Basophil# 0.06 X10^3/uL; Basophil% 0.7 % (0-1); Eosinophil# 0.21 X10^3/uL; Eosinophils% 2.3 % (0-5); Hematocrit 45.3 % (40-54); Hemoglobin 15.5 g/dL (13.0-16.5); Lymphocyte # 3.33 X10^3/ul (4.0); Mean Corp Hgb Conc 34.2 g/dL (32-36); Mean Corpuscular Volume 87.6 fL (80-94); Mean Platelet Vol. 11.2 fl (6.2-12.0); Monocyte% 6.7 % (0-10); NRBC Flagged by Analyzer 0 % (0-5); Neutrophil # 4.77 X10^3/uL (2.7-7.7); Neutrophil % 52.9 % (47-70); Platelet Count 276 K/mm3 (150-450); RBC Distribution Width SD 40.9 fl (35.1-43.9); Red Blood Count 5.17 M/mm3 (4.6-6.2)
[2020-01-12 01:55] LABS: Red Blood Cells-Urine 50-100 SEEN /hpf (0-5)
[2020-01-12 01:56] LABS: Amorphous Sediment 2+; Bacteria RARE /hpf (None Seen)
--- NOTE | 2020-01-12 02:02 | CT_ITS ---
STUDY: CT ABDOMEN AND PELVIS WITHOUT CONTRAST REASON FOR EXAM: Male, 39 years old. Left flank pain. RADIATION DOSAGE (If Supplied By Facility): CTDIvol = ( 16.34 ) mGy, DLP = ( 886.12 ) mGycm TECHNIQUE: Transaxial images were obtained from the dome of the diaphragm to the symphysis pubis without oral contrast, and without intravenous contrast. Sagittal and coronal images were reconstructed. Individualized dose optimization techniques were used for this CT. COMPARISON: February 12, 2018. FINDINGS: The visualized lung bases are unremarkable. The visualized portions of the heart are within normal limits. Normal liver. Normal gallbladder and extrahepatic biliary system. Normal spleen. Normal pancreas. Normal bilateral adrenal glands. Normal right kidney. Normal left kidney. Normal visualized stomach. Normal small intestine. Normal colon. There are surgical clips in the region of the appendix suggestive of a prior appendectomy. Normal abdominal aorta. Normal inferior vena cava. Normal retroperitoneum. No intra-abdominal free air. Normal urinary bladder. Normal visualized prostate gland. Normal abdominal wall. Normal osseous structures. CT/Abdomen/Pelvis without Cont IMPRESSION: No acute findings in the abdomen or pelvis. No hydronephrosis or urinary tract stones. Electronically Signed: Floyd Cain MD at 2:38 EDT , Service support ,
--- NOTE | 2020-01-12 02:03 | ED.DCSUM_ITS ---
History of Present Illness Chief Complaint: Flank Pain Informant: Patient Narrative: The 39-year-old male presenting with left flank pain for last 24 hours. It is intermittent. It feels sharp. It radiates to the lower abdomen. He does not have a history of kidney stones but states his family has an extensive history. He has associated symptoms of nausea. He has not had fever or chills. No diarrhea or constipation. Past Medical History - Allergies and Home Meds Allergies/Adverse Reactions: Allergies No Known Allergies Allergy (Verified 01/12/20 01:23) Primary Care Physician: Chucky Garcia MD [Primary Care Provider] - Prior records reviewed: Yes Past Medical History: - - Hypertension Lives: With Family Smoking Status: Never smoker Alcohol: None Drugs: None Review of Systems General: Denies: Chills, Fever, Sweats Eyes: Denies: Visual changes - bilaterally, Diplopia ENT: Denies: Rhinorrhea, Sore throat Cardiovascular: Denies: Chest pain, Palpitations Respiratory: Denies: Dyspnea, Cough, Dyspnea on exertion Gastrointestinal: Reports: Nausea. Denies: Abdominal pain, Vomiting Genitourinary: Reports: Hematuria Musculoskeletal: Reports: Back pain. Denies: Myalgias Skin: Denies: Rash, Abscess Neurological: Denies: Headache, Weakness Physical Exam Vital Signs/Narrative: Vital Signs Temp Pulse Resp BP Pulse Ox 01/12/20 01:24 98.7 F 84 15 155/104 H 99 Inital Vital Signs reviewed: Yes General: Well nourished, No Acute Distress Head: Normocephalic, Atraumatic Eyes: Perrl, EOMI Cardiovascular: Regular rate, Regular rhythm Respiratory: No distress, CTA bilaterally Abdomen: Soft, Nontender, Nondistended Back: CVA tenderness - Left. Negative for: Spinal tenderness Extremities: Nontender, No edema Skin: Normal color, No rash Neurological: Alert, Oriented x3 Psychological: Normal affect Diagnostic/Tx/Re-eval Clinical Impression(s) from Imaging Studies Abdomen/Pelvis CT 01/12/20 02:02 IMPRESSION: No acute findings in the abdomen or pelvis. No hydronephrosis or urinary tract stones. Electronically Signed: Floyd Cain MD at 2:38 EDT , Service support , Laboratory Data 01/12/20 01/12/20 01/12/20 01:30 01:35 01:35 WBC 9.0 RBC 5.17 Hgb 15.5 Hct 45.3 MCV 87.6 MCH 30.0 MCHC 34.2 RDW Std Deviation 40.9 RDW Coeff of Reva 13.0 Plt Count 276 MPV 11.2 Immature Gran % (Auto) 0.400 Neut % (Auto) 52.9 Lymph % (Auto) 37.0 [place] % (Auto) 6.7 Eos % (Auto) 2.3 Baso % (Auto) 0.7 Absolute Neuts (auto) 4.8 Absolute Lymphs (auto) 3.33 Nucleated RBC % 0 Sodium 136 Potassium 3.6 Chloride 102 Carbon Dioxide 24.0 Anion Gap 10 BUN 20 H Creatinine 1.33 H Estim Creat Clear Calc 82.66 Est GFR (MDRD) Af Amer 77 Est GFR (MDRD) Non-Af 64 BUN/Creatinine Ratio 15.0 Glucose 107 H Calcium 8.6 Urine Color Yellow Urine Clarity Clear Urine pH 8.0 Ur Specific [place] 1.015 Urine Protein Negative Urine Glucose (UA) Normal Urine Ketones Negative Urine Occult Blood 250 H Urine Nitrite Negative Urine Bilirubin Negative Urine Urobilinogen Normal Ur Leukocyte Esterase Negative Urine RBC 50-100 SEEN Urine WBC 0 SEEN Ur Squamous Epith Cells 0 SEEN Amorphous Sediment 2+ Urine Bacteria RARE Urine Mucus 0 SEEN - Medical Decision Making Seen and evaluated on arrival. Vital signs are stable and he is afebrile. He has complete of left flank pain and concern for kidney stone. His urinalysis shows hematuria without infection. CT of the abdomen pelvis without contrast does not show a kidney stone or hydronephrosis but I feel he likely passed a stone. He was still having pain so he was treated with Toradol and morphine. He was given a short supply of Percocet and Zofran for home. He is stable for discharge at this time. Impression: 1. Hematuria 2. Likely passed kidney stone ED Disposition - Plan for ED Patient: Disposition: Home or Assisted Living Instructions: ED RENAL STONE Passed Prescriptions: Oxycodone HCl/Acetaminophen [Percocet 5/325] 1 tab PO Q6H PRN PRN 3 Days #12 tab PRN Reason: pain Prescription Printed Ondansetron [Zofran Odt] 4 mg PO Q8H PRN PRN #12 tab PRN Reason: Nausea Prescription Printed Referrals: Chucky Garcia MD [Primary Care Provider] -
[2020-01-12] MEDS: Ketorolac 15 MG/ML Vial IV (02:10)
[2020-01-12] MEDS: Ondansetron 4 MG/2 ML Vial IV (02:10)
[2020-01-12 02:40] LABS: Anion Gap 10 (5-15); BUN 20 mg/dL (7-18); Calcium,Total 8.6 mg/dL (8.5-10.1); Chloride 102 mmol/L (98-107); Creatinine, Serum 1.33 mg/dL (0.70-1.30); EST Glomerular Filtration Rate 64 mL/min (>60); Est Glom Filt Rate - Afr Amer 77 mL/min (>60); Estimated Creatinine Clearance 82.66 ml/min; Glucose 107 mg/dL (74-106); Potassium 3.6 mmol/L (3.5-5.1); Sodium Level 136 mmol/L (136-145)
[2020-01-12] MEDS: Morphine 4 MG/ML Syringe IV (02:40)
[2020-01-12] MEDS: oxyCODONE 5 MG Tablet PO (03:39)
[2020-01-12 03:40] VITALS: BP 159/94; PULSE 77; RESP 18; O2SAT 96
== END 2020-01-12 03:40 | disposition home or self-care (01) ==
PROVIDERS: Emergency Provider Student in an Organized Health Care Education/Training Program; PCP Internal Medicine
DX: R31.9 Hematuria, unspecified (principal); R10.9 Unspecified abdominal pain; I10 Essential (primary) hypertension; R11.0 Nausea
CPT/HCPCS: 74176; 80048; 81001; 85025; 96372; 96374; 96375; 99284; A4216; J2405

== ENCOUNTER 2020-03-26 22:46 | Emergency (ER) | payer BC, SELFPAY ==
[2020-03-26 22:47] VITALS: BP 189/102; PULSE 128; RESP 18; TEMP 36.5; O2SAT 100; BMI 32.0
--- NOTE | 2020-03-26 22:53 | CT_ITS ---
HISTORY: RT FLANK PAIN,hematuriahx: stones ADDITIONAL HISTORY: None provided. EXAMINATION/TECHNIQUE: CT Abdomen And Pelvis W/O Contrast Injection Enteric contrast was not given. Number of images including paperwork: 503. A radiation dose optimization technique was used for this scan. COMPARISON: 01/12/2020 FINDINGS: Evaluation of the abdominopelvic organs is limited in the absence of contrast. LOWER THORAX: No consolidation or pleural effusion. LIVER: No concerning focal lesion. GALLBLADDER: No radiopaque calculi. BILE DUCTS: No significant biliary dilatation. SPLEEN: Unremarkable. PANCREAS: Unremarkable. ADRENAL GLANDS: Unremarkable. KIDNEYS/URETERS: Unremarkable. BOWEL: No bowel obstruction. No significant bowel wall thickening. No localized inflammation. Mildly prominent small bowel and colonic fluid. APPENDIX: No evidence of appendicitis. FREE FLUID: No significant free fluid. FREE AIR: None. LYMPH NODES: No pathologic appearing adenopathy. PERITONEUM, RETROPERITONEUM AND MESENTERY: Otherwise unremarkable. VASCULATURE: Unremarkable as imaged. ABDOMINAL WALL: Unremarkable. PELVIS: Unremarkable bladder. OSSEOUS AND SOFT TISSUE STRUCTURES: No acute skeletal findings. CT/Abdomen/Pelvis without Cont IMPRESSION: Mildly prominent small bowel and colonic fluid, a nonspecific finding which can be seen with enteritis. Individualized dose optimization techniques were used for this CT. at 7839 Reported and signed by: Ely Carson MD Electronically Signed: Ely Carson MD at 23:59 EST Tel , Service support ,
--- NOTE | 2020-03-26 22:54 | ED.DCSUM_ITS ---
History of Present Illness Chief Complaint: Flank Pain Informant: Patient Narrative: 39-year-old male with no significant past medical history presents with concern for right flank pain. States is been present intermittently over the past 2 days. Worsened today. Intermittent nausea. Describes the pain as sharp and radiating into his right groin. States that he was seen here approximately 3 months ago with similar symptoms and diagnosed with a likely passed kidney stone. Patient states that he has noticed some blood in his urine. Denies any fever or chills. Patient had followed up with urologist with a negative work- up. Past Medical History - Allergies and Home Meds Allergies/Adverse Reactions: Allergies No Known Allergies Allergy (Verified 01/12/20 01:23) Primary Care Physician: Chucky Garcia MD [Primary Care Provider] - Prior records reviewed: Yes Past Medical History: None Lives: Spouse/ Significant Other Smoking Status: Never smoker Alcohol: None Drugs: None Review of Systems General: Denies: Chills, Fever, Sweats Eyes: Denies: Visual changes - bilaterally, Diplopia ENT: Denies: Rhinorrhea, Sore throat Cardiovascular: Denies: Chest pain, Palpitations Respiratory: Denies: Dyspnea, Cough, Dyspnea on exertion Gastrointestinal: Reports: Abdominal pain, Nausea. Denies: Vomiting, Diarrhea, Melena, Hematochezia Genitourinary: Denies: Dysuria, Hematuria, Frequency Musculoskeletal: Denies: Back pain, Extremity Pain Skin: Denies: Rash, Wounds Neurological: Denies: Headache, Weakness, Numbness Physical Exam Vital Signs/Narrative: Vital Signs Temp Pulse Resp BP Pulse Ox 03/26/20 22:47 97.7 F L 128 H 18 189/102 H 100 Inital Vital Signs reviewed: Yes General: Well nourished, Well developed, No Acute Distress Head: Normocephalic, Atraumatic Eyes: Perrl, EOMI ENT: Moist mucous membranes, No rhinorrhea Neck: Supple, Nontender Cardiovascular: Regular rate, Regular rhythm, No murmurs Respiratory: No distress, CTA bilaterally, Chest nontender Abdomen: Soft, Nondistended, Normal bowel sounds, - - Tenderness to palpation in the right flank. Back: Nontender, Normal Inspection Extremities: Nontender, No edema Skin: Normal color, No rash Neurological: Alert, Oriented x3, Cranial nerves II-XII grossly intact, Normal Strength, Normal Sensation Psychological: Normal affect, Normal Mood Diagnostic/Tx/Re-eval Clinical Impression(s) from Imaging Studies Abdomen/Pelvis CT 03/26/20 22:53 IMPRESSION: Mildly prominent small bowel and colonic fluid, a nonspecific finding which can be seen with enteritis. Individualized dose optimization techniques were used for this CT. at 2359 Reported and signed by: Ely Carson MD Electronically Signed: Ely Carson MD at 23:59 EST Tel , Service support , Laboratory Data 03/26/20 03/26/20 03/26/20 23:00 23:08 23:08 WBC 9.4 RBC 5.65 Hgb 16.4 Hct 49.3 MCV 87.3 MCH 29.0 MCHC 33.3 RDW Std Deviation 39.6 RDW Coeff of Reva 12.2 Plt Count 282 MPV 11.1 Immature Gran % (Auto) 1.000 H Neut % (Auto) 56.1 Lymph % (Auto) 32.9 [place] % (Auto) 6.2 Eos % (Auto) 2.9 Baso % (Auto) 0.9 Absolute Neuts (auto) 5.3 Absolute Lymphs (auto) 3.09 Nucleated RBC % 0 Sodium 141 Potassium 3.3 L Chloride 105 Carbon Dioxide 27.0 Anion Gap 9 BUN 15 Creatinine 1.51 H Estim Creat Clear Calc 72.80 Est GFR (MDRD) Af Amer 67 Est GFR (MDRD) Non-Af 55 L BUN/Creatinine Ratio 9.9 L Glucose 105 Calcium 8.8 Total Bilirubin 0.30 AST 25 ALT 41 Alkaline Phosphatase 130 H Total Protein 8.1 Albumin 4.2 Globulin 3.9 Albumin/Globulin Ratio 1.1 Urine Color Yellow Urine Clarity Sl. Cloudy Urine pH 6.5 Ur Specific [place] 1.015 Urine Protein 15 H Urine Glucose (UA) Normal Urine Ketones Negative Urine Occult Blood 250 H Urine Nitrite Negative Urine Bilirubin Negative Urine Urobilinogen Normal Ur Leukocyte Esterase Negative Urine RBC 50-100 SEEN Urine WBC 0-5 SEEN Ur Squamous Epith Cells 0 SEEN Urine Bacteria RARE Urine Mucus 0 SEEN - Medical Decision Making Patient appears well and nontoxic. Initially tachycardic and hypertensive. Patient was given 1 L fluid bolus, morphine, Toradol, and Zofran with concern for ureterolithiasis. CT without contrast shows no stone however patient does have hematuria. Slight increase in creatinine which should be controlled with fluid bolus as well as continued p.o. hydration. Working diagnosis is that patient passed a kidney stone. Patient has seen Dr. Valero before in the past and will follow up with him again. Patient will be given Zofran and advised on Motrin at home. Asked to return for new or worsening symptoms. Discharged home in stable condition. Impression: 1. Right flank pain 2. Hematuria ED Disposition - Plan for ED Patient: Disposition: Home or Assisted Living Instructions: ED Kidney Stone, Passed Prescriptions: Ondansetron [Zofran Odt] 4 mg PO Q8H PRN PRN #10 tab PRN Reason: Nausea Prescription Printed Referrals: Chucky Garcia MD [Primary Care Provider] - 2 Days Additional Instructions: Also follow-up with previously seen urologist. Return for any worsening of pain or inability to tolerate fluids or oral medications.
[2020-03-26 23:09] LABS: Mucous, Urine 0 SEEN /hpf (<or=2+); Squamous Epithelial Cells - UA 0 SEEN /hpf (0-5)
[2020-03-26 23:10] LABS: Color, Urine Yellow (Yellow); Glucose, Dipstick Normal (Normal); Ketone-Dipstick Negative (Negative); Leukocyte Esterase-Dipstick Negative /ul (Negative); Nitrite-Dipstick Negative (Negative); Occult Blood-Urine 250 /ul (Negative); Protein-Dipstick 15 mg/dl (Negative); Specific Gravity, Urine 1.015 (1.002-1.030); Urine Bilirubin Dipstick Negative (Negative); Urine Clarity Sl. Cloudy (Clear); Urine Urobilinogen Normal (Normal); Urine pH 6.5 (5.0 - 8.0)
[2020-03-26] MEDS: 0.9% Normal Saline 1,000 ML 1000 ML IV (23:15)
[2020-03-26] MEDS: Ketorolac 15 MG/ML Vial IV (23:16)
[2020-03-26] MEDS: Ondansetron 4 MG/2 ML Vial IV (23:16)
[2020-03-26 23:17] LABS: Bacteria RARE /hpf (None Seen); Red Blood Cells-Urine 50-100 SEEN /hpf (0-5); White Blood Cells 0-5 SEEN /hpf (0-5)
[2020-03-26] MEDS: Morphine 4 MG/ML Syringe IV (23:17)
[2020-03-26 23:32] LABS: ALB/GLOB Ratio 1.1 RATIO (0.9-2.4); AST(SGOT) 25 U/L (15-37); Alanine Aminotransfer ALT/SGPT 41 U/L (16-61); Albumin, Serum 4.2 g/dL (3.2-5.0); Alkaline Phosphatase 130 U/L (45-117); Anion Gap 9 (5-15); BUN 15 mg/dL (7-18); BUN/Creat Ratio 9.9 RATIO (10-20); Calcium,Total 8.8 mg/dL (8.5-10.1); Chloride 105 mmol/L (98-107); Creatinine, Serum 1.51 mg/dL (0.70-1.30); EST Glomerular Filtration Rate 55 mL/min (>60); Est Glom Filt Rate - Afr Amer 67 mL/min (>60); Globulin 3.9 g/dL (2.2-4.2); Glucose 105 mg/dL (74-106); Potassium 3.3 mmol/L (3.5-5.1); Protein, Total 8.1 g/dL (6.4-8.2); Sodium Level 141 mmol/L (136-145)
[2020-03-26 23:41] LABS: Absolute Lymphocyte Count 3.09 X10^3/uL (0.83-4.51); Absolute Neutrophil Count 5.3 X10^3/uL (2.0-7.7); Basophil# 0.08 X10^3/uL; Basophil% 0.9 % (0-1); Eosinophil# 0.27 X10^3/uL; Eosinophils% 2.9 % (0-5); Hematocrit 49.3 % (40-54); Hemoglobin 16.4 g/dL (13.0-16.5); Lymphocyte # 3.09 X10^3/ul (4.0); Lymphocyte % 32.9 % (19-41); Mean Corp Hgb Conc 33.3 g/dL (32-36); Mean Corpuscular Volume 87.3 fL (80-94); Mean Platelet Vol. 11.1 fl (6.2-12.0); Monocyte# 0.58 X10^3/uL; Monocyte% 6.2 % (0-10); NRBC Flagged by Analyzer 0 % (0-5); Neutrophil # 5.29 X10^3/uL (2.7-7.7); Neutrophil % 56.1 % (47-70); Platelet Count 282 K/mm3 (150-450); RBC Distribution Width CV 12.2 % (11.6-14.6); RBC Distribution Width SD 39.6 fl (35.1-43.9); Red Blood Count 5.65 M/mm3 (4.6-6.2); White Blood Count 9.4 K/mm3 (4.4-11.0)
[2020-03-27 00:52] VITALS: BP 153/88; PULSE 106; RESP 16; O2SAT 100
[2020-03-27] MEDS: oxyCODONE 5 MG Tablet PO (00:54)
== END 2020-03-27 00:59 | disposition home or self-care (01) ==
PROVIDERS: Emergency Provider Emergency Medicine; PCP Internal Medicine
DX: R10.9 Unspecified abdominal pain (principal); R31.9 Hematuria, unspecified; R11.0 Nausea
CPT/HCPCS: 74176; 80053; 81001; 85025; 96361; 96374; 96375; 99283; J7030; A4216; J2405